=== PATIENT | male | born 1995 | race Caucasian/White ===

== ENCOUNTER 2019-02-26 14:11 | Emergency (ER) | payer MEDICAID, SELFPAY ==
[2019-02-26 14:30] VITALS: BP 134/84; PULSE 113; RESP 20; TEMP 36.4; O2SAT 97
--- NOTE | 2019-02-26 14:48 | W.ED.GENAD ---
Discharge Plan Disposition Patient Disposition: HOME Condition: Good Discharge Details Chief Complaint: EarProblem Clinical Impression: Acute foreign body of left ear Primary Care Provider: Gaetano Hdz ED Provider: Jus Goncalves Home Meds and New Rx's Prescriptions: No Action clonidine HCl 0.1 mg Tablet 0.1 mg PO QHS PRNRF: 0 Discharge Instructions Additional Instructions: The ear plug is been removed. I would recommend switching to Teddy's small/child earplugs. They are purple in color. If you notice any worsening pain fever or discharge please return immediately. If you notice any worsening of your symptoms, or any new symptoms such as vomiting, diarrhea, fever, chills, shortness of breath, chest pain, numbness, weakness, or fainting , please return immediately to the emergency department for reevaluation. Please follow up with your primary care provider as soon as possible for reassessment and reevaluation. As always, it was a pleasure participating in your medical care today. Referrals: Gaetano Hdz [Primary Care Provider] - Discharge Data Discharge Date/Time-TO BE ENTERED AT DEPARTURE: 02/26/19 14:52 Medical Decision Making This is a pleasant 23-year-old male who presents today for evaluation of left ear pain. Patient put a ear plug in today, and was unable to remove it. Hemostats were used and extracted it without incident. No pathology or abnormality noted on ear exam after removal. Patient tolerated procedure well will be discharged home. I have extensively reviewed the treatment plan and discharge instructions with the patient and their family. I have addressed all patient concerns at this time. The patient and family was made aware of what symptoms to monitor for that would warrant a return to the emergency department. Discussed the plan with the patient and family, they demonstrate verbal understanding and agreement with our assessment and plan at this time. HPI General Date/Time Provider Initiated Documentation: 02/26/19 14:35. HPI Narrative: This is a pleasant 23-year-old male who presents with a foreign body in his left ear. States that he uses earplugs every night, but unfortunately he was not able to get them out of his left ear today. He tried at home but was unsuccessful. He has no pain. He denies any other complaints of fever chills or headache. No other modifying factors. Related Data Home Medications Medication Instructions Recorded Confirmed clonidine HCl 0.1 mg PO QHS PRN 12/22/19 12/22/19 Allergies Allergy/AdvReac Type Severity Reaction Status Date / Time green pepper Allergy Swelling/Ed Unverified 02/26/19 14:32 feroz General Stated Complaint: EarProblem MARQUISE: 5 Review of Systems All systems reviewed & are unremarkable except as noted in HPI and below [facility] Medical History (Updated 02/26/19 @ 14:34 by Claribel Pelayo) Aorta coarctation (Acute) Abhishek syndrome (Acute) Social History Smoking/Tobacco Use Status: Never Alcohol Intake: never Drug use: Never Substance use type: does not use Exam Narrative Exam Narrative: 1.Const: Well-nourished, Well-developed, appearing stated age 2.Eyes: PERRL, no conjunctival injection, and symmetrical lids. 3.ENT: Atraumatic external nose and ears. Moist MM. Neck: Symmetric, trachea midline, No thyromegaly. Left ear demonstrates an impacted earplug. Ear plug was removed with hemostats, no evidence of infection perforation or abnormality posterior to the. Tympanic membrane intact. 4.CVS: +S1/S2, No murmurs or gallops. Peripheral pulses 2+ and equal in all extremities. Brisk capillary refill in all extremities. 5.RESP: Unlabored respiratory effort. Clear to auscultation bilaterally. No wheezes rales or rhonchi 6.GI: Soft, Nontender/Nondistended, No hepatosplenomegaly. No guarding or rebound. 7.MSK: Normocephalic/Atraumatic, Extremities w/o deformity or ttp No cyanosis or clubbing, Normal movement of all extremities 8.Skin: Warm, Dry. No rashes or lesions. 9.Neuro: line service supervisor II-XII grossly intact. Sensation grossly intact, no focal neurologic deficits. 10.Psych: (AAO) x3. Appropriate mood and affect Course Vital Signs Vital signs: Vital Signs Temperature 36.4 C L 02/26/19 14:30 Pulse 113 H 02/26/19 14:30 Respiratory Rate 20 02/26/19 14:30 Blood Pressure 134/84 02/26/19 14:30 Pulse Oximetry 97 02/26/19 14:30 Temperature 36.4 C L 02/26/19 14:30 Temperature Source Skin 02/26/19 14:30 Pulse 113 H 02/26/19 14:30 Respiratory Rate 20 02/26/19 14:30 Respiratory Effort Non-Labored 02/26/19 14:34 Blood Pressure 134/84 02/26/19 14:30 Blood Pressure Position Sitting 02/26/19 14:30 Pulse Oximetry 97 02/26/19 14:30 Oxygen Delivery Method Room Air 02/26/19 14:30 Oxygen Flow Rate 0 02/26/19 14:30 Pain Level 7 02/26/19 14:30
== END 2019-02-26 14:52 | disposition home or self-care (01) ==
PROVIDERS: Emergency Provider Student in an Organized Health Care Education/Training Program; PCP Neuromusculoskeletal Medicine & OMM
DX: T16.2XXA Foreign body in left ear, initial encounter (principal)
CPT/HCPCS: 69200

== ENCOUNTER 2019-07-04 07:51 | Emergency (ER) | payer MEDICAID, SELFPAY ==
[2019-07-04 08:04] VITALS: BP 141/81; PULSE 100; RESP 16; TEMP 37; O2SAT 100
--- NOTE | 2019-07-04 08:08 | ED.GENADUL_ITS ---
Discharge Plan Disposition Patient Disposition: HOME Condition: Stable Discharge Details Chief Complaint: PsychEval Clinical Impression: Adjustment disorder Primary Care Provider: Gaetano Hdz ED Provider: Naman Coronel Home Meds and New Rx's Prescriptions: No Action clonazepam 1 mg tablet 1 mg PO HS PRN PRNRF: 0 Discharge Instructions Instructions: Stress (ED), Suicide Prevention (ED) Additional Instructions: At this time it appears as though you can be safely discharged home following the plan set forth by the [facility]. Please follow their instructions. I do recommend reaching out to your primary care provider later today for prompt outpatient reevaluation. I also recommend watching for new or worsening symptoms and return to the ER for any concerns. Medical Decision Making 23-year-old gentleman with history of Abhishek syndrome presents to the ER for increased meltdowns and is now having suicidal ideation with plan. Currently he is pleasant and asymptomatic. A CPSO order was placed, routine laboratory values were obtained for medical screening examination, will reach out to [facility] for evaluation and our care management team. Patient remains calm and cooperative during his observation here in the ER. He ate breakfast without difficulty and then had his [facility] evaluation. Patient was evaluated by [facility], please see their note. The plan is to set the patient up with outpatient services, follow-up with outpatient psychiatry and their primary care provider, and encouraged to return to the ER for new or evolving symptoms. Patient feels safe and stable to consent to a safety plan. Mother and patient are both comfortable with this and feels as though hospitalization is not indicated. Patient is currently not suicidal. He is acting appropriate, smiling, absolutely no evidence of active depression, anxiety, suicidal ideation. Laboratory values were unremarkable, no obvious emergent medical condition. Medical Records Medical records reviewed: Yes I reviewed the patient's medical records. Lab Data Lab results reviewed: Yes I reviewed the patient's lab results. Lab results narrative: Laboratory Tests Range/Units 07/04/19 07/04/19 07/04/19 08:30 08:30 09:40 WBC (4.4-10.8) k/cumm 7.01 RBC (4.50-6.00) m/cumm 5.06 Hgb (13.5-17.5) g/dL 14.6 Hct (40.0-50.0) % 42.8 MCV (80-95) fL 84.6 MCH (27.0-33.0) pg 28.9 MCHC (32.0-36.0) g/dL 34.1 RDW (11.8-14.1) % 13.0 Plt Count (130-400) x1000/uL 208 MPV (8.0-11.0) fL 10.5 Immature Gran % % 0.0 Neutrophils % 76.3 Lymphocytes % 16.0 Monocytes % 6.1 Eosinophils % 1.3 Basophils % 0.3 Absolute Neutrophils (1.2-6.7) k/cumm 5.35 Absolute Lymphocytes (1.2-3.4) k/cumm 1.12 L Absolute Monocytes (0.11-0.7) k/cumm 0.43 Absolute Eosinophils (0.0-0.7) k/cumm 0.09 Absolute Basophils (0.0-0.2) k/cumm 0.02 Sodium (136-145) mmol/L 139 Potassium (3.5-5.1) mmol/L 4.0 Chloride (98-107) mmol/L 102 Carbon Dioxide (21.0-32.0) mmol/L 31.0 Anion Gap (3-11) mmol/L 6.0 BUN (7-18) mg/dL 8 Creatinine (0.70-1.30) mg/dL 0.94 Estimated GFR/1.73 m2 (mL/min/1.73m2) >= 60.00 Glucose (74-106) mg/dL 103 Calcium (8.5-10.1) mg/dL 9.1 Total Bilirubin (0.2-1.0) mg/dL 0.3 AST (15-37) U/L 33 ALT (16-63) U/L 45 Alkaline Phosphatase (46-116) U/L 58 Total Protein (6.4-8.2) g/dL 7.9 Albumin (3.4-5.0) g/dL 4.4 TSH (0.36-3.74) uIU/mL 2.38 Urine Color (Yellow) Yellow Urine Clarity (Clear) Clear Urine pH (5-8) 7.5 Ur Specific [place] (1.005-1.025) 1.020 Urine Protein (Negative) mg/dL Negative Urine Ketones (Negative) mg/dL Negative Urine Blood (Negative) Negative Urine Nitrite (Negative) Negative Urine Bilirubin (Negative) Negative Urine Urobilinogen (Up TO 0.2) EU/dL 0.2 Ur Leukocyte Esterase (Negative) Negative Urine Glucose (Negative) mg/dL Negative Ethyl Alcohol (<3) mg/dL < 3.0 HPI General Mode of arrival: ambulatory . Date/Time Provider Initiated Documentation: 07/04/19 08:03 . Limitations to Documentation: other (Abhishek syndrome) . Information obtained by: patient and family . HPI Narrative: This is a 23-year-old gentleman with a history of Abhishek syndrome and aortic coarctation presenting with his mother as he is having frequent meltdowns at night however over the past couple of nights they have resulted in him expressing suicidal ideation, killing himself with a knife. They moved from [place] back in October, he does not deal well with isolation at baseline, so this quarantining secondary to the pandemic is extremely difficult. There is no one trigger that either patient or mother can identify. He reports a stomach bug 2 weeks ago but absolutely no symptoms today. No other illness or trauma. Patient has not ever tried to harm himself. He reports during the day he feels much better and more safe but at night things get much worse. He has been needing a half a milligram of clonazepam, however over the past week or so they have increased to a full milligram each night. Related Data Home Medications Medication Instructions Recorded Confirmed clonazepam 1 mg PO HS PRN PRN 07/04/19 07/04/19 Allergies Allergy/AdvReac Type Severity Reaction Status Date / Time green pepper Allergy Swelling/Ed Unverified 07/04/19 08:00 feroz General MARQUISE: 5 Review of Systems Constitutional Constitutional: Denies fatigue, Denies fever(s) and Denies headache(s) Eyes Eyes: Denies eye discharge ENT Ears, Nose, Mouth, and Throat: Denies headache(s) and Denies sore throat Cardiovascular Cardiovascular: Denies chest pain and Denies dyspnea Respiratory Respiratory: Denies cough and Denies dyspnea Gastrointestinal Gastrointestinal: Denies abdominal pain, Denies diarrhea, Denies nausea and Denies vomiting Musculoskeletal Musculoskeletal: Denies myalgias Integumentary/Breasts Skin/Breast: Denies rash Neurologic Neurologic: Denies headache(s) Psychiatric Psychiatric: Denies paranoia, Denies homicidal ideation and Reports suicidal ideation Endocrine Endocrine: Denies fatigue [facility] Medical History Aorta coarctation (Acute) Abhishek syndrome (Acute) Social History Smoking/Tobacco Use Status: Never Alcohol Intake: never Drug use: Never Substance use type: does not use Do you feel safe at home: Yes Do you feel safe in your relationship?: Yes Exam Const General: cooperative, healthy appearing, comfortable and no acute distress Orientation: alert, awake and oriented x3 HENMT Head: normal to inspection, normocephalic and atraumatic Mouth: moist mucous membranes Throat: posterior oropharynx normal Eyes Conjunctivae: conjunctivae normal Neck Neck: normal visual inspection, full ROM, trachea midline and supple Resp Effort & Inspection: normal respiratory effort and able to speak in complete sentences Auscultation: clear to auscultation bilaterally Cardio Rate: regular rate Rhythm: regular rhythm GI Palpation: soft and nontender Back/Spine/Pelvis Back: No back tenderness Skin General skin exam: no rashes or lesions noted Neuro General: patient alert, patient awake, patient oriented x3, moves all extremities and no focal motor deficits Cranial Nerves: CN's II-XI intact bilaterally Cognition: normal cognition Speech: speech normal Gait: normal gait Motor: muscle tone normal throughout Sensory Exam: no sensory deficits noted Extrem General: normal to inspection and full ROM Psych Appearance: grossly normal Mental Status: mental status grossly normal Affect: normal affect Attitude: cooperative Thought Process: normal Thought Content: normal Insight: insight good Judgment: judgment good
[2019-07-04 08:45] LABS: Absolute Basophil Count 0.02 k/cumm (0.0-0.2); Absolute Eosinophil Count 0.09 k/cumm (0.0-0.7); Absolute Lymphocyte Count 1.12 k/cumm (1.2-3.4); Absolute Monocyte Count 0.43 k/cumm (0.11-0.7); Absolute Neutrophil Count 5.35 k/cumm (1.2-6.7); Basophils % 0.3; Eosinophils % 1.3; HCT 42.8 % (40.0-50.0); HGB 14.6 g/dL (13.5-17.5); Mean Corp. HGB Concentration 34.1 g/dL (32.0-36.0); Mean Corpuscular Hemoglobin 28.9 pg (27.0-33.0); Mean Corpuscular Volume 84.6 fL (80-95); Mean Platelet Volume 10.5 fL (8.0-11.0); Monocytes % 6.1; Neutrophils % 76.3; Platelet Count 208 x1000/uL (130-400); RBC 5.06 m/cumm (4.50-6.00); White Blood Cell Count 7.01 k/cumm (4.4-10.8)
--- NOTE | 2019-07-04 08:45 | NUR.NOTE ---
patient examined by Naman Martinez, labs drawn. Nursing Note:
--- NOTE | 2019-07-04 08:58 | NUR.NOTE ---
food tray ordered for patient. Nursing Note:
--- NOTE | 2019-07-04 09:09 | NUR.NOTE ---
DOMINIQUE IPAD consult being conducted by Pebbles. patient report given to Nba RN Nursing Note:
--- NOTE | 2019-07-04 09:11 | PDOC.CMSAFED ---
- If Service Date Differs Date of service: 07/04/19 Time of Service: 09:11 Care Management Safety Plan Emil is a 23 year old male who presents in the ED with his mother due to suicidal ideation. Emil lives with his parents and has a diagnosis of Abhishek Syndrome, which is a rare genetic disorder that causes developmental and learning disabilities. VOLUNTARY FOR INPATIENT PSYCHIATRIC STABILIZATION. Patient is appropriate in all interactions since arriving at [facility]; Patient has demonstrated appropriate coping and communication skills, has articulated his needs and concerns and is fully engaged during staff interactions. Safety plan has been established with patient, and care team, to adhere to patient goals, identify restrictions based on behavioral status, address nutrition, and determine allowed personal belongings, tools for hygiene and personal care. Determine level of activity including ambulation, level of supervision, visitors, and determine privileges based on behaviors and level of engagement by pt. SAFETY PLAN: 1. Will remain on suicide precautions. In Paper Clothes 2. Will remain in room under direct supervision of one-on-one staff at all times provided by [employer]; CHYNA, [employer] procurement inspector. 3. May have paper cups, plates, finger foods as well as a metal spoon with which to eat meals. [facility] staff will be responsible for removing spoon once patient is done eating. 4. Follow [facility] Management of the Admitted Behavioral Health Patient policy. 5. Comfort bath system only. 6. No personal belongings 7. Visitors-No visitors at this time 8. Activities: Soft tip markers, paper, books, and other activities at nursing discretion. 9. Bathroom privileges: While in the ED, must be accompanied by staff. If patient is moved to [facility], he will be allowed to use the bathroom in his room without supervision. 10. Phone: No phone privileges at this time. 11. Due to VOLUNTARY status, if patient wishes to leave [facility], the [facility] making line worker must be contacted to re-evaluate patient prior to patient exiting the building. Patient is currently voluntarily at [facility] and seeking inpatient admission when a bed becomes available. [facility] Frontline Supervisor [place] will continue seeking placement. Please contact the [employer] [facility] Email Specialist ([phone]) and [facility] Supervisor [place] ([phone]) for any needed changes in the Safety Plan. Safety plan has been provided to interdepartmental care team.
[2019-07-04 09:16] LABS: ALT 45 U/L (16-63); AST 33 U/L (15-37); Albumin 4.4 g/dL (3.4-5.0); Alkaline Phosphatase 58 U/L (46-116); BUN 8 mg/dL (7-18); Bilirubin, Total 0.3 mg/dL (0.2-1.0); CREATININE 0.94 mg/dL (0.70-1.30); Calcium 9.1 mg/dL (8.5-10.1); Chloride 102 mmol/L (98-107); Glucose 103 mg/dL (74-106); Sodium 139 mmol/L (136-145); TSH 2.38 uIU/mL (0.36-3.74); Total Protein 7.9 g/dL (6.4-8.2)
[2019-07-04 09:25] LABS: ETHANOL BLOOD < 3.0 mg/dL (<3)
--- NOTE | 2019-07-04 09:49 | NUR.NOTE ---
Nursing Note: At 0900 PT care report recieved from Emmett (JULISSA). PT alert and oriented, vitals stable.
[2019-07-04 09:52] LABS: Bilirubin Negative (Negative); Blood Negative (Negative); Clarity Clear (Clear); Glucose Negative (Negative); Ketones Negative (Negative); Leukocyte Esterase Negative (Negative); Nitrite Negative (Negative); Urobilinogen 0.2 EU/dL (Up TO 0.2); pH 7.5 (5-8)
[2019-07-04 09:58] VITALS: BP 113/77; PULSE 99; RESP 16; TEMP 36.8; O2SAT 96
[2019-07-04 10:15] LABS: *AMPHETAMINES SCREEN URINE Negative (Negative); *BARBITURATES SCREEN URINE Negative (Negative); *BENZODIAZEPINES SCREEN URINE Negative (Negative); Cannabinoids THC Negative (Negative); Cocaine Screen,Urine Negative (Negative); METHADONE URINE SCREEN Negative (Negative); OPIATES URINE SCREEN Negative (Negative)
[2019-07-04 10:19] LABS: Tricyclic Antidepressants Negative (Negative)
--- NOTE | 2019-07-04 10:22 | PDOC.ERCMPRO ---
- If Service Date Differs Date of service: 07/04/19 Time of Service: 10:22 Care Management Progress Note Emil is a 23 year old male who presents in the ED with his mother due to suicidal ideation. Emil lives with his parents in [facility]. He has a diagnosis of Abhishek Syndrome, which is a rare genetic disorder that causes developmental and learning disabilities. Emil reports feeling better during the daytime hours, but struggling at nighttime when everyone in the household is asleep. He admits to struggling with having to isolate, due to the Matias virus, and shares he misses going on vacation with his family. Emil's parents are very supportive of him. Emil and his mom meet with Pebbles Gorman, [facility] crisis screener, for a telehealth assessment. Both Emil and his mom agree the best option for Emil would be to wrap him with services and to avoid a psychiatric hospitalization. Emil is being discharged home. A plan is made for mom to contact Emil's primary care physician to discuss a medication adjustment. Pebbles ([facility]) is referring Emil to a nurse practitioner at [facility], in addition to the IDDS program. If found eligible for IDDS, the program would provide him with case management and respite services. NITA provides Emil and his mom with contact information for [facility], and Emil agrees to calling the crisis line at night when he is feeling scared.
--- NOTE | 2019-07-05 13:08 | PDOC.MHCN_ITS ---
Date of service: 07/04/19 Time of Service: 13:08 Mental Health Crisis Note Presenting Issue How did you arrive at the ED and why did you come: Maxwell came to the ER via his mother after he stated he was having SI. Precipitating Factors Maxwell reports that he is feeling better and that he has these thoughts of SI at night only. He did rate his SI on a scale of 0-10 at a 7 but I am not sure that he truly understood the scaling of this. He is not showing any signs of delusions or hallucinations. He does have a limited ability to understand some things due to his Abhishek Syndrome but otherwise we just need to ask questions a little differently. Disposition BEHAVIOR: Maxwell is engaged, interactive and attentive. If he is not sure of an answer he often looked to his mother and said what do you think? He has a good sense of humor as well when this clinician commented on how cute he was he responded I know! Everybody tells me that. EYE CONTACT: Good most of the time but distracted at times as his room is in the best of the ER. MOOD: His mood is happy and animated. AFFECT: Maxwell's affect is normal. APPETITE: Maxwell states that he eats really well at night when he is up. SLEEP(trouble falling/staying asleep: Maxwell states that he does not go to sleep until 2 in the morning and sleeps until 2 in the afternoon. Plan Mother will call Maxwell's PCP to see if an adjustment in his meds could be helpful. This clinician will do an in house referral for psychiatry and possible IDDS. This clinician gave Maxwell [facility]' phone number and informed him that we have somoene digital content marketing manager 28/09 and if he is feeling sad or upset or SI he can call us for support. Signature Clinician's Name/Title: Pebbles Gorman MS, [facility] Emergency Services Clinician
== END 2019-07-04 10:08 | disposition home or self-care (01) ==
PROVIDERS: Emergency Provider Physician Assistant; PCP Neuromusculoskeletal Medicine & OMM
DX: F43.20 Adjustment disorder, unspecified (principal); Q93.82 Williams syndrome
CPT/HCPCS: 80053; 80307; 99282; 80320; 81003; 84443; 85025

== ENCOUNTER 2019-07-06 06:32 | Emergency (ER) | payer MEDICAID, SELFPAY ==
[2019-07-06 06:34] VITALS: BP 146/89; PULSE 99; RESP 16; TEMP 36.8; O2SAT 99
--- NOTE | 2019-07-06 06:42 | W.ED.GENAD ---
Discharge Plan Disposition Patient Disposition: HOME Condition: Stable Discharge Details Chief Complaint: PsychEval Clinical Impression: Adjustment disorder Primary Care Provider: Gaetano Hdz ED Provider: Jeanna Boyd Home Meds and New Rx's Prescriptions: Continued clonazepam 1 mg tablet 1 mg PO HS PRN PRNRF: 0 Discharge Instructions Instructions: Mood Disorders (ED), Insomnia (ED), Suicide Prevention (ED) Additional Instructions: Call your primary doctor Dr. Hdz today to schedule a follow-up appointment for reevaluation and to discuss your medication management and what may work best for your anxiety or sleep. Be sure to maintain a regular sleep schedule including avoiding screen time before bed. Take your clonazepam at night as this may help you with sleep. Call [facility] emergency line if needed. Return to the emergency department at anytime with any worsening or concerning symptoms. 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 He has had increased thoughts of harming himself primarily at nighttime for which she was seen initially on July 03 and then and followed by his therapist yesterday. Recurrent thoughts of harming himself with a knife last night, they do seem to be improving in the morning hours, but he presents with his mother for evaluation. Medical screening examination performed, laboratories from the reviewed, patient medically stable for further evaluation by mental health. Patient underwent screening with on-call mental health community mental health worker and case will be signed out to Dr. Boyd pending final mental health consultation. Please see her note regarding final disposition. <Jeanan Boyd DO - Last Filed: 07/06/19 14:49> 0800 --please see Dr. Singh's note for initial presentation, exam and plan. Case endorsed to follow-up with mental health regarding plan. Patient and mother spoke with Kita over zoom. Kita feels that pt is appropriate for discharge home with plan for follow up with [facility] as needed. She stated that pt had thought of stabbing hmself in the leg before. He currently denies suicidal ideation. Mom is going to hide all knives at home. It was also discussed that pt does not have a regular sleep schedule and that he has been speaking with his friends late at night which either keeps him awake or makes him upset. It was advised that he maintain a regular sleep schedule and avoid screen time at night if possible. He has clonazepam at home to take as needed for anxiety or sleep. Patient and mom feel good with plan for home. Mom states she plans on calling his PCP Dr. Hdz today for follow-up. He is advised to call [facility] or return to the emergency department with any worsening symptoms or new concerns. Medical Records Medical records reviewed: Yes I reviewed the patient's medical records. HPI <Ross Singh MD - Last Filed: 07/06/19 07:49> General Mode of arrival: ambulatory. Date/Time Provider Initiated Documentation: 07/06/19 06:34. Limitations to Documentation: no limitations. Information obtained by: patient and family. History of Present Illness 23 year old M presents to the emergency department with the chief complaint of Recurrent thoughts of self-harm, seen on July 03, therapist appointment 29, described as mild, and is localized to the head. Patient reports no radiation. Patient started experiencing this hour(s) and it has been intermittent. No relieving factors improve symptom(s), No exacerbating factors reported . Patient notes no other symptoms.. Patient did receive the following treatments prior to arrival, none Related Data Home Medications Medication Instructions Recorded Confirmed clonazepam 1 mg PO HS PRN PRN 07/04/19 07/06/19 Allergies Allergy/AdvReac Type Severity Reaction Status Date / Time green pepper Allergy Swelling/Ed Unverified 07/04/19 08:00 feroz General Stated Complaint: PsychEval MARQUISE: 2 Review of Systems <Ross Singh MD - Last Filed: 07/06/19 07:49> Narrative: Feels cooped up due to quarantine requirements, has spoken to his therapist Ms. Rodas. Thoughts of harming himself with a knife. No physical complaints although some poor sleep. 4 systems reviewed and otherwise negative PFSH <Ross Singh MD - Last Filed: 07/06/19 07:49> Medical History (Updated 07/06/19 @ 07:49 by Ross Singh MD) Aorta coarctation (Acute) H/O aortic coarctation repair (Acute) Abhishek syndrome (Acute) Social History Smoking/Tobacco Use Status: Never Alcohol Intake: never Drug use: Never Substance use type: does not use Do you feel safe at home: Yes Do you feel safe in your relationship?: Yes Exam <Ross Singh MD - Last Filed: 07/06/19 07:49> Narrative Exam Narrative: GEN: awake, alert, oriented 3. Pleasant, well groomed, interactive. HEAD: Normocephalic, atraumatic ENT: Mucous membranes moist, oropharynx unremarkable, External ear exam unremarkable EYES: PERRL, EOMI NECK: Full ROM, no KP, no menigismus CHEST/RESP: Healed sternotomy incision. Nontender, clear to auscultation bilateral, no wheeze/rhonchi/rales CARDIOVASCULAR: RRR, no murmur, rub darren. 2+ Rad pulse bilateral ABDOMEN: Soft, nontender, no mass. +Bowel sounds EXT: Full ROM, no edema, no rash Neuro: Grossly normal neurologic exam, conversant, interactive. Psych: Speech fluent, thoughts congruent, affect slightly flat Course <Ross Singh MD - Last Filed: 07/06/19 07:49> Vital Signs Vital signs: Vital Signs Temperature 36.8 C 07/06/19 06:34 Pulse 99 H 07/06/19 06:34 Respiratory Rate 16 07/06/19 06:34 Blood Pressure 146/89 H 07/06/19 06:34 Pulse Oximetry 99 07/06/19 06:34 Temperature 36.8 C 07/06/19 06:34 Temperature Source Skin 07/06/19 06:34 Pulse 99 H 07/06/19 06:34 Respiratory Rate 16 07/06/19 06:34 Respiratory Effort 07/06/19 06:37 Blood Pressure 146/89 H 07/06/19 06:34 Blood Pressure Position Sitting 07/06/19 06:34 Pulse Oximetry 99 07/06/19 06:34 Oxygen Delivery Method Room Air 07/06/19 06:34 Oxygen Flow Rate 0 07/06/19 06:34 Pain Level 0 07/06/19 06:34 Sign Out <Ross Singh MD - Last Filed: 07/06/19 07:49> Sign Out Data: Sign Out Comment: Followup DOMINIQUE bauer Last updated by Ross Singh MD at 07/06/19 07:50
--- NOTE | 2019-07-06 06:53 | NUR.NOTE ---
Pt changed into paper clothing. Cell phone with pt. Bag of clothing moved to utility room . Pt aware of need for urine sample.
--- NOTE | 2019-07-06 11:48 | PDOC.MHCN ---
Date of service: 07/06/19 Time of Service: 11:49 Mental Health Crisis Note Presenting Issue How did you arrive at the ED and why did you come: Client arrived at the ER with his mother reporting SI. Precipitating Factors Client reported having thoughts of SI during the night time hours. Client reported that he would put a knife in his leg if he had one. 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 Client reports that he thinks he may be having these thoughts due to him watching violent television shows (Arslan Jimenez). Client appeared int he ER a few days ago with same thoughts. Mother reports that she thinks client enjoys coming to the hospital because he can see people and there is lots going on for him to watch. Client reports this statement is true. Disposition BEHAVIOR: Client was friendly and receptive when speaking to this field underwriter. EYE CONTACT: Clients eye contact was limited, possibly due to things going on around him, and he was looking to his mother for reassurance after answering this writers questions. MOOD: Client appeared happy. AFFECT: Clients affect appeared normal. APPETITE: Client reported having a good appetite. 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 Plan This field underwriter and client came up with a safety plan. Mother will remove kitchen knives. Client is going to work on changing his schedule so that he wakes up earlier and goes to bed earlier, so his time awake is when his supports (family, friends) are awake also. Client will let mother or father know if he starts to have SI, and they will find some activity to help client..watch a non violent show, play a game, listen to music, text with friends, call the [facility] emergency number if more support is needed. Signature Clinician's Name/Title: Jelly Mcfarlane Emergency Clinician
== END 2019-07-06 08:40 | disposition home or self-care (01) ==
PROVIDERS: Emergency Provider Physician Assistant; PCP Neuromusculoskeletal Medicine & OMM
DX: F43.20 Adjustment disorder, unspecified (principal); Z60.8 Other problems related to social environment
CPT/HCPCS: 80307; 99282

== ENCOUNTER 2019-12-07 11:53 | Emergency (ER) | payer MEDICAID, SELFPAY ==
[2019-12-07 11:59] VITALS: BP 142/74; PULSE 111; RESP 14; TEMP 36.7; O2SAT 96
--- NOTE | 2019-12-07 12:07 | ED.GENADUL_ITS ---
Discharge Plan Disposition Patient Disposition: [facility] Condition: Serious Discharge Details Clinical Impression: Acute appendicitis Primary Care Provider: Gaetano Hdz ED Provider: Naman Coronel Home Meds and New Rx's Prescriptions: No Action clonazepam 1 mg tablet 1 mg PO HS PRN PRNRF: 0 Discharge Data Discharge Date/Time-TO BE ENTERED AT DEPARTURE: 12/07/19 18:17 Medical Decision Making <Yaz Yusuf - Last Filed: 12/08/19 08:13> 24-year-old male presents to the ER with chief complaint of nausea vomiting and diarrhea since Wednesday afternoon. He reports unable to keep anything down and has not urinated since yesterday. Does endorse mild abdominal tenderness which is not present on initial exam. He is mildly tachycardic rate of 111 on initial presentation. He denies any fever, dysuria, chills or any other complaints. No sick contacts. Patient has a past medical history of aortic coarctation repair, Abhishek syndrome, and developmental delay. He is alert and oriented x3 and responds to questions appropriately upon arrival. 1440: Patient has received 2 L of normal saline still has not given us a urine sample. Will do a bladder scan at this time. No further vomiting noted. 1502: P.o. challenge attempted given patient hailey mary, he did vomit after attempting to drink soda. CT abdomen pelvis with contrast ordered, additional liter of normal saline and 4 more milligrams of Zofran ordered. Patient has received 2 L normal saline thus far. 1533: Discussed plan of care with mom and patient who verbalized understanding. If CT is negative for obstruction or other pathology most likely disposition is episode of cyclic vomiting syndrome which patient has had in the past. Will plan to discharge patient home pending CT results with anti-emetic medication. 1556: Spoke with radiologist regarding CT result she states that appendix is appearing to be thickened up to 10 mm. No significant surrounding inflammation or evidence of abscess. Upon reexamination patient is tender in the right lower quadrant. Discussed findings with mom who verbalizes understanding. Page out to Dr. Brown with general surgery discussed case with her she will contact the OR and reviewed the CT and call back. Pending disposition at this time is admission to the OR. Patient also did notify me that he was able to give a urine sample at this time but did have 1 more episode of emesis. 1608: Dr. Brown at for eval. 1618: Due to patients cardiac hstory and history of Abhishek syndrome, patient is not a candidate for surgery here. Will hand care off to oncoming provider Naman FOSTER pending transfer for acute appendicitis. <Singh Donahue MD - Last Filed: 12/30/19 23:38> Patient seen, examined, and discussed with MARIPOSA Yusuf and KRISTIN Coronel. I agree with treatment plan as discussed/documented. 16:15 --I called [facility] to request emergent transfer, awaiting callback from transfer media center director school. 16:45 --I spoke with Dr. Oseguear, medical laboratory technicians of transfer center, discussed ED presentation and course including my concerns for emergent medical condition that we cannot stabilize here at [facility], he will attempt to find bed availability. Call to [facility] to check avaliability by KRISTIN Coronel. 17:11 --I spoke with Dr. Dsouza, on-call surgeon at [facility], discussed ED presentation and course, she will accept the patient in transfer, awaiting bed availability. CT imaging to be sent for review. Screening ECG was reviewed and interpreted by me: Sinus tachycardia 109 bpm, right ventricular hypertrophy, right axis deviation <KRISTIN Rico - Last Filed: 12/07/19 17:42> I received signout at this patient with acute appendicitis, diagnosis made via CT, by MARIPOSA Yusuf. Patient has had nausea, vomiting, abdominal discomfort for the past 2 days. At time of signout our surgical team, Dr. Brown, was here to evaluate the patient in the ER. After speaking with our anesthesia team, decision made that a higher level of care was needed. At this time Dr. Brown recommends initiating Zosyn. I will initiate Zosyn therapy. Fingerstick glucose was 61, 1 amp of glucose given. Dr. Donahue contacted the transfer center at [facility] for possible transfer if it appears as though they are likely at capacity and will not be able to accept care of the patient. Therefore I at 1620 reached out to the transfer center at [facility] to initiate transfer. They requested a facesheet be faxed over and his images be pushed to their facility so that their surgical team could personally evaluate and once this occurred they would call me back. At approximately 1710 I received a secondary call from [facility] transfer center, Radha, who reports that she was told that the patient was being transferred to [facility]. No one here in the ER had received a phone call yet and this was not knowledge to our department. While I was on the phone with the transfer team from [facility], Dr. Donahue received a call from the transfer team at [facility] who did accept transfer. Please see his note. All appropriate paperwork completed. HPI <Yaz Yusuf - Last Filed: 12/08/19 08:13> General Mode of arrival: ambulatory . Date/Time Provider Initiated Documentation: 12/07/19 11:56 . Limitations to Documentation: no limitations . Information obtained by: patient and family . HPI Narrative: 24-year-old male presents to the ER with chief complaint of nausea vomiting and diarrhea since Wednesday afternoon. He reports unable to keep anything down and has not urinated since yesterday. Does endorse mild abdominal tenderness which is not present on initial exam. He is mildly tachycardic rate of 111 on initial presentation. He denies any fever, dysuria, chills or any other complaints. No sick contacts. Patient has a past medical history of aortic coarctation repair, Abhishek syndrome, and developmental delay. He is alert and oriented x3 and responds to questions appropriately upon arrival. Related Data Home Medications Medication Instructions Recorded Confirmed clonazepam 1 mg PO HS PRN PRN 07/04/19 12/07/19 Allergies Allergy/AdvReac Type Severity Reaction Status Date / Time green pepper Allergy Swelling/Ed Unverified 12/07/19 12:02 feroz General Stated Complaint: Abd Prob MARQUISE: 3 Review of Systems <Yaz Yusuf - Last Filed: 12/08/19 08:13> Narrative: Constitutional: Negative for weight loss, alert and oriented, well groomed, normal body habitus, appears comfortable. HEENT: Denies trauma, headaches, blurry vision, nasal discharge, sore throat, trouble swallowing. Chest: Denies chest pain, palpitations, irregular rhythm, hypertension. Respiratory: Denies Shortness of breath, cough, hemoptysis. GI: Denies constipation. Positive nausea vomiting diarrhea. : Denies dysuria, hematuria, flank pain, rectal bleeding. Neuro: Denies dizziness, blurry vision, weakness, syncope, headache or facial numbness. Hematologic: Denies easy bruising, intolerance to heat or cold, hair loss. PFSH <Yaz Yusuf - Last Filed: 12/08/19 08:13> Medical History Aorta coarctation H/O aortic coarctation repair Abhishek syndrome Social History Smoking/Tobacco Use Status: Never Alcohol Intake: never Drug use: Never Substance use type: does not use Do you feel safe at home: Yes Do you feel safe in your relationship?: Yes Exam <Yaz Yusuf - Last Filed: 12/08/19 08:13> Narrative Exam Narrative: Constitutional: Alert and oriented x3. Appears stated age. Normal body habitus. Head: Normocephalic, no trauma. Eyes: Pupils PERRLA, Red reflex noted, EOM's intact. Eyelids symmetrical without lesions, discharge, or swelling. ENT: Bilateral TM's WNL, External ear normal to inspection, no mastoid TTP, swelling, or erythema, Nasal turbinates WNL, no nasal discharge. Normal dentition, Posterior pharynx WNL, no exudate. Chest: Tachycardia, regular rate, Normal S1, S2, distal pulses intact. Resp: Lungs clear to auscultation bilaterally, no wheezes, rales, or rhonchi. Abdomen: Soft nondistended nontender to palpation to all 4 quadrants. Musculoskeletal: Normal gait, 5/5 strength to all four extremities. Skin: No suspicious rashes or lesions. Capillary refill less than 2 sec. Neurologic: Cranial nerves II-XII intact. Alert and oriented x 3. DTR's intact. Hematologic/Lymphatic: No ecchymosis, no lymphadenopathy. Course <Yaz Yusuf - Last Filed: 12/08/19 08:13> Vital Signs Vital signs: Vital Signs Temperature 36.7 C 12/07/19 11:59 Pulse 111 H 12/07/19 11:59 Respiratory Rate 14 12/07/19 11:59 Blood Pressure 142/74 H 12/07/19 11:59 Pulse Oximetry 96 12/07/19 11:59 Temperature 36.7 C 12/07/19 11:59 Temperature Source Skin 12/07/19 11:59 Pulse 111 H 10/01/20 11:59 Respiratory Rate 14 12/07/19 11:59 Blood Pressure 142/74 H 12/07/19 11:59 Blood Pressure Position Sitting 12/07/19 11:59 Pulse Oximetry 96 12/07/19 11:59 Oxygen Delivery Method Room Air 12/07/19 11:59 Oxygen Flow Rate 0 12/07/19 11:59 Pain Level 2 12/07/19 11:59 Sign Out <Yaz Yusuf - Last Filed: 12/08/19 08:13> Sign Out Data: Sign Out Comment: Pending transfer for acute appendicitis Last updated by Yaz Yusuf at 12/07/19 16:20
[2019-12-07] MEDS: Ondansetron 4 MG/2 ML VIAL IVP ×2 (12:13→16:08)
[2019-12-07] MEDS: Normal Saline 1,000 ML 1000 ML IV ×3 (12:13→16:08)
[2019-12-07 12:20] LABS: Abs Immature Grans 0.01 10^3/uL (0.0-0.06); Absolute Basophil Count 0.03 10^3/uL (0.0-0.2); Absolute Lymphocyte Count 0.71 10^3/uL (1.2-3.4); Absolute Monocyte Count 0.31 10^3/uL (0.1-0.8); Absolute Neutrophil Count 5.93 10^3/uL (1.2-6.7); Basophils % 0.4; HCT 46.8 % (40.0-50.0); HGB 15.4 g/dL (13.5-17.5); Immature Grans % 0.1; Lymphocytes % 10.2; MCH 28.3 pg (27.0-33.0); MCHC 32.9 % (32.0-36.0); MPV 10.7 fL (8.0-11.0); Monocytes % 4.4; Neutrophils % 84.9; Nucleated RBC 0 %; Platelet Count 223 10^3/uL (130-400); RBC 5.44 10^6/uL (4.36-5.78); RDW 12.8 % (11.8-14.1); RDW-SD 39.7 fL; WBC 6.99 10^3/uL (4.4-10.8)
[2019-12-07 12:38] LABS: ALT 13 U/L (16-63); AST 24 U/L (15-37); Albumin 5.1 g/dL (3.4-5.0); Alkaline Phosphatase 50 U/L (46-116); Anion Gap 19.7 mmol/L (3-11); BUN 24 mg/dL (7-18); Bilirubin, Total 1.5 mg/dL (0.2-1.0); CO2 18.3 mmol/L (21.0-32.0); CREATININE 1.29 mg/dL (0.70-1.30); Calcium 9.9 mg/dL (8.5-10.1); Chloride 101 mmol/L (98-107); Glucose 65 mg/dL (74-106); Potassium 4.4 mmol/L (3.5-5.1); Sodium 139 mmol/L (136-145); Total Protein 8.6 g/dL (6.4-8.2)
--- NOTE | 2019-12-07 12:57 | NUR.NOTE ---
pt reports he recalls voiding when he woke this am
[2019-12-07 13:16] VITALS: BP 101/61; PULSE 91; RESP 16; O2SAT 100
[2019-12-07 14:35] VITALS: BP 115/73; PULSE 104; RESP 20; TEMP 37; O2SAT 98
--- NOTE | 2019-12-07 15:00 | DI.CT_ITS ---
EXAM: CT ABDOMEN PELVIS W CLINICAL HISTORY: Vomiting,. TECHNIQUE: Imaging Protocol: Axial computed tomography images with coronal and sagittal reformatted images were created and reviewed CONTRAST MATERIAL: Intravenous: Omnipaque 350 Contrast volume:84 in ml Oral: no COMPARISON: No exams were available for comparison FINDINGS: ABDOMEN: Lung Bases: Normal where visualized. Liver: Normal density. No measurable mass. Gallbladder and biliary tract: No radiodense calculus or dilation. Pancreas: Normal density, no abnormal calcifications or inflammatory process. Spleen: Normal. Kidneys: Normal size, contour and axis. No radiodense stones or obstructive uropathy. No masses seen. Adrenal glands: No masses seen. Abdominal Aorta: Abdominal portion non-dilated. PELVIS: Bladder: Symmetric distention, no gross wall thickening. Bowel: Appendix is retrocecal and appears thickened to 10 millimeters. There is no significant surro unding inflammation or evidence of abscess. No appendicoliths are seen. No obstruction or bowel wal l thickening. Moderate quantity of stool, greatest in the rectosigmoid. Peritoneal cavity: No ascites, collection or mesenteric inflammatory response. Bones: Within normal limits. Reproductive organs: Within normal limits. Lymph nodes: Unremarkable. Impression: Thickened retro cecal appendix. Findings are suspicious for early appendicitis. RADIATION DOSE DELIVERED: 583.01mGy.cm Total DLP DATA REPOSITORY: All CT scans at this facility are submitted to the National Radiology Data Registry (NRDR) Dose Index Registry (DIR) with the [employer] (A[employer]). RADIATION OPTIMIZATION: All CT scans at this facility use at least one of these dose optimization te chniques: automated exposure control; mA and/or kV adjustment per patient size (includes targeted exa ms where dose is matched to clinical indication); or iterative reconstruction.
[2019-12-07 15:59] LABS: Bilirubin Small (Negative); Blood Negative (Negative); Clarity Clear (Clear); Glucose Negative (Negative); Ketones >=160 mg/dL (Negative); Leukocyte Esterase Negative (Negative); Nitrite Negative (Negative); Specific Gravity >= 1.030 (1.005-1.025); Urobilinogen 0.2 EU/dL (Up TO 0.2); pH 5.5 (5-8)
--- NOTE | 2019-12-07 16:00 | RT.EKG_ITS ---
APPROVED REPORT Exam: Resting ECG Patient Location: E HR:109 bpm ECG Measurements Heart Rate 109 AXIS DC 147 P 52 QRSd 105 QRS 220 QT 344 T 59 QTc 463 Conclusion Sinus tachycardia...rate> 99 Right ventricular hypertrophy...prominent R or R' w/ RAD or EFRAIN
[2019-12-07 16:01] VITALS: BP 117/75; PULSE 107; RESP 18; TEMP 37.2; O2SAT 97
--- NOTE | 2019-12-07 16:09 | NUR.NOTE ---
pt vomited x two prior to CT
[2019-12-07] MEDS: PIPERACILLIN/TAZO 3.375 GM in Normal Saline 50 ML IVPB (16:36)
[2019-12-07] MEDS: Dextrose 50%-Water 25 GM/50 ML SYR IVP (16:53)
[2019-12-07 18:18] VITALS: BP 144/86; PULSE 104; RESP 16; O2SAT 97
== END 2019-12-07 18:17 | disposition short-term general hospital (02) ==
PROVIDERS: Registered Nurse Emergency; Emergency Provider Physician Assistant; PCP Neuromusculoskeletal Medicine & OMM
DX: K35.890 Other acute appendicitis without perforation or gangrene (principal); Q25.1 Coarctation of aorta; Q93.82 Williams syndrome; R11.2 Nausea with vomiting, unspecified
CPT/HCPCS: 36415; 36416; 80053; 82962; 87880; 93005; 96361; 96365; 96366; 96375; 96376; 99285; 74177; 81003; 83735; 85025; 87081; 93010; J2405; J2543

== ENCOUNTER 2020-03-25 13:53 | Emergency (ER) | payer MEDICARE, MEDICAID, SELFPAY ==
--- NOTE | 2020-03-25 14:11 | W.ED.GENAD ---
Discharge Plan Disposition Patient Disposition: HOME Condition: Stable Discharge Details Clinical Impression: Suicidal thoughts Primary Care Provider: Gaetano Hdz ED Provider: Kat Sauceda Home Meds and New Rx's Prescriptions: Continued clonazepam 1 mg tablet 1 mg PO HS PRN PRNRF: 0 Discharge Instructions Instructions: Depression (ED), Help Prevent Suicide (ED) Additional Instructions: Please follow safety plan as discussed with mental health. Call them tonight as instructed. Please call psychiatry tomorrow to discuss your medications. Please also speak with you for management tomorrow. Please keep all sharps out of the house and stay with your parents. Try to stay as active as possible and consider new hobbies or pastimes. If you have recurrence of your symptoms or any worsening symptoms to care urgently once again. Referrals: Gaetano Hdz [Primary Care Provider] - Discharge Data Discharge Date/Time-TO BE ENTERED AT DEPARTURE: 03/25/20 19:25 Medical Decision Making <Yaz Yusuf - Last Filed: 03/26/20 08:03> 24-year-old male with a history of coarctation of the aorta and Abhishek syndrome with developmental delay presents to the ED with his mother with chief complaint of suicidal thoughts which began last night. Patient states he had a some suicidal thoughts with a plan to hurt himself with a knife. He also reports episode of emesis last night some mild mid periumbilical abdominal pain and questionable diarrhea. Denies any fever chills. He is also states he did have a headache last night. No complaints of headache upon arrival. He appears cooperative and pleasant at this time. He does see a therapist in [place] and has spoken with [facility] [employer] in the past. He does take Klonopin as needed. Work up ordered to medically clear patient, sitter at bedside, patient dressed out in paper scrubs. Care management made aware of patient presence in ED. 1548: Care to be handed off to oncoming provider Kat Sauceda. The time of signout patient was calm and cooperative with mother at bedside and sitter at bedside. <KRISTIN Barraza - Last Filed: 03/25/20 22:05> Care transitioned to myself from Yaz Yusuf NP with labs and psychiatric evaluation pending. Please see her initial note regarding history, presentation and exam. In brief, patient is a pleasant 24-year-old male presenting today with chief complaint of suicidal ideations. Patient had also been endorsing some nausea and vomiting which has resolved at the time I assume care. Patient had a large dinner while here and reports that his stomach feels quite good. Patient has had suicidal ideations historically. He is within about harming herself with a knife. When I discussed this further with the patient and his mother, it sounds as much of this is out of boredom. Patient has been fairly isolated associated with COVID-19. I believe that this is the driving source of shows thoughts of self-harm. Mom is very attentive and has ideas of groups which the patient can participate help alleviate some of his boredom. Patient is not actively suicidal but is concerned regarding the role of her at home, particularly at night. Labs reviewed. No significant abnormality noted. Patient was evaluated by mental health. They were closed with the patient before. Patient does have a care associate who is not available tonight but is planning to check the patient tomorrow. Mental health, the patient and his mother were able to make a safety plan with which the patient agrees. Patient has very attentive parents are able to stay with him. They will remove all sharps from the house. They will talk with him twice tonight and a third time if the patient would like to talk further. Mental health give him all of the contact information and advised that they may call at anytime with any questions or concerns. Mom will reach out to psychiatrist tomorrow as well as the patient's care management team. Return precautions were discussed at length. I did encourage that he try to become more involved and engage in more hobbies. All of their questions and concerns were addressed in agreement with plan. HPI <Yaz Yusuf - Last Filed: 03/26/20 08:03> General Mode of arrival: ambulatory. Date/Time Provider Initiated Documentation: 03/25/20 13:58. Limitations to Documentation: physical limitation. Information obtained by: patient and family (Mother). HPI Narrative: 24-year-old male with a history of coarctation of the aorta and Abhishek syndrome with developmental delay presents to the ED with his mother with chief complaint of suicidal thoughts which began last night. Patient states he had a some suicidal thoughts with a plan to hurt himself with a knife. He also reports episode of emesis last night some mild mid periumbilical abdominal pain and questionable diarrhea. Denies any fever chills. He is also states he did have a headache last night. No complaints of headache upon arrival. He appears cooperative and pleasant at this time. He does see a therapist in [place] and has spoken with [facility] [employer] in the past. He does take Klonopin as needed. Related Data Home Medications Medication Instructions Recorded Confirmed clonazepam 1 mg PO HS PRN PRN 07/04/19 12/07/19 Allergies Allergy/AdvReac Type Severity Reaction Status Date / Time green pepper Allergy Swelling/Ed Unverified 12/07/19 12:02 feroz General MARQUISE: 3 Review of Systems <Yaz Yusuf - Last Filed: 03/26/20 08:03> Narrative: Constitutional: Negative for weight loss, alert and oriented, well groomed, normal body habitus, appears comfortable. HEENT: Denies trauma, , blurry vision, nasal discharge, sore throat, trouble swallowing. Reports headache last night. Chest: Denies chest pain, palpitations, irregular rhythm, hypertension. Respiratory: Denies Shortness of breath, cough, hemoptysis. GI: Denies constipation. Reports mid periumbilical abdominal pain, nausea vomiting. : Denies dysuria, hematuria, flank pain, rectal bleeding. Neuro: Denies blurry vision, weakness, syncope, or facial numbness. Hematologic: Denies easy bruising, intolerance to heat or cold, hair loss. Psychiatric Psychiatric: Denies hallucinations and Reports suicidal ideation PFS <Yaz Yusuf - Last Filed: 03/26/20 08:03> Medical History Aorta coarctation H/O aortic coarctation repair Abhishek syndrome Social History Smoking/Tobacco Use Status: Never Smoking risk assessment performed?: Yes Alcohol Intake: never Drug use: Never Substance use type: does not use Do you feel safe at home: Yes Do you feel safe in your relationship?: Yes Exam <Yaz Yusuf - Last Filed: 03/26/20 08:03> Narrative Exam Narrative: Constitutional: Alert and oriented x2. Appears stated age. Normal body habitus. Head: Normocephalic, no trauma. Eyes: Pupils PERRLA, Red reflex noted, EOM's intact. Eyelids symmetrical without lesions, discharge, or swelling. ENT: Bilateral TM's WNL, External ear normal to inspection, no mastoid TTP, swelling, or erythema, Nasal turbinates WNL, no nasal discharge. Normal dentition, Posterior pharynx WNL, no exudate. Chest: RRR, Normal S1, S2, distal pulses intact. Resp: Lungs clear to auscultation bilaterally, no wheezes, rales, or rhonchi. Musculoskeletal: Normal gait, 5/5 strength to all four extremities. Abdomen: Soft, nontender to palpation all 4 quadrants. Normoactive bowel sounds all 4 quadrants. Skin: No suspicious rashes or lesions. Capillary refill less than 2 sec. Neurologic: Cranial nerves II-XII intact. Alert and oriented x 3. DTR's intact. Hematologic/Lymphatic: No ecchymosis, no lymphadenopathy. Psych Appearance: well kempt Speech and Movement: delayed speech Affect: normal affect Attitude: cooperative Thought Process: normal Thought Content: suicidality Judgment: poor Sign Out <Yaz Yusuf - Last Filed: 03/26/20 08:03> Sign Out Data: Sign Out Comment: Pending Psych eval Last updated by Yaz Yusuf at 03/25/20 15:48
[2020-03-25 14:14] VITALS: BP 130/91; PULSE 94; RESP 20; TEMP 36.7; O2SAT 100
[2020-03-25 14:43] LABS: Bilirubin Negative (Negative); Blood Negative (Negative); Clarity Clear (Clear); Glucose Negative (Negative); Ketones Negative (Negative); Leukocyte Esterase Negative (Negative); Nitrite Negative (Negative); Specific Gravity >= 1.030 (1.005-1.025); Urobilinogen 0.2 EU/dL (Up TO 0.2)
[2020-03-25 14:55] LABS: Absolute Basophil Count 0.03 10^3/uL (0.0-0.2); Absolute Eosinophil Count 0.23 10^3/uL (0.0-0.7); Absolute Lymphocyte Count 0.97 10^3/uL (1.2-3.4); Absolute Monocyte Count 0.33 10^3/uL (0.1-0.8); Absolute Neutrophil Count 3.59 10^3/uL (1.2-6.7); Basophils % 0.6; Eosinophils % 4.5; HCT 45.8 % (40.0-50.0); HGB 15.4 g/dL (13.5-17.5); Lymphocytes % 18.8; MCH 28.6 pg (27.0-33.0); MCHC 33.6 % (32.0-36.0); MPV 10.6 fL (8.0-11.0); Monocytes % 6.4; Neutrophils % 69.7; Nucleated RBC 0 %; Platelet Count 184 10^3/uL (130-400); RBC 5.39 10^6/uL (4.36-5.78); RDW 12.5 % (11.8-14.1); RDW-SD 38.3 fL; WBC 5.15 10^3/uL (4.4-10.8)
[2020-03-25 14:59] LABS: Epithelial Cells Negative HPF (Negative); Other Cells Few Spermatozoa (Negative); RBC 0-2 HPF (0-2); WBC Negative HPF (0-5)
[2020-03-25 15:00] LABS: Bacteria Few HPF (Negative); C & S Indicated? No; Casts Negative LPF (Negative); Crystals Negative HPF (Negative); Mucus Heavy (Negative)
[2020-03-25 15:18] LABS: ALT 22 U/L (16-63); AST 22 U/L (15-37); Albumin 4.7 g/dL (3.4-5.0); Alkaline Phosphatase 59 U/L (46-116); Anion Gap 7.8 mmol/L (3-11); BUN 12 mg/dL (7-18); Bilirubin, Total 0.6 mg/dL (0.2-1.0); CO2 29.2 mmol/L (21.0-32.0); CREATININE 0.94 mg/dL (0.70-1.30); Calcium 8.3 mg/dL (8.5-10.1); Chloride 103 mmol/L (98-107); Glucose 91 mg/dL (74-106); Potassium 4.1 mmol/L (3.5-5.1); Sodium 140 mmol/L (136-145); TSH 1.47 uIU/mL (0.36-3.74); Total Protein 8.3 g/dL (6.4-8.2)
--- NOTE | 2020-03-25 15:48 | CMSP_ITS ---
- If Service Date Differs Date of service: 03/25/20 Time of Service: 15:49 Care Management Safety Plan Chief Complaint: Eiml is a 24 year old male who presents to the ED with his mother due to suicidal ideation. He receives services through the IDDS Program at [facility]. He is prescribed Klonopin, sees a therapist in [place], and has an IDDS foster care case manager. CM will respond to ED to assess patient after patient has been medically cleared and assessed by screener. If screener deems patient meets criteria for psychiatric stabilization CM will facilitate interdepartmental huddle with [facility] screener for safety planning considerations and meet with patient to review [facility] policy and safety plan, establish individual wishes for treatment and maintain patient rights. In the interim; please note safety plan below to guide patient care while awaiting further assessment in the ED. SAFETY PLAN: 1. Will remain on suicide precautions and in paper clothes. 2. Will remain in room under direct supervision of one-on-one staff at all times provided by CPSO, CHYNA, ANTHROPOLOGY AND ARCHEOLOGY INSTRUCTOR director of plant operations. 3. May have paper cups, plates, finger foods as well as a cardboard spoon with which to eat meals. 4. Follow [facility] Management of the Admitted Behavioral Health Patient policy. 5. Comfort bath system only. 6. No personal belongings 7. Visitors: Limited to mother as a support person due to patient's developmental delays. 8. Phone contact limited to parents. 9. Due to VOLUNTARY status, if patient wishes to leave [facility], staff will contact [facility] Crisis Screener ([phone]) and On-Call House Carpenter Helper ([phone]) as soon as possible. In the event of elopement, notify [facility] Police ([phone]). If deemed appropriate for inpatient psychiatric care, safety plan will be established with patient, and care team, to adhere to patient goals, identify restrictions based on behavioral status, address nutrition, and determine allowed personal belongings, tools for hygiene and personal care. As well plan will determine level of activity including ambulation, level of supervision, visitors, and determine privileges based on level of acuity, behaviors and level of engagement by patient. Disposition: Emil is evaluated by Dipika, [facility] filter worker, and Yvonne IDDS foster care case manager. Emil is able to enter into a safety plan, so he is being discharged home with his mother.
[2020-03-25 15:57] LABS: ETHANOL BLOOD < 3.0 mg/dL (<3)
[2020-03-25 16:07] LABS: *AMPHETAMINES SCREEN URINE Negative (Negative); *BARBITURATES SCREEN URINE Negative (Negative); *BENZODIAZEPINES SCREEN URINE Negative (Negative); Cannabinoids THC Negative (Negative); Cocaine Screen,Urine Negative (Negative); METHADONE URINE SCREEN Negative (Negative); OPIATES URINE SCREEN Negative (Negative)
[2020-03-25 16:15] LABS: Tricyclic Antidepressants Negative (Negative)
[2020-03-25 16:20] LABS: Acetaminophen < 2 ug/mL (10-30); Salicylate < 2.8 mg/dL (2.8-20.0)
--- NOTE | 2020-03-25 18:48 | MHPN_ITS ---
Date of service: 03/25/20 Time of Service: 19:01 Mental Health Progress Note Progress Note Progress Note: Presenting Issue: Client presented to the ED via private transport, accompanied by his mother. Client states he has been experiencing SI lately, and doesn't feel safe at home. Client states he plans to end his life by stabbing himself in the abdomen with a knife. Precipitating Factors Client reports feeling frustrated and not myself lately, and feels like he wants to . Client states he first started feeling suicidal a couple of months ago, and that it's getting progressively worse. Client is active with [facility] IDDS department. Credentialer from this department, Yvonne Alarcon is present during this Zoom assessment. Client's mother is also present in the room with client. Disposition * Behavior: Client is calm, pleasant, and polite, and communicates well about his SI. *Eye Contact: Fair. Client looks at his mother before answering this science writer's questions, and asks her if it's ok if he answers. *Mood: Depressed *Affect: Depressed *Appetite: Client reports good appetite. *Sleep(troubel falling/staying asleep): Client states he sleeps at strange times, going to bed late and getting up late, but sleeps about ten hours per day. Plan(please elaborate and include that physician is consulted with plan and/or placement): Client will return home tonight. Client will check in with ES as needed, but planned check ins are scheduled for 2200 and 0100 tonight. Client's mother has agreed to remove sharps and medication, including OTC, from client's access. Client will check in with his counter caser in the morning for support. Client has been advised on his options for inpatient hospitalization if he does not improve. Clinician's Name , Title, and Signature Dipika Mckeon Emergency services clinician Make sure that you are photocopying and submitting this to [facility] records Dept. to be scanned into chart.
[2020-03-25 19:18] VITALS: BP 117/75; PULSE 100; RESP 16; TEMP 36.7; O2SAT 97
== END 2020-03-25 19:25 | disposition home or self-care (01) ==
PROVIDERS: Registered Nurse Emergency; Emergency Provider Physician Assistant; PCP Neuromusculoskeletal Medicine & OMM
DX: R10.33 Periumbilical pain (principal); R11.2 Nausea with vomiting, unspecified; F41.9 Anxiety disorder, unspecified; R45.851 Suicidal ideations
CPT/HCPCS: 80053; 80307; 99283; 80320; 80329; 81003; 81015; 84443; 85025

== ENCOUNTER 2020-05-05 11:06 | Emergency (ER) | payer MEDICARE, MEDICAID, SELFPAY ==
[2020-05-05 11:16] VITALS: BP 123/85; PULSE 98; TEMP 36.5; O2SAT 100
--- NOTE | 2020-05-05 13:32 | PDOC.MHCN ---
Date of service: 05/05/20 Time of Service: 13:32 Mental Health Crisis Note Presenting Issue How did you arrive at the ED and why did you come: Client arrived at the ED by his mother after reporting SI. Client recently had an increase in his medication. Precipitating Factors Client reports thoughts of SI with a plan, but no access to the means he would use to carry out the plan. No HI Disposition BEHAVIOR: Client is receptive and engaged when speaking to this scientific technical writer. EYE CONTACT: Client makes good eye contact when speaking with this scientific technical writer. MOOD: Clients appears anxious. AFFECT: Clients affect is normal APPETITE: Client reports a normal appetite. SLEEP(trouble falling/staying asleep: Client struggles with sleep, and often stays up very late and wakes late in the day. Plan Client would like to go home and await voluntary placement in an inpatient facility. Clients mother will lock up all sharps. Client will contact the [facility] Emergency worker 2x throughout the night to check in. Clients plate put in worker will contact him first thing in the morning to make a plan around inpatient treatment. Signature Clinician's Name/Title: Jelly Mcfarlane [facility] Emergency Clinician
--- NOTE | 2020-05-05 14:01 | ED.GENADUL_ITS ---
Discharge Plan Disposition Patient Disposition: HOME Condition: Stable Discharge Details Clinical Impression: Suicidal ideation Primary Care Provider: Gaetano Hdz ED Provider: Naman Coronel Home Meds and New Rx's Prescriptions: Continued clonazepam 1 mg tablet 1 mg PO HS PRN PRNRF: 0 bupropion HCl 150 mg tablet sustained-release 12 hr 150 mg PO BID RF: 0 Discharge Instructions Instructions: Help Prevent Suicide (ED), Suicide Prevention (ED) Additional Instructions: At this time you have been offered a medical screening evaluation in the ER and then subsequently evaluated by [facility] team. At this time after discussion of voluntary placement versus safety planning home, the plan was to be safety plan at home. Tomorrow Mauri from [facility] should be in contact with you, please follow the instructions from our mental health team. I do recommend speaking with them tomorrow regarding your thoughts about voluntary placement. I was told that IDDS will need to get involved into your care as well. Please watch for new or worsening symptoms and return to the ER for any concerns. Medical Decision Making This is a 24-year-old gentleman who is cooperative, pleasant, presenting with his mother for ongoing intrusive thoughts of harming himself. He does not want to act upon these thoughts. He is unsure whether hospitalization would be helpful or not. Clinically he appears well, nontoxic and has no medical concerns. I will not reflexively obtain laboratory values as he may not even want inpatient hospitalization. At the moment I see no indication for involuntary hospitalization. He tells me he is able to give a urine sample, will obtain urinalysis and drug screen. At this time his mother is with him, he appears to be at no threat to himself or others acutely. CPSO not ordered. Mental health consulted and evaluated the patient. Initially there was a question whether they would initiate an inpatient voluntary search. I did order laboratory values in the case he does require placement. Please see their note. At this time they do not feel as though the patient requires inpatient hospitalization and he feels as though he can adhere to a safety plan. Laboratory values were canceled. Both patient and mother are comfortable with this plan and have no additional questions or concerns. Tomorrow Mauri from [facility] will be reaching out to him. He was encouraged to return to the ER for new or worsening symptoms. Upon discharge patient is awake, alert, calm, cooperative. He denies any active suicidal or homicidal thoughts and does feel safe. Medical Records Medical records reviewed: Yes I reviewed the patient's medical records. Lab Data Lab results reviewed: Yes I reviewed the patient's lab results. Labs: Laboratory Tests Range/Units 05/05/20 05/05/20 12:30 12:30 Urine Color (Yellow) Yellow Urine Clarity (Clear) Clear Urine pH (5-8) 5.5 Ur Specific [place] (1.005-1.025) >= 1.030 H Urine Protein (Negative) mg/dL Negative Urine Ketones (Negative) mg/dL Negative Urine Blood (Negative) Negative Urine Nitrite (Negative) Negative Urine Bilirubin (Negative) Negative Urine Urobilinogen (Up TO 0.2) EU/dL 0.2 Ur Leukocyte Esterase (Negative) Negative Urine Glucose (Negative) mg/dL Negative Urine Opiates Screen (Negative) Negative Urine Methadone Screen (Negative) Negative Ur Barbiturates Screen (Negative) Negative Ur Tricyclics Screen (Negative) Negative Ur Amphetamines Screen (Negative) Negative U Benzodiazepines Scrn (Negative) Negative Urine Cocaine Screen (Negative) Negative Ur THC Screen (Negative) Negative HPI General Mode of arrival: ambulatory . Date/Time Provider Initiated Documentation: 05/05/20 11:09 . Limitations to Documentation: no limitations . Information obtained by: patient and family . HPI Narrative: This is a 24-year-old gentleman, past medical history of aortic coarctation, Abhishek syndrome, presenting with his mother whom he lives with and is his software configuration analyst. He reports a history of intrusive thoughts that include stabbing himself in the abdomen with a knife. He has had these in the past and has been evaluated for the same. He has never acted upon this. He denies wanting to act upon these. He denies any homicidal ideations. Denies recent illness or trauma. Denies headache, chest pain, fever, neck pain, abdominal pain, nausea vomiting, numbness, tingling, weakness. Denies alcohol use, drug use, cigarette smoking. Patient was recently started on Wellbutrin and feels as though his overall intrusive thoughts are getting worse. He felt as though the thoughts were worse yesterday evening causing him to have a panic attack. He thought about coming to the hospital last night but decided to wait until today. He has contemplated voluntary psychiatric placement in the past and is doing the same today, unsure of hospitalization will help or make his symptoms worse. He does have good home resources and resources within the community. Related Data Home Medications Medication Instructions Recorded Confirmed clonazepam 1 mg PO HS PRN PRN 07/04/19 05/05/20 bupropion HCl 150 mg PO BID 05/05/20 05/05/20 Allergies Allergy/AdvReac Type Severity Reaction Status Date / Time green pepper Allergy Swelling/Ed Unverified 12/07/19 12:02 feroz SSRI AdvReac Other (See Uncoded 05/05/20 11:20 Comment) General Stated Complaint: PsychEval MARQUISE: 2 Review of Systems Constitutional Constitutional: Denies fever(s) and Denies headache(s) ENT Ears, Nose, Mouth, and Throat: Denies headache(s) Cardiovascular Cardiovascular: Denies chest pain and Denies dyspnea Respiratory Respiratory: Denies cough and Denies dyspnea Gastrointestinal Gastrointestinal: Denies abdominal pain, Denies nausea and Denies vomiting Genitourinary Genitourinary: Denies dysuria Musculoskeletal Musculoskeletal: Denies back pain Integumentary/Breasts Skin/Breast: Denies rash Neurologic Neurologic: Denies headache(s) Psychiatric Psychiatric: Reports anxiety, Reports panic attacks, Denies homicidal ideation and Reports suicidal ideation [facility] Medical History Aorta coarctation H/O aortic coarctation repair Abhishek syndrome Social History Smoking/Tobacco Use Status: Never Smoking risk assessment performed?: Yes Alcohol Intake: never Drug use: Never Substance use type: does not use Current gender identity: male Do you feel safe at home: Yes Do you feel safe in your relationship?: Yes Exam Const General: cooperative, healthy appearing, comfortable and no acute distress Orientation: alert, awake and oriented x3 HENMT Head: normal to inspection, normocephalic and atraumatic Face and sinus: normal facial exam Mouth: moist mucous membranes Eyes General: appearance normal, both eyes and all related structures Conjunctivae: conjunctivae normal Sclera: sclerae normal Neck Neck: normal visual inspection, full ROM, trachea midline and supple Resp Effort & Inspection: normal respiratory effort and able to speak in complete sentences Auscultation: clear to auscultation bilaterally Cardio Rate: regular rate Rhythm: regular rhythm GI Palpation: soft and nontender Back/Spine/Pelvis Back: No back tenderness Skin General skin exam: no rashes or lesions noted Neuro General: patient alert, patient awake, patient oriented x3, moves all extremities and no focal motor deficits Cognition: normal cognition Speech: speech normal Gait: normal gait Motor: muscle tone normal throughout Sensory Exam: no sensory deficits noted Extrem General: normal to inspection and full ROM Psych Appearance: grossly normal Mental Status: mental status grossly normal Speech and Movement: speech and movement normal Mood: congruent mood Affect: normal affect Attitude: cooperative Thought Process: normal Thought Content: suicidality (Vague thoughts) Insight: fair Judgment: fair Course Vital Signs Vital signs: Vital Signs Temperature 36.5 C 05/05/20 11:16 Pulse 98 H 05/05/20 11:16 Blood Pressure 123/85 05/05/20 11:16 Pulse Oximetry 100 05/05/20 11:16 Temperature 36.5 C 05/05/20 11:16 Temperature Source Oral 05/05/20 11:16 Pulse 98 H 05/05/20 11:16 Respiratory Effort Non-Labored 05/05/20 13:13 Blood Pressure 123/85 05/05/20 11:16 Blood Pressure Position Sitting 05/05/20 11:16 Pulse Oximetry 100 05/05/20 11:16 Oxygen Delivery Method Room Air 05/05/20 11:16 Oxygen Flow Rate 0 05/05/20 11:16 Lab/Test Results Lab/Test Results: Laboratory Tests Range/Units 05/05/20 05/05/20 12:30 12:30 Urine Color (Yellow) Yellow Urine Clarity (Clear) Clear Urine pH (5-8) 5.5 Ur Specific [place] (1.005-1.025) >= 1.030 H Urine Protein (Negative) mg/dL Negative Urine Ketones (Negative) mg/dL Negative Urine Blood (Negative) Negative Urine Nitrite (Negative) Negative Urine Bilirubin (Negative) Negative Urine Urobilinogen (Up TO 0.2) EU/dL 0.2 Ur Leukocyte Esterase (Negative) Negative Urine Glucose (Negative) mg/dL Negative Urine Opiates Screen (Negative) Negative Urine Methadone Screen (Negative) Negative Ur Barbiturates Screen (Negative) Negative Ur Tricyclics Screen (Negative) Negative Ur Amphetamines Screen (Negative) Negative U Benzodiazepines Scrn (Negative) Negative Urine Cocaine Screen (Negative) Negative Ur THC Screen (Negative) Negative
== END 2020-05-05 14:10 | disposition home or self-care (01) ==
PROVIDERS: Emergency Provider Physician Assistant; PCP Neuromusculoskeletal Medicine & OMM
DX: F41.0 Panic disorder [episodic paroxysmal anxiety] (principal); R45.851 Suicidal ideations
CPT/HCPCS: 80053; 80307; 83690; 87637; 99283; 80320; 81003; 84443; 85025

== ENCOUNTER 2020-05-20 15:06 | Emergency (ER) | payer MEDICARE, MEDICAID, SELFPAY ==
[2020-05-20 15:07] VITALS: BP 126/90; PULSE 91; RESP 16; TEMP 36.7; O2SAT 98
--- NOTE | 2020-05-20 15:37 | W.ED.GENAD ---
Discharge Plan Disposition Patient Disposition: HOME Condition: Good Discharge Details Clinical Impression: Depression Primary Care Provider: Gaetano Hdz ED Provider: Jus Goncalves Home Meds and New Rx's Prescriptions: Continued clonazepam 1 mg tablet 1 mg PO HS PRN PRNRF: 0 buspirone 10 mg tablet 10 mg PO BID RF: 0 clonazepam 2 mg tablet 2 mg PO .1630 PRNRF: 0 ondansetron 4 mg tablet,disintegrating 4 mg PO BID PRN PRNRF: 0 Discharge Instructions Instructions: Depression (ED) Additional Instructions: At this time mental health feels that you are safe to go home. You have agreed to the safety plan. We have discussed this with your family. Your family and our mental health team will be checking in with you regularly. Please contact your mental health advocacy team if you have any concerns. If you notice any worsening of your symptoms, or any new symptoms such as vomiting, diarrhea, fever, chills, shortness of breath, chest pain, numbness, weakness, or fainting , please return immediately to the emergency department for reevaluation. Please follow up with your primary care provider as soon as possible for reassessment and reevaluation. As always, it was a pleasure participating in your medical care today. Referrals: Gaetano Hdz [Primary Care Provider] - Medical Decision Making This is a very pleasant 24-year-old male with a past medical history of aortic coarctation, Abhishek syndrome, depression, presents today for evaluation of depression and suicidal ideations. Patient states that for the last 4 weeks he has been struggling with thoughts of self-harm. Today he felt particularly concerned for his own wellbeing. He states that he has been having thoughts of killing himself by stabbing himself with a knife. He denies any auditory hallucinations but does admit to some visual hallucinations only described as seeing TV shows on the television when is not turned on. He denies any previous history of self-harm. He denies any IV or illicit drug use. He denies any alcohol use. He does see a counselor regularly, and was recently prescribed buspirone, but has not yet had a chance to fill it. He denies any other complaints. Family he states is supportive. No other complaints at this time. Physical exam is notably unremarkable. Patient is definitely concerned for potential self-harm. Patient does have a concerning story, and I feel would benefit from mental health evaluation. We will consult mental health, place the patient in blue scrubs, try to do laboratory labs, monitor closely and reassess. 4:30 PM Patient has been reassessed, at this time he feels like he no longer wants to harm himself. We have contacted mental health, they have evaluated the patient themselves. After long discussion with the patient they feel that he can be safety plan home. They will look for some outpatient additional services and be calling him regularly to help him. Will be checking on today's tomorrow with the patient as well. I did contact the patient's mother Stephanie, and discussed the case with her. She agrees with the plan. She consents to safety plan as does the patient. Patient will be discharged home. Discussed red flags which to return. I have extensively reviewed the treatment plan and discharge instructions with the patient and their family. I have addressed all patient concerns at this time. The patient and family was made aware of what symptoms to monitor for that would warrant a return to the emergency department. Discussed the plan with the patient and family, they demonstrate verbal understanding and agreement with our assessment and plan at this time. The documentation in this chart was dictated using Cinario dictation software. Please excuse any dictation errors. HPI General Date/Time Provider Initiated Documentation: 05/20/20 15:08. HPI Narrative: This is a very pleasant 24-year-old male with a past medical history of aortic coarctation, Abhishek syndrome, depression, presents today for evaluation of depression and suicidal ideations. Patient states that for the last 4 weeks he has been struggling with thoughts of self-harm. Today he felt particularly concerned for his own wellbeing. He states that he has been having thoughts of killing himself by stabbing himself with a knife. He denies any auditory hallucinations but does admit to some visual hallucinations only described as seeing TV shows on the television when is not turned on. He denies any previous history of self-harm. He denies any IV or illicit drug use. He denies any alcohol use. He does see a counselor regularly, and was recently prescribed buspirone, but has not yet had a chance to fill it. He denies any other complaints. Family he states is supportive. No other complaints at this time. Related Data Home Medications Medication Instructions Recorded Confirmed clonazepam 1 mg PO HS PRN PRN 07/04/19 05/20/20 buspirone 10 mg PO BID 05/20/20 05/20/20 clonazepam 2 mg PO .1630 PRN 05/20/20 05/20/20 ondansetron 4 mg PO BID PRN PRN 05/20/20 05/20/20 Allergies Allergy/AdvReac Type Severity Reaction Status Date / Time green pepper Allergy Swelling/Ed Unverified 05/20/20 15:33 feroz SSRI AdvReac Other (See Uncoded 05/20/20 15:33 Comment) General Stated Complaint: PsychEval MARQUISE: 2 Review of Systems All systems reviewed & are unremarkable except as noted in HPI and below PFSH Medical History Aorta coarctation H/O aortic coarctation repair Abhishek syndrome Social History Smoking/Tobacco Use Status: Never Smoking risk assessment performed?: Yes Alcohol Intake: never Drug use: Never Substance use type: does not use Current gender identity: male Do you feel safe at home: No (frightens self) Do you feel safe in your relationship?: Yes Exam Narrative Exam Narrative: 1.Const: Well-nourished, Well-developed, appearing stated age 2.Eyes: PERRL, no conjunctival injection, and symmetrical lids. 3.ENT: Atraumatic external nose and ears. Moist MM. Neck: Symmetric, trachea midline, No thyromegaly. 4.CVS: +S1/S2, Peripheral pulses 2+ and equal in all extremities. Brisk capillary refill in all extremities. 5.RESP: Unlabored respiratory effort. Clear to auscultation bilaterally. No wheezes rales or rhonchi 6.GI: Soft, Nontender/Nondistended, No hepatosplenomegaly. No guarding or rebound. 7.MSK: Normocephalic/Atraumatic, Extremities w/o deformity or ttp No cyanosis or clubbing, Normal movement of all extremities 8.Skin: Warm, Dry. No rashes or lesions. 9.Neuro: secondary history teacher II-XII grossly intact. Sensation grossly intact, no focal neurologic deficits. 10.Psych: (AAO) x3. Appropriate mood and affect, very interactive and probably in personality. Course Vital Signs Vital signs: Vital Signs Temperature 36.7 C 05/20/20 15:07 Pulse 91 H 05/20/20 15:07 Respiratory Rate 16 05/20/20 15:07 Blood Pressure 126/90 05/20/20 15:07 Pulse Oximetry 98 05/20/20 15:07 Temperature 36.7 C 05/20/20 15:07 Temperature Source Temporal Artery Scan 05/20/20 15:07 Pulse 91 H 05/20/20 15:07 Respiratory Rate 16 05/20/20 15:07 Respiratory Effort Non-Labored 05/20/20 15:12 Blood Pressure 126/90 05/20/20 15:07 Blood Pressure Position Sitting 05/20/20 15:07 Pulse Oximetry 98 05/20/20 15:07 Oxygen Delivery Method Room Air 05/20/20 15:07 Oxygen Flow Rate 0 05/20/20 15:07 Pain Level 0 05/20/20 15:07
[2020-05-20 15:38] LABS: Abs Immature Grans 0.02 10^3/uL (0.0-0.06); Absolute Basophil Count 0.04 10^3/uL (0.0-0.2); Absolute Eosinophil Count 0.14 10^3/uL (0.0-0.7); Absolute Lymphocyte Count 1.17 10^3/uL (1.2-3.4); Absolute Monocyte Count 0.36 10^3/uL (0.1-0.8); Absolute Neutrophil Count 4.06 10^3/uL (1.2-6.7); Basophils % 0.7; Eosinophils % 2.4; HCT 46.6 % (40.0-50.0); HGB 15.3 g/dL (13.5-17.5); Immature Grans % 0.3; Lymphocytes % 20.2; MCH 28.2 pg (27.0-33.0); MCHC 32.8 % (32.0-36.0); MPV 10.4 fL (8.0-11.0); Monocytes % 6.2; Neutrophils % 70.2; Nucleated RBC 0 %; Platelet Count 212 10^3/uL (130-400); RBC 5.42 10^6/uL (4.36-5.78); RDW 12.3 % (11.8-14.1); RDW-SD 38.4 fL; WBC 5.79 10^3/uL (4.4-10.8)
--- NOTE | 2020-05-20 15:53 | PDOC.MHCN ---
Date of service: 05/20/20 Time of Service: 15:54 Mental Health Crisis Note Presenting Issue How did you arrive at the ED and why did you come: Pt arrived via ambulance after he reported intese thoughts of wanting to stab himself. Precipitating Factors Pt consistently denied thoughts to by suicide this afternoon an was asked several times. He stated he had the thoughts this am and I couldn't decide so called 911. There are no signs of delusions but he does present as confused. Disposition BEHAVIOR: Pt seems to be struggling with some anxiety and this needs to be addressed however a team meeting should happen before decisions are made just in case other options are avaialble. EYE CONTACT: Pt makes good eye contact. MOOD: Pt reported his mood to be mostly happy. AFFECT: Affect appears normal for Pt. APPETITE: Pt reported good appetite. SLEEP(trouble falling/staying asleep: Pt reported good sleep. Plan Pt was able to safety plan with this clinician. He does not have access to sharps per his report. 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 He reported that if he is feeling as though he is unsafe or could be unsafe to call his support person. Pt will also do activities that bring him ashlie like going for a walk, talking on the phone or watching TV. Pt agreed to call [facility] if those are not successful before going to the local ER. Pt reports that he knows he is in crisis when his depression increases and he starts to have thoughts of SI. His family is the reason for him to keep living. Pt agreed to a check in call tonight and possibly tomorrow. This clinician has outreached via e-mail to his IDDS team for support as to next steps and how [facility] as a whole can best support him. This [facility]. Signature Clinician's Name/Title: Pebbles Gorman MS, [facility] Emergency Services Clinician
--- NOTE | 2020-05-20 15:54 | NUR.NOTE ---
Nursing Note: Has a sister that lives in [facility] and one in [place]. States he enjoys talking to them on the phone.
[2020-05-20 16:03] LABS: ALT 19 U/L (16-63); AST 19 U/L (15-37); Albumin 4.5 g/dL (3.4-5.0); Alkaline Phosphatase 61 U/L (46-116); Anion Gap 7.4 mmol/L (3-11); BUN 9 mg/dL (7-18); Bilirubin, Total 0.4 mg/dL (0.2-1.0); CO2 30.6 mmol/L (21.0-32.0); CREATININE 0.9 mg/dL (0.70-1.30); Calcium 9.2 mg/dL (8.5-10.1); Chloride 104 mmol/L (98-107); Glucose 95 mg/dL (74-106); Lipase 165 U/L (73-393); Potassium 3.9 mmol/L (3.5-5.1); Sodium 142 mmol/L (136-145); TSH 3.16 uIU/mL (0.36-3.74); Total Protein 8.3 g/dL (6.4-8.2)
[2020-05-20 16:09] LABS: Acetaminophen < 2 ug/mL (10-30); Salicylate < 2.8 mg/dL (<2.8)
[2020-05-20 16:20] LABS: ETHANOL BLOOD < 3.0 mg/dL (<3)
--- NOTE | 2020-05-20 16:49 | NUR.NOTE ---
patient to be discharged home with parents and safety plan. Nursing Note:
--- NOTE | 2020-05-20 16:52 | NUR.NOTE ---
patient has all his belongings Nursing Note:
== END 2020-05-20 16:56 | disposition home or self-care (01) ==
PROVIDERS: Emergency Provider Student in an Organized Health Care Education/Training Program; PCP Neuromusculoskeletal Medicine & OMM
DX: R44.1 Visual hallucinations (principal); F32.9 Major depressive disorder, single episode, unspecified; R45.851 Suicidal ideations
CPT/HCPCS: 36415; 80053; 80307; 83690; 99283; 80320; 80329; 84443; 85025

== ENCOUNTER 2020-05-24 13:05 | Emergency (ER) | payer MEDICARE, MEDICAID, SELFPAY ==
[2020-05-24 13:15] VITALS: BP 129/90; PULSE 79; RESP 14; TEMP 36.6; O2SAT 100
--- NOTE | 2020-05-24 13:27 | W.ED.GENAD ---
Discharge Plan Disposition Patient Disposition: HIGDEN RETREAT Condition: Stable Discharge Details Clinical Impression: Depression Primary Care Provider: Gaetano Hdz ED Provider: Ross iSngh Home Meds and New Rx's Prescriptions: No Action clonazepam 1 mg tablet 1 mg PO HS PRN PRNRF: 0 buspirone 10 mg tablet 10 mg PO BID RF: 0 clonazepam 2 mg tablet 2 mg PO DAILY RF: 0 ondansetron 4 mg tablet,disintegrating 4 mg PO BID PRN PRNRF: 0 Medical Decision Making <Vernon Snyder MD - Last Filed: 05/24/20 14:45> 24 yo male with a past medical history of aortic coarctation, Abhishek syndrome, depression, who was seen in the ED on 05/20 for depression/si and d/c'd comes in with continued thoughts of self harm specifically hurting himself with a knife. Denies actually attempting to harm himself in any way. Arrives ambulatory with no gait abnormalities, speaking clearly without motor or sensation deficits. Has history of depression and similar episodes, no findings on his exam or history to suggest underlying medical cause for his symptoms such as infectious or endocrine abnormality, medically cleared to speak with [facility] evaluated and will be voluntary psych bed search, will be signed out to oncoming provider Differential Diagnosis Differential Diagnosis: depression, si Medical Records Medical records reviewed: Yes I reviewed the patient's medical records. Lab Data Lab results reviewed: Yes I reviewed the patient's lab results. <Jeanna Byod DO - Last Filed: 05/24/20 23:15> 1500 --please see Dr. Snyder's note for initial presentation, exam and plan. Case endorsed to continue to monitor patient while awaiting placement. If there is bed availability, patient could potentially go upstairs while awaiting placement. 1840 --patient requesting his evening dose of buspirone. Patient also requested to speak with mental health as he is questioning why he is here. I discussed with patient at bedside and he is wondering if he can go home. I advised patient that it would be beneficial for him to stay with plan for placement for treatment of his depression and suicidal thoughts. He is agreeable to take a dose for his clonazepam. Patient discussed with mental [facility] Mita through zoom at bedside. Patient is now agreeable to stay. Discussed with nursing maintenance mechanic supervisor who stated we did have the capacity to take patient on the floor. Case discussed with hospitalist who agreed to accept patient for admission to the floor while awaiting placement. However spoke with nursing staff and care management who had huddled regarding patient plan earlier today and stated the plan was to keep patient in the ED while awaiting placement due to another psych patient on the floor as well as staffing issues. 2300 -- case endorsed to Dr. Donahue to monitor pt overnight. Medical Records Medical records reviewed: Yes I reviewed the patient's medical records. <Ross Singh MD - Last Filed: 05/26/20 09:09> Received signout for the morning of May 25. Patient calm and cooperative. We will order his scheduled buspirone. He awaits final psychiatric disposition. We will sign out to Dr. Mendoza for the evening shift. I again received signout on the patient for the morning of May 26 after an uneventful night in the emergency department under the care of Dr. Mendoza. Patient accepted in transfer to [facility]. HPI <Vernon Snyder MD - Last Filed: 05/24/20 14:45> General Mode of arrival: ambulatory. Date/Time Provider Initiated Documentation: 05/24/20 13:07. Limitations to Documentation: no limitations. Information obtained by: patient. History of Present Illness 24 year old M presents to the emergency department with the chief complaint of depression, described as moderate, Patient started experiencing this week(s) (5) and it has been constant. No relieving factors improve symptom(s), No exacerbating factors reported . Patient notes no other symptoms.. Related Data Home Medications Medication Instructions Recorded Confirmed clonazepam 1 mg PO HS PRN PRN 07/04/19 05/24/20 buspirone 10 mg PO BID 05/20/20 05/24/20 clonazepam 2 mg PO DAILY 05/20/20 05/26/20 ondansetron 4 mg PO BID PRN PRN 05/20/20 05/24/20 Allergies Allergy/AdvReac Type Severity Reaction Status Date / Time green pepper Allergy Swelling/Ed Unverified 05/24/20 18:40 feroz SSRI AdvReac Other (See Uncoded 05/24/20 18:40 Comment) General Stated Complaint: PsychEval MARQUISE: 2 Review of Systems <Vernon Snyder MD - Last Filed: 05/24/20 14:45> All systems reviewed & are unremarkable except as noted in HPI and below Constitutional Constitutional: Denies chills, Denies fever(s) and Denies weakness ENT Ears, Nose, Mouth, and Throat: Denies change in voice Cardiovascular Cardiovascular: Denies chest pain and Denies dyspnea Respiratory Respiratory: Denies cough and Denies dyspnea Gastrointestinal Gastrointestinal: Denies abdominal pain, Denies nausea and Denies vomiting Genitourinary Genitourinary: Denies dysuria Musculoskeletal Musculoskeletal: Denies joint swelling Integumentary/Breasts Skin/Breast: Denies rash Neurologic Neurologic: Denies weakness Endocrine Endocrine: Denies cold intolerance and Denies heat intolerance PFSH <Vernon Snyder MD - Last Filed: 05/24/20 14:45> Medical History Aorta coarctation H/O aortic coarctation repair Abhishek syndrome Social History Smoking/Tobacco Use Status: Never Smoking risk assessment performed?: Yes Alcohol Intake: never Drug use: Never Substance use type: does not use Current gender identity: male Do you feel safe at home: No (frightens self) Do you feel safe in your relationship?: Yes Exam <Vernon Snyder MD - Last Filed: 05/24/20 14:45> Const General: no acute distress Orientation: alert HENMT Head: normal to inspection Ears: external ears normal General nose exam: external nose normal Mouth: moist mucous membranes Eyes General: appearance normal, both eyes and all related structures Neck Neck: normal visual inspection Resp Effort & Inspection: normal respiratory effort and able to speak in complete sentences Cardio Rate: regular rate Skin General skin exam: no rashes or lesions noted Neuro General: patient alert and patient oriented x3 Extrem General: normal to inspection Course <Vernon Snyder MD - Last Filed: 05/24/20 14:45> Vital Signs Vital signs: Vital Signs Temperature 36.6 C 05/24/20 13:15 Pulse 79 05/24/20 13:15 Respiratory Rate 14 05/24/20 13:15 Blood Pressure 129/90 05/24/20 13:15 Pulse Oximetry 100 05/24/20 13:15 Temperature 36.6 C 05/24/20 13:15 Temperature Source Temporal Artery Scan 05/24/20 13:15 Pulse 79 05/24/20 13:15 Respiratory Rate 14 05/24/20 13:15 Blood Pressure 129/90 05/24/20 13:15 Blood Pressure Position Sitting 05/24/20 13:15 Pulse Oximetry 100 05/24/20 13:15 Oxygen Delivery Method Room Air 05/24/20 13:15 Oxygen Flow Rate 0 05/24/20 13:15 Pain Level 6 05/24/20 13:15 Comment 05/24/20 13:15 Sign Out <Vernon Snyder MD - Last Filed: 05/24/20 14:45> Sign Out Data: Sign Out Comment: depression/si, voluntary psych placement Last updated by Vernon Snyder MD at 05/24/20 14:42 Sign Out Comment: Holding in ED while awaiting psych placement. Last updated by Jeanna Boyd DO at 05/24/20 22:54 Sign Out Comment: Holding in ED while awaiting psych placement Last updated by Singh Donahue MD at 05/25/20 08:34 Sign Out Comment: Pending final disposition, Voluntary Last updated by Ross Singh MD at 05/25/20 19:44 Sign Out Comment: No issues overnight. Slept well after receiving his clonazepam. Pending placement hopefully later today. Last updated by Gaetano Mendoza MD at 05/26/20 07:53
[2020-05-24 13:45] LABS: Abs Immature Grans 0.01 10^3/uL (0.0-0.06); Absolute Basophil Count 0.03 10^3/uL (0.0-0.2); Absolute Eosinophil Count 0.15 10^3/uL (0.0-0.7); Absolute Monocyte Count 0.32 10^3/uL (0.1-0.8); Absolute Neutrophil Count 3.14 10^3/uL (1.2-6.7); Basophils % 0.6; Eosinophils % 3.2; HCT 43.6 % (40.0-50.0); HGB 14.2 g/dL (13.5-17.5); Immature Grans % 0.2; Lymphocytes % 21.5; MCH 28.5 pg (27.0-33.0); MCHC 32.6 % (32.0-36.0); MCV 87.4 fL (80-95); MPV 10.3 fL (8.0-11.0); Monocytes % 6.9; Neutrophils % 67.6; Nucleated RBC 0 %; Platelet Count 195 10^3/uL (130-400); RBC 4.99 10^6/uL (4.36-5.78); RDW 12.5 % (11.8-14.1); RDW-SD 39.6 fL; WBC 4.65 10^3/uL (4.4-10.8)
[2020-05-24 14:12] LABS: ALT 20 U/L (16-63); AST 18 U/L (15-37); Albumin 4.3 g/dL (3.4-5.0); Alkaline Phosphatase 59 U/L (46-116); Anion Gap 6.5 mmol/L (3-11); BUN 11 mg/dL (7-18); Bilirubin, Total 0.3 mg/dL (0.2-1.0); CO2 31.5 mmol/L (21.0-32.0); Calcium 9.3 mg/dL (8.5-10.1); Chloride 104 mmol/L (98-107); Glucose 81 mg/dL (74-106); Potassium 4.1 mmol/L (3.5-5.1); Sodium 142 mmol/L (136-145); Total Protein 7.7 g/dL (6.4-8.2)
[2020-05-24 14:22] LABS: ETHANOL BLOOD < 3.0 mg/dL (<3); Salicylate < 2.8 mg/dL (<2.8)
[2020-05-24 14:32] LABS: TSH (W/Ref FT4) 1.39 uIU/mL (0.36-3.74)
[2020-05-24 14:35] LABS: Acetaminophen < 2 ug/mL (10-30)
--- NOTE | 2020-05-24 15:33 | CMSP_ITS ---
- If Service Date Differs Date of service: 05/24/20 Time of Service: 16:01 Care Management Safety Plan Status: Voluntary VOLUNTARY FOR INPATIENT PSYCHIATRIC STABILIZATION. Per [facility]: [facility] has been attempting crisis bed placement for over a week. Emil declined crisis bed on Wednesday stating Wednesday would be better; was told we don't plan crisis. Presented today for [facility] ES, crisis screener coordinating crisis bed placement throughout day; Oracle Analyst Hank at [facility] directed patient to just come to Emergency Department, per [facility] report. Unlikely patient will gain placement over weekend. Wants to be at hospital. Calm and relaxed. 05/05/20 screened in ED: cleared to home by [facility]. 05/20/20 Screened in ED: SI noted as self harm with knife. By 4:30 PM reporting no longer having thoughts of self harm; cleared by [facility] to home, again. Safety plan has been established with patient, and care team, to adhere to patient goals, identify restrictions based on behavioral status, address nutrition, and determine allowed personal belongings, tools for hygiene and personal care. Determine level of activity including ambulation, level of supervision, visitors, and determine privileges based on behaviors and level of engagement by pt. SAFETY PLAN: 1. Will remain on suicide precautions. In Paper Clothes 2. Will remain in room under direct supervision of one-on-one staff at all times provided by [employer]; CHYNA, MEDICAL AFFAIRS DIRECTOR automobile body worker. 3. May have paper cups, plates, finger foods as well as a metal spoon with which to eat meals. 4. Follow [facility] Management of the Admitted Behavioral Health Patient policy. 5. Comfort bath system only. 6. Personal belongings; has cell phone. Recommend if admitted to Med/Surg, phone be removed prior to admission. 7. Visitors- No visitors at this time per COVID policy. 8. Activities: None permitted at this time. If admitted to M/S permitted television and remote. 9. Bathroom privileges with escort in ED, available in room without limitation on Med/Surg. 10. Phone: incoming and outgoing calls permitted on cordless [facility] phone; per RN discretion. 11. Due to VOLUNTARY status, if patient wishes to leave [facility], staff will contact [facility] Crisis Screener ([phone]) and On-Call Dock Manager ([phone]) as soon as possible. In the event of elopement, notify [facility] Police ([phone]). Patient is currently voluntarily at [facility] and seeking inpatient admission when a bed becomes available. [facility] Frontline Enterprise Architect will continue seeking placement. Please contact the Grounds Person Dock Manager ([phone]) and [facility] Shayy is Worker ([phone]) for any needed changes in the Safety Plan. Safety plan has been provided to interdepartmental care team.
--- NOTE | 2020-05-24 15:33 | PDOC.CMSAFED ---
- If Service Date Differs Date of service: 05/24/20 Time of Service: 16:01 Care Management Safety Plan Status: Voluntary VOLUNTARY FOR INPATIENT PSYCHIATRIC STABILIZATION. Per [facility]: [facility] has been attempting crisis bed placement for over a week. Emil declined crisis bed on Wednesday stating Wednesday would be better; was told we don't plan crisis. Presented today for [facility] ES, crisis screener coordinating crisis bed placement throughout day; Learning Coach Hank at [facility] directed patient to just come to Emergency Department, per [facility] report. Unlikely patient will gain placement over weekend. Wants to be at hospital. Calm and relaxed. 05/05/20 screened in ED: cleared to home by [facility]. 05/20/20 Screened in ED: SI noted as self harm with knife. By 4:30 PM reporting no longer having thoughts of self harm; cleared by [facility] to home, again. Safety plan has been established with patient, and care team, to adhere to patient goals, identify restrictions based on behavioral status, address nutrition, and determine allowed personal belongings, tools for hygiene and personal care. Determine level of activity including ambulation, level of supervision, visitors, and determine privileges based on behaviors and level of engagement by pt. SAFETY PLAN: 1. Will remain on suicide precautions. In Paper Clothes 2. Will remain in room under direct supervision of one-on-one staff at all times provided by [employer]; CHYNA, INFORMATION ANALYST upset operator. 3. May have paper cups, plates, finger foods as well as a metal spoon with which to eat meals. 4. Follow [facility] Management of the Admitted Behavioral Health Patient policy. 5. Comfort bath system only. 6. Personal belongings; has cell phone. Recommend if admitted to Med/Surg, phone be removed prior to admission. 7. Visitors- No visitors at this time per COVID policy. 8. Activities: None permitted at this time. If admitted to M/S permitted television and remote. 9. Bathroom privileges with escort in ED, available in room without limitation on Med/Surg. 10. Phone: incoming and outgoing calls permitted on cordless [facility] phone; per RN discretion. 11. Due to VOLUNTARY status, if patient wishes to leave [facility], staff will contact [facility] Crisis Screener ([phone]) and On-Call Machine Hoop Maker Helper ([phone]) as soon as possible. In the event of elopement, notify [facility] Police ([phone]). Patient is currently voluntarily at [facility] and seeking inpatient admission when a bed becomes available. [facility] Frontline Burr Mill Operator will continue seeking placement. Please contact the Framing Consultant Machine Hoop Maker Helper ([phone]) and [facility] Burr Mill Operator ([phone]) for any needed changes in the Safety Plan. Safety plan has been provided to interdepartmental care team.
--- NOTE | 2020-05-24 16:30 | PDOC.MHCN_ITS ---
Date of service: 05/24/20 Time of Service: 16:30 Mental Health Crisis Note Presenting Issue How did you arrive at the ED and why did you come: The client is assessed via telehealth at [facility] after presenting to the ED with complaint of depression and SI with a plan. He was initially assessed earlier today during a scheduled check-in for hospital diversion. It is reported that once the client returned home he began feeling depressed and experienced suicidal thoughts with a proposed method of using a knife. Per agreed agreed-upon safety plan, the client then contacted his DS family preservation caseworker and was advised by the manager environmental services that he should be transported to the hospital for evaluation. Precipitating Factors The client presents unaccompanied in the ER. Presentation is unchanged from earlier in the day (05/24/20 11:30a - 11:45a). Client is fully alert and oriented to time, person, place, and situation. Mood reported as 'depressed' with euthymic affect. He is cooperative and pleasant and appropriate during all i nteractions. He is responsive to all questions with speech that is clear, coherent, slightly pressured, with mild stammering. Thought process is linear and coherent, however client struggles to occasionally find the correct words to use to express himself. No evidence of delusions. Client reports that he experiences seeing a 'bouncing ball' occasionally but was unable to elaborate additional details. Client reports current suicidal ideation, with proposed method of knife, and using said knife to stab himself in the side of his body. He reports intention to act on these thoughts if discharged home. He denies current HI, intent or plan. This internal communications writer discussed what circumstance had changed since the previous discussion at [facility] earlier today. The client reports that once he returned home he began feeling depressed while sitting in his room and that the self-harming thoughts returned. He states I was feeling like I wanted to hurt myself. When I sit in my room I get depressed and I don't know what to do. I can't take it. Disposition BEHAVIOR: Calm, appropriate EYE CONTACT: Good MOOD: Depressed AFFECT: Euthymic APPETITE: No reported issues SLEEP(trouble falling/staying asleep: C/O sleep dysregulation Signature Clinician's Name/Title: The client reports that he does not feel safe returning home and is unable to safety plan. It is recommended that the client be referred for in-patient hospitalization for medication review and mood stabilization. There is no current bed availability.
[2020-05-24 16:31] LABS: COVID-19 PCR Negative (Negative)
[2020-05-24 16:51] LABS: Bilirubin Negative (Negative); Blood Negative (Negative); Clarity Clear (Clear); Glucose Negative (Negative); Ketones Negative (Negative); Leukocyte Esterase Negative (Negative); Nitrite Negative (Negative); Specific Gravity 1.025 (1.005-1.025); Urobilinogen 0.2 EU/dL (Up TO 0.2); pH 7.5 (5-8)
[2020-05-24 17:23] LABS: *AMPHETAMINES SCREEN URINE Negative (Negative); *BARBITURATES SCREEN URINE Negative (Negative); *BENZODIAZEPINES SCREEN URINE Negative (Negative); Cannabinoids THC Negative (Negative); Cocaine Screen,Urine Negative (Negative); METHADONE URINE SCREEN Negative (Negative); OPIATES URINE SCREEN Negative (Negative)
[2020-05-24 17:44] LABS: Tricyclic Antidepressants Negative (Negative)
[2020-05-24] MEDS: busPIRone 5 MG TAB 10 MG PO (19:10)
[2020-05-24] MEDS: clonazePAM 1 MG TAB 2 MG PO (19:53)
--- NOTE | 2020-05-24 20:46 | PDOC.MHCN_ITS ---
Date of service: 05/24/20 Time of Service: 20:46 Mental Health Crisis Note Presenting Issue How did you arrive at the ED and why did you come: Client arrived at [facility] ED earlier this afternoon stating that he was having SI with a plan. Client requests to speak to mental [facility] stating that he is 2nd guessing why he is at the hospital and thinks that maybe he should go home. Precipitating Factors Client is currently denying SI/HI. Disposition BEHAVIOR: Client is sitting up in the bed talking on the phone when mental [facility] clinician arrives via zoom. He is cooperative with all of the questions that this chief writer asks. EYE CONTACT: Client makes good eye contact. MOOD: Client appears to be in a good mood, smiling at times when interacting with this chief writer. AFFECT: Flat affect. APPETITE: Client states that he has been eating good, since being at the hosptial. SLEEP(trouble falling/staying asleep: Client states that he sleeps good when at home, but does not know how he will sleep tonight. Plan Upon talking to this chief writer client is willing to stay at the hospital awaiting voluntary placement. This chief writer will call crisis beds and check on bed avialability along with inpatient hospitals. Signature Clinician's Name/Title: Mita Lewis [facility] Emergency clinician
[2020-05-24] MEDS: clonazePAM 1 MG TAB PO (22:56)
[2020-05-25] MEDS: busPIRone 5 MG TAB 10 MG PO ×2 (10:14→19:46)
[2020-05-25 11:14] VITALS: BP 109/71; PULSE 103; RESP 18; TEMP 36.7; O2SAT 99
--- NOTE | 2020-05-25 11:47 | CMSP_ITS ---
- If Service Date Differs Date of service: 05/25/20 Time of Service: 11:48 Care Management Safety Plan Status: Voluntary Emil is a 24 year old young man with a history of depression and Abhishek syndrome who presented to the ED verbalizing suicidal ideation. He was pleasant in interaction with CM and [facility] crisis screener this morning and denied current suicidal thoughts. He was able to maintain eye contact and answer questions appropriately. Per ED staff, he has been cooperative and compliant, sleeping much of the time. Safety plan has been established with patient, and care team, to adhere to patient goals, identify restrictions based on behavioral status, address nutrition, and determine allowed personal belongings, tools for hygiene and personal care. Determine level of activity including ambulation, level of supervision, visitors, and determine privileges based on behaviors and level of engagement by pt. SAFETY PLAN: 1. Will remain on suicide precautions. In Paper Clothes 2. Will remain in room under direct supervision of one-on-one staff at all times provided by [employer]; [employer], MEDICAL IMAGING TECHNOLOGIST preassembler and inspector. 3. May have paper cups, plates, finger foods as well as a metal spoon with which to eat meals. 4. Follow [facility] Management of the Admitted Behavioral Health Patient policy. 5. May shower with supervision at nursing discretion. 6. Personal belongings; has cell phone If admitted to Med/Surg, phone to be removed prior to admission. 7. Visitors- No visitors at this time per [facility] policy. 8. Activities: May have soft items from the activity cart such as coloring book, crayons, cards etc. If admitted to M/S permitted television and remote. 9. Bathroom privileges with escort in ED, available in room without limitation on Med/Surg. 10. Phone: incoming and outgoing calls permitted on cordless [facility] phone; per RN discretion. 11. Due to VOLUNTARY status, if patient wishes to leave [facility], staff will contact [facility] Crisis Screener ([phone]) and On-Call Manager Supply ([phone]) as soon as possible. In the event of elopement, notify [facility] Police ([phone]). Patient is currently voluntarily at [facility] and seeking inpatient admission when a bed becomes available. [facility] Frontline Mailroom Messenger will continue seeking placement. Please contact the Residence Director Manager Supply ([phone]) and [facility] Mailroom Messenger ([phone]) for any needed changes in the Safety Plan. Safety plan has been provided to interdepartmental care team.
--- NOTE | 2020-05-25 12:34 | PDOC.MHCN ---
Date of service: 05/25/20 Time of Service: 12:34 Mental Health Crisis Note Presenting Issue How did you arrive at the ED and why did you come: Client arrived at [facility] ED on the afternoon of 05/24/20 via his mom after endoring SI with a plan. Precipitating Factors Client states that he is currently not having SI. but states that if he goes home it would change. Disposition BEHAVIOR: Client is laying down in his bed talking on the phone when this greeting card writer arrives in person. Client is cooperative with questions that this greeting card writer asks, asking for clarification when he did not understand what was being asked of him. EYE CONTACT: Client makes good eye contact with this greeting card writer. MOOD: Client appears to be cheerful, smiling at times when asked questions by this greeting card writer. AFFECT: Inappropriate affect, laughing and smiling when asked how he was feeling. APPETITE: Client states that he has been eating good since he has been at the hospital. SLEEP(trouble falling/staying asleep: Client states that he slept well last night not waking up until about 10:00 this morning. Plan Client is willing to stay voluntarily. Safety plan in place with team. Referral will be sent to [facility]. Signature Clinician's Name/Title: Mita Lewis [facility] Emergency Clinician.
[2020-05-25] MEDS: clonazePAM 1 MG TAB 2 MG PO (13:46)
--- NOTE | 2020-05-25 13:47 | NUR.NOTE ---
Nursing Note: Both Emil and his mother have been paging [facility] crisis workers inquiring about getting a psych bed. Asked him to stop as they are trying to make calls for him. Shanika Rai CM notified and came down to talk with Emil. She reminded him that the phone is a priviledge and he could lose it if he persists in calling [facility]. She did ask him to call her if he feels he needs to talk with someone. Emil verbilizes understanding..Asked Emil f he thought he needed a dose of Clonazapam to calm his nerves and he agreed. Dr Singh notified.
[2020-05-26] MEDS: clonazePAM 1 MG TAB (00:35)
[2020-05-26] MEDS: busPIRone 5 MG TAB 10 MG PO (09:07)
[2020-05-26] MEDS: clonazePAM 1 MG TAB 2 MG PO (09:07)
[2020-05-26 09:11] VITALS: BP 116/73; PULSE 84; RESP 18; TEMP 36.6; O2SAT 99
--- NOTE | 2020-05-26 09:14 | NUR.NOTE ---
spoke to Astrid nurse from [place] [facility]. states that [facility] will take Emil today if we can get him there by 1330. Dr Islas is accepting physician. they do not do doc to doc, they do nurse to nurse. Nursing Note:
[2020-05-26] MEDS: clonazePAM 1 MG TAB PO ×2 (11:17→13:00)
[2020-05-26] MEDS: Ondansetron O.D.T. 4 MG TABEF PO (12:38)
[2020-05-26] MEDS: Acetaminophen 325 MG TAB (13:00)
[2020-05-26 13:14] VITALS: BP 117/75; PULSE 101; RESP 18; TEMP 36.3; O2SAT 99
[2020-05-26] MEDS: Ondansetron O.D.T. 4 MG TABEF (13:30)
--- NOTE | 2020-05-26 13:40 | NUR.NOTE ---
awaiting transport from [facility]. Pt expected at 1400 at [place]. Call to nursing poultry farm supervisor, states that pt is to be sent to [place], call after pt has left to inform them that he left later than expected.
[2020-05-26 13:50] VITALS: BP 117/75; PULSE 101; RESP 18; TEMP 36.3; O2SAT 99
== END 2020-05-26 13:49 | disposition short-term general hospital (02) ==
PROVIDERS: Emergency Medicine; Physician Assistant; Emergency Provider Emergency Medicine; PCP Neuromusculoskeletal Medicine & OMM
DX: F33.9 Major depressive disorder, recurrent, unspecified (principal); R45.851 Suicidal ideations
CPT/HCPCS: 80053; 80307; 87635; 99285; 80320; 80329; 81003; 84443; 85025

== ENCOUNTER 2020-06-15 11:35 | Emergency (ER) | payer MEDICARE, MEDICAID, SELFPAY ==
[2020-06-15 11:47] VITALS: BP 125/89; PULSE 96; RESP 18; TEMP 37.2; O2SAT 98
--- NOTE | 2020-06-15 12:24 | W.ED.GENAD ---
Discharge Plan Disposition Patient Disposition: HOME Condition: Stable Discharge Details Clinical Impression: Depression Primary Care Provider: Gaetano Hdz ED Provider: Naman Coronel Home Meds and New Rx's Prescriptions: Continued clonazepam 1 mg tablet 1 mg PO HS PRN PRNRF: 0 buspirone 10 mg tablet 10 mg PO BID RF: 0 clonazepam 2 mg tablet 2 mg PO DAILY RF: 0 ondansetron 4 mg tablet,disintegrating 4 mg PO BID PRN PRNRF: 0 Discharge Instructions Instructions: Depression (ED) Additional Instructions: At this time after being evaluated by our mental health team it appears as though the plan is to safety plan you home with additional outpatient resources. Please watch for new or worsening symptoms and return to the ER for any concerns. Please follow the instructions given to you by our mental health team. You may also use wqty-hyt-[id number] stool softeners for your constipation. I do recommend reaching out your primary care provider on Wednesday to discuss your ER visit and set up outpatient reevaluation. Medical Decision Making 24-year-old gentleman presents with ongoing depression but denies any suicidal or homicidal ideations. There have been no new stressors or triggers. Clinically he appears well, nontoxic. Also reports some constipation, took an rdme-por-pxavkoh stool softener yesterday. Abdomen is soft, nontender, normal bowel sounds throughout. I had a transparent conversation with the patient regarding need for hospitalization versus his desire to be discharged home. He felt as though hospitalization was helpful but does not know that it is indicated today. He denies any suicidal or homicidal ideations. Given this, I will not reflexively obtain screening laboratory values for mental health placement. Instead I will await his mental health evaluation and if they deem inpatient hospitalization needed, I will add these tests on. Again abdomen is soft, nontender. No vomiting while under my care. I do not believe that emergent laboratory values are indicated. Ashley from [facility] evaluated the patient, please see her note. She states the patient can be a safety plan at home into the care of his mother who she has already spoken with. Patient does not meet inpatient psychiatric criteria. I discussed this both with his mother Stephanie on the phone as well as the patient in exam room 9. They are both comfortable with this plan and have no additional questions or concerns. He will continue using ralh-kiz-jfgnyzj stool softeners. He will follow the instructions given to him by mental health team, and he will return to the ER for new or worsening symptoms. Otherwise he will contact his primary care provider on Wednesday. Medical Records Medical records reviewed: Yes I reviewed the patient's medical records. HPI General Mode of arrival: ambulatory. Date/Time Provider Initiated Documentation: 06/15/20 12:00. Limitations to Documentation: no limitations. Information obtained by: patient. HPI Narrative: This is a 24-year-old gentleman, past medical history of aortic coarctation, Abhishek syndrome, depression, presenting to the ER today for what he describes as ongoing and worsening depression. He states that he was hospitalized approximately 3 weeks ago, which helped a little, but after being discharged home his symptoms have persisted. He denies any new stressors or triggers. He denies feeling suicidal or homicidal. He does feel safe. He reports constipation since Wednesday, he does get constipated from time to time, took kqpp-jyy-vyxlcrt stool softener last night. He denies recent illness or trauma. Denies any headache, fever, chest pain, shortness of breath, abdominal pain, change in bowel or bladder function. He does state that he was nauseous earlier in the week and vomited x1. Denies sick contacts, travel, bad food exposure. Related Data Home Medications Medication Instructions Recorded Confirmed clonazepam 1 mg PO HS PRN PRN 07/04/19 06/15/20 buspirone 10 mg PO BID 05/20/20 06/15/20 clonazepam 2 mg PO DAILY 05/20/20 06/15/20 ondansetron 4 mg PO BID PRN PRN 05/20/20 06/15/20 Allergies Allergy/AdvReac Type Severity Reaction Status Date / Time green pepper Allergy Swelling/Ed Unverified 06/15/20 11:50 feroz SSRI AdvReac Other (See Uncoded 06/15/20 11:50 Comment) General Stated Complaint: PsychEval MARQUISE: 2 Review of Systems Constitutional Constitutional: Denies fever(s) and Denies headache(s) ENT Ears, Nose, Mouth, and Throat: Denies headache(s) and Denies neck pain Cardiovascular Cardiovascular: Denies chest pain and Denies dyspnea Respiratory Respiratory: Denies dyspnea Gastrointestinal Gastrointestinal: Denies abdominal pain, Reports constipation, Reports nausea and Reports vomiting Genitourinary Genitourinary: Denies dysuria Musculoskeletal Musculoskeletal: Denies back pain and Denies neck pain Integumentary/Breasts Skin/Breast: Denies rash Neurologic Neurologic: Denies headache(s) Psychiatric Psychiatric: Reports anxiety, Reports depression, Denies homicidal ideation and Denies suicidal ideation [facility] Medical History Aorta coarctation H/O aortic coarctation repair Abhishek syndrome Social History Smoking/Tobacco Use Status: Never Smoking risk assessment performed?: Yes Alcohol Intake: never Drug use: Never Substance use type: does not use Current gender identity: male Do you feel safe at home: No (frightens self) Do you feel safe in your relationship?: Yes Exam Const General: cooperative, healthy appearing, comfortable and no acute distress Orientation: alert, awake and oriented x3 HENMT Head: normal to inspection, normocephalic and atraumatic Face and sinus: normal facial exam Mouth: moist mucous membranes Eyes General: appearance normal, both eyes and all related structures Conjunctivae: conjunctivae normal Neck Neck: normal visual inspection, full ROM, trachea midline and supple Resp Effort & Inspection: normal respiratory effort and able to speak in complete sentences Auscultation: clear to auscultation bilaterally Cardio Rate: regular rate Rhythm: regular rhythm GI Inspection: normal to inspection Palpation: soft, not firm, no guarding, no pulsatile masses and nontender Auscultation: normal bowel sounds Back/Spine/Pelvis Back: No back tenderness Skin General skin exam: no rashes or lesions noted Neuro General: patient alert, patient awake, patient oriented x3, moves all extremities and no focal motor deficits Cognition: normal cognition Speech: speech normal Gait: normal gait Motor: muscle tone normal throughout Sensory Exam: no sensory deficits noted Extrem General: normal to inspection and full ROM Psych Appearance: grossly normal Mental Status: mental status grossly normal Speech and Movement: speech and movement normal Mood: congruent mood Affect: normal affect Attitude: cooperative Thought Process: normal Thought Content: normal and suicidality Insight: fair Judgment: fair Course Vital Signs Vital signs: Vital Signs Temperature 37.2 C 06/15/20 11:47 Pulse 96 H 06/15/20 11:47 Respiratory Rate 18 06/15/20 11:47 Blood Pressure 125/89 06/15/20 11:47 Pulse Oximetry 98 06/15/20 11:47 Temperature 37.2 C 06/15/20 11:47 Pulse 96 H 06/15/20 11:47 Respiratory Rate 18 06/15/20 11:47 Respiratory Effort Non-Labored 06/15/20 11:52 Blood Pressure 125/89 06/15/20 11:47 Blood Pressure Position Sitting 06/15/20 11:47 Pulse Oximetry 98 06/15/20 11:47 Oxygen Delivery Method Room Air 06/15/20 11:47 Oxygen Flow Rate 0 06/15/20 11:47
--- NOTE | 2020-06-15 13:48 | PDOC.MHCN ---
Date of service: 06/15/20 Time of Service: 13:48 Mental Health Crisis Note Presenting Issue How did you arrive at the ED and why did you come: Patient was brought to the ED by his mother. He is having suicidal thoughts and wants to talk with someone. Precipitating Factors Patient was alert and focused to the Zoom interview. He comleted a CSSRS and a PHQ9 assessment to assess for depression and suicidal risk. He is depressed and has thoughts of suicide but no plan. He was hospitalized at [facility] a few weeks ago and thinks he might need to go back. Disposition BEHAVIOR: He is calm and cooperative. EYE CONTACT: good eye contact MOOD: depressed mood AFFECT: flat affect APPETITE: He says he has an appetite but threw up his food because his stomach hurt. SLEEP(trouble falling/staying asleep: says he has trouble falling asleep and staying asleep but sometimes sleeps too much Plan This clinician consulted with the patient's [facility] IDDS conveyor loader contact, Yvonne. She is aware of his depression and the client's team feels he has supports and that he hospitalization may not be what he needs. This was also discussed with the patient's mother who agrees that he can come home with a safety plan and that [facility] will check in with him a few times each day to see how he is doing. If things change he can come back to the hospital. Signature Clinician's Name/Title: SKYLAR PayneAngel [facility] Emergency Services Clinician
== END 2020-06-15 14:47 | disposition home or self-care (01) ==
PROVIDERS: Emergency Provider Physician Assistant; PCP Neuromusculoskeletal Medicine & OMM
DX: F32.89 Other specified depressive episodes (principal); K59.00 Constipation, unspecified
CPT/HCPCS: 99283

== ENCOUNTER 2020-06-20 13:15 | Emergency (ER) | payer MEDICARE, MEDICAID, SELFPAY ==
[2020-06-20 13:33] VITALS: BP 124/84; PULSE 105; RESP 16; TEMP 36.9; O2SAT 98
--- NOTE | 2020-06-20 13:50 | ED.GENADUL_ITS ---
Discharge Plan Disposition Patient Disposition: HOME Condition: Stable Discharge Details Clinical Impression: Suicidal ideation Primary Care Provider: Gaetano Hdz ED Provider: Yaz Yusuf Home Meds and New Rx's Prescriptions: Continued clonazepam 1 mg tablet 1 mg PO HS PRN PRNRF: 0 buspirone 10 mg tablet 10 mg PO BID RF: 0 clonazepam 2 mg tablet 2 mg PO DAILY RF: 0 ondansetron 4 mg tablet,disintegrating 4 mg PO BID PRN PRNRF: 0 Discharge Instructions Instructions: Depression (ED), Help Prevent Suicide (ED) Additional Instructions: As discussed please call [facility] [employer] at [phone]. Recurrent thoughts of harming yourself or others or any concerns. Follow-up as instructed per DOMINIQUE clinical liaison. Follow up with primary care provider in 3-5 days. Return to ED sooner if any worsening or concerns. Increase oral fluids. Referrals: Gaetano Hdz [Primary Care Provider] - Discharge Data Discharge Date/Time-TO BE ENTERED AT DEPARTURE: 06/20/20 16:40 Medical Decision Making <KRISTIN Santana - Last Filed: 06/21/20 09:13> Patient calm and cooperative, his diagnostic labs do not show acute pathology Patient has ongoing depression and is intermittently having suicidal ideation, and having mental health consultation and evaluation is necessary at this time Patient is taking his medication as prescribed reportedly I suspect his hip pain is related to tendinitis, I did give him a dose of Tylenol, i see no indication to perform x-ray imaging at this time He is pending mental health evaluation case will be signed out to Yaz Yusuf NP at 1600 pending evaluation Medical Records Medical records reviewed: Yes I reviewed the patient's medical records. <Yaz Yusuf - Last Filed: 06/20/20 21:35> Care assumed from provider (KRISTIN Santana) Discussed patient details and case and pending workup and disposition. Patient is hemodynamically stable, and alert and oriented. Mental health evaluation is currently underway Pebbles with DOMINIQUE is at bedside. Spoke with Pebbles who recommends discharge home in the care of parents, she does recommend follow-up with [facility] [employer] as directed. Discussed home care with patient and family who verbalized understanding patient remained calm during the remainder of his stay. HPI <KRISTIN Santana - Last Filed: 06/21/20 09:13> This 24-year-old male with history of depression, coarctation of the aorta, and Abhishek syndrome presents with report of worsening depression and suicidal ideation. Patient attempt when he was evaluated his depression has worsened and he is having thoughts of wanting to harm herself intermittently throughout the day. He thinks he would use a knife . Patient denies any attempts to actually harm self today. He states that when he awoke this morning he felt improved from the prior evening when he stopped for more significant. He states but as the day progressed he had some worsening which prompted his visit. He states that his counselor was not in the office today and technically this is when he had his appointment. Patient denies any homicidal ideation, auditory or visual hallucination. Denies any history of illicit drug. States that he had right hip pain intermittently for the past several months. Denies injury to the affected area. States ambulation. Denies any associated abdominal pain. States sharp pain that is positional. General Date/Time Provider Initiated Documentation: 06/20/20 13:35 . Related Data Home Medications Medication Instructions Recorded Confirmed clonazepam 1 mg PO HS PRN PRN 07/04/19 06/15/20 buspirone 10 mg PO BID 05/20/20 06/15/20 clonazepam 2 mg PO DAILY 05/20/20 06/15/20 ondansetron 4 mg PO BID PRN PRN 05/20/20 06/15/20 Allergies Allergy/AdvReac Type Severity Reaction Status Date / Time green pepper Allergy Swelling/Ed Unverified 06/20/20 13:34 feroz SSRI AdvReac Other (See Uncoded 06/20/20 13:34 Comment) General Stated Complaint: PsychEval MARQUISE: 2 <Yaz Yusuf - Last Filed: 06/20/20 21:35> This 24-year-old male with history of depression, coarctation of the aorta, and Abhishek syndrome presents with report of worsening depression and suicidal ideation. Patient attempt when he was evaluated his depression has worsened and he is having thoughts of wanting to harm herself intermittently throughout the day. He thinks he would use a knife . Patient denies any attempts to actually harm self today. He states that when he awoke this morning he felt im proved from the prior evening when he stopped for more significant. He states but as the day progressed he had some worsening which prompted his visit. He states that his counselor was not in the office today and technically this is when he had his appointment. Patient denies any homicidal ideation, auditory or visual hallucination. Denies any history of illicit drug. States that he had right hip pain intermittently for the past several months. Denies injury to the affected area. States ambulation. Denies any associated abdominal pain. States sharp pain that is positional. Review of Systems <KRISTIN Santana - Last Filed: 06/21/20 09:13> Narrative: Review of systems obtained times 7 aside from where indicated in HPI PFSH <KRISTIN Santana - Last Filed: 06/21/20 09:13> Medical History Aorta coarctation H/O aortic coarctation repair Abhishek syndrome Social History Smoking/Tobacco Use Status: Never Smoking risk assessment performed?: Yes Alcohol Intake: never Drug use: Never Substance use type: does not use Current gender identity: male Do you feel safe at home: Yes (frightens self) Do you feel safe in your relationship?: Yes Exam <KRISTIN Santana - Last Filed: 06/21/20 09:13> Const General: cooperative, comfortable and no acute distress HENMT Mouth: oral mucosae normal Eyes Pupils: PERRL Resp Effort & Inspection: normal respiratory effort Cardio Rate: regular rate GI Other: Nontender, and no hernia palpated Back/Spine/Pelvis Other: Mild right hip pain with palpation, no tenderness with range of motion, no erythema, no obvious edema Skin General skin exam: no rashes or lesions noted Neuro General: patient alert and patient oriented x3 Cranial Nerves: CN's II-XI intact bilaterally Psych Appearance: well kempt Attitude: cooperative Insight: limited Judgment: limited Course <KRISTIN Santana - Last Filed: 06/21/20 09:13> Vital Signs Vital signs: Vital Signs Temperature 36.9 C 06/20/20 13:33 Pulse 105 H 06/20/20 13:33 Respiratory Rate 16 06/20/20 13:33 Blood Pressure 124/84 06/20/20 13:33 Pulse Oximetry 98 06/20/20 13:33 Temperature 36.9 C 06/20/20 13:33 Temperature Source Oral 06/20/20 13:33 Pulse 105 H 06/20/20 13:33 Respiratory Rate 16 06/20/20 13:33 Respiratory Effort Non-Labored 06/20/20 13:34 Blood Pressure 124/84 06/20/20 13:33 Blood Pressure Position Sitting 06/20/20 13:33 Pulse Oximetry 98 06/20/20 13:33 Oxygen Delivery Method Room Air 06/20/20 13:33 Oxygen Flow Rate 0 06/20/20 13:33 Pain Level 0 06/20/20 13:33 Sign Out <KRISTIN Santana - Last Filed: 06/21/20 09:13> Sign Out Data: Sign Out Comment: pending mental health evaluation Last updated by Sandy Perla PA at 06/20/20 16:00
[2020-06-20 14:01] LABS: Abs Immature Grans 0.02 10^3/uL (0.0-0.06); Absolute Basophil Count 0.04 10^3/uL (0.0-0.2); Absolute Eosinophil Count 0.11 10^3/uL (0.0-0.7); Absolute Lymphocyte Count 1.11 10^3/uL (1.2-3.4); Absolute Monocyte Count 0.34 10^3/uL (0.1-0.8); Absolute Neutrophil Count 4.36 10^3/uL (1.2-6.7); Basophils % 0.7; Eosinophils % 1.8; HCT 47.9 % (40.0-50.0); HGB 15.4 g/dL (13.5-17.5); Immature Grans % 0.3; Lymphocytes % 18.6; MCH 28.3 pg (27.0-33.0); MCHC 32.2 % (32.0-36.0); MCV 87.9 fL (80-95); MPV 10.4 fL (8.0-11.0); Monocytes % 5.7; Neutrophils % 72.9; Nucleated RBC 0 %; Platelet Count 225 10^3/uL (130-400); RBC 5.45 10^6/uL (4.36-5.78); RDW 12.8 % (11.8-14.1); RDW-SD 41.1 fL; WBC 5.98 10^3/uL (4.4-10.8)
--- NOTE | 2020-06-20 14:19 | NUR.NOTE ---
This person is 1:1 with patient since 1344. Belongings were placed in belonging bags, tagged with bracelets and given to RN. Patient had Black sweatshirt, Camo shorts, Sandals, Eddy t-shirt. Wallet(black) Blue bookbag and cellphone. Patient changed into hospital paper scrubs. No other updates at this time.
[2020-06-20 14:23] LABS: Anion Gap 9.4 mmol/L (3-11); BUN 9 mg/dL (7-18); CO2 31.6 mmol/L (21.0-32.0); Calcium 9.9 mg/dL (8.5-10.1); Chloride 103 mmol/L (98-107); Glucose 89 mg/dL (74-106); Potassium 3.9 mmol/L (3.5-5.1); Sodium 144 mmol/L (136-145); TSH 1.44 uIU/mL (0.36-3.74)
[2020-06-20 14:24] LABS: ETHANOL BLOOD < 3.0 mg/dL (<3)
[2020-06-20 14:32] LABS: Salicylate < 2.8 mg/dL (<2.8)
[2020-06-20 14:33] LABS: Acetaminophen < 2 ug/mL (10-30)
--- NOTE | 2020-06-20 15:44 | NUR.NOTE ---
1544: patient speaking with
--- NOTE | 2020-06-20 16:19 | PDOC.MHCN_ITS ---
Date of service: 06/20/20 Time of Service: 16:19 Mental Health Crisis Note Presenting Issue How did you arrive at the ED and why did you come: Patient arrived via his mother, after having a rise in depression symptoms. Precipitating Factors Patient denied SI/HI. No observed delusions. Disposition BEHAVIOR: Cooperative, engaged, happy. EYE CONTACT: Good eye contact. MOOD: Mood was happy, and he reported good, except for at night time. AFFECT: Patient presented happy and content. APPETITE: No changes in appetite. SLEEP(trouble falling/staying asleep: No sleep disturbances. Plan Patient and clinician discussed safety plan. Safety plan includes patient reaching out to [facility] when he feels sad or depressed, and before coming to the hospital. Patient and clinician discussed coping skills patient can use such as listening to music, talking to dad and exercise. Patient and his automotive service professional will out reach to patients psychiatrist to discuss change in time of medications and/or changes. Signature Clinician's Name/Title: Pebbles Gorman MS, [facility] Emergency Services Clinician, [facility]
[2020-06-20 16:27] VITALS: BP 129/83; PULSE 104; RESP 20; TEMP 36.9; O2SAT 99
[2020-06-20 16:43] LABS: *AMPHETAMINES SCREEN URINE Negative (Negative); *BARBITURATES SCREEN URINE Negative (Negative); *BENZODIAZEPINES SCREEN URINE Negative (Negative); Cannabinoids THC Negative (Negative); Cocaine Screen,Urine Negative (Negative); METHADONE URINE SCREEN Negative (Negative); OPIATES URINE SCREEN Negative (Negative)
[2020-06-20 16:47] LABS: Tricyclic Antidepressants Negative (Negative)
--- NOTE | 2020-06-21 12:10 | NUR.NOTE ---
Addendum entered by Margaret Blair 06/21/20 16:25: Kirsten from [facility] called asking if the providers would write medication orders for this patient when he goes to the care bed. I told her no that the orders would have to come from the PCP. Dr. Snyder agreed with this. Margaret Blair Original Note: Nursing Note: At the request of Pebbles Gorman [facility], the labs and UDS result was faxed to [facility]. Possibly for placement to care bed. Margaret Blair
== END 2020-06-20 16:40 | disposition home or self-care (01) ==
PROVIDERS: Physician Assistant; Emergency Provider Registered Nurse Emergency; PCP Neuromusculoskeletal Medicine & OMM
DX: F32.9 Major depressive disorder, single episode, unspecified (principal); R45.851 Suicidal ideations
CPT/HCPCS: 36415; 80048; 80307; 99285; 80320; 80329; 84443; 85025; 99283

== ENCOUNTER 2020-06-21 14:20 | Outpatient (CLI) | payer MEDICARE, MEDICAID, SELFPAY ==
[2020-06-21 14:46] LABS: Source Nasal/Nares
[2020-06-21 15:39] LABS: COVID-19 PCR Negative (Negative)
== END 2020-06-21 14:21 | disposition home or self-care (01) ==
PROVIDERS: PCP Neuromusculoskeletal Medicine & OMM; Visit Provider Neuromusculoskeletal Medicine & OMM
DX: Z20.822 Contact with and (suspected) exposure to COVID-19 (principal); Z01.818 Encounter for other preprocedural examination
CPT/HCPCS: 87635; 87637

== ENCOUNTER 2020-07-11 15:54 | Emergency (ER) | payer MEDICARE, MEDICAID, SELFPAY ==
[2020-07-11] VITALS (19 sets, daily range): BP systolic 124–150; BP diastolic 68–92; PULSE 79–108; RESP 10–23; TEMP 36.6; O2SAT 99–100
--- NOTE | 2020-07-11 15:45 | RT.EKG_ITS ---
APPROVED REPORT Exam: Resting ECG Reason for Exam: dizziness Patient Location: E HR:101 bpm ECG Measurements Heart Rate 101 AXIS CO 150 P 45 QRSd 102 QRS 201 QT 328 T 74 QTc 425 Conclusion Sinus tachycardia.. Probable left atrial enlargement. RVH Pprobable normal early repol pattern.
--- NOTE | 2020-07-11 16:13 | ED.GENADUL_ITS ---
Discharge Plan Disposition Patient Disposition: HOME Condition: Improving Discharge Details Clinical Impression: Light-headed feeling Primary Care Provider: Gaetano Hdz ED Provider: Ross Singh Home Meds and New Rx's Prescriptions: Continued clonazepam 1 mg tablet 1 mg PO HS PRN PRNRF: 0 ondansetron 4 mg tablet,disintegrating 4 mg PO BID PRN PRNRF: 0 aripiprazole 2 mg tablet 2 mg PO DAILY RF: 0 Discharge Instructions Additional Instructions: Home to rest today. Small, frequent sips of fluids so that you maintain good hydration. Your work-up in the emergency department included chest x-ray, EKG, laboratories and urinalysis. Continue regular medications. Follow-up with regular doctor as per normal routine. Return to the emergency department for any acute concerns. Medical Decision Making 24-year-old male who was walking down the street in [facility] when he felt lightheaded as if he was going to pass out. He was with his therapist. EMS was called. Patient did not have syncope. Denies chest pain. He now feels improv ed quite some mild persistent lightheadedness. He has not had any recent illness or medication changes. He has a history of Abhishek syndrome for which she had cardiac repair as a child, no ongoing cardiac issues. Slightly hypertensive at 150/83, pulse 94. Otherwise unremarkable vital signs and a reassuring exam. IV access established and patient given 1 L fluid bolus. His vital signs improv ed with a pulse of 88. He tolerated a glass of juice, ambulated. Screening labs were obtained. Note of specific gravity 1.015. Otherwise unremarkable CBC and chemistries. Chest x-ray without acute findings. HPI General Mode of arrival: EMS . Limitations to Documentation: no limitations . Information obtained by: patient . History of Present Illness 24 year old M presents to the emergency department with the chief complaint of Dizzy and lightheaded, and is localized to the head. Patient reports no radiation. Patient started experiencing this minute(s) and it has been now resolved. No relieving factors improve symptom(s), No exacerbating factors reported . Patient notes denies chest pain, cough, headaches, nausea/vomiting, shortness of breath, syncope and weakness. Patient did receive the following treatments prior to arrival, none Related Data Home Medications Medication Instructions Recorded Confirmed clonazepam 1 mg PO HS PRN PRN 07/04/19 07/11/20 ondansetron 4 mg PO BID PRN PRN 05/20/20 07/11/20 aripiprazole 2 mg PO DAILY 07/11/20 07/11/20 Allergies Allergy/AdvReac Type Severity Reaction Status Date / Time green pepper Allergy Swelling/Ed Unverified 06/20/20 13:34 feroz SSRI AdvReac Other (See Uncoded 06/20/20 13:34 Comment) General Stated Complaint: Dizzy/Sync MARQUISE: 3 Review of Systems Narrative: Glucose 96 in ambulance. No recent illness. 8 systems reviewed and otherwise negative [facility] Medical History Aorta coarctation H/O aortic coarctation repair Abhishek syndrome Social History Smoking/Tobacco Use Status: Never Smoking risk assessment performed?: Yes Alcohol Intake: never Drug use: Never Substance use type: does not use Current gender identity: male Do you feel safe at home: Yes (frightens self) Do you feel safe in your relationship?: Yes Exam Narrative Exam Narrative: GEN: awake, alert. Pleasant, well groomed, interactive. HEAD: Normocephalic, atraumatic ENT: Somewhat elfin appearance. Mucous membranes moist, oropharynx unremarkable, External ear exam unremarkable EYES: PERRL, EOMI NECK: Full ROM, no PK, no menigismus CHEST/RESP: Midline sternotomy scar nontender, clear to auscultation bilateral, no wheeze/rhonchi/rales CARDIOVASCULAR: RRR, no murmur, rub darren. 2+ Rad pulse bilateral ABDOMEN: Soft, nontender, no mass. +Bowel sounds EXT: Full ROM, no edema, no rash Neuro: Grossly normal neurologic exam, conversant, interactive. Psych: Speech fluent, thoughts congruent, affect normal Course Vital Signs Vital signs: Vital Signs Temperature 36.6 C 07/11/20 15:57 Pulse 94 H 07/11/20 15:57 Respiratory Rate 16 07/11/20 15:57 Blood Pressure 150/83 H 07/11/20 15:57 Pulse Oximetry 100 07/11/20 15:57 Temperature 36.6 C 07/11/20 15:57 Temperature Source Temporal Artery Scan 07/11/20 15:57 Pulse 94 H 07/11/20 15:57 Respiratory Rate 16 07/11/20 15:57 Respiratory Effort 07/11/20 16:06 Blood Pressure 150/83 H 07/11/20 15:57 Blood Pressure Position Supine 07/11/20 15:57 Pulse Oximetry 100 07/11/20 15:57 Oxygen Delivery Method Room Air 07/11/20 15:57 Oxygen Flow Rate 0 07/11/20 15:57
--- NOTE | 2020-07-11 16:15 | DI.RAD_ITS ---
Exam(s) XR CHEST 2V PA LATERAL EXAM: XR CHEST 2V PA LATERAL CLINICAL HISTORY: lightheaded TECHNIQUE: 2D digital imaging was performed. COMPARISON: No exams were available for comparison FINDINGS: MEDIASTINUM: Normal. HEART: Normal. PULMONARY VASCULATURE: Normal. LUNGS: Clear. PLEURAL SPACE: No pleural effusion or pneumothorax. BONE:Within normal limits for the patient's age. Sternal wires are in place. OTHER FINDINGS:Normal. IMPRESSION: No acute pulmonary findings. DATA REPOSITORY: RADIATION DOSE DELIVERED:
[2020-07-11 16:27] LABS: Abs Immature Grans 0.02 10^3/uL (0.0-0.06); Absolute Basophil Count 0.03 10^3/uL (0.0-0.2); Absolute Eosinophil Count 0.12 10^3/uL (0.0-0.7); Absolute Monocyte Count 0.37 10^3/uL (0.1-0.8); Absolute Neutrophil Count 4.25 10^3/uL (1.2-6.7); Basophils % 0.5; HCT 43.5 % (40.0-50.0); HGB 14.1 g/dL (13.5-17.5); Immature Grans % 0.3; Lymphocytes % 18.7; MCH 28.4 pg (27.0-33.0); MCHC 32.4 % (32.0-36.0); MCV 87.5 fL (80-95); MPV 10.8 fL (8.0-11.0); Monocytes % 6.3; Neutrophils % 72.2; Nucleated RBC 0 %; Platelet Count 184 10^3/uL (130-400); RBC 4.97 10^6/uL (4.36-5.78); RDW 12.7 % (11.8-14.1); RDW-SD 40.5 fL; WBC 5.89 10^3/uL (4.4-10.8)
[2020-07-11] MEDS: Normal Saline 1,000 ML 1000 ML IV (16:35)
[2020-07-11 16:56] LABS: ALT 34 U/L (16-63); AST 23 U/L (15-37); Albumin 4.5 g/dL (3.4-5.0); Alkaline Phosphatase 58 U/L (46-116); Anion Gap 6.5 mmol/L (3-11); BUN 9 mg/dL (7-18); Bilirubin, Total 0.3 mg/dL (0.2-1.0); CO2 31.5 mmol/L (21.0-32.0); Calcium 9.9 mg/dL (8.5-10.1); Chloride 105 mmol/L (98-107); Glucose 91 mg/dL (74-106); Magnesium 1.8 mg/dL (1.8-2.4); Potassium 3.8 mmol/L (3.5-5.1); Sodium 143 mmol/L (136-145); TSH 1.26 uIU/mL (0.36-3.74)
[2020-07-11 17:00] LABS: Troponin I < 0.05 ng/mL (<0.06)
[2020-07-11 17:17] LABS: Bilirubin Negative (Negative); Blood Negative (Negative); Clarity Clear (Clear); Glucose Negative (Negative); Ketones Negative (Negative); Leukocyte Esterase Negative (Negative); Nitrite Negative (Negative); Specific Gravity 1.015 (1.005-1.025); Urobilinogen 0.2 EU/dL (Up TO 0.2)
--- NOTE | 2020-07-11 17:24 | DI.VRAD_ITS ---
PROCEDURE INFORMATION: Exam: XR Chest Exam date and time: 07/11/2020 4:17 PM Age: 24 years old Clinical indication: Other: Diziness; Prior surgery TECHNIQUE: Imaging protocol: XR of the chest. Views: 2 views. COMPARISON: No relevant prior studies available. FINDINGS: Tubes, catheters and devices: Sternal wires are present consistent with the history of previous cardiac surgery. Lungs: The pulmonary vessels appear normal. The lungs appear free of segmental or lobar consolidation. Pleural spaces: No pleural effusion is seen. Heart/Mediastinum: The heart is not appear enlarged. Bones/joints: Unremarkable. IMPRESSION: 1. No evidence of acute cardiopulmonary disease. 2. Status post median sternotomy. Dictated and Authenticated by: Rohit Ruth MD. Ordering:RESHMA Hawkins MD
[2020-07-11 17:36] LABS: *AMPHETAMINES SCREEN URINE Negative (Negative); *BARBITURATES SCREEN URINE Negative (Negative); *BENZODIAZEPINES SCREEN URINE Negative (Negative); Cannabinoids THC Negative (Negative); Cocaine Screen,Urine Negative (Negative); METHADONE URINE SCREEN Negative (Negative); OPIATES URINE SCREEN Negative (Negative)
[2020-07-11 17:38] LABS: Tricyclic Antidepressants Negative (Negative)
== END 2020-07-11 18:02 | disposition home or self-care (01) ==
PROVIDERS: Emergency Provider Emergency Medicine; PCP Neuromusculoskeletal Medicine & OMM
DX: R42 Dizziness and giddiness (principal); R03.0 Elevated blood-pressure reading, without diagnosis of hypertension; F32.9 Major depressive disorder, single episode, unspecified
CPT/HCPCS: 80053; 80307; 93005; 96360; 99284; 71046; 81003; 83735; 84443; 84484; 85025; 93010; 99283

== ENCOUNTER 2020-08-09 15:39 | Emergency (ER) | payer MEDICARE, MEDICAID, SELFPAY ==
[2020-08-09 15:40] VITALS: BP 130/88; PULSE 104; RESP 18; TEMP 38; O2SAT 100
[2020-08-09 15:57] VITALS: TEMP 36.9
--- NOTE | 2020-08-09 16:10 | ED.GENADUL_ITS ---
Discharge Plan Disposition Patient Disposition: HOME Condition: Stable Discharge Details Clinical Impression: Depression Primary Care Provider: Gaetano Hdz ED Provider: Vernon Snyder Home Meds and New Rx's Prescriptions: Continued clonazepam 1 mg tablet 0.5 - 1 mg PO HS PRN PRNRF: 0 ondansetron 4 mg tablet,disintegrating 4 mg PO BID PRN PRNRF: 0 aripiprazole 2 mg tablet 2 mg PO HS RF: 0 Discharge Instructions Instructions: Depression (ED) Additional Instructions: Follow up with [facility] if you feel more ill or have worsening thoughts of self harm and can't contact [facility] return to the emergency department Medical Decision Making 24 yo male with hx of depression comes in with worsening depression and SI since last night with no known trigger. STates he has had thoughts of cutting himself with a knife but hasn't and hasn't tried harming himself. Denies HI. He speaks clearly, normal gait, no focal deficits, no meningismus, PERRL, CN II-XII intact. Given his history suspect worsening of his baseline depression no findings to suggest underlying infectious or endocrine pathology causing his symptoms. Will obtain screening labs and consult mental health. labs unremarkable, medically cleared to see mental health pt remains stable and seen by dominique and he does not endorse any SI today, states it was only yesterday and he has no SI now. The patient has had a normal affect throughout his stay here and seems happy, and now denies SI on my exam. DOMINIQUE is going to set up a safety plan and I feel this is reasonable and feel he is low risk for self harm. Return precautions given to the patient Differential Diagnosis Differential Diagnosis: depression, SI Lab Data Lab results reviewed: Yes I reviewed the patient's lab results. HPI General Mode of arrival: ambulatory . Date/Time Provider Initiated Documentation: 08/09/20 15:43 . Limitations to Documentation: no limitations . Information obtained by: patient . History of Present Illness 24 year old M presents to the emergency department with the chief complaint of suicidal ideati ons, described as moderate, Patient started experiencing this day(s) (1) and it has been constant. No relieving factors improve symptom(s), No exacerbating factors reported . Patient notes denies confusion, chest pain, cough, diaphoresis, fever/chills and headaches. Patient did receive the following treatments prior to arrival, none Related Data Home Medications Medication Instructions Recorded Confirmed clonazepam 0.5 - 1 mg PO HS PRN PRN 07/04/19 08/09/20 ondansetron 4 mg PO BID PRN PRN 05/20/20 08/09/20 aripiprazole 2 mg PO HS 07/11/20 08/09/20 Allergies Allergy/AdvReac Type Severity Reaction Status Date / Time green pepper Allergy Swelling/Ed Unverified 08/09/20 16:04 feroz SSRI AdvReac Other (See Uncoded 08/09/20 16:04 Comment) General Stated Complaint: PsychEval MARQUISE: 2 Review of Systems All systems reviewed & are unremarkable except as noted in HPI and below Constitutional Constitutional: Denies chills, Denies fever(s) and Denies weakness Cardiovascular Cardiovascular: Denies chest pain and Denies dyspnea Respiratory Respiratory: Denies cough and Denies dyspnea Gastrointestinal Gastrointestinal: Denies abdominal pain, Denies nausea and Denies vomiting Musculoskeletal Musculoskeletal: Denies joint swelling Neurologic Neurologic: Denies weakness [facility] Medical History Aorta coarctation H/O aortic coarctation repair Abhishek syndrome Social History Smoking/Tobacco Use Status: Never Smoking risk assessment performed?: Yes Alcohol Intake: never Drug use: Never Substance use type: does not use Current gender identity: male Do you feel safe at home: No (frightens self) Do you feel safe in your relationship?: Yes Exam Const General: no acute distress Orientation: alert HENMT Head: normal to inspection Ears: external ears normal General nose exam: external nose normal Mouth: moist mucous membranes Eyes General: appearance normal, both eyes and all related structures Neck Neck: normal visual inspection Resp Effort & Inspection: normal respiratory effort and able to speak in complete sentences Cardio Rate: regular rate Skin General skin exam: no rashes or lesions noted Neuro General: patient alert and patient oriented x3 Extrem General: normal to inspection Psych Appearance: well kempt and not disheveled Course Vital Signs Vital signs: Vital Signs Temperature 38 C H 08/09/20 15:40 Pulse 104 H 08/09/20 15:40 Respiratory Rate 18 08/09/20 15:40 Blood Pressure 130/88 08/09/20 15:40 Pulse Oximetry 100 08/09/20 15:40 Temperature 36.9 C 08/09/20 15:57 Temperature Source Skin 08/09/20 15:57 Pulse 104 H 08/09/20 15:40 Respiratory Rate 18 08/09/20 15:40 Respiratory Effort 08/09/20 15:51 Blood Pressure 130/88 08/09/20 15:40 Blood Pressure Position Sitting 08/09/20 15:40 Pulse Oximetry 100 08/09/20 15:40 Oxygen Delivery Method Room Air 08/09/20 15:40 Oxygen Flow Rate 0 08/09/20 15:40 Pain Level 0 08/09/20 15:40 Comment 08/09/20 15:40
[2020-08-09 16:44] LABS: Abs Immature Grans 0.02 10^3/uL (0.0-0.06); Absolute Basophil Count 0.02 10^3/uL (0.0-0.2); Absolute Eosinophil Count 0.13 10^3/uL (0.0-0.7); Absolute Lymphocyte Count 0.82 10^3/uL (1.2-3.4); Absolute Monocyte Count 0.39 10^3/uL (0.1-0.8); Basophils % 0.4; Eosinophils % 2.3; HCT 43.3 % (40.0-50.0); HGB 14.4 g/dL (13.5-17.5); Immature Grans % 0.4; Lymphocytes % 14.7; MCH 28.7 pg (27.0-33.0); MCHC 33.3 % (32.0-36.0); MCV 86.4 fL (80-95); MPV 10.7 fL (8.0-11.0); Neutrophils % 75.2; Nucleated RBC 0 %; Platelet Count 167 10^3/uL (130-400); RBC 5.01 10^6/uL (4.36-5.78); RDW 12.6 % (11.8-14.1); RDW-SD 39.8 fL; WBC 5.58 10^3/uL (4.4-10.8)
[2020-08-09 17:13] LABS: Acetaminophen < 2 ug/mL (10-30); Salicylate < 2.8 mg/dL (<2.8)
[2020-08-09 17:15] LABS: ALT 41 U/L (16-63); AST 26 U/L (15-37); Albumin 4.4 g/dL (3.4-5.0); Alkaline Phosphatase 65 U/L (46-116); Anion Gap 4.4 mmol/L (3-11); BUN 12 mg/dL (7-18); Bilirubin, Total 0.4 mg/dL (0.2-1.0); CO2 32.6 mmol/L (21.0-32.0); Calcium 9.2 mg/dL (8.5-10.1); Chloride 106 mmol/L (98-107); Glucose 115 mg/dL (74-106); Potassium 4.1 mmol/L (3.5-5.1); Sodium 143 mmol/L (136-145); TSH (W/Ref FT4) 2.03 uIU/mL (0.36-3.74); Total Protein 7.7 g/dL (6.4-8.2)
[2020-08-09 17:26] LABS: ETHANOL BLOOD < 3.0 mg/dL (<3)
[2020-08-09 18:47] LABS: Bilirubin Negative (Negative); Blood Negative (Negative); Clarity Clear (Clear); Glucose Negative (Negative); Ketones Negative (Negative); Leukocyte Esterase Negative (Negative); Nitrite Negative (Negative); Urobilinogen 0.2 EU/dL (Up TO 0.2); pH 8.5 (5-8)
[2020-08-09 19:28] LABS: *AMPHETAMINES SCREEN URINE Negative (Negative); *BARBITURATES SCREEN URINE Negative (Negative); *BENZODIAZEPINES SCREEN URINE Negative (Negative); Cannabinoids THC Negative (Negative); Cocaine Screen,Urine Negative (Negative); METHADONE URINE SCREEN Negative (Negative); OPIATES URINE SCREEN Negative (Negative)
[2020-08-09 19:34] LABS: Tricyclic Antidepressants Negative (Negative)
--- NOTE | 2020-08-09 23:40 | PDOC.MHCN_ITS ---
Date of service: 08/09/20 Time of Service: 20:00 Mental Health Crisis Note Presenting Issue How did you arrive at the ED and why did you come: The client presented to [facility] ED with initial complaint of worsening depression and fleeting thoughts of self- harm that began occurring 08.08.20. Precipitating Factors Client presented in casual attire with neat grooming. Fully alert and oriented to time, person, place, and global circumstance. Behaviorally calm, cooperative, and appropriate throughout assessment process. Mood reported as ?I?m feel more happier today? with bright / pleasant affect. No evidence of delusions, hallucinations, or psychotic thought process. The client reported that on 08.08.20 he began feeling sad with fleeting thoughts of self-harm involving a knife. He denied current SI/HI/SIB, intent or plan. When asked what feelings brought him to the ED tonight, client reported that he was feeling sad due to ?being cooped up and bored? and went on to share that his depression fluctuates and tends to improve when he is around others. He went on to comment that being in the ED made him feel better and stated that ?I like the people here.? 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 Disposition BEHAVIOR: Calm, pleasant and appropriate EYE CONTACT: Excellent MOOD: I feel more happier today. AFFECT: Bright / pleasant APPETITE: No reported issues SLEEP(trouble falling/staying asleep: No reported issues Plan The client is not presently endorsing thoughts of harm directed toward self or others and presents as low risk. He has agreed to discharge with a safety plan involving scheduled check-in calls throughout the weekend. The established call-schedule is as follows: Wednesday 6.4.21 ? 10:00p Wednesday 6.5.21 ? Between 2:00p ? 3:00p Wednesday 6.6.21 ? 7:00p The client has agreed to outreach for additional support as needed. Information forwarded to [facility] clinician to accommodate check-in contact. Signature Clinician's Name/Title: SANA [facility] clinician / [place]
== END 2020-08-09 20:30 | disposition home or self-care (01) ==
PROVIDERS: Emergency Provider Emergency Medicine; PCP Neuromusculoskeletal Medicine & OMM
DX: F32.89 Other specified depressive episodes (principal); R45.851 Suicidal ideations
CPT/HCPCS: 36415; 80053; 80307; 99283; 80320; 80329; 81003; 84443; 85025

== ENCOUNTER 2020-08-25 10:21 | Emergency (ER) | payer MEDICARE, MEDICAID, SELFPAY ==
[2020-08-25 10:29] VITALS: BP 137/91; PULSE 90; RESP 16; TEMP 37.2; O2SAT 98
--- NOTE | 2020-08-25 10:45 | ED.GENADUL_ITS ---
Discharge Plan Disposition Patient Disposition: HOME Condition: Stable Discharge Details Clinical Impression: Depression Primary Care Provider: Gaetano Hdz ED Provider: Naman Coronel Home Meds and New Rx's Prescriptions: Continued clonazepam 1 mg tablet 0.5 - 1 mg PO HS PRN PRNRF: 0 ondansetron 4 mg tablet,disintegrating 4 mg PO BID PRN PRNRF: 0 aripiprazole 2 mg tablet 2 mg PO HS RF: 0 Discharge Instructions Instructions: Depression (ED) Additional Instructions: At this time you have had a medical screening examination evaluated by mental health team. You are able to be safely discharged home with a safely plan. Please follow the instructions given to you by our mental health team. Watch for new or worsening symptoms and return to the ER for any concerns. I do recommend reaching out to your outpatient mental health team tomorrow as well as your primary care provider to make them aware of your ER visit and need for outpatient reevaluation. Medical Decision Making 25-year-old gentleman presents to the ER reporting increased depression over the past few days, no real triggers, denies feeling suicidal or homicidal. He has no acute medical concerns or complaints. No changes in his medications. Patient feels safe and does not believe that he requires hospitalization today. He appears to have fair insight into his feelings. He simply would like to talk with someone. Given this, I do not believe that he requires hospitalization and there fair will not reflexively obtain psychiatric inpatient laboratory values screening. I see no clear indication for a CPSO. [facility] health contacted, spoke with Naman who will come to evaluate the patient. Naman from [facility] evaluated the patient, please see his note. Patient was able to be safety plan at home. Patient feels safe with this plan and has no additional questions or concerns. He does not meet inpatient psychiatric hospitalization criteria. He denies any suicidal or homicidal ideations Medical Records Medical records reviewed: Yes I reviewed the patient's medical records. HPI General Mode of arrival: ambulatory . Date/Time Provider Initiated Documentation: 08/25/20 10:44 . Limitations to Documentation: no limitations . Information obtained by: patient . HPI Narrative: This is a 25-year-old gentleman, past medical history of Abhishek syndrome, depression, presenting to the ER reporting increased depression over the past few days. He denies any suicidal or homicidal ideations. He feels safe and has no thoughts of self- harm. Patient is not exactly sure of any triggers that causes increased depression. He saw his therapist on and was feeling fine then. He denies recent illness or trauma and has no other medical concerns or complaints. Patient states that he would simply like to talk with someone today regarding his feelings. He does not believe that he needs to be hospitalized. Related Data Home Medications Medication Instructions Recorded Confirmed clonazepam 0.5 - 1 mg PO HS PRN PRN 07/04/19 08/25/20 ondansetron 4 mg PO BID PRN PRN 05/20/20 08/25/20 aripiprazole 2 mg PO HS 07/11/20 08/25/20 Allergies Allergy/AdvReac Type Severity Reaction Status Date / Time green pepper Allergy Swelling/Ed Unverified 08/25/20 10:32 feroz SSRI AdvReac Other (See Uncoded 08/25/20 10:32 Comment) General Stated Complaint: PsychEval MARQUISE: 2 Review of Systems Constitutional Constitutional: Denies fever(s) and Denies headache(s) ENT Ears, Nose, Mouth, and Throat: Denies headache(s) Cardiovascular Cardiovascular: Denies chest pain Respiratory Respiratory: Denies cough Gastrointestinal Gastrointestinal: Denies abdominal pain, Denies nausea and Denies vomiting Integumentary/Breasts Skin/Breast: Denies rash Neurologic Neurologic: Denies headache(s) Psychiatric Psychiatric: Reports depression, Denies homicidal ideation and Denies suicidal ideation [facility] Medical History Aorta coarctation H/O aortic coarctation repair Abhishek syndrome Social History Smoking/Tobacco Use Status: Never Smoking risk assessment performed?: Yes Alcohol Intake: never Drug use: Never Substance use type: does not use Current gender identity: male Do you feel safe at home: No (frightens self) Do you feel safe in your relationship?: Yes Exam Const General: cooperative, healthy appearing, comfortable and no acute distress Orientation: alert, awake and oriented x3 HENMT Head: normal to inspection, normocephalic and atraumatic Face and sinus: normal facial exam Mouth: moist mucous membranes Eyes General: appearance normal, both eyes and all related structures Conjunctivae: conjunctivae normal Neck Neck: normal visual inspection, full ROM, trachea midline and supple Resp Effort & Inspection: normal respiratory effort and able to speak in complete sentences Auscultation: clear to auscultation bilaterally Cardio Rate: regular rate Rhythm: regular rhythm GI Palpation: soft and nontender Back/Spine/Pelvis Back: No back tenderness Skin General skin exam: no rashes or lesions noted Neuro General: patient alert, patient awake, patient oriented x3, moves all extremities and no focal motor deficits Cognition: normal cognition Speech: speech normal Gait: normal gait Motor: muscle tone normal throughout Sensory Exam: no sensory deficits noted Extrem General: normal to inspection, full ROM and capillary refill normal Psych Appearance: grossly normal Mental Status: mental status grossly normal Speech and Movement: speech and movement normal Mood: dysthymic mood (Minimally) Affect: sad Attitude: cooperative Thought Process: normal Thought Content: normal Insight: fair Judgment: fair Course Vital Signs Vital signs: Vital Signs Temperature 37.2 C 08/25/20 10:29 Pulse 90 08/25/20 10:29 Respiratory Rate 16 08/25/20 10:29 Blood Pressure 137/91 H 08/25/20 10:29 Pulse Oximetry 98 08/25/20 10:29 Temperature 37.2 C 08/25/20 10:29 Temperature Source Oral 08/25/20 10:29 Pulse 90 08/25/20 10:29 Respiratory Rate 16 08/25/20 10:29 Respiratory Effort Non-Labored 08/25/20 10:33 Blood Pressure 137/91 H 08/25/20 10:29 Blood Pressure Position Sitting 08/25/20 10:29 Pulse Oximetry 98 08/25/20 10:29 Pain Level 0 08/25/20 10:29
== END 2020-08-25 12:16 | disposition home or self-care (01) ==
PROVIDERS: Emergency Provider Physician Assistant; PCP Neuromusculoskeletal Medicine & OMM
DX: F32.9 Major depressive disorder, single episode, unspecified (principal)
CPT/HCPCS: 99284; 81003; 99283

== ENCOUNTER 2020-08-25 14:51 | Emergency (ER) | payer MEDICARE, MEDICAID, SELFPAY ==
--- NOTE | 2020-08-25 16:29 | PDOC.MHCN ---
Date of service: 08/25/20 Time of Service: 11:30 Mental Health Crisis Note Presenting Issue How did you arrive at the ED and why did you come: Client was transported to [facility] ED by his mother with chief complaint of worsening depression since Wednesday08.23.20. Precipitating Factors Client presented in standard-issue paper garments. Fully alert and oriented, no deficits in memory noted. Client was cooperative and engaged and answered all questions. Mood reported as ?depressed? with euthymic / bright affect. He stated that he began feeling depressed on Wednesday08.23.20 and did not identify and specific triggers other than lack of social interaction and being alone in his room. He reported that he enjoys being around others and shared that he was looking forward to activities with his [facility] case management manager tomorrow. No report or evidence of delusions, hallucinations, or psychotic thought process. No current SI/HI/SIB, intent or plan. Disposition BEHAVIOR: Calm, cooperative, pleasant EYE CONTACT: Good MOOD: Depressed AFFECT: Euthymic / bright APPETITE: No reported issues SLEEP(trouble falling/staying asleep: No reported issues Plan Client will be discharged home on a safety plan. [facility] will contact client for a check-in tonight at 7:00p. Information pertaining to interaction will be forwarded to [facility] weekend OC so that a check-in can also be completed after discharge. Client agreed to outreach for additional support as needed. Signature Clinician's Name/Title: Kelby Huggins [facility] clinician / hp
[2020-08-25 17:03] VITALS: BP 107/70; PULSE 109; TEMP 37; O2SAT 96
== END 2020-08-25 17:13 ==
PROVIDERS: Emergency Provider Physician Assistant; PCP Neuromusculoskeletal Medicine & OMM
DX: R69 Illness, unspecified (principal)

== ENCOUNTER 2020-09-05 14:55 | Emergency (ER) | payer MEDICARE, MEDICAID, SELFPAY ==
[2020-09-05 15:06] VITALS: BP 124/85; PULSE 109; RESP 20; TEMP 36.8; O2SAT 94
--- NOTE | 2020-09-05 15:08 | ED.GENADUL_ITS ---
Discharge Plan Disposition Patient Disposition: HOME Condition: Stable Discharge Details Clinical Impression: Depression Primary Care Provider: Gaetano Hdz ED Provider: Vernon Snyder Home Meds and New Rx's Prescriptions: Continued clonazepam 1 mg tablet 2 mg PO HS PRN PRNRF: 0 mirtazapine 15 mg tablet 15 mg PO HS RF: 0 polyethylene glycol 3350 [Miralax] 17 gram/dose Powder 17 g PO DAILY PRNRF: 0 senna-docusate sodium Tablet 1 tab PO DAILY RF: 0 ondansetron 4 mg tablet,disintegrating 4 mg PO BID PRN PRNRF: 0 aripiprazole 2 mg tablet 2 mg PO HS RF: 0 Discharge Instructions Instructions: Depression (ED) Additional Instructions: follow up with [facility] human services if you feel more ill or have worsening thouhts of self harm return to the [facility] department Medical Decision Making <Jeanna Boyd DO - Last Filed: 09/05/20 19:57> 1520 -- 25-year-old male with a history of Abhishek syndrome and aortic coarctation repair presents for suicidal ideation. [facility] informed us of patient's impending arrival and that he is voluntary and they plan to seek plac ement. Patient appears at his baseline. He has no acute complaints. He states his plan is to use a knife to stab himself in his right side. After my assessment, patient states he is no longer suicidal and would like to leave. [facility] health was contacted who evaluated patient at bedside and cleared him for discharge to home as he is currently not suicidal. After my discussion with mental health, patient stated I made a mistake and stated he now feels he needs to stay. Discussed with Naman from [facility] who plans to now seek placement. 1814 -- Shortly after mental health departure, patient now stated he wants to leave the hospital again. This was discussed with Naman again from [facility] health who knows patient well and states that this is patient's usual cycle of complaints. Patient is his own guardian. Discussed again with Naman for [facility] health and he is currently in the emergency and will follow up after. Patient is medically cleared. 1999 --Case endorsed to Dr. Snyder to follow-up with mental health regarding final disposition. Medical Records Medical records reviewed: Yes I reviewed the patient's medical records. <Vernon Snyder MD - Last Filed: 09/05/20 20:40> pt wishing to go home and spoke with family who will pick him up, he denies si/hi and has normal affect. ADvised to f/u with nekhs and return precautions given HPI <Jeanna Boyd DO - Last Filed: 09/05/20 19:57> General Mode of arrival: ambulatory . Date/Time Provider Initiated Documentation: 09/05/20 15:03 . Limitations to Documentation: no limitations . Information obtained by: patient . HPI Narrative: Patient is a 25-year-old male with a history of Abhishek syndrome and coarctation of the aorta with repair who presents for suicidal ideation. [facility] mental health informed the ED of patient's arrival and that they would be seeking placement. Pebbles states that patient endorsed to her that he would cut himself with a pen, overdose on his prescriptions or put his finger in the toaster oven. Pebbles noted that patient is usually happy with the bubbly personality and appeared depressed and flat today lacking insight and judgment which is unusual for his normal behavior. Upon patient arrival to the ED, he states that his plan would be to use a knife to stab himself in his right side. He denies any homicidal ideation. He denies any visual or auditory hallucinations. He denies any other acute physical complaints. Related Data Home Medications Medication Instructions Recorded Confirmed clonazepam 2 mg PO HS PRN PRN 07/04/19 09/05/20 ondansetron 4 mg PO BID PRN PRN 05/20/20 09/05/20 aripiprazole 2 mg PO HS 07/11/20 09/05/20 mirtazapine 15 mg PO HS 09/05/20 09/05/20 polyethylene glycol 3350 [Miralax] 17 g PO DAILY PRN 09/05/20 09/05/20 senna-docusate sodium 1 tab PO DAILY 09/05/20 09/05/20 Allergies Allergy/AdvReac Type Severity Reaction Status Date / Time green pepper Allergy Swelling/Ed Unverified 09/05/20 15:11 feroz SSRI AdvReac Other (See Uncoded 09/05/20 15:11 Comment) General MARQUISE: 3 Review of Systems <DO Fidelia Haas Last Filed: 09/05/20 19:57> All systems reviewed & are unremarkable except as noted in HPI and below Constitutional Constitutional: Reports as per HPI, Denies chills and Denies fever(s) Eyes Eyes: Denies blurry vision ENT Ears, Nose, Mouth, and Throat: Denies dizziness, Denies sore throat and Denies throat swelling Cardiovascular Cardiovascular: Denies chest pain and Denies dyspnea Respiratory Respiratory: Denies cough and Denies dyspnea Gastrointestinal Gastrointestinal: Denies abdominal pain, Denies diarrhea and Denies vomiting Genitourinary Genitourinary: Denies hematuria and Denies dysuria Musculoskeletal Musculoskeletal: Denies back pain and Denies numbness Integumentary/Breasts Skin/Breast: Denies lesions and Denies rash Neurologic Neurologic: Denies dizziness, Denies localized weakness and Denies numbness Psychiatric Psychiatric: Reports suicidal ideation Allergic/Immunologic Allergic/Immunologic: Denies throat swelling PFSH <Jeanna Boyd DO - Last Filed: 09/05/20 19:57> Medical History Aorta coarctation H/O aortic coarctation repair Abhishek syndrome Social History Smoking/Tobacco Use Status: Never Smoking risk assessment performed?: Yes Alcohol Intake: never Drug use: Never Substance use type: does not use Current gender identity: male Do you feel safe at home: Yes Do you feel safe in your relationship?: Yes Exam <Jeanna Boyd DO - Last Filed: 09/05/20 19:57> Const General: cooperative and no acute distress HENMT Head: normal to inspection Face and sinus: normal facial exam Eyes General: appearance normal, both eyes and all related structures Pupils: PERRL EOM: EOM intact bilaterally Neck Neck: normal visual inspection and No submandibular swelling Lymphatic: no lymphadenopathy noted Chest Chest: normal inspection of the chest and no tenderness Resp Effort & Inspection: normal respiratory effort and able to speak in complete sentences Auscultation: clear to auscultation bilaterally Cardio Rate: regular rate Rhythm: regular rhythm GI Inspection: normal to inspection Palpation: soft, not firm, not rigid and nontender Auscultation: normal bowel sounds Skin General skin exam: no rashes or lesions noted Neuro General: patient alert, patient awake and patient oriented x3 Cognition: normal cognition Speech: speech normal Motor: muscle tone normal throughout Sensory Exam: no sensory deficits noted Extrem General: normal to inspection, full ROM, capillary refill normal, no calf tenderness bilaterally and no edema Psych Appearance: grossly normal Mental Status: mental status grossly normal Speech and Movement: speech and movement normal Affect: normal affect Sign Out <Jeanna Boyd DO - Last Filed: 09/05/20 19:57> Sign Out Data: Sign Out Comment: PT wavering of feeling suicidal and wanting to stay or go. Follow up with mental health regarding final disposition. Last updated by Jeanna Boyd DO at 09/05/20 19:52
--- NOTE | 2020-09-05 15:38 | PDOC.MHCN ---
Date of service: 09/05/20 Time of Service: 15:38 Mental Health Crisis Note Presenting Issue How did you arrive at the ED and why did you come: Pt arrived to the ED via his mother after he was evaluated at [facility]. He is seeking a voluntary admisison. Precipitating Factors Pt endorsed persistent on going thoughts of suicide that have lasted approximately 2 weeks. He denied HI. Disposition BEHAVIOR: Pt presents with his mother and social service manager for evaluation for a psychiatric hospitalization. Pt is cooperative and engaged in the evaluation however, is slower than average to answer or understand some questions. He shows fair insight and judegement. EYE CONTACT: Pt makes fair eye contact. MOOD: Pt presents as depressed and withdrawn which is not his typical presentation. Pt has Abhishek syndrome and usually is upbeat and smiling. AFFECT: Affect is flat and blunted. APPETITE: Pt reported he is eating. SLEEP(trouble falling/staying asleep: Pt reported that he is sleeping. Plan Pt is seeking a voluntary admission. [facility] has attempted to safety plan for two weeks and this is not helping. It was reported that his mother had been making changes to his Abilify and only giving him part of his dose and saving others for when he was in crisis. it is not clear how long that had been going on however, he started getting his prescribed dose last week after his social service manager and his psychiatrist addressed this with her. He was also started on Remeron to which the Pt stated has made his moods feel worse. Referrals are sent to [facility], [facility], [facility] and [facility]. A huddle was had with Holli Eisenberg, child day care provider and Dr. Jeanna Boyd. Signature Clinician's Name/Title: Pebbles Gorman MS, [facility] Emergency Services Clinician, [facility]
[2020-09-05 15:43] LABS: Abs Immature Grans 0.02 10^3/uL (0.0-0.06); Absolute Basophil Count 0.02 10^3/uL (0.0-0.2); Absolute Eosinophil Count 0.04 10^3/uL (0.0-0.7); Absolute Lymphocyte Count 0.78 10^3/uL (1.2-3.4); Absolute Monocyte Count 0.38 10^3/uL (0.1-0.8); Absolute Neutrophil Count 6.43 10^3/uL (1.2-6.7); Basophils % 0.3; Eosinophils % 0.5; HCT 43.4 % (40.0-50.0); HGB 14.3 g/dL (13.5-17.5); Immature Grans % 0.3; Lymphocytes % 10.2; MCH 28.4 pg (27.0-33.0); MCHC 32.9 % (32.0-36.0); MCV 86.1 fL (80-95); MPV 10.6 fL (8.0-11.0); Neutrophils % 83.7; Nucleated RBC 0 %; Platelet Count 176 10^3/uL (130-400); RBC 5.04 10^6/uL (4.36-5.78); RDW 12.8 % (11.8-14.1); RDW-SD 39.7 fL; WBC 7.67 10^3/uL (4.4-10.8)
--- NOTE | 2020-09-05 15:55 | CMSP_ITS ---
- If Service Date Differs Date of service: 09/05/20 Time of Service: 15:55 Care Management Safety Plan Status: Voluntary - Guarianship if Applicable Guardianship: Parent - Reason for Wait Reason for Wait: Inpatient Admission VOLUNTARY FOR INPATIENT PSYCHIATRIC STABILIZATION. Patient is appropriate in all interactions since arriving at [facility]; Pt has demonstrated appropriate coping and communication skills, has articulated his or her needs and concerns and is fully engaged during staff interactions. Safety plan has been established with patient, and care team, to adhere to patient goals, identify restrictions based on behavioral status, address nutrition, and determine allowed personal belongings, tools for hygiene and personal care. Determine level of activity including ambulation, level of supervision, visitors, and determine privileges based on behaviors and level of engagement by pt. SAFETY PLAN: 1. Will remain on suicide precautions. In Paper Clothes 2. Will remain in room under direct supervision of one-on-one staff at all times provided by CPSO, BIOINFORMATICS ASSOCIATE, INSTALLATION SERVICE REPRESENTATIVE toll relief operator. 3. May have paper cups, plates, finger foods as well as a cardboard spoon with which to eat meals. 4. Follow [facility] Management of the Admitted Behavioral Health Patient policy. 5. Shower permitted with supervision and at RN discretion. 6. No personal belongings 7. Visitors: No visitors at this time. 8. Activities: Soft cart items, coloring books, crayons, music tablet, television if available, and other activities at RN discretion. 9. Bathroom privileges: Must be accompanied by escort while in the ED. May use bathroom available in room without restriction on Med/Surg. 10. Phone: Limited to parents, at RN discretion. 11. Due to VOLUNTARY status, if patient wishes to leave [facility], staff will contact [facility] Crisis Screener ([phone]) and On-Call Guest Relations Receptionist ([phone]) as soon as possible. In the event of elopement, notify [facility] Police ([phone]). Patient is currently voluntarily at [facility] and seeking inpatient admission when a bed becomes available. [facility] Frontline Meat Blender will continue seeking placement. Please contact the Auto Emissions Technician Guest Relations Receptionist ([phone]) and [facility] Meat Blender ([phone]) for any needed changes in the Safety Plan. [facility]
[2020-09-05 15:56] LABS: ALT 35 U/L (16-63); AST 29 U/L (15-37); Albumin 4.4 g/dL (3.4-5.0); Alkaline Phosphatase 47 U/L (46-116); BUN 14 mg/dL (7-18); Bilirubin, Total 0.5 mg/dL (0.2-1.0); Calcium 9.2 mg/dL (8.5-10.1); Chloride 106 mmol/L (98-107); Glucose 86 mg/dL (74-106); Potassium 4.2 mmol/L (3.5-5.1); Sodium 143 mmol/L (136-145); Total Protein 7.8 g/dL (6.4-8.2)
[2020-09-05 16:12] LABS: Source Nasal/Nares
[2020-09-05 16:16] LABS: ETHANOL BLOOD < 3.0 mg/dL (<3)
[2020-09-05 16:59] LABS: *AMPHETAMINES SCREEN URINE Negative (Negative); *BARBITURATES SCREEN URINE Negative (Negative); *BENZODIAZEPINES SCREEN URINE Negative (Negative); Cannabinoids THC Negative (Negative); Cocaine Screen,Urine Negative (Negative); METHADONE URINE SCREEN Negative (Negative); OPIATES URINE SCREEN Negative (Negative)
[2020-09-05 17:01] LABS: Tricyclic Antidepressants Negative (Negative)
[2020-09-05 17:05] LABS: COVID-19 PCR Negative (Negative)
[2020-09-05 20:46] VITALS: BP 127/83; PULSE 92; RESP 15; O2SAT 98
--- NOTE | 2020-09-06 15:11 | PDOC.MHCN ---
Date of service: 09/05/20 Time of Service: 17:05 Mental Health Crisis Note Presenting Issue How did you arrive at the ED and why did you come: Client reported to [facility] staff that he changed his mind about in-patient referral and wished to discharge home. It was reported that client was having difficulty committing to a decision on waiting for placement or discharging. Precipitating Factors Client presented in standard issue paper garments. He presented as alert and oriented and was behaviorally appropriate throughout interaction. Mood reported as Better with euthymic / pleasant affect. No evidence of acute distress, delusional thinking, hallucinations, or psychotic thought process. He did not endorse SI/HI/SIB, intent or plan and advised that his depressive symptoms had decreased while at [facility]. He shared that for the past couple of weeks he has been struggling with worsening depression and that at times his coping skills (weighted blanket, breathing exercises) do not work. He stated while feeling depressed, thoughts of self-harm sometimes emerge without an identifiable trigger other than feeling sad or isolated, and described these thoughts as using a knife to push into the right lower quadrant of his abdomen. He did not disclose any additional methods and denied access to means. This conventional mortgage underwriter asked what had changed over the course of the day to where he felt safe to discharge home - client stated I don?t know. I just suddenly felt better. I like the people here, and like getting help. He went on to comment that he was nervous about in-patient placement and about encountering people that yell, consistent with past presentations. This conventional mortgage underwriter explained the in-patient process as a means of helping him transition toward feeling safer at home, however the client reported that he wished to discharge home and explore doing different activities as an alternative. Disposition BEHAVIOR: Calm, cooperative, appropriate during all interactions EYE CONTACT: Excellent MOOD: Better AFFECT: Euthymic / pleasant APPETITE: No reported issues SLEEP(trouble falling/staying asleep: No reported issues Plan The client reported that he no longer wished to seek in-patient placement and wanted to discharge home on safety plan. Presentation had improved compared to earlier in the day and client did not endorse thoughts of harm at time of interaction. This conventional mortgage underwriter was unable to get ahold of client's primary contact (mother) to discuss suitability for returning home, however it was later reported that client's family were agreeable to him returning. The client wished to have a check-in call tonight at 10:30p and agreed to follow-up with his DS mattress spring encaser tomorrow and outrach for additional support as needed. No additional service recommendations at this time. Signature Clinician's Name/Title: TERNTON Nixon clinician / hp
== END 2020-09-05 20:51 | disposition home or self-care (01) ==
PROVIDERS: Physician Assistant; Emergency Provider Emergency Medicine; PCP Neuromusculoskeletal Medicine & OMM
DX: F32.89 Other specified depressive episodes (principal); R45.851 Suicidal ideations; Z20.822 Contact with and (suspected) exposure to COVID-19; Z03.818 Encounter for observation for suspected exposure to other biological agents ruled out
CPT/HCPCS: 36415; 80053; 80307; 87635; 99285; 80320; 85025; 99283

== ENCOUNTER 2020-09-07 17:00 | Inpatient (IN) | payer MEDICARE, MEDICAID, SELFPAY ==
[2020-09-07 17:08] VITALS: BP 138/95; PULSE 94; RESP 16; TEMP 36.5; O2SAT 96
--- NOTE | 2020-09-07 17:26 | ED.GENADUL_ITS ---
Discharge Plan Disposition Patient Disposition: [facility] INPATIENT Condition: Stable Discharge Details Clinical Impression: Suicidal ideation, Depression Admit Date/Time: 09/07/20 22:01 Admit Provider: Erickson Alvarez Attending Provider: Erickson Alvarez Primary Care Provider: Gaetano Hdz ED Provider: Yaz Yusuf Medical Decision Making 25-year-old male with a past medical history of depression, aortic coarctation with repair and Abhishek syndrome presents to the emergency room with chief complaint of depression and suicidal ideation. Patient was seen here in the department for similar yesterday and was evaluated by [facility] services and was ultimately discharged home with a safety plan into the care of his parents with whom he lives with. He denies any change since being discharged except for it is getting worse he denies taking any extra medications or doing anything since discharge to hurt himself. He reports thoughts of hurting himself with a knife he states that there are knives in his home but they are locked up. Patient states that he took his normal medications today however per staff development coordinator he reported to them that he did not take any of his normal medications today except for clonazepam. staff development coordinator and patient belongings wanted upon arrival and patient was wanted by security. Mental health consult ordered patient placed in paper scrubs, in line of sight of nurses station and urinalysis and urine drug screen ordered at this time. 193: Spoke with psych liameg Sharif with [facility] services regarding patient she is recommending admission at this time due to patient's frequent visits. Did discuss with patient that we will not tolerate changing of his mind for admission versus going home. She also discussed that we will consider EEG or involuntary if patient decides that he would like to be discharged home. At this time no psych bed for the night. Covid swab ordered for most likely admission for suicidal ideations and voluntary inpatient psych placement. Psych liameg Sharif does not recommend repeat labs as patient just had medical work-up yesterday. Patient has remained voluntary, cooperative with no complaint during stay in the emergency room. Clinical patient safety observer at bedside for duration. Patient transported up to the floor in hemodynamic stable condition. This text was generated using [employer] system, please disregard any oddities of phrase or misspellings. HPI General Mode of arrival: ambulatory . Date/Time Provider Initiated Documentation: 09/07/20 17:09 . Limitations to Documentation: no limitations . Information obtained by: patient, RN notes reviewed and old records reviewed . HPI Narrative: 25-year-old male with a past medical history of depression, aortic coarctation with repair and Abhishek syndrome presents to the emergency room with chief complaint of depression and suicidal ideation. Patient was seen here in the department for similar yesterday and was evaluated by [facility] human services and was ultimately discharged home with a safety plan into the care of his parents with whom he lives with. He denies any change since being discharged except for it is getting worse he denies taking any extra medications or doing anything since discharge to hurt himself. He reports thoughts of hurting himself with a knife he states that there are knives in his home but they are locked up. Patient states that he took his normal medications today however per staff development coordinator he reported to them that he did not take any of his normal medications today except for clonazepam. Related Data Home Medications Medication Instructions Recorded Confirmed clonazepam 2 mg PO HS PRN PRN 07/04/19 09/07/20 ondansetron 4 mg PO BID PRN PRN 05/20/20 09/07/20 aripiprazole 2 mg PO HS 07/11/20 09/07/20 mirtazapine 15 mg PO HS 09/05/20 09/07/20 polyethylene glycol 3350 [Miralax] 17 g PO DAILY PRN 09/05/20 09/07/20 senna-docusate sodium 1 tab PO DAILY 09/05/20 09/07/20 Allergies Allergy/AdvReac Type Severity Reaction Status Date / Time green pepper Allergy Swelling/Ed Unverified 09/07/20 17:11 feroz SSRI AdvReac Other (See Uncoded 09/07/20 17:11 Comment) General Stated Complaint: PsychEval MARQUISE: 2 Review of Systems All systems reviewed & are unremarkable except as noted in HPI and below Constitutional Constitutional: Denies chills, Denies fever(s), Denies headache(s) and Denies weakness Eyes Eyes: Denies loss of vision ENT Ears, Nose, Mouth, and Throat: Denies dizziness and Denies headache(s) Gastrointestinal Gastrointestinal: Denies abdominal pain, Denies diarrhea, Denies nausea and Denies vomiting Musculoskeletal Musculoskeletal: Denies numbness Neurologic Neurologic: Denies confusion, Denies dizziness, Denies headache(s), Denies localized weakness, Denies loss of vision, Denies numbness and Denies weakness Psychiatric Psychiatric: Reports as per HPI, Denies confusion, Reports depression, Denies visual hallucinations and Reports suicidal ideation (Wants to stab self with a knife.) [facility] Medical History Aorta coarctation H/O aortic coarctation repair Abhishek syndrome Social History Smoking/Tobacco Use Status: Never Smoking risk assessment performed?: Yes Alcohol Intake: never Drug use: Never Substance use type: does not use Current gender identity: male Do you feel safe at home: Yes Do you feel safe in your relationship?: Yes Exam Narrative Exam Narrative: Constitutional: Alert and oriented x3. Appears stated age. Normal body habitus. Head: Normocephalic, no trauma. Eyes: Pupils PERRLA, Red reflex noted, EOM's intact. Eyelids symmetrical without lesions, discharge, or swelling. ENT: Bilateral TM's WNL, External ear normal to inspection, no mastoid TTP, swelling, or erythema, Nasal turbinates WNL, no nasal discharge. Normal dentition, Posterior pharynx WNL, no exudate. Chest: RRR, Normal S1, S2, distal pulses intact. Resp: Lungs clear to auscultation bilaterally, no wheezes, rales, or rhonchi. Musculoskeletal: Normal gait, 5/5 strength to all four extremities. Skin: No suspicious rashes or lesions. Capillary refill less than 2 sec. Neurologic: Cranial nerves II-XII intact. Alert and oriented x 3. DTR's intact. Psychiatric: See below Hematologic/Lymphatic: No ecchymosis, no lymphadenopathy. Psych Appearance: well kempt Speech and Movement: delayed speech and slowed movement Mood: labile mood Affect: blunted Attitude: cooperative Thought Process: normal Thought Content: suicidality (Thoughts of hurting himself with a knife) Insight: fair Judgment: fair Course Vital Signs Vital signs: Vital Signs Temperature 36.5 C 09/07/20 17:08 Pulse 94 H 09/07/20 17:08 Respiratory Rate 16 09/07/20 17:08 Blood Pressure 138/95 H 09/07/20 17:08 Pulse Oximetry 96 09/07/20 17:08 Temperature 36.5 C 09/07/20 17:08 Temperature Source Oral 09/07/20 17:08 Pulse 94 H 09/07/20 17:08 Respiratory Rate 16 09/07/20 17:08 Respiratory Effort Non-Labored 09/07/20 17:13 Blood Pressure 138/95 H 09/07/20 17:08 Blood Pressure Position Sitting 09/07/20 17:08 Pulse Oximetry 96 09/07/20 17:08 Oxygen Delivery Method Room Air 09/07/20 17:08 Oxygen Flow Rate 0 09/07/20 17:08
[2020-09-07 19:51] LABS: Source Nasal/Nares
[2020-09-07 21:03] LABS: COVID-19 PCR Negative (Negative)
[2020-09-07 23:31] VITALS: BP 127/86; PULSE 102; RESP 18; TEMP 37; O2SAT 95
[2020-09-08 00:18] LABS: Bilirubin Negative (Negative); Blood Negative (Negative); Clarity Sl Cloudy (Clear); Glucose Negative (Negative); Ketones Negative (Negative); Leukocyte Esterase Negative (Negative); Nitrite Negative (Negative); Specific Gravity 1.025 (1.005-1.025); Urobilinogen 0.2 EU/dL (Up TO 0.2)
[2020-09-08] MEDS: Mirtazapine 15 MG TAB PO (00:19)
[2020-09-08] MEDS: ARIPiprazole 2 MG TAB PO (00:19)
[2020-09-08 00:27] LABS: *AMPHETAMINES SCREEN URINE Negative (Negative); *BARBITURATES SCREEN URINE Negative (Negative); *BENZODIAZEPINES SCREEN URINE Negative (Negative); Cannabinoids THC Negative (Negative); Cocaine Screen,Urine Negative (Negative); METHADONE URINE SCREEN Negative (Negative); OPIATES URINE SCREEN Negative (Negative)
[2020-09-08 00:39] LABS: Tricyclic Antidepressants Negative (Negative)
[2020-09-08] MEDS: clonazePAM 1 MG TAB 2 MG PO (00:55)
[2020-09-08 07:44] VITALS: BP 108/70; PULSE 88; RESP 18; TEMP 36.1; O2SAT 100
[2020-09-08] MEDS: Sennosides/Docusate Sodium TAB 1 TAB PO (07:56)
--- NOTE | 2020-09-08 08:15 | W.PM.HP.N ---
Date of service: 09/07/20 Time of Service: 21:15 Assessment and Plan Assessment and plan (1) Suicidal ideation: Status: Acute Assessment and plan: He will be admitted and placed on suicide precautions. Attempt will be made to get him transferred to a psychiatric facility. (2) Depression: Status: Chronic (3) Congenital heart defect: Status: Inactive Assessment and plan: He has a persistent heart murmur. Follow-up for this can be done through his primary care provider. History of Present Illness History of Present Illness Chief Complaint: Depression and suicidal ideation Narrative: This 25-year-old male says he depressed and this has been going on for about 2 days. He has a long history of psychiatric difficulties as well and reviews his med list. He says he lives with his mother and father and has been thinking about suicide for the last couple days. His thought of putting a knife into his abdomen to kill himself. He cannot really state any particular reason why he might be feeling depressed. He denies using tobacco or alcohol. 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 He presented to the emergency department and will be a voluntary psychiatric admission to treat his severe depression and suicidal ideation. He has a past history of congenital heart defect and had heart surgery when he was young. He says he has a doctor in [facility] and could not state who his [employer] combat skills is. Review of Systems Constitutional Constitutional: Denies body ache(s), Denies chills and Denies fever(s) Cardiovascular Cardiovascular: Denies chest pain, Denies palpitations and Denies dyspnea Respiratory Respiratory: Denies cough and Denies dyspnea Gastrointestinal Gastrointestinal: Denies abdominal pain, Denies diarrhea, Denies nausea and Denies vomiting Genitourinary Genitourinary: Denies dysuria and Denies urinary frequency Psychiatric Psychiatric: Reports depression and Reports suicidal ideation Endocrine Endocrine: Denies palpitations [facility] Medical History (Updated 09/08/20 @ 08:22 by Erickson Alvarez MD) Aorta coarctation Congenital heart defect H/O aortic coarctation repair Abhishek syndrome Social History Smoking/Tobacco Use Status: Never Smoking risk assessment performed?: Yes Alcohol Intake: never Drug use: Never Substance use type: does not use Current gender identity: male Do you feel safe at home: Yes Do you feel safe in your relationship?: Yes Meds Allergies and Home Medications Allergies Allergy/AdvReac Type Severity Reaction Status Date / Time green pepper Allergy Swelling/Ed Unverified 09/07/20 17:11 feroz SSRI AdvReac Other (See Uncoded 09/07/20 17:11 Comment) Home Medications Medication Instructions Recorded Confirmed Type clonazepam 2 mg PO HS PRN PRN 07/04/19 09/07/20 History ondansetron 4 mg PO BID PRN PRN 05/20/20 09/07/20 History aripiprazole 2 mg PO HS 07/11/20 09/07/20 History mirtazapine 15 mg PO HS 09/05/20 09/07/20 History polyethylene glycol 3350 [Miralax] 17 g PO DAILY PRN 09/05/20 09/07/20 History senna-docusate sodium 1 tab PO DAILY 09/05/20 09/07/20 History Exam Const General: cooperative, comfortable, no acute distress and anxious Nutritional Appearance: well nourished Orientation: alert, awake and oriented x3 Neck Neck: normal visual inspection and no lymphadenopathy Thyroid: thyroid normal Resp Effort & Inspection: normal respiratory effort, able to speak in complete sentences and not tachypneic Auscultation: no rales, no rhonchi and no wheezes Cardio Rate: regular rate Rhythm: regular rhythm Heart Sounds: S1 normal, S2 normal and murmur (2-3/6 systolic murmur) systolic GI Inspection: normal to inspection and non-distended Palpation: soft, no hepatosplenomegaly and tender Skin General skin exam: no rashes or lesions noted Psych Affect: normal affect Attitude: cooperative Other: He had difficulty providing a in-depth history which I suspect is due to some cognitive delay. Results Labs Labs: Laboratory Results - last 24 hr 09/07/20 09/07/20 09/07/20 19:45 23:55 23:55 Urine Color Yellow Urine Clarity Sl Cloudy Urine pH 7.0 Ur Specific [place] 1.025 Urine Protein Negative Urine Ketones Negative Urine Blood Negative Urine Nitrite Negative Urine Bilirubin Negative Urine Urobilinogen 0.2 Ur Leukocyte Esterase Negative Urine Glucose Negative Urine Opiates Screen Negative Urine Methadone Screen Negative Ur Barbiturates Screen Negative Ur Tricyclics Screen Negative Ur Amphetamines Screen Negative U Benzodiazepines Scrn Negative Urine Cocaine Screen Negative Ur THC Screen Negative COVID-19 Source Nasal/Nares SARS-CoV-2 (PCR) Negative Last Vital Signs Temp 36.1 C L 09/08/20 07:44 Pulse 88 09/08/20 07:44 Resp 18 09/08/20 07:44 BP 108/70 09/08/20 07:44 Pulse Ox 100 09/08/20 07:44
--- NOTE | 2020-09-08 10:04 | NUR.NOTE ---
Mental health in room with PT Nursing Note:
--- NOTE | 2020-09-08 10:18 | PDOC.MHCN_ITS ---
Date of service: 09/08/20 Time of Service: 10:18 Mental Health Crisis Note Presenting Issue How did you arrive at the ED and why did you come: Client arrived at [facility] ED yesterday afternoon after feeling depressed for a few days and endorsing vague SI. Client is seen this morning for check-in assessment while awaiting voluntary hospitalization. Precipitating Factors Client denies SI/HI with no plan or intent. Disposition BEHAVIOR: Client is sitting up in bed watching television when this typewriter ribbon winder arrives in person. Client is cooperative and engages with this typewriter ribbon winder answering all of the questions that are being asked of him. EYE CONTACT: Client makes good eye contact with this typewriter ribbon winder when answering questions. MOOD: Clients mood appears to be happy and upbeat. AFFECT: Normal affect. APPETITE: Client states that he has been eating pretty good, but states that he did not eat breakfast this morning because he does not eat breakfast at home on a typical day. SLEEP(trouble falling/staying asleep: Client states that he slept good last night and feels like he is well rested this morning. Plan Client will go home on safety plan due to not meeting criteria for inpatient hospitalization anymore. This typewriter ribbon winder contacted clients parents whom he lives with and they are supportive of safety plan. Safety plan includes: check-in phone calls with [facility] daily at 10:00 p.m. Client will also utilize coping mechanisms which include: taking a walk, listening to music, calling friends, and utilizing his weighted blanket. Client will utilize [facility] crisis line if he is feeling overwhelmed outside of his 10:00 p.m. check-in phone calls. Signature Clinician's Name/Title: Mita Lewis [facility] Emergency Clinician
--- NOTE | 2020-09-08 10:20 | NUR.NOTE ---
Nurse practitioner in room. Nursing Note:
--- NOTE | 2020-09-08 11:20 | DSE_ITS ---
Date of service: 09/08/20 Time of Service: 11:25 DS: Diagnosis Discharge Diagnosis (1) Suicidal ideation: Start date: 09/08/20 Start time: :25 Status: Acute Asessment and Plan: Patient came in with however he is feeling better and agreeable to going home after speaking with he feels ok enough to go home with a safety plan in place. He is being discharged home. (2) Depression: Start date: 09/08/20 Start time: :28 Status: Chronic Asessment and Plan: Continue medication and will check in with [facility] daily He will also utilize coping mechanisms discussed with Dr. Sanchez Discharge Plan Disposition Patient Disposition: HOME Condition: Stable Discharge Details Reason For Visit: DEPRESSION,SUICIDAL IDEATION Admit Date/Time: 09/07/20 22:01 Admit Provider: Erickson Alvarez Attending Provider: Erickson Alvarez Primary Care Provider: Gaetano Hdz [facility] Course Hospital Course: This 25-year-old male says he depressed and this has been going on for about 2 days. He has a long history of psychiatric difficulties as well and reviews his med list. He says he lives with his mother and father and has been thinking about suicide for the last couple days. His thought of putting a knife into his abdomen to kill himself. He cannot really state any particular reason why he might be feeling depressed. He denies using tobacco or alcohol. 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 He presented to the emergency department and will be a voluntary psychiatric admission to treat his severe depression and suicidal ideation. He has a past history of congenital heart defect and had h eart surgery when he was young. Today he met with and agrees to feeling safe enough to go home with a safety contract. He will check in daily with [facility] and utilize coping mechanisms. He is being discharged home. Home Meds and New Rx's Prescriptions: Continued clonazepam 1 mg tablet 2 mg PO HS PRN PRNRF: 0 mirtazapine 15 mg tablet 15 mg PO HS RF: 0 polyethylene glycol 3350 [Miralax] 17 gram/dose Powder 17 g PO DAILY PRNRF: 0 senna-docusate sodium Tablet 1 tab PO DAILY RF: 0 ondansetron 4 mg tablet,disintegrating 4 mg PO BID PRN PRNRF: 0 aripiprazole 2 mg tablet 2 mg PO HS RF: 0 Discharge Instructions Instructions: Depression (DC), Help Prevent Suicide (DC), Suicide Prevention (DC) Additional Instructions: Check in with [facility] daily at 10 am Use coping mechanisms to help with depression and stress Activity:: Activity as Tolerated Equipment/Supplies:: No Equipment Needed Diet:: As Tolerated Discharge Orders Discharge Orders: Discharge Order (Routine); Ordered 09/08/20 Ordered By: Valerie Thomas DS: Summary Time Spent with Patient providing and/or coordinating discharge services: Less than 30 minutes Status at Discharge Functional status at discharge: independent ambulation Overall status at discharge: patient is progressing back to baseline Mental Status: other Speech and Movement: speech and movement normal Mood: other Affect: normal affect Exam Const General: cooperative, comfortable, no acute distress and anxious Nutritional Appearance: well nourished Orientation: alert, awake and oriented x3 Neck Neck: normal visual inspection and no lymphadenopathy Thyroid: thyroid normal Resp Effort & Inspection: normal respiratory effort, able to speak in complete sentences and not tachypneic Auscultation: no rales, no rhonchi and no wheezes Cardio Rate: regular rate Rhythm: regular rhythm Heart Sounds: S1 normal, S2 normal and murmur (2-3/6 systolic murmur) systolic GI Inspection: normal to inspection and non-distended Palpation: soft, no hepatosplenomegaly and tender Skin General skin exam: no rashes or lesions noted Psych Mental Status: other Speech and Movement: speech and movement normal Mood: other Affect: normal affect Attitude: cooperative DS: Data Vitals/I&O Vitals and I&O: Vital Signs Temperature 36.1 C L 09/08/20 07:44 Temperature Source Tympanic 09/08/20 07:44 Pulse 88 09/08/20 07:44 Pulse Rhythm Regular 09/08/20 09:03 Respiratory Rate 18 09/08/20 07:44 Respiratory Effort Non-Labored 09/08/20 09:03 Respiratory Depth Normal 09/08/20 09:03 Respiratory Pattern Normal 09/08/20 09:03 Blood Pressure 108/70 09/08/20 07:44 Blood Pressure Position Sitting 09/07/20 17:08 Pulse Oximetry 100 09/08/20 07:44 Oxygen Delivery Method Room Air 09/08/20 07:44 Oxygen Flow Rate 0 09/08/20 07:44 Pain Level 0 09/08/20 07:44 Intake & Output 09/07/20 09/07/20 09/08/20 11:59 23:59 11:59 Intake Total 240 / 240 Balance 240 / 240 Weight 54.431 kg Intake: Oral 240 / 240 Other: Urine Color Yellow Urine Appearance Clear Urine Odor Normal Comment independant Voiding Methods Toilet Data Completed and Pending Labs on day of discharge: Labs from last 24 hours 09/07/20 09/07/20 09/07/20 23:55 23:55 19:45 Urine Color Yellow Urine Clarity Sl Cloudy Urine pH 7.0 Ur Specific [place] 1.025 Urine Protein Negative Urine Ketones Negative Urine Blood Negative Urine Nitrite Negative Urine Bilirubin Negative Urine Urobilinogen 0.2 Ur Leukocyte Esterase Negative Urine Glucose Negative Urine Opiates Screen Negative Urine Methadone Screen Negative Ur Barbiturates Screen Negative Ur Tricyclics Screen Negative Ur Amphetamines Screen Negative U Benzodiazepines Scrn Negative Urine Cocaine Screen Negative Ur THC Screen Negative COVID-19 Source Nasal/Nares SARS-CoV-2 (PCR) Negative [facility] Medical History Aorta coarctation Congenital heart defect H/O aortic coarctation repair Abhishek syndrome Social History Smoking/Tobacco Use Status: Never Smoking risk assessment performed?: Yes Alcohol Intake: never Drug use: Never Substance use type: does not use Current gender identity: male Do you feel safe at home: Yes Do you feel safe in your relationship?: Yes
--- NOTE | 2020-09-08 11:54 | PDOC.CMDIS ---
- If Service Date Differs Date of service: 09/08/20 Time of Service: 11:55 Care Management Discharge Reason for Hospitalization: SI Discharge Plan: Emil will be discharged home with a contract for safety completed this morning with Mita from [facility]. He will follow up with his community providers and transport with family. Patient/Family Education Needs: Review discharge instructions, follow up plan, Ask Me Three - MH Services (Omit if N/A) Current MH Services: [facility] - Disposition Disposition: Community Discharge
== END 2020-09-08 12:17 | disposition home or self-care (01) | DRG 880 ==
LOC: ER 22:05 → MS 23:20
PROVIDERS: Admitting Provider Family Medicine; Emergency Provider Registered Nurse Emergency; PCP Neuromusculoskeletal Medicine & OMM; Visit Provider Family Medicine
DX: R45.851 Suicidal ideations (principal); Q93.82 Williams syndrome; F32.9 Major depressive disorder, single episode, unspecified
CPT/HCPCS: 80307; 87635; 99285; 81003; 99222; 99238; 99283; J3490

== ENCOUNTER 2020-09-08 14:37 | Emergency (ER) | payer MEDICARE, MEDICAID, SELFPAY ==
[2020-09-08 14:48] VITALS: BP 126/81; PULSE 89; TEMP 36.9; O2SAT 99
--- NOTE | 2020-09-08 18:02 | W.ED.FU ---
Patient presented shortly after being discharged from inpatient bed with c/c of depression and SI. He was brought into triage but patient eloped prior to being evaluated by myself. I called mental health. They called mom but did not speak to the patient. Called local PD, patient is at his own home. I am concerned that he eloped prior to being evaluated. advises she will likely meet PD at their house.
== END 2020-09-08 15:40 ==
PROVIDERS: Emergency Provider Physician Assistant; PCP Neuromusculoskeletal Medicine & OMM
DX: Z53.21 Procedure and treatment not carried out due to patient leaving prior to being seen by health care provider (principal)

== ENCOUNTER 2020-11-18 18:13 | Emergency (ER) | payer MEDICARE, MEDICAID, SELFPAY ==
[2020-11-18 18:21] VITALS: BP 147/88; PULSE 112; RESP 16; TEMP 37.1; O2SAT 96
--- NOTE | 2020-11-18 18:45 | DI.CT_ITS ---
Exam(s) CT ABDOMEN PELVIS W EXAM: CT ABDOMEN PELVIS W CLINICAL HISTORY: RLQ pain, R inguinal pain. TECHNIQUE: Imaging Protocol: Axial computed tomography images with coronal and sagittal reformatted images were created and reviewed CONTRAST MATERIAL: Intravenous: Omnipaque 350 Contrast volume:100 ml Oral: yes COMPARISON: CT CT ABDOMEN PELVIS W from 12/07/2019 FINDINGS: ABDOMEN: Lung Bases: Normal where visualized. Liver: Normal density. No measurable mass. Gallbladder and biliary tract: No radiodense calculus or dilation. Pancreas: Normal density, no abnormal calcifications or inflammatory process. Spleen: Normal. Kidneys: Normal size, contour and axis. No radiodense stones or obstructive uropathy. No masses seen. Adrenal glands: No masses seen. Abdominal Aorta: Abdominal portion non-dilated. PELVIS: Bladder: No gross wall thickening. No calculi.No focal mass. Bowel: No obstruction or bowel wall thickening. Appendix is retrocecal and shows mild dilatation to 1 0 millimeters but no definite surrounding stranding. The appearance is similar to the previous exam. Stool is noted in the spine rectum. The colon is otherwise unremarkable. Peritoneal cavity: No ascites, collection or mesenteric inflammatory response. Bones: Within normal limits for age. Reproductive organs: Within normal limits. Lymph nodes: Unremarkable. Impression: Thickening of the appendix appears unchanged from previous exam. No definite surrounding inflammator y changes. Clinical correlation is recommended. RADIATION DOSE DELIVERED: 743.45mGy.cm Total DLP DATA REPOSITORY: All CT scans at this facility are submitted to the National Radiology Data Registry (NRDR) Dose Index Registry (DIR) with the [employer] (ACR). RADIATION OPTIMIZATION: All CT scans at this facility use at least one of these dose optimization te chniques: automated exposure control; mA and/or kV adjustment per patient size (includes targeted exa ms where dose is matched to clinical indication); or iterative reconstruction.
--- NOTE | 2020-11-18 18:50 | W.ED.GENAD ---
Discharge Plan Disposition Patient Disposition: HOME Condition: Improving Discharge Details Clinical Impression: Chronic appendicitis Primary Care Provider: Gaetano Hdz ED Provider: Ross Singh Home Meds and New Rx's Prescriptions: New amoxicillin-pot clavulanate 875-125 mg tablet 1 tab PO BID 10 Days Qty: 20 RF: 0 Continued clonazepam 1 mg tablet 2 mg PO HS PRN PRNRF: 0 mirtazapine 15 mg tablet 15 mg PO HS RF: 0 polyethylene glycol 3350 [Miralax] 17 gram/dose Powder 17 g PO DAILY PRNRF: 0 senna-docusate sodium Tablet 1 tab PO DAILY RF: 0 ondansetron 4 mg tablet,disintegrating 4 mg PO BID PRN PRNRF: 0 Discharge Instructions Additional Instructions: Continue your routine medications. I have placed a referral to you for follow-up in general surgery clinic regarding which you will receive a phone call. Return if you develop a fever, worsening pain, vomiting, or any other acute concerns. Home to rest tonight. Prescription to start tomorrow. Medical Decision Making 25-year-old male referred from urgent care. He developed right lower quadrant/right inguinal pain on Wednesday. Is been intermittent. Worse with movement. Associate with nausea and some emesis. Has not noted with fever or change to urination. On exam he is tender in the right lower quadrant. Differential diagnosis would include appendicitis, colitis, constipation, UTI. He does not have testicular tenderness. Distended and nontender bilaterally. Review of records reveals presentation December 2019 for acute appendicitis with a dilated thickened appendix, the patient's also transferred to [facility], treated for constipation discharge to home. Tonight patient IV access established, screening labs obtained and he is referred for CT imaging. Laboratories show an unremarkable CBC and chemistries. Urinalysis CT with a 10 mm thickened distal appendix. Minimal dejah-appendiceal fat stranding. Discussed the case with Dr. Hui. Certainly may be a acute on chronic appendicitis. Patient does not have a surgical abdomen at this time, his white blood cell count is normal and there is no fever. We will treat with oral antibiotics after initial dose of Unasyn in the ED. We will have the patient follow-up in general surgery clinic. He and his mother understand indications to seek reevaluation. HPI General Mode of arrival: ambulatory. Date/Time Provider Initiated Documentation: 11/18/20 18:42. Limitations to Documentation: no limitations. Information obtained by: patient. History of Present Illness 25 year old M presents to the emergency department with the chief complaint of Right inguinal pain since Wednesday, described as moderate, Quality is described as dull and constant, and is localized to the abdomen and right. Patient abdomen. Patient started experiencing this day(s) and it has been intermittent. No relieving factors improve symptom(s), Movement worsens symptoms . Patient notes nausea/vomiting; denies fever/chills. Patient did receive the following treatments prior to arrival, none Related Data Home Medications Medication Instructions Recorded Confirmed clonazepam 2 mg PO HS PRN PRN 07/04/19 11/18/20 ondansetron 4 mg PO BID PRN PRN 05/20/20 11/18/20 mirtazapine 15 mg PO HS 09/05/20 11/18/20 polyethylene glycol 3350 [Miralax] 17 g PO DAILY PRN 09/05/20 11/18/20 senna-docusate sodium 1 tab PO DAILY 09/05/20 11/18/20 amoxicillin-pot clavulanate 1 tab PO BID 10 Days #20 tab 11/18/20 Previous Rx's Medication Instructions Recorded amoxicillin-pot clavulanate 1 tab PO BID 10 Days #20 tab 11/18/20 Allergies Allergy/AdvReac Type Severity Reaction Status Date / Time green pepper Allergy Swelling/Ed Unverified 11/18/20 18:25 feroz SSRI AdvReac Other (See Uncoded 11/18/20 18:25 Comment) General Stated Complaint: Abd Prob MARQUISE: 3 Review of Systems Narrative: 8 systems reviewed and otherwise negative [facility] Medical History 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 Surgical History H/O aortic coarctation repair Social History Smoking/Tobacco Use Status: Never Smoking risk assessment performed?: Yes Alcohol Intake: never Drug use: Never Substance use type: does not use Current gender identity: male Do you feel safe at home: Yes Do you feel safe in your relationship?: Yes Exam Narrative Exam Narrative: GEN: awake, alert, oriented 3. Pleasant, well groomed, interactive. HEAD: Normocephalic, atraumatic ENT: Mucous membranes moist, oropharynx unremarkable, External ear exam unremarkable EYES: PERRL, EOMI NECK: Full ROM, no KP, no menigismus CHEST/RESP: Nontender, clear to auscultation bilateral, no wheeze/rhonchi/rales CARDIOVASCULAR: RRR, no murmur, rub darren. 2+ Rad pulse bilateral ABDOMEN: Soft, tender right lower quadrant to palpation, no inguinal mass appreciated, testes descended bilaterally and nontender,, no mass. +Bowel sounds EXT: Full ROM, no edema, no rash Neuro: Grossly normal neurologic exam, conversant, interactive. Psych: Speech fluent, thoughts congruent, affect normal Course Vital Signs Vital signs: Vital Signs Temperature 37.1 C 11/18/20 18:21 Pulse 112 H 11/18/20 18:21 Respiratory Rate 16 11/18/20 18:21 Blood Pressure 147/88 H 11/18/20 18:21 Pulse Oximetry 96 11/18/20 18:21 Temperature 37.1 C 11/18/20 18:21 Temperature Source Skin 11/18/20 18:21 Pulse 112 H 11/18/20 18:21 Respiratory Rate 16 11/18/20 18:21 Respiratory Effort Non-Labored 11/18/20 18:21 Blood Pressure 147/88 H 11/18/20 18:21 Blood Pressure Position Sitting 11/18/20 18:21 Pulse Oximetry 96 11/18/20 18:21 Oxygen Delivery Method Room Air 11/18/20 18:21 Oxygen Flow Rate 0 11/18/20 18:21 Pain Level 6 11/18/20 18:21
[2020-11-18] MEDS: Ondansetron 4 MG/2 ML VIAL IVP (19:12)
[2020-11-18] MEDS: Normal Saline 1,000 ML 1000 ML IV (19:14)
[2020-11-18 19:18] LABS: Abs Immature Grans 0.02 10^3/uL (0.0-0.06); Absolute Basophil Count 0.04 10^3/uL (0.0-0.2); Absolute Eosinophil Count 0.19 10^3/uL (0.0-0.7); Absolute Lymphocyte Count 1.04 10^3/uL (1.2-3.4); Absolute Monocyte Count 0.46 10^3/uL (0.1-0.8); Absolute Neutrophil Count 5.63 10^3/uL (1.2-6.7); Basophils % 0.5; Eosinophils % 2.6; HCT 46.8 % (40.0-50.0); HGB 15.3 g/dL (13.5-17.5); Immature Grans % 0.3; Lymphocytes % 14.1; MCH 27.8 pg (27.0-33.0); MCHC 32.7 % (32.0-36.0); MCV 84.9 fL (80-95); MPV 10.5 fL (8.0-11.0); Monocytes % 6.2; Neutrophils % 76.3; Nucleated RBC 0 %; Platelet Count 210 10^3/uL (130-400); RBC 5.51 10^6/uL (4.36-5.78); RDW 12.9 % (11.8-14.1); RDW-SD 40.3 fL; WBC 7.38 10^3/uL (4.4-10.8)
[2020-11-18 19:37] LABS: ALT 38 U/L (16-63); AST 28 U/L (15-37); Albumin 4.8 g/dL (3.4-5.0); Alkaline Phosphatase 69 U/L (46-116); Anion Gap 8.9 mmol/L (3-11); BUN 15 mg/dL (7-18); Bilirubin, Total 0.3 mg/dL (0.2-1.0); CO2 31.1 mmol/L (21.0-32.0); CREATININE 1.2 mg/dL (0.70-1.30); Calcium 9.3 mg/dL (8.5-10.1); Chloride 104 mmol/L (98-107); Glucose 98 mg/dL (74-106); Potassium 4.5 mmol/L (3.5-5.1); Sodium 144 mmol/L (136-145); Total Protein 8.7 g/dL (6.4-8.2)
[2020-11-18] MEDS: Omnipaque 350 MG/ML 100 ML BTL IJ (19:54)
[2020-11-18] MEDS: Normal Saline Flush 10 ML SYR IVP ×2 (19:55→22:07)
[2020-11-18] MEDS: Ondansetron 4 MG/2 ML VIAL (20:26)
--- NOTE | 2020-11-18 20:26 | DI.VRAD_ITS ---
Addendum created by You Tobar MD on 11/18/2020 8:37:50 PM EDT: THIS REPORT CONTAINS FINDINGS THAT MAY BE CRITICAL TO PATIENT CARE. The findings were verbally communicated via telephone conference with JERED ARNOLD at 8:37 PM EDT on 11/18/2020. The findings were acknowledged and understood. Initial report created on 11/18/2020 8:25:49 PM EDT: PROCEDURE INFORMATION: Exam: CT Abdomen And Pelvis With Contrast Exam date and time: 11/18/2020 6:50 PM Age: 25 years old Clinical indication: Abdominal pain; Localized; Right; Patient HX: Rlq pain, R inguinal pain TECHNIQUE: Imaging protocol: Computed tomography of the abdomen and pelvis with contrast. Radiation optimization: All CT scans at this facility use at least one of these dose optimization techniques: automated exposure control; mA and/or kV adjustment per patient size (includes targeted exams where dose is matched to clinical indication); or iterative reconstruction. Contrast material: OMNIPAQUE 350; Contrast volume: 100 ml; Contrast route: INTRAVENOUS (IV); COMPARISON: CT ABDOMEN PELVIS W 12/07/2019 3:37 PM FINDINGS: Liver: Normal. No mass. Gallbladder and bile ducts: Gallbladder is contracted. No biliary duct dilatation. Pancreas: Normal. No ductal dilation. Spleen: Normal. No splenomegaly. Adrenal glands: Normal. No mass. Kidneys and ureters: Normal. No hydronephrosis. Stomach and bowel: Unremarkable. No obstruction. No mucosal thickening. Appendix: Mural thickening and mild dilatation, to 10 mm, of the distal appendix, similar to the comparison exam. Minimal periappendiceal fat stranding. Intraperitoneal space: No free air. No significant fluid collection. Vasculature: Unremarkable. No abdominal aortic aneurysm. Lymph nodes: Unremarkable. No enlarged lymph nodes. Urinary bladder: Unremarkable as visualized. Reproductive: Unremarkable as visualized. Bones/joints: Unremarkable. No acute fracture. Soft tissues: Unremarkable. IMPRESSION: Mild appendicitis, with an appearance similar to the comparison exam, possibly chronic. Dictated and Authenticated by: You Tobar MD. Ordering:RESHMA Hawkins MD
[2020-11-18 20:53] LABS: Bilirubin Negative (Negative); Blood Negative (Negative); Clarity Clear (Clear); Glucose Negative (Negative); Ketones Negative (Negative); Leukocyte Esterase Negative (Negative); Nitrite Negative (Negative); Specific Gravity 1.015 (1.005-1.025); Urobilinogen 0.2 EU/dL (Up TO 0.2); pH 7.5 (5-8)
[2020-11-18] MEDS: AMPICILLIN/SULBACTAM 3 GM in Normal Saline 100 ML IVPB (21:59)
[2020-11-18 22:38] VITALS: BP 131/88; PULSE 97; RESP 18; TEMP 36.8; O2SAT 99
--- NOTE | 2020-11-19 02:25 | NUR.NOTE ---
faxed the gen surgery referral to care management , [facility] Nursing Note:
--- NOTE | 2020-11-19 14:03 | PDOC.ERCMPRO ---
- If Service Date Differs Date of service: 11/19/20 Time of Service: 14:03 Care Management Progress Note Emil is seen in the ED for chronic appendicitis. At the request of ED provider, CM coordinates a referral to [facility] for evaluation and treatment.
== END 2020-11-18 22:49 | disposition home or self-care (01) ==
PROVIDERS: Emergency Provider Emergency Medicine; PCP Neuromusculoskeletal Medicine & OMM
DX: K36 Other appendicitis (principal)
CPT/HCPCS: 80053; 96361; 96365; 96375; 99285; 74177; 81003; 85025; 99284; J0295; J2405; J3490

== ENCOUNTER 2020-11-19 15:18 | Emergency (ER) | payer MEDICARE, MEDICAID, SELFPAY ==
[2020-11-19 15:24] VITALS: BP 146/79; PULSE 124; RESP 16; TEMP 36.4; O2SAT 98
--- NOTE | 2020-11-19 15:34 | ED.GENADUL_ITS ---
Discharge Plan Disposition Patient Disposition: HOME Condition: Stable Discharge Details Clinical Impression: Chronic appendicitis, Vomiting Primary Care Provider: Gaetano Hdz ED Provider: Jeanna Boyd Home Meds and New Rx's Prescriptions: New dicyclomine 20 mg tablet 20 mg PO QID PRN (Reason: pain) Qty: 20 RF: 0 promethazine 25 mg tablet 25 mg PO TID PRN (Reason: nausea and vomiting) Qty: 10 RF: 0 Continued clonazepam 1 mg tablet 2 mg PO HS PRN PRNRF: 0 mirtazapine 15 mg tablet 15 mg PO HS RF: 0 polyethylene glycol 3350 [Miralax] 17 gram/dose Powder 17 g PO DAILY PRNRF: 0 senna-docusate sodium Tablet 1 tab PO DAILY RF: 0 amoxicillin-pot clavulanate 875-125 mg tablet 1 tab PO BID 10 Days Qty: 20 RF: 0 ondansetron 4 mg tablet,disintegrating 4 mg PO BID PRN PRNRF: 0 Discharge Instructions Instructions: Acute Nausea and Vomiting (ED), Abdominal Pain (ED) Additional Instructions: Drink plenty of fluids and get plenty of rest. Take the Phenergan as needed and directed for nausea and vomiting. Take the Bentyl as needed and directed for abdominal pain. Prescriptions for the Phenergan and Bentyl were sent electronically to your pharmacy. Take the antibiotics as directed until finished. Call the general surgery office tomorrow to schedule a follow-up appointment for reevaluation in the next week and for consideration for outpatient colonoscopy for further evaluation. Return to the emergency department with any worsening or new concerning symptoms such as fever, persistent vomiting, worsening abdominal pain or any other concerns. Discharge Data Discharge Physician: Jeanna Boyd Medical Decision Making 25-year-old male with a history of Abhishek syndrome, aortic coarctation with repair seen here last night and diagnosed with acute on chronic appendicitis and sent home on Augmentin presents with worsening pain and and vomiting. CT last night noted Thickening of the appendix appears unchanged from previous exam. No definite surrounding inflammatory changes. Clinical correlation is recommended. Patient has not yet started his Augmentin prescription today. Heart rate on arrival 120s. He is afebrile and appears comfortable and nontoxic. His abdomen is soft and diffusely tender. Will repeat screening labs and call surgery. Will place an IV, give a dose of IV Tylenol,, IV Zofran and fluids. Discussed with Dr. Brown who recommends CT scan with oral contrast. Mom and patient agreeable with plan. Labs and imaging reviewed. Normal white blood cell count. CT scan reviewed with virtual radiology and general surgery who note this is unchanged from yesterday's CT and likely consistent with chronic appendicitis. Per virtual radiology Dr. Laurent, this could be also seen with Crohn's disease in the appendix and recommends considering a colonoscopy. Per discussion with Dr. Brown, as patient remains afebrile with normal white blood cell count and unchanged CT from yesterday and 1 year ago, likely consistent with chronic appendicitis and recommend taking his antibiotics given yesterday as directed until finished and follow-up with surgery outpatient. Also discussed with patient and mom in the room and that as CT findings are unchanged from yesterday and 1 year ago, they may be incidental and unrelated to his current abdominal pain and vomiting. His abdomen was diffusely tender but soft. He has had nausea and vomiting, which was worse today after eating a burger. He is advised to drink plenty of fluids and follow a diet of clear liquids over the next 24 to 48 hours to allow for bowel rest and slowly advance diet as tolerated. Patient was given a dose of Bentyl here. Prescriptions for Phenergan and Bentyl sent electronically to his pharmacy. He was also given Augmentin to go until he can pick of his prescription tomorrow. Patient placed on surgery follow-up list for reevaluation. Usual and customary return precautions given prior to discharge. Medical Records Medical records reviewed: Yes I reviewed the patient's medical records. Imaging Data Radiologic Study: Radiologist's impression: CT Abdomen And Pelvis Without Contrast Exam date and time: 11/19/2020 4:14 PM Age: 25 years old Clinical indication: Nausea and vomiting; Abdominal pain; Generalized; Patient HX: Abd pain, vomiting, thickened appendix on CT 11/18; Additional info: Worsening abd pain, R/O acute appendicitis TECHNIQUE: Imaging protocol: Computed tomography of the abdomen and pelvis without contrast. Radiation optimization: All CT scans at this facility use at least one of these dose optimization techniques: automated exposure control; mA and/or kV adjustment per patient size (includes targeted exams where dose is matched to clinical indication); or iterative reconstruction. COMPARISON: CT ABDOMEN PELVIS W 11/18/2020 7:[address] ABDOMEN PELVIS 12/07/2019 3:43 PM. FINDINGS: Lungs: Lung bases are clear. Liver: Unremarkable noncontrast liver imaging. Gallbladder and bile ducts: Normal. No calcified stones. No ductal dilation. Pancreas: Normal. No ductal dilation. Spleen: Normal. No splenomegaly. Adrenal glands: Normal. No mass. Kidneys and ureters: Negative for hydronephrosis. Negative for stones in the ureters or the collecting systems. The renal pelvis is mildly prominent in each kidney. Stomach and bowel: Unremarkable stomach. Nondilated small bowel. Enteric contrast extends to the rectum. Negative for inflammatory changes around the colon. Appendix: Abnormal retrocecal appendix. The appendix is 10 mm diameter and wall thickening is noted throughout. There is mild periappendiceal fat stranding. The appearance is similar to yesterday's exam. Intraperitoneal space: Negative for free fluid or free air. Negative for abscess. Vasculature: Unremarkable. No abdominal aortic aneurysm. Lymph nodes: Unremarkable. No enlarged lymph nodes. Urinary bladder: Unremarkable as visualized. Reproductive: Unremarkable as visualized. Bones/joints: Unremarkable. No acute fracture. Soft tissues: Unremarkable. IMPRESSION: 1. Findings of acute appendicitis. Underlying chronic or recurrent appendiceal inflammation also considered. 2. No evidence of perforation or abscess. 3. Negative for bowel obstruction. Addendum created by Vernon Laurent MD on 11/19/2020 7:42:14 PM EDT: Findings were discussed with Jeanna Ruiz at 11/19/2020 7:37 PM EDT. The chronic appearance of an abnormal appendix also raises consideration for Crohn's disease of the appendix. A low-grade appendiceal tumor could be considered. Lab Data Lab results reviewed: Yes I reviewed the patient's lab results. Labs: Laboratory Tests Range/Units 11/19/20 11/19/20 15:40 15:40 WBC (4.4-10.8) 10^3/uL 6.02 RBC (4.36-5.78) 10^6/uL 5.02 Hgb (13.5-17.5) g/dL 14.2 Hct (40.0-50.0) % 43.6 MCV (80-95) fL 86.9 MCH (27.0-33.0) pg 28.3 MCHC (32.0-36.0) % 32.6 RDW (11.8-14.1) % 13.0 Plt Count (130-400) 10^3/uL 189 MPV (8.0-11.0) fL 10.2 Immature Gran % 0.5 Neutrophils % 70.7 Lymphocytes % 17.8 Monocytes % 7.3 Eosinophils % 3.2 Basophils % 0.5 Nucleated RBC % % 0 Absolute Neutrophils (1.2-6.7) 10^3/uL 4.26 Absolute Lymphocytes (1.2-3.4) 10^3/uL 1.07 L Absolute Monocytes (0.1-0.8) 10^3/uL 0.44 Absolute Eosinophils (0.0-0.7) 10^3/uL 0.19 Absolute Basophils (0.0-0.2) 10^3/uL 0.03 Sodium (136-145) mmol/L 142 Potassium (3.5-5.1) mmol/L 3.7 Chloride (98-107) mmol/L 104 Carbon Dioxide (21.0-32.0) mmol/L 33.7 H Anion Gap (3-11) mmol/L 4.3 BUN (7-18) mg/dL 16 Creatinine (0.70-1.30) mg/dL 1.1 Estimated GFR/1.73 m2 (mL/min/1.73m2) >= 60.00 Glucose (74-106) mg/dL 85 Calcium (8.5-10.1) mg/dL 9.1 Total Bilirubin (0.2-1.0) mg/dL 0.5 AST (15-37) U/L 27 ALT (16-63) U/L 38 Alkaline Phosphatase (46-116) U/L 59 Total Protein (6.4-8.2) g/dL 8.0 Albumin (3.4-5.0) g/dL 4.5 HPI General Mode of arrival: ambulatory . Date/Time Provider Initiated Documentation: 11/19/20 15:19 . Limitations to Documentation: no limitations . Information obtained by: patient . HPI Narrative: Pt is a 25yo M with a history of Abhishek syndrome, aortic coarctation with repair who presents to the ED w/ a c/o abdominal pain for the past 5 days. Patient states the abdominal pain has been in his right lower quadrant, sharp and crampy and now worse. Patient was seen here in the ED last night for the same complaint and diagnosed with potentially acute on chronic appendicitis after he was noted to have a dilated appendix on CT and case was discussed with surgery who recommended oral antibiotics and discharge home as he had normal wbc and no fever. Mom states the antibiotic prescription has not yet been filled and they were going to pick it up this evening. Patient states his pain was 2/10 after discharge last night but pain became worse today after eating a burger and vomiting 3 times. He states his vomitus was mainly food. He states the pain is currently 7/10 and in the right lower quadrant. He denies any known fever, diarrhea, urinary symptoms. He states his last bowel movement was yesterday and within normal de guzman its. Of note, patient was diagnosed with possible appendicitis here 1 year ago and was transferred to [facility]. At that time, mom states he was evaluated at [facility] who thought that his symptoms were not consistent with appendicitis but rather constipation he was discharged home. Patient has not taken any Tylenol or Motrin today. He is currently complaining of nausea as well. Related Data Home Medications Medication Instructions Recorded Confirmed clonazepam 2 mg PO HS PRN PRN 07/04/19 11/19/20 ondansetron 4 mg PO BID PRN PRN 05/20/20 11/19/20 mirtazapine 15 mg PO HS 09/05/20 11/19/20 polyethylene glycol 3350 [Miralax] 17 g PO DAILY PRN 09/05/20 11/19/20 senna-docusate sodium 1 tab PO DAILY 09/05/20 11/19/20 amoxicillin-pot clavulanate 1 tab PO BID 10 Days #20 tab 11/18/20 11/19/20 dicyclomine 20 mg PO QID PRN #20 tab 11/19/20 promethazine 25 mg PO TID PRN #10 tab 11/19/20 Previous Rx's Medication Instructions Recorded amoxicillin-pot clavulanate 1 tab PO BID 10 Days #20 tab 11/18/20 dicyclomine 20 mg PO QID PRN #20 tab 11/19/20 promethazine 25 mg PO TID PRN #10 tab 11/19/20 Allergies Allergy/AdvReac Type Severity Reaction Status Date / Time green pepper Allergy Swelling/Ed Unverified 11/19/20 15:28 feroz SSRI AdvReac Other (See Uncoded 11/19/20 15:28 Comment) General Stated Complaint: Abd Prob MARQUISE: 3 Review of Systems All systems reviewed & are unremarkable except as noted in HPI and below Constitutional Constitutional: Reports as per HPI, Denies chills and Denies fever(s) Eyes Eyes: Denies blurry vision ENT Ears, Nose, Mouth, and Throat: Denies dizziness, Denies sore throat and Denies throat swelling Cardiovascular Cardiovascular: Denies chest pain and Denies dyspnea Respiratory Respiratory: Denies cough and Denies dyspnea Gastrointestinal Gastrointestinal: Reports abdominal pain, Denies diarrhea and Reports vomiting Genitourinary Genitourinary: Denies hematuria and Denies dysuria Musculoskeletal Musculoskeletal: Denies back pain and Denies numbness Integumentary/Breasts Skin/Breast: Denies lesions and Denies rash Neurologic Neurologic: Denies dizziness, Denies localized weakness and Denies numbness Allergic/Immunologic Allergic/Immunologic: Denies throat swelling [facility] Medical History 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 Surgical History H/O aortic coarctation repair Social History Smoking/Tobacco Use Status: Never Smoking risk assessment performed?: Yes Alcohol Intake: never Drug use: Never Substance use type: does not use Current gender identity: male Do you feel safe at home: Yes Do you feel safe in your relationship?: Yes Exam Const General: cooperative, healthy appearing and no acute distress HENOK Head: normal to inspection Face and sinus: normal facial exam Eyes General: appearance normal, both eyes and all related structures EOM: EOM intact bilaterally Neck Neck: normal visual inspection and No submandibular swelling Lymphatic: no lymphadenopathy noted Chest Chest: normal inspection of the chest and no tenderness Resp Effort & Inspection: normal respiratory effort and able to speak in complete sentences Auscultation: clear to auscultation bilaterally Cardio Rate: regular rate Rhythm: regular rhythm GI Inspection: normal to inspection Palpation: soft, not firm, not rigid and nontender Auscultation: normal bowel sounds Male General Exam: Yes normal external exam Penis: normal penis Scrotum: scrotum normal Skin General skin exam: no rashes or lesions noted Neuro General: patient alert, patient awake and patient oriented x3 Cognition: normal cognition Speech: speech normal Motor: muscle tone normal throughout Sensory Exam: no sensory deficits noted Extrem General: normal to inspection, full ROM, capillary refill normal, no calf tenderness bilaterally and no edema Psych Appearance: grossly normal Mental Status: mental status grossly normal Speech and Movement: speech and movement normal Affect: normal affect Course Vital Signs Vital signs: Vital Signs Temperature 97.5 F L 11/19/20 15:24 Pulse 124 H 11/19/20 15:24 Respiratory Rate 16 11/19/20 15:24 Blood Pressure 146/79 H 11/19/20 15:24 Pulse Oximetry 98 11/19/20 15:24 Temperature 97.5 F L 11/19/20 15:24 Temperature Source Skin 11/19/20 15:24 Pulse 124 H 11/19/20 15:24 Respiratory Rate 16 11/19/20 15:24 Respiratory Effort 11/19/20 15:27 Blood Pressure 146/79 H 11/19/20 15:24 Blood Pressure Position Sitting 11/19/20 15:24 Pulse Oximetry 98 11/19/20 15:24 Oxygen Delivery Method Room Air 11/19/20 15:24 Oxygen Flow Rate 0 11/19/20 15:24 Pain Level 7 11/19/20 15:24
[2020-11-19 15:49] LABS: Abs Immature Grans 0.03 10^3/uL (0.0-0.06); Absolute Basophil Count 0.03 10^3/uL (0.0-0.2); Absolute Eosinophil Count 0.19 10^3/uL (0.0-0.7); Absolute Lymphocyte Count 1.07 10^3/uL (1.2-3.4); Absolute Monocyte Count 0.44 10^3/uL (0.1-0.8); Absolute Neutrophil Count 4.26 10^3/uL (1.2-6.7); Basophils % 0.5; Eosinophils % 3.2; HCT 43.6 % (40.0-50.0); HGB 14.2 g/dL (13.5-17.5); Immature Grans % 0.5; Lymphocytes % 17.8; MCH 28.3 pg (27.0-33.0); MCHC 32.6 % (32.0-36.0); MCV 86.9 fL (80-95); MPV 10.2 fL (8.0-11.0); Monocytes % 7.3; Neutrophils % 70.7; Nucleated RBC 0 %; Platelet Count 189 10^3/uL (130-400); RBC 5.02 10^6/uL (4.36-5.78); RDW-SD 40.6 fL; WBC 6.02 10^3/uL (4.4-10.8)
--- NOTE | 2020-11-19 16:00 | DI.CT_ITS ---
Exam(s) CT ABDOMEN PELVIS WO EXAM: CT ABDOMEN PELVIS WO CLINICAL HISTORY: abd pain, vomiting, thickened appendix on ct 11/18. TECHNIQUE: Imaging Protocol: Axial computed tomography images with coronal and sagittal reformatted images were created and reviewed. COMPARISON: CT CT ABDOMEN PELVIS W from 11/18/2020 FINDINGS: ABDOMEN: Lung Bases: Normal where visualized. Liver: Normal density. No measurable mass. Gallbladder and biliary tract: No radiodense calculus or biliary ductal dilation. Pancreas: Normal density, no abnormal calcifications or inflammatory process. Spleen: Normal. Kidneys: Normal size, contour and axis.No radiodense stones or obstructive uropathy. No masses seen. Adrenal glands: No mass is seen. Lymph nodes: Within normal limits. Abdominal Aorta: Abdominal portion non-dilated. PELVIS: Bladder:Symmetric distention, no gross wall thickening. Bowel: No obstruction or bowel wall thickening. There is unchanged thickening of the wall of the appe ndix. The appendix measures 1 cm in diameter. There is contrast seen within the appendix. No defin ite periappendiceal inflammatory changes are present. Peritoneal cavity: No ascites, collection or mesenteric inflammatory response. No free air. Reproductive organs: Within normal limits. Bones: Within normal limits. Soft Tissues: Within normal limits. IMPRESSION: There is no change in appearance of the appendix compared to the prior examination. There is persist ent appendiceal wall thickening.Acute appendicitis cannot be entirely excluded. Please correlate cli nically. No abscess or free air. RADIATION DOSE DELIVERED: 697.41mGy.cm Total DLP DATA REPOSITORY: All CT scans at this facility are submitted to the National Radiology Data Registry (NRDR) Dose Index Registry (DIR) with the [employer] (ACR). RADIATION OPTIMIZATION: All CT scans at this facility use at least one of these dose optimization te chniques: automated exposure control; mA and/or kV adjustment per patient size (includes targeted exa ms where dose is matched to clinical indication); or iterative reconstruction.
[2020-11-19 16:01] LABS: ALT 38 U/L (16-63); AST 27 U/L (15-37); Albumin 4.5 g/dL (3.4-5.0); Alkaline Phosphatase 59 U/L (46-116); Anion Gap 4.3 mmol/L (3-11); BUN 16 mg/dL (7-18); Bilirubin, Total 0.5 mg/dL (0.2-1.0); CO2 33.7 mmol/L (21.0-32.0); CREATININE 1.1 mg/dL (0.70-1.30); Calcium 9.1 mg/dL (8.5-10.1); Chloride 104 mmol/L (98-107); Glucose 85 mg/dL (74-106); Potassium 3.7 mmol/L (3.5-5.1); Sodium 142 mmol/L (136-145)
[2020-11-19] MEDS: Normal Saline 1,000 ML 1000 ML IV (16:06)
[2020-11-19] MEDS: Ondansetron 4 MG/2 ML VIAL IVP (16:07)
[2020-11-19] MEDS: ACETAMINOPHEN 1,000 MG/100 ML BTL 400 MG IVPB (16:08)
[2020-11-19 19:18] VITALS: BP 129/85; PULSE 92; RESP 18; TEMP 36.5; O2SAT 96
--- NOTE | 2020-11-19 19:24 | DI.VRAD_ITS ---
Addendum created by Vernon Laurent MD on 11/19/2020 7:42:14 PM EDT: Findings were discussed with Jeanna Ruiz at 11/19/2020 7:37 PM EDT. The chronic appearance of an abnormal appendix also raises consideration for Crohn's disease of the appendix. A low-grade appendiceal tumor could be considered. Initial report created on 11/19/2020 7:24:00 PM EDT: PROCEDURE INFORMATION: Exam: CT Abdomen And Pelvis Without Contrast Exam date and time: 11/19/2020 4:14 PM Age: 25 years old Clinical indication: Nausea and vomiting; Abdominal pain; Generalized; Patient HX: Abd pain, vomiting, thickened appendix on CT 11/18; Additional info: Worsening abd pain, R/O acute appendicitis TECHNIQUE: Imaging protocol: Computed tomography of the abdomen and pelvis without contrast. Radiation optimization: All CT scans at this facility use at least one of these dose optimization techniques: automated exposure control; mA and/or kV adjustment per patient size (includes targeted exams where dose is matched to clinical indication); or iterative reconstruction. COMPARISON: CT ABDOMEN PELVIS W 11/18/2020 7:[address] ABDOMEN PELVIS 12/07/2019 3:43 PM. FINDINGS: Lungs: Lung bases are clear. Liver: Unremarkable noncontrast liver imaging. Gallbladder and bile ducts: Normal. No calcified stones. No ductal dilation. Pancreas: Normal. No ductal dilation. Spleen: Normal. No splenomegaly. Adrenal glands: Normal. No mass. Kidneys and ureters: Negative for hydronephrosis. Negative for stones in the ureters or the collecting systems. The renal pelvis is mildly prominent in each kidney. Stomach and bowel: Unremarkable stomach. Nondilated small bowel. Enteric contrast extends to the rectum. Negative for inflammatory changes around the colon. Appendix: Abnormal retrocecal appendix. The appendix is 10 mm diameter and wall thickening is noted throughout. There is mild periappendiceal fat stranding. The appearance is similar to yesterday's exam. Intraperitoneal space: Negative for free fluid or free air. Negative for abscess. Vasculature: Unremarkable. No abdominal aortic aneurysm. Lymph nodes: Unremarkable. No enlarged lymph nodes. Urinary bladder: Unremarkable as visualized. Reproductive: Unremarkable as visualized. Bones/joints: Unremarkable. No acute fracture. Soft tissues: Unremarkable. IMPRESSION: 1. Findings of acute appendicitis. Underlying chronic or recurrent appendiceal inflammation also considered. 2. No evidence of perforation or abscess. 3. Negative for bowel obstruction. Dictated and Authenticated by: Vernon Laurent MD. Ordering:ISELA Meeks MD
[2020-11-19] MEDS: Amox. 875/Clav. 125, 2 TABS/BTL 1 TAB PO (20:05)
[2020-11-19] MEDS: Dicyclomine 20 MG TAB PO ×2 (20:07→20:12)
[2020-11-19 20:15] VITALS: PULSE 92; RESP 20; TEMP 35.9; O2SAT 97
== END 2020-11-19 20:20 | disposition home or self-care (01) ==
PROVIDERS: Emergency Provider Physician Assistant; PCP Neuromusculoskeletal Medicine & OMM
DX: K36 Other appendicitis (principal); R11.10 Vomiting, unspecified
CPT/HCPCS: 36415; 80053; 96361; 96365; 96367; 96375; 99284; 74176; 85025; J0131; J2405

== ENCOUNTER 2021-01-08 16:09 | Emergency (ER) | payer MEDICARE, MEDICAID, SELFPAY ==
[2021-01-08 17:14] LABS: Abs Immature Grans 0.03 10^3/uL (0.0-0.06); Absolute Basophil Count 0.04 10^3/uL (0.0-0.2); Absolute Lymphocyte Count 1.12 10^3/uL (1.2-3.4); Absolute Monocyte Count 0.42 10^3/uL (0.1-0.8); Absolute Neutrophil Count 5.22 10^3/uL (1.2-6.7); Basophils % 0.6; Eosinophils % 2.8; HCT 45.8 % (40.0-50.0); Immature Grans % 0.4; Lymphocytes % 15.9; MCH 27.9 pg (27.0-33.0); MCHC 32.8 % (32.0-36.0); MCV 85.1 fL (80-95); MPV 10.4 fL (8.0-11.0); Neutrophils % 74.3; Nucleated RBC 0 %; Platelet Count 234 10^3/uL (130-400); RBC 5.38 10^6/uL (4.36-5.78); RDW 12.9 % (11.8-14.1); RDW-SD 39.3 fL; Salicylate < 2.8 mg/dL (<2.8); WBC 7.03 10^3/uL (4.4-10.8)
[2021-01-08 17:15] LABS: Acetaminophen < 2 ug/mL (10-30)
[2021-01-08 17:18] LABS: ALT 23 U/L (16-63); AST 18 U/L (15-37); Albumin 4.7 g/dL (3.4-5.0); Alkaline Phosphatase 65 U/L (46-116); Anion Gap 6.9 mmol/L (3-11); BUN 10 mg/dL (7-18); Bilirubin, Total 0.3 mg/dL (0.2-1.0); CO2 31.1 mmol/L (21.0-32.0); Calcium 9.2 mg/dL (8.5-10.1); Chloride 106 mmol/L (98-107); Glucose 98 mg/dL (74-106); Sodium 144 mmol/L (136-145); TSH (W/Ref FT4) 1.25 uIU/mL (0.36-3.74); Total Protein 8.3 g/dL (6.4-8.2)
[2021-01-08 17:28] LABS: ETHANOL BLOOD < 3.0 mg/dL (<10)
--- NOTE | 2021-01-08 18:43 | ED.GENADUL_ITS ---
Discharge Plan Disposition Patient Disposition: HOME Condition: Stable Discharge Details Clinical Impression: Suicidal ideation Primary Care Provider: Gaetano Hdz ED Provider: Pamela Francisco Home Meds and New Rx's Prescriptions: Continued clonazepam 1 mg tablet 2 mg PO HS PRN PRNRF: 0 mirtazapine 15 mg tablet 15 mg PO HS RF: 0 polyethylene glycol 3350 [Miralax] 17 gram/dose Powder 17 g PO DAILY PRNRF: 0 senna-docusate sodium Tablet 1 tab PO DAILY RF: 0 dicyclomine 20 mg tablet 20 mg PO QID PRN (Reason: pain) Qty: 20 RF: 0 promethazine 25 mg tablet 25 mg PO TID PRN (Reason: nausea and vomiting) Qty: 10 RF: 0 ondansetron 4 mg tablet,disintegrating 4 mg PO BID PRN PRNRF: 0 Discharge Instructions Instructions: Depression (ED), Help Prevent Suicide (ED) Additional Instructions: mental health outpatient plan as discussed with Kole Referrals: Gaetano Hdz [Primary Care Provider] - Medical Decision Making patient presents for mental health evaluation medically screening is unremarkable. mental health consulted and outpatient plan has been established. will be discharged, advised to return for new or worsening symptoms Medical Records Medical records reviewed: Yes I reviewed the patient's medical records. Lab Data Lab results reviewed: Yes I reviewed the patient's lab results. Lab results narrative: Laboratory Results - last 24 hr 01/08/21 01/08/21 01/08/21 16:45 16:45 16:45 WBC 7.03 RBC 5.38 Hgb 15.0 Hct 45.8 MCV 85.1 MCH 27.9 MCHC 32.8 RDW 12.9 Plt Count 234 MPV 10.4 Immature Gran % 0.4 Neutrophils % 74.3 Lymphocytes % 15.9 Monocytes % 6.0 Eosinophils % 2.8 Basophils % 0.6 Nucleated RBC % 0 Absolute Neutrophils 5.22 Absolute Lymphocytes 1.12 L Absolute Monocytes 0.42 Absolute Eosinophils 0.20 Absolute Basophils 0.04 Sodium 144 Potassium 4.0 Chloride 106 Carbon Dioxide 31.1 Anion Gap 6.9 BUN 10 Creatinine 1.0 Estimated GFR/1.73 m2 >= 60.00 Glucose 98 Calcium 9.2 Total Bilirubin 0.3 AST 18 ALT 23 Alkaline Phosphatase 65 Total Protein 8.3 H Albumin 4.7 TSH 1.25 Salicylates < 2.8 Acetaminophen < 2 Ethyl Alcohol < 3.0 HPI General Mode of arrival: ambulatory . Date/Time Provider Initiated Documentation: 01/08/21 16:14 . Information obtained by: patient and family (mother) . HPI Narrative: patient presents with mother for c/o suicidal ideation. states he's been struggling for 4 days and coping skills are not working. he denies any attempts and denies a plan. his mom states he was trying to get her to take him to the hospital for past couple days and she wanted him to continue to try his coping skills but today he insisted and when she complied he changed his mind but she brought him in regardless. medically he denies any c/o. states he is eating and drinking and sleeping well. Related Data Home Medications Medication Instructions Recorded Confirmed clonazepam 2 mg PO HS PRN PRN 07/04/19 01/08/21 ondansetron 4 mg PO BID PRN PRN 05/20/20 01/08/21 mirtazapine 15 mg PO HS 09/05/20 01/08/21 polyethylene glycol 3350 [Miralax] 17 g PO DAILY PRN 09/05/20 01/08/21 senna-docusate sodium 1 tab PO DAILY 09/05/20 01/08/21 dicyclomine 20 mg PO QID PRN #20 tab 11/19/20 01/08/21 promethazine 25 mg PO TID PRN #10 tab 11/19/20 01/08/21 Previous Rx's Medication Instructions Recorded dicyclomine 20 mg PO QID PRN #20 tab 11/19/20 promethazine 25 mg PO TID PRN #10 tab 11/19/20 Allergies Allergy/AdvReac Type Severity Reaction Status Date / Time green pepper Allergy Swelling/Ed Unverified 01/08/21 16:20 feroz SSRI AdvReac Other (See Uncoded 01/08/21 16:20 Comment) General Stated Complaint: PsychEval MARQUISE: 2 Review of Systems All systems reviewed & are unremarkable except as noted in HPI and below PFSH Medical History 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 Surgical History H/O aortic coarctation repair Social History Smoking/Tobacco Use Status: Never Smoking risk assessment performed?: Yes Alcohol Intake: never Drug use: Never Substance use type: does not use Current gender identity: male Do you feel safe at home: Yes Do you feel safe in your relationship?: Yes Exam Const General: cooperative, healthy appearing, comfortable and no acute distress Nutritional Appearance: average body habitus and well nourished Orientation: alert, awake and oriented x3 HENMT Head: normal to inspection, normocephalic and atraumatic Mouth: oral mucosae normal Chest Chest: normal inspection of the chest Resp Effort & Inspection: normal respiratory effort Auscultation: clear to auscultation bilaterally Cardio Rate: regular rate Rhythm: regular rhythm GI Inspection: normal to inspection Palpation: soft Auscultation: normal bowel sounds Skin General skin exam: no rashes or lesions noted Neuro General: patient alert, patient awake, patient oriented x3 and no focal motor deficits Extrem General: normal to inspection, full ROM and no pedal edema Course Vital Signs Vital signs: Respiratory Effort Non-Labored 01/08/21 16:21 Pain Level 0 01/08/21 16:16 Lab/Test Results Lab/Test Results: Laboratory Tests Range/Units 01/08/21 01/08/21 01/08/21 16:45 16:45 16:45 WBC (4.4-10.8) 10^3/uL 7.03 RBC (4.36-5.78) 10^6/uL 5.38 Hgb (13.5-17.5) g/dL 15.0 Hct (40.0-50.0) % 45.8 MCV (80-95) fL 85.1 MCH (27.0-33.0) pg 27.9 MCHC (32.0-36.0) % 32.8 RDW (11.8-14.1) % 12.9 Plt Count (130-400) 10^3/uL 234 MPV (8.0-11.0) fL 10.4 Immature Gran % 0.4 Neutrophils % 74.3 Lymphocytes % 15.9 Monocytes % 6.0 Eosinophils % 2.8 Basophils % 0.6 Nucleated RBC % % 0 Absolute Neutrophils (1.2-6.7) 10^3/uL 5.22 Absolute Lymphocytes (1.2-3.4) 10^3/uL 1.12 L Absolute Monocytes (0.1-0.8) 10^3/uL 0.42 Absolute Eosinophils (0.0-0.7) 10^3/uL 0.20 Absolute Basophils (0.0-0.2) 10^3/uL 0.04 Sodium (136-145) mmol/L 144 Potassium (3.5-5.1) mmol/L 4.0 Chloride (98-107) mmol/L 106 Carbon Dioxide (21.0-32.0) mmol/L 31.1 Anion Gap (3-11) mmol/L 6.9 BUN (7-18) mg/dL 10 Creatinine (0.70-1.30) mg/dL 1.0 Estimated GFR/1.73 m2 (mL/min/1.73m2) >= 60.00 Glucose (74-106) mg/dL 98 Calcium (8.5-10.1) mg/dL 9.2 Total Bilirubin (0.2-1.0) mg/dL 0.3 AST (15-37) U/L 18 ALT (16-63) U/L 23 Alkaline Phosphatase (46-116) U/L 65 Total Protein (6.4-8.2) g/dL 8.3 H Albumin (3.4-5.0) g/dL 4.7 TSH (0.36-3.74) uIU/mL 1.25 Salicylates (<2.8) mg/dL < 2.8 Acetaminophen (10-30) ug/mL < 2 Ethyl Alcohol (<10) mg/dL < 3.0
--- NOTE | 2021-01-08 18:48 | PDOC.MHCN ---
Date of service: 01/08/21 Time of Service: 18:48 Mental Health Crisis Note Presenting Issue How did you arrive at the ED and why did you come: Client presented to the ED with his mother due to feeling bad and stating all the time that he need to go to the hospital. Precipitating Factors Client denied SI/HI at this time. Disposition BEHAVIOR: Client presented as future-oriented and engaging during this assessment. EYE CONTACT: Client did not make eye contact during this assessment. Client kept looking at his mother for answer to questions asked by this screener. MOOD: Client presented with euthymic mood AFFECT: Client presented with blunted affected. APPETITE: Client reported his appetite was good. SLEEP(trouble falling/staying asleep: Client reported no sleep disturbance at this time. Plan Client is not appropriate for placement for psychiatric treatment at this time. Client is connected to IDDS services through [facility] and is scheduled to meet with his director of casework department tomorrow. Client is also scheduled to meet his therapist at 2pm tomorrow for an hour. Client also has social activities through the IDDS program from 1-4 pm. Client was also able to identify his coping skills and was encouraged to utilize his coping skills. Client was also encouraged to call [facility] crisis line if and when in crisis. Signature Clinician's Name/Title: Sherrie Richardson / Emergency Services, [facility].
[2021-01-08 18:54] VITALS: PULSE 88; RESP 18; TEMP 36.8
== END 2021-01-08 18:54 | disposition home or self-care (01) ==
PROVIDERS: Emergency Provider Nurse Practitioner Acute Care; PCP Neuromusculoskeletal Medicine & OMM
DX: F32.A Depression, unspecified (principal); R45.851 Suicidal ideations
CPT/HCPCS: 36415; 80053; 80307; 99285; 80320; 80329; 81003; 84443; 85025; 99283

== ENCOUNTER 2021-01-16 16:21 | Emergency (ER) | payer MEDICARE, MEDICAID, SELFPAY ==
[2021-01-16 16:33] VITALS: BP 137/85; PULSE 100; RESP 16; TEMP 37; O2SAT 97
--- NOTE | 2021-01-16 16:49 | ED.GENADUL_ITS ---
Discharge Plan Disposition Patient Disposition: HOME Condition: Stable Discharge Details Clinical Impression: Depression Primary Care Provider: Gaetano Hdz ED Provider: Naman Coronel Home Meds and New Rx's Prescriptions: Continued clonazepam 1 mg tablet 2 mg PO HS PRN PRNRF: 0 mirtazapine 15 mg tablet 15 mg PO HS RF: 0 polyethylene glycol 3350 [Miralax] 17 gram/dose Powder 17 g PO DAILY PRNRF: 0 senna-docusate sodium Tablet 1 tab PO DAILY RF: 0 promethazine 25 mg tablet 25 mg PO TID PRN (Reason: nausea and vomiting) Qty: 10 RF: 0 ondansetron 4 mg tablet,disintegrating 4 mg PO BID PRN PRNRF: 0 Discharge Instructions Instructions: Depression (ED) Additional Instructions: Please follow the instructions given to you by our mental health team. Watch for new or worsening symptoms and return to the ER for any concerns. Please reach out to your outpatient mental health team tomorrow as well as your primary care provider to discuss your ER visit and ongoing symptoms. Medical Decision Making This is a 25-year-old male presenting with his mental health team requesting a mental health evaluation for ongoing depression, not caring acute lives, but not actively suicidal or having thoughts to harm himself. He feels as though he can likely be safety plan home. Given this I will not reflexively obtain laboratory values as he has no medical concerns or complaints. Will request a mental health evaluation and initiate a safety plan. Given his staff is with him, we will not initiate a cpso. Patient remained calm and cooperative during his ER stay. Mental health evaluation completed, patient is able to be safety plan at home without difficulty. He is comfortable with this plan. He has no additional questions or concerns. They will check in with him later this evening with a safety call and he will proceed tomorrow with his typical routine and activities. Encouraged to return to the ER for new or worsening symptoms. Standard discharge and return precautions provided This documentation was generated using [employer] system, please disregard any oddities of phrase or misspellings. Medical Records Medical records reviewed: Yes I reviewed the patient's medical records. HPI General Mode of arrival: ambulatory . Date/Time Provider Initiated Documentation: 01/16/21 16:33 . Limitations to Documentation: no limitations . Information obtained by: patient . HPI Narrative: This is a 25-year-old male presenting to the ER this evening with a member of his mental health team requesting a mental health evaluation. Patient states that he has acute on chronic depression, nothing really exacerbated this today except it is a holiday and he does not have his typical outpatient resources and schedule that he would have on a normal weekday. Patient reports that he does not care if he lives but denies any suicidal or homicidal ideation. He has no plan to harm himself. He has taken all of his medications as directed but he did not take a as needed clonazepam which is prescribed. He denies any alcohol or drug use. Denies recent illness or trauma. Patient was already evaluated in his therapist office today but wanted to come to the ER for a more thorough evaluation. He does report that he likely will feel safe going home after speaking with mental health and having a more set plan. Related Data Home Medications Medication Instructions Recorded Confirmed clonazepam 2 mg PO HS PRN PRN 07/04/19 01/16/21 ondansetron 4 mg PO BID PRN PRN 05/20/20 01/16/21 mirtazapine 15 mg PO HS 09/05/20 01/16/21 polyethylene glycol 3350 [Miralax] 17 g PO DAILY PRN 09/05/20 01/16/21 senna-docusate sodium 1 tab PO DAILY 09/05/20 01/16/21 promethazine 25 mg PO TID PRN #10 tab 11/19/20 01/08/21 Previous Rx's Medication Instructions Recorded promethazine 25 mg PO TID PRN #10 tab 11/19/20 Allergies Allergy/AdvReac Type Severity Reaction Status Date / Time green pepper Allergy Swelling/Ed Unverified 01/16/21 16:36 feroz SSRI AdvReac Other (See Uncoded 01/16/21 16:36 Comment) General Stated Complaint: PsychEval MARQUISE: 2 Review of Systems Constitutional Constitutional: Denies fever(s) and Denies headache(s) ENT Ears, Nose, Mouth, and Throat: Denies headache(s) and Denies neck pain Cardiovascular Cardiovascular: Denies chest pain Respiratory Respiratory: Denies cough Gastrointestinal Gastrointestinal: Denies abdominal pain, Denies nausea and Denies vomiting Musculoskeletal Musculoskeletal: Denies back pain and Denies neck pain Integumentary/Breasts Skin/Breast: Denies rash Neurologic Neurologic: Denies headache(s) Psychiatric Psychiatric: Reports anxiety, Reports depression, Denies homicidal ideation and Denies suicidal ideation [facility] Medical History 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 Surgical History H/O aortic coarctation repair Social History Smoking/Tobacco Use Status: Never Smoking risk assessment performed?: Yes Alcohol Intake: never Drug use: Never Substance use type: does not use Current gender identity: male Do you feel safe at home: Yes Do you feel safe in your relationship?: Yes Exam Const General: cooperative, healthy appearing, comfortable and no acute distress Orientation: alert, awake and oriented x3 HENMT Head: normal to inspection, normocephalic and atraumatic Mouth: moist mucous membranes Eyes General: appearance normal, both eyes and all related structures Conjunctivae: conjunctivae normal Neck Neck: normal visual inspection, trachea midline and supple Resp Effort & Inspection: normal respiratory effort and able to speak in complete sentences Auscultation: clear to auscultation bilaterally Cardio Rate: regular rate Rhythm: regular rhythm GI Palpation: soft and nontender Back/Spine/Pelvis Back: No back tenderness Skin General skin exam: no rashes or lesions noted Neuro General: patient alert, patient awake, patient oriented x3, moves all extremities and no focal motor deficits Cognition: normal cognition Speech: speech normal Gait: normal gait Motor: muscle tone normal throughout Sensory Exam: no sensory deficits noted Extrem General: normal to inspection, full ROM and capillary refill normal Psych Appearance: grossly normal Mental Status: mental status grossly normal Speech and Movement: speech and movement normal Mood: dysthymic mood Affect: sad Attitude: cooperative Thought Process: normal Thought Content: normal Insight: fair Judgment: fair Course Vital Signs Vital signs: Vital Signs Temperature 37.0 C 01/16/21 16:33 Pulse 100 H 01/16/21 16:33 Respiratory Rate 16 01/16/21 16:33 Blood Pressure 137/85 01/16/21 16:33 Pulse Oximetry 97 01/16/21 16:33 Temperature 37.0 C 01/16/21 16:33 Temperature Source Temporal Artery Scan 01/16/21 16:33 Pulse 100 H 01/16/21 16:33 Respiratory Rate 16 01/16/21 16:33 Respiratory Effort Non-Labored 01/16/21 16:39 Blood Pressure 137/85 01/16/21 16:33 Blood Pressure Position Sitting 01/16/21 16:33 Pulse Oximetry 97 01/16/21 16:33 Oxygen Delivery Method Room Air 01/16/21 16:33 Oxygen Flow Rate 0 01/16/21 16:33 Pain Level 0 01/16/21 16:33
== END 2021-01-16 19:07 | disposition home or self-care (01) ==
PROVIDERS: Emergency Provider Physician Assistant; PCP Neuromusculoskeletal Medicine & OMM
DX: F41.8 Other specified anxiety disorders (principal)
CPT/HCPCS: 99283

== ENCOUNTER 2021-03-10 14:27 | Emergency (ER) | payer MEDICARE, MEDICAID, SELFPAY ==
[2021-03-10 14:37] VITALS: BP 143/85; PULSE 100; RESP 18; TEMP 36.3; O2SAT 98
--- NOTE | 2021-03-10 15:00 | DI.CT_ITS ---
Exam(s) CT ABDOMEN PELVIS W EXAM: CT ABDOMEN PELVIS W CLINICAL HISTORY: RLQ pain, hx of chronic appendicitis TECHNIQUE: Imaging Protocol: Axial computed tomography images with coronal and sagittal reformatted images were created and reviewed CONTRAST MATERIAL: Intravenous: Omnipaque 350 Contrast volume:100 mL Oral: yes / no COMPARISON: CT CT ABDOMEN PELVIS WO from 11/19/2020 FINDINGS: ABDOMEN: Lung Bases: Normal where visualized. Liver: Normal density. No measurable mass. There is a tiny density in the right lobe of the liver. I t is too small for further characterization but likely reflects a small cyst. Portal, Superior Mesenteric, and Splenic Veins: Unremarkable. Gallbladder and Biliary Tract: No radiodense calculus or dilation. Pancreas: Normal density, no abnormal calcifications or inflammatory process. Spleen: Normal. Adrenals: No masses seen. Kidneys: Normal size, contour and axis. No radiodense stones or obstructive uropathy. No masses seen. Abdominal Aorta: Abdominal portion non-dilated. Bowel: No obstruction or bowel wall thickening. The appendix again measures up to 1 cm in diameter. There is persistent mild thickening of the wall of the appendix. No periappendiceal inflammatory queenie nges are seen. Peritoneal Cavity: No ascites, collection or mesenteric inflammatory response. No free air. Lymph Nodes: Within normal limits. Bones: Within normal limits for the patient's age. Soft Tissues: Unremarkable. PELVIS: Bladder: There is diffuse thickening of the wall of the undescended urinary bladder. This is nonspec ific and may reflect the nondistended bladder. Cystitis cannot be excluded. Please correlate clinic ally. Reproductive Organs: Unremarkable as visualized. Lymph Nodes: Within normal limits. Bones: Within normal limits for the patient's age. IMPRESSION: 1. Stable appearance of the appendix. No periappendiceal inflammation. 2. Diffuse thickening of the wall of the urinary bladder. This may reflect the nondistended bladder. Cystitis cannot be excluded. Please correlate clinically. RADIATION DOSE DELIVERED: 728.69mGy.cm Total DLP DATA REPOSITORY: All CT scans at this facility are submitted to the National Radiology Data Registry (NRDR) Dose Index Registry (DIR) with the [employer] (ACR). RADIATION OPTIMIZATION: All CT scans at this facility use at least one of these dose optimization te chniques: automated exposure control; mA and/or kV adjustment per patient size (includes targeted exa ms where dose is matched to clinical indication); or iterative reconstruction.
--- NOTE | 2021-03-10 15:20 | ED.GENADUL_ITS ---
Discharge Plan Disposition Patient Disposition: HOME Condition: Improving Discharge Details Clinical Impression: Chronic appendicitis, Abdominal pain Primary Care Provider: Gaetano Hdz ED Provider: Naman Coronel Home Meds and New Rx's Prescriptions: New ondansetron HCl [Zofran] 4 mg tablet 4 mg PO Q8H PRNQty: 10 RF: 0 Continued clonazepam 1 mg tablet 2 mg PO HS PRN PRNRF: 0 mirtazapine 15 mg tablet 15 mg PO HS RF: 0 polyethylene glycol 3350 [Miralax] 17 gram/dose Powder 17 g PO DAILY PRNRF: 0 senna-docusate sodium Tablet 1 tab PO DAILY RF: 0 promethazine 25 mg tablet 25 mg PO TID PRN (Reason: nausea and vomiting) Qty: 10 RF: 0 ondansetron 4 mg tablet,disintegrating 4 mg PO BID PRN PRNRF: 0 Discharge Instructions Instructions: Abdominal Pain (ED) Additional Instructions: Your laboratory values and CT findings reveal stable chronic appendicitis but no acute emergent process. Please watch for new or worsening symptoms and return to the ER for any concerns. Zofran as directed for nausea. I do recommend reaching out your primary care provider tomorrow to discuss your ongoing symptoms and I will also provide you a referral to our surgical team who I also recommend reaching out to for outpatient follow-up. Referrals: Yamini Brown DO [OSTEOPATHIC DOCTOR] - Discharge Data Discharge Date/Time-TO BE ENTERED AT DEPARTURE: 03/10/21 17:18 Medical Decision Making <KRISTIN Santana - Last Filed: 03/14/21 16:55> Given periumbilical and right lower quadrant pain, will order CT abdomen pelvis and diagnostic blood work on Zofran and IV fluids care will be transitioned to Naman Coronel PA-C 1600 Medical Records Medical records reviewed: Yes I reviewed the patient's medical records. Lab Data Lab results reviewed: Yes I reviewed the patient's lab results. <KRISTIN Rico - Last Filed: 03/10/21 17:33> This is a 25-year-old male that I received signout from my colleague KRISTIN Perla. Please see her initial HPI and examination. In short, patient reports nausea, vomiting, abdominal pain, diarrhea that began yesterday. At time of signout pending CT imaging and urinalysis. I will add on a lipase as it appears this was not initially ordered and he did present with abdominal pain. CT imaging reveals stable large appendix which is consistent with the patient's history of chronic appendicitis. Urinalysis unremarkable for hematuria or signs of infection. Vital signs appear unremarkable, he is hemodynamically stable. Blood pressure 113/76, pulse in the 90s, he remains afebrile. Upon evaluation he is resting comfortably. Currently he reports being asymptomatic. He states feeling improved with IV fluid and Zofran. Abdomen is soft, nontender without guarding, rebound or rigidity. Lipase normal at 139. Given his stable abnormal CT, I did place a call to our surgical team. I was able to speak with Dr. Colin who felt as long as the patient was feeling well discharge home was reasonable with a stable appearing CT. He is afebrile without evidence of leukocytosis. Indeterminant CRP. He does recommend referral to our local surgical team for potential elective appendectomy. Patient and family are comfortable with discharge at this time. He remains asymptomatic. Will provide a prescription for Zofran as he did have nausea earlier. Strict discharge and return precautions provided as this always could be extremely early acute appendicitis. Patient and family without additional questions or concerns. This documentation was generated using [employer] dictation system, please disregard any oddities of phrase or misspellings. Medical Records Medical records reviewed: Yes I reviewed the patient's medical records. Imaging Data Radiologic Study: Attestation: I personally reviewed and interpreted this imaging study as follows: Imaging: CT Scan Radiologist's impression: PROCEDURE INFORMATION: Exam: CT Abdomen And Pelvis With Contrast Exam date and time: 03/10/2021 3:02 PM Age: 25 years old Clinical indication: Abdominal pain; Localized; Right lower quadrant (rlq); Patient HX: Rlq pain, HX of chronic appendicitis TECHNIQUE: Imaging protocol: Computed tomography of the abdomen and pelvis with contrast. COMPARISON: CT ABDOMEN PELVIS W 11/18/2020 7:46 PM FINDINGS: Lungs: The visualized lung bases are unremarkable. Heart: The visualized portions of the heart and pericardium are within normal l imits. Liver: The liver is within normal limits. Gallbladder and bile ducts: The gallbladder is unremarkable. Pancreas: The pancreas is within normal limits. Spleen: The spleen is unremarkable. Adrenal glands: The adrenal glands are within normal limits. Kidneys and ureters: There are bilateral extrarenal pelves. Stomach and bowel: Unremarkable. No obstruction. No mucosal thickening. Appendix: The appendix is enlarged measuring approximately a 1 cm. This was present on the earlier study and appears unchanged. Intraperitoneal space: No free air. No significant fluid collection. Vasculature: . No abdominal aortic aneurysm. Lymph nodes: No enlarged lymph nodes. Urinary bladder: The urinary bladder is not very distended with urine. Reproductive: The prostate and seminal vesicles are within normal limits. [facility] Preliminary Radiology Report EXPLOSION WELDER (QA) DISCREPANCY? If there is a discrepancy between the preliminary and final interpretation, please notify [email or web address] via [email or web address]. If you do not have access to our QA portal, call our QA team at [phone] CONFIDENTIALITY STATEMENT This report is intended only for the use of the referring physician, and only in accordance with law, If you received this in error, call [phone] Page 2 of 2 Bones/joints: Unremarkable. No acute fracture. Soft tissues: Unremarkable. IMPRESSION: Stable large appendix. This is consistent with the patient's history of chronic appendicitis. Clinical correlation is recommended. Thank you for allowing us to participate in the care of your patient. Lab Data Lab results reviewed: Yes I reviewed the patient's lab results. Labs: Laboratory Tests Range/Units 03/10/21 03/10/21 03/10/21 15:30 15:30 15:40 WBC (4.4-10.8) 10^3/uL 5.03 RBC (4.36-5.78) 10^6/uL 5.22 Hgb (13.5-17.5) g/dL 14.7 Hct (40.0-50.0) % 45.2 MCV (80-95) fL 86.6 MCH (27.0-33.0) pg 28.2 MCHC (32.0-36.0) % 32.5 RDW (11.8-14.1) % 12.9 Plt Count (130-400) 10^3/uL 184 MPV (8.0-11.0) fL 10.2 Immature Gran % 0.2 Neutrophils % 73.5 Lymphocytes % 16.7 Monocytes % 5.8 Eosinophils % 3.2 Basophils % 0.6 Nucleated RBC % % 0 Absolute Neutrophils (1.2-6.7) 10^3/uL 3.70 Absolute Lymphocytes (1.2-3.4) 10^3/uL 0.84 L Absolute Monocytes (0.1-0.8) 10^3/uL 0.29 Absolute Eosinophils (0.0-0.7) 10^3/uL 0.16 Absolute Basophils (0.0-0.2) 10^3/uL 0.03 Sodium (136-145) mmol/L 142 Potassium (3.5-5.1) mmol/L 4.6 Chloride (98-107) mmol/L 103 Carbon Dioxide (21.0-32.0) mmol/L 30.0 Anion Gap (3-11) mmol/L 9.0 BUN (7-18) mg/dL 14 Creatinine (0.70-1.30) mg/dL 1.1 Estimated GFR/1.73 m2 (mL/min/1.73m2) >= 60.00 Glucose (74-106) mg/dL 85 Calcium (8.5-10.1) mg/dL 8.8 Total Bilirubin (0.2-1.0) mg/dL 0.5 AST (15-37) U/L 24 ALT (16-63) U/L 27 Alkaline Phosphatase (46-116) U/L 56 C-Reactive Protein (0.0-0.3) mg/dL 0.32 H Total Protein (6.4-8.2) g/dL 7.7 Albumin (3.4-5.0) g/dL 4.3 Urine Color (Yellow) Urine Clarity (Clear) Urine pH (5-8) Ur Specific [place] (1.005-1.025) Urine Protein (Negative) mg/dL Urine Ketones (Negative) mg/dL Urine Blood (Negative) Urine Nitrite (Negative) Urine Bilirubin (Negative) Urine Urobilinogen (Up TO 0.2) EU/dL Ur Leukocyte Esterase (Negative) Urine Glucose (Negative) mg/dL COVID-19 Source Nasal/Nares SARS-CoV-2 (PCR) (Negative) Negative Range/Units 03/10/21 16:30 WBC (4.4-10.8) 10^3/uL RBC (4.36-5.78) 10^6/uL Hgb (13.5-17.5) g/dL Hct (40.0-50.0) % MCV (80-95) fL MCH (27.0-33.0) pg MCHC (32.0-36.0) % RDW (11.8-14.1) % Plt Count (130-400) 10^3/uL MPV (8.0-11.0) fL Immature Gran % Neutrophils % Lymphocytes % Monocytes % Eosinophils % Basophils % Nucleated RBC % % Absolute Neutrophils (1.2-6.7) 10^3/uL Absolute Lymphocytes (1.2-3.4) 10^3/uL Absolute Monocytes (0.1-0.8) 10^3/uL Absolute Eosinophils (0.0-0.7) 10^3/uL Absolute Basophils (0.0-0.2) 10^3/uL Sodium (136-145) mmol/L Potassium (3.5-5.1) mmol/L Chloride (98-107) mmol/L Carbon Dioxide (21.0-32.0) mmol/L Anion Gap (3-11) mmol/L BUN (7-18) mg/dL Creatinine (0.70-1.30) mg/dL Estimated GFR/1.73 m2 (mL/min/1.73m2) Glucose (74-106) mg/dL Calcium (8.5-10.1) mg/dL Total Bilirubin (0.2-1.0) mg/dL AST (15-37) U/L ALT (16-63) U/L Alkaline Phosphatase (46-116) U/L C-Reactive Protein (0.0-0.3) mg/dL Total Protein (6.4-8.2) g/dL Albumin (3.4-5.0) g/dL Urine Color (Yellow) Yellow Urine Clarity (Clear) Clear Urine pH (5-8) 7.0 Ur Specific [place] (1.005-1.025) >= 1.030 H Urine Protein (Negative) mg/dL Negative Urine Ketones (Negative) mg/dL Negative Urine Blood (Negative) Negative Urine Nitrite (Negative) Negative Urine Bilirubin (Negative) Negative Urine Urobilinogen (Up TO 0.2) EU/dL 0.2 Ur Leukocyte Esterase (Negative) Negative Urine Glucose (Negative) mg/dL Negative COVID-19 Source SARS-CoV-2 (PCR) (Negative) HPI <KRISTIN Santana - Last Filed: 03/14/21 16:55> General Mode of arrival: ambulatory . Date/Time Provider Initiated Documentation: 03/10/21 14:47 . Limitations to Documentation: no limitations . Information obtained by: patient . HPI Narrative: This 25-year-old male presents with periumbilical pain with radiation to right lower quadrant. He denies any fever or chills. He does report nausea, vomiting, diarrhea and cough. He states the pain is exacerbated with walking and movement. He does reportedly have a history of chronic pancreatitis which he is taken antibiotics for in the past. He does still have his appendix reportedly. Denies any urinary complaints. Denies any rashes or lesions. Related Data Home Medications Medication Instructions Recorded Confirmed clonazepam 2 mg PO HS PRN PRN 07/04/19 03/11/21 ondansetron 4 mg PO BID PRN PRN 05/20/20 03/11/21 mirtazapine 15 mg PO HS 09/05/20 03/11/21 polyethylene glycol 3350 [Miralax] 17 g PO DAILY PRN 09/05/20 03/10/21 senna-docusate sodium 1 tab PO DAILY 09/05/20 03/11/21 promethazine 25 mg PO TID PRN #10 tab 11/19/20 03/10/21 ondansetron HCl [Zofran] 4 mg PO Q8H PRN #10 tab 03/10/21 Previous Rx's Medication Instructions Recorded promethazine 25 mg PO TID PRN #10 tab 11/19/20 ondansetron HCl [Zofran] 4 mg PO Q8H PRN #10 tab 03/10/21 Allergies Allergy/AdvReac Type Severity Reaction Status Date / Time green pepper Allergy Swelling/Ed Unverified 01/16/21 16:36 feroz SSRI AdvReac Other (See Uncoded 01/16/21 16:36 Comment) General Stated Complaint: Abd Prob MARQUISE: 3 Review of Systems <KRISTIN Santana - Last Filed: 03/14/21 16:55> All systems reviewed & are unremarkable except as noted in HPI and below PFSH <KRISTIN Santana - Last Filed: 03/14/21 16:55> All Active Problems (Updated 03/13/21 @ 00:05 by ROSA ISELA CONNOLLY) Chronic appendicitis (Acute) Vomiting (Acute) Abdominal pain (Acute) Suicidal ideation (Acute) Depression (Chronic) Light-headed feeling (Acute) Medical History 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 Surgical History H/O aortic coarctation repair Social History Smoking/Tobacco Use Status: Never Smoking risk assessment performed?: Yes Alcohol Intake: never Drug use: Never Substance use type: does not use Current gender identity: male Do you feel safe at home: Yes Do you feel safe in your relationship?: Yes Exam <KRISTIN Santana - Last Filed: 03/14/21 16:55> Const General: cooperative, comfortable and no acute distress HENMT Throat: uvula midline Other: moist mucous membranes Resp Effort & Inspection: normal respiratory effort Auscultation: clear to auscultation bilaterally Cardio Rate: regular rate Rhythm: regular rhythm GI Other: periumbilical tenderness, no rebound or guarding Other: no testicular tenderness or evidence of torsion Skin General skin exam: no rashes or lesions noted Neuro General: patient alert and patient oriented x3 Course <KRISTIN Santana - Last Filed: 03/14/21 16:55> Vital Signs Vital signs: Vital Signs Temperature 36.3 C L 03/10/21 14:37 Pulse 100 H 03/10/21 14:37 Respiratory Rate 18 03/10/21 14:37 Blood Pressure 143/85 H 03/10/21 14:37 Pulse Oximetry 98 03/10/21 14:37 Temperature 36.3 C L 03/10/21 14:37 Temperature Source Oral 03/10/21 14:37 Pulse 100 H 03/10/21 14:37 Respiratory Rate 18 03/10/21 14:37 Respiratory Effort Non-Labored 03/10/21 14:41 Blood Pressure 143/85 H 03/10/21 14:37 Pulse Oximetry 98 03/10/21 14:37 Oxygen Delivery Method Room Air 03/10/21 14:37 Oxygen Flow Rate 0 03/10/21 14:37 Pain Level 8 03/10/21 14:41 Sign Out <KRISTIN Santana - Last Filed: 03/14/21 16:55> Sign Out Data: Sign Out Comment: pending labs and ct abd/pelvis Last updated by Sandy Perla PA at 03/10/21 15:48
[2021-03-10] MEDS: Ondansetron 4 MG/2 ML VIAL IVP (15:35)
[2021-03-10] MEDS: Normal Saline 1,000 ML 1000 ML IV (15:35)
[2021-03-10 15:36] LABS: Abs Immature Grans 0.01 10^3/uL (0.0-0.06); Absolute Basophil Count 0.03 10^3/uL (0.0-0.2); Absolute Eosinophil Count 0.16 10^3/uL (0.0-0.7); Absolute Lymphocyte Count 0.84 10^3/uL (1.2-3.4); Absolute Monocyte Count 0.29 10^3/uL (0.1-0.8); Basophils % 0.6; Eosinophils % 3.2; HCT 45.2 % (40.0-50.0); HGB 14.7 g/dL (13.5-17.5); Immature Grans % 0.2; Lymphocytes % 16.7; MCH 28.2 pg (27.0-33.0); MCHC 32.5 % (32.0-36.0); MCV 86.6 fL (80-95); MPV 10.2 fL (8.0-11.0); Monocytes % 5.8; Neutrophils % 73.5; Nucleated RBC 0 %; Platelet Count 184 10^3/uL (130-400); RBC 5.22 10^6/uL (4.36-5.78); RDW 12.9 % (11.8-14.1); RDW-SD 40.2 fL; WBC 5.03 10^3/uL (4.4-10.8)
[2021-03-10 15:44] LABS: Source Nasal/Nares
[2021-03-10 15:49] LABS: ALT 27 U/L (16-63); AST 24 U/L (15-37); Albumin 4.3 g/dL (3.4-5.0); Alkaline Phosphatase 56 U/L (46-116); BUN 14 mg/dL (7-18); Bilirubin, Total 0.5 mg/dL (0.2-1.0); C-Reactive Protein 0.32 mg/dL (0.0-0.3); CREATININE 1.1 mg/dL (0.70-1.30); Calcium 8.8 mg/dL (8.5-10.1); Chloride 103 mmol/L (98-107); Glucose 85 mg/dL (74-106); Potassium 4.6 mmol/L (3.5-5.1); Sodium 142 mmol/L (136-145); Total Protein 7.7 g/dL (6.4-8.2)
[2021-03-10] MEDS: Omnipaque 350 MG/ML 100 ML BTL IJ (16:03)
[2021-03-10] MEDS: Normal Saline Flush 10 ML SYR IVP (16:05)
[2021-03-10 16:22] LABS: COVID-19 PCR Negative (Negative)
--- NOTE | 2021-03-10 16:26 | DI.VRAD_ITS ---
PROCEDURE INFORMATION: Exam: CT Abdomen And Pelvis With Contrast Exam date and time: 03/10/2021 3:02 PM Age: 25 years old Clinical indication: Abdominal pain; Localized; Right lower quadrant (rlq); Patient HX: Rlq pain, HX of chronic appendicitis TECHNIQUE: Imaging protocol: Computed tomography of the abdomen and pelvis with contrast. COMPARISON: CT ABDOMEN PELVIS W 11/18/2020 7:46 PM FINDINGS: Lungs: The visualized lung bases are unremarkable. Heart: The visualized portions of the heart and pericardium are within normal limits. Liver: The liver is within normal limits. Gallbladder and bile ducts: The gallbladder is unremarkable. Pancreas: The pancreas is within normal limits. Spleen: The spleen is unremarkable. Adrenal glands: The adrenal glands are within normal limits. Kidneys and ureters: There are bilateral extrarenal pelves. Stomach and bowel: Unremarkable. No obstruction. No mucosal thickening. Appendix: The appendix is enlarged measuring approximately a 1 cm. This was present on the earlier study and appears unchanged. Intraperitoneal space: No free air. No significant fluid collection. Vasculature: . No abdominal aortic aneurysm. Lymph nodes: No enlarged lymph nodes. Urinary bladder: The urinary bladder is not very distended with urine. Reproductive: The prostate and seminal vesicles are within normal limits. Bones/joints: Unremarkable. No acute fracture. Soft tissues: Unremarkable. IMPRESSION: Stable large appendix. This is consistent with the patient's history of chronic appendicitis. Clinical correlation is recommended. Dictated and Authenticated by: Triston Beck MD. Ordering:DESHAWN Delgado MD
[2021-03-10 16:37] LABS: Bilirubin Negative (Negative); Blood Negative (Negative); Clarity Clear (Clear); Glucose Negative (Negative); Ketones Negative (Negative); Leukocyte Esterase Negative (Negative); Nitrite Negative (Negative); Specific Gravity >= 1.030 (1.005-1.025); Urobilinogen 0.2 EU/dL (Up TO 0.2)
[2021-03-10 16:39] VITALS: BP 113/76; PULSE 90; RESP 16; TEMP 37.2; O2SAT 97
[2021-03-10 17:19] LABS: Lipase 139 U/L (73-393)
[2021-03-10 17:24] VITALS: BP 113/76; PULSE 90; RESP 16; TEMP 37.2; O2SAT 97
== END 2021-03-10 17:18 | disposition home or self-care (01) ==
PROVIDERS: Physician Assistant; Emergency Provider Physician Assistant; PCP Neuromusculoskeletal Medicine & OMM
DX: K36 Other appendicitis (principal); R10.31 Right lower quadrant pain; Z20.822 Contact with and (suspected) exposure to COVID-19
CPT/HCPCS: 80053; 83690; 87635; 96361; 96374; 99285; 74177; 81003; 85025; 86140; 99284; J2405; J3490

== ENCOUNTER 2021-03-11 16:28 | Inpatient (IN) | payer MEDICARE, MEDICAID, SELFPAY ==
[2021-03-11 16:36] VITALS: BP 128/89; PULSE 99; RESP 14; TEMP 36.9; O2SAT 100
--- NOTE | 2021-03-11 16:56 | W.ED.GENAD ---
Discharge Plan Disposition Patient Disposition: [facility] INPATIENT Condition: Stable Discharge Details Clinical Impression: Chronic appendicitis, Abdominal pain Admit Date/Time: 03/11/21 18:29 Admit Provider: Kelby Colin Attending Provider: Kelby Colin Primary Care Provider: Gaetano Hdz ED Provider: Melvin Carrasco Discharge Data Discharge Date/Time-TO BE ENTERED AT DEPARTURE: 03/11/21 19:49 Medical Decision Making Patient presents with abdominal pain of most likely from chronic appendicitis which she has been seen multiple times for even as recent as yesterday. Mother reports this has been going on for approximately [address] scan was performed yesterday that appeared stable and overall appearance with recommendation of outpatient follow-up. Patient reports continuing worsening of pain and discomfort, has not eaten since yesterday evening. Physical exam continues to show right lower quadrant discomfort with guarding otherwise unremarkable exam. Plan to recheck labs for comparison to yesterday studies and consult with surgery given patient 3 days of continuing worsening symptoms. Review of labs from today compared to yesterday show very little change and are nonemergent at this time. Plan to call surgeon to discuss case given that patient reports worsening over the last 3 days. call or contact centre coach surgeon Dr Colin was paged and came to evaluate patient and placed in admission orders. Patient is agreeable to plan of care for admission given worsening abdominal pain. HPI General Mode of arrival: ambulatory. Date/Time Provider Initiated Documentation: 03/11/21 16:32. Limitations to Documentation: no limitations. Information obtained by: patient, family and old records reviewed. History of Present Illness 25 year old M presents to the emergency department with the chief complaint of Abd pain, described as moderate and similar to prior episodes, with intensity rated at 9. Quality is described as aching, sharp and constant, and is localized to the abdomen. Patient reports no radiation. Patient started experiencing this day(s) (3) and it has been constant. No relieving factors improve symptom(s), No exacerbating factors reported . Patient notes nausea/vomiting. Patient did receive the following treatments prior to arrival, NSAID Related Data Home Medications Medication Instructions Recorded Confirmed clonazepam 2 mg PO HS PRN PRN 07/04/19 03/11/21 ondansetron 4 mg PO BID PRN PRN 05/20/20 03/11/21 mirtazapine 15 mg PO HS 09/05/20 03/11/21 polyethylene glycol 3350 [Miralax] 17 g PO DAILY PRN 09/05/20 03/10/21 senna-docusate sodium 1 tab PO DAILY 09/05/20 03/11/21 promethazine 25 mg PO TID PRN #10 tab 11/19/20 03/10/21 ondansetron HCl [Zofran] 4 mg PO Q8H PRN #10 tab 03/10/21 Previous Rx's Medication Instructions Recorded promethazine 25 mg PO TID PRN #10 tab 11/19/20 ondansetron HCl [Zofran] 4 mg PO Q8H PRN #10 tab 03/10/21 Allergies Allergy/AdvReac Type Severity Reaction Status Date / Time green pepper Allergy Swelling/Ed Unverified 01/16/21 16:36 efroz SSRI AdvReac Other (See Uncoded 01/16/21 16:36 Comment) General Stated Complaint: Abd Prob MARQUISE: 3 Review of Systems Constitutional Constitutional: Denies chills, Denies fever(s) and Reports poor appetite Cardiovascular Cardiovascular: Denies chest pain and Denies dyspnea Respiratory Respiratory: Denies cough and Denies dyspnea Gastrointestinal Gastrointestinal: Reports as per HPI, Reports abdominal pain, Denies melena, Denies change in bowel habits, Denies constipation, Denies diarrhea, Reports nausea and Reports vomiting Genitourinary Genitourinary: Denies hematuria, Denies difficulty urinating, Denies urinary hesitancy, Denies urinary incontinence and Denies urinary urgency Integumentary/Breasts Skin/Breast: Denies rash PFSH All Active Problems (Updated 03/11/21 @ 19:39 by Melvin Carrasco NP) Chronic appendicitis (Acute) Chronic appendicitis (Acute) Vomiting (Acute) Abdominal pain (Acute) Suicidal ideation (Acute) Depression (Chronic) Light-headed feeling (Acute) Medical History 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 Surgical History H/O aortic coarctation repair Social History Smoking/Tobacco Use Status: Never Smoking risk assessment performed?: Yes Alcohol Intake: never Drug use: Never Substance use type: does not use Current gender identity: male Do you feel safe at home: Yes Do you feel safe in your relationship?: Yes Exam Const General: cooperative Orientation: alert, awake and oriented x3 Resp Effort & Inspection: normal respiratory effort and able to speak in complete sentences Auscultation: clear to auscultation bilaterally Cardio Rate: regular rate Rhythm: regular rhythm Heart Sounds: S1 normal and S2 normal GI Palpation: soft, no hepatosplenomegaly, not firm, guarding in the RLQ, no masses, no pulsatile masses, not rigid, no splenomegaly and tender Auscultation: normal bowel sounds Back/Spine/Pelvis Back: no CVA tenderness Neuro General: patient alert, patient awake, patient oriented x3, gait normal and moves all extremities Course Vital Signs Vital signs: Vital Signs Temperature 36.9 C 03/11/21 16:36 Pulse 99 H 03/11/21 16:36 Respiratory Rate 14 03/11/21 16:36 Blood Pressure 128/89 03/11/21 16:36 Pulse Oximetry 100 03/11/21 16:36 Temperature 36.9 C 03/11/21 16:36 Temperature Source Skin 03/11/21 16:36 Pulse 99 H 03/11/21 16:36 Respiratory Rate 14 03/11/21 16:36 Respiratory Effort 03/11/21 16:42 Blood Pressure 128/89 03/11/21 16:36 Pulse Oximetry 100 03/11/21 16:36 Oxygen Delivery Method Room Air 03/11/21 16:36 Oxygen Flow Rate 0 03/11/21 16:36 Pain Level 9 03/11/21 16:39
[2021-03-11] MEDS: Ondansetron 4 MG/2 ML VIAL IVP (16:59)
[2021-03-11 17:00] LABS: Lactate 0.9 mmol/L (0.6-1.4)
[2021-03-11 17:04] LABS: Abs Immature Grans 0.02 10^3/uL (0.0-0.06); Absolute Basophil Count 0.03 10^3/uL (0.0-0.2); Absolute Eosinophil Count 0.16 10^3/uL (0.0-0.7); Absolute Lymphocyte Count 0.88 10^3/uL (1.2-3.4); Absolute Monocyte Count 0.38 10^3/uL (0.1-0.8); Absolute Neutrophil Count 3.84 10^3/uL (1.2-6.7); Basophils % 0.6; HCT 44.8 % (40.0-50.0); HGB 14.7 g/dL (13.5-17.5); Immature Grans % 0.4; Lymphocytes % 16.6; MCH 28.2 pg (27.0-33.0); MCHC 32.8 % (32.0-36.0); MPV 10.2 fL (8.0-11.0); Monocytes % 7.2; Neutrophils % 72.2; Nucleated RBC 0 %; Platelet Count 180 10^3/uL (130-400); RBC 5.21 10^6/uL (4.36-5.78); RDW 12.9 % (11.8-14.1); RDW-SD 39.9 fL; WBC 5.31 10^3/uL (4.4-10.8)
[2021-03-11] MEDS: Normal Saline 500 ML IV (17:06)
[2021-03-11 17:16] LABS: ALT 28 U/L (16-63); AST 21 U/L (15-37); Albumin 4.4 g/dL (3.4-5.0); Alkaline Phosphatase 63 U/L (46-116); Anion Gap 7.5 mmol/L (3-11); BUN 10 mg/dL (7-18); Bilirubin, Total 0.3 mg/dL (0.2-1.0); C-Reactive Protein 0.22 mg/dL (0.0-0.3); CO2 28.5 mmol/L (21.0-32.0); Calcium 8.7 mg/dL (8.5-10.1); Chloride 106 mmol/L (98-107); Glucose 89 mg/dL (74-106); Lipase 209 U/L (73-393); Potassium 4.4 mmol/L (3.5-5.1); Sodium 142 mmol/L (136-145); Total Protein 7.6 g/dL (6.4-8.2)
[2021-03-11 18:22] LABS: Source Nasal/Nares
[2021-03-11 18:28] VITALS: BP 127/79; PULSE 94; TEMP 37.2; O2SAT 99
--- NOTE | 2021-03-11 18:38 | W.PM.HP.N ---
Date of service: 03/11/21 Time of Service: 18:39 Assessment and Plan Assessment and plan (1) Chronic appendicitis: Status: Acute Assessment and plan: - plan for laparoscopic appendectomy tomorrow - can have some light diet tonight, NPO after midnight - continue IV fluid hydration LR 125cc/hr - start abx ceftriaxone and flagyl - plan discussed with patient and mother at bedside - Plan relayed to Nurse project product manager and operative team History of Present Illness History of Present Illness Chief Complaint: Abdominal pain Narrative: 26 year old male presents to ER with abdominal pain. He has had several episodes of similar abdominal pain in the last year and has been to the ER multiple times and been diagnosed with chronic appendicitis. He was in the ER yesterday with abdominal pain though after some IV fluid hydration and pain medications decided to go home a follow up in the General Surgery clinic. He returns today with his mother for recurrent abdominal pain. Collaterally her has a history of developmental delay, he has had coarctation of the aorta and septoplasty described by his mother at bedside when he was less than 1 year old. He denies fevers, chills, n/v/d/c or urinary f/u/d. In the ER yesterday, he had a CT scan that showed dilated appendix suspicious for appendicitis. PMHx: developmental delay. chronic appendicitis PSHx: veried heart surgeries at infancy Meds: reviewed, no blood thinners Social: denies x3 Review of Systems Constitutional Comments: well appearing Eyes Comments: anicteric sclera Cardiovascular Comments: good peripheral perfusion Respiratory Comments: non-labored breathing Gastrointestinal Comments: general loss of appetite, abdominal pain Genitourinary Comments: no change in bladder habits, no frequency urgency or dysuria PFSH All Active Problems Chronic appendicitis (Acute) Chronic appendicitis (Acute) Vomiting (Acute) Abdominal pain (Acute) Suicidal ideation (Acute) Depression (Chronic) Light-headed feeling (Acute) Medical History 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 Surgical History H/O aortic coarctation repair Social History Smoking/Tobacco Use Status: Never Smoking risk assessment performed?: Yes Alcohol Intake: never Drug use: Never Substance use type: does not use Current gender identity: male Do you feel safe at home: Yes Do you feel safe in your relationship?: Yes Meds Allergies and Home Medications Allergies Allergy/AdvReac Type Severity Reaction Status Date / Time green pepper Allergy Swelling/Ed Unverified 01/16/21 16:36 feroz SSRI AdvReac Other (See Uncoded 01/16/21 16:36 Comment) Home Medications Medication Instructions Recorded Confirmed Type clonazepam 2 mg PO HS PRN PRN 07/04/19 03/10/21 History ondansetron 4 mg PO BID PRN PRN 05/20/20 03/10/21 History mirtazapine 15 mg PO HS 09/05/20 03/10/21 History polyethylene glycol 3350 [Miralax] 17 g PO DAILY PRN 09/05/20 03/10/21 History senna-docusate sodium 1 tab PO DAILY 09/05/20 03/10/21 History promethazine 25 mg PO TID PRN #10 tab 11/19/20 03/10/21 Rx ondansetron HCl [Zofran] 4 mg PO Q8H PRN #10 tab 03/10/21 Rx Exam Const Other: well appearing though uncomfortable HENMT Other: moist mucous membranes Eyes Other: anicteric sclera Neck Other: trachea midline Chest Other: non-labored breathing Cardio Other: good peripheral perfusion GI Other: soft, though tender to palpation in lower quadrants R>L Neuro Other: no focal deficits, alert, attentive Results Labs Result diagrams: 03/11/21 16:45 03/11/21 16:45 Labs: Laboratory Results - last 24 hr 03/11/21 03/11/21 03/11/21 16:45 16:45 16:45 WBC 5.31 RBC 5.21 Hgb 14.7 Hct 44.8 MCV 86.0 MCH 28.2 MCHC 32.8 RDW 12.9 Plt Count 180 MPV 10.2 Immature Gran % 0.4 Neutrophils % 72.2 Lymphocytes % 16.6 Monocytes % 7.2 Eosinophils % 3.0 Basophils % 0.6 Nucleated RBC % 0 Absolute Neutrophils 3.84 Absolute Lymphocytes 0.88 L Absolute Monocytes 0.38 Absolute Eosinophils 0.16 Absolute Basophils 0.03 VBG Lactate 0.9 Sodium 142 Potassium 4.4 Chloride 106 Carbon Dioxide 28.5 Anion Gap 7.5 BUN 10 Creatinine 1.0 Estimated GFR/1.73 m2 >= 60.00 Glucose 89 Calcium 8.7 Total Bilirubin 0.3 AST 21 ALT 28 Alkaline Phosphatase 63 C-Reactive Protein 0.22 Total Protein 7.6 Albumin 4.4 Lipase 209 COVID-19 Source 03/11/21 18:15 WBC RBC Hgb Hct MCV MCH MCHC RDW Plt Count MPV Immature Gran % Neutrophils % Lymphocytes % Monocytes % Eosinophils % Basophils % Nucleated RBC % Absolute Neutrophils Absolute Lymphocytes Absolute Monocytes Absolute Eosinophils Absolute Basophils VBG Lactate Sodium Potassium Chloride Carbon Dioxide Anion Gap BUN Creatinine Estimated GFR/1.73 m2 Glucose Calcium Total Bilirubin AST ALT Alkaline Phosphatase C-Reactive Protein Total Protein Albumin Lipase COVID-19 Source Nasal/Nares Last Vital Signs Temp 99.0 F 03/11/21 18:28 Pulse 94 H 03/11/21 18:28 Resp 14 03/11/21 16:36 BP 127/79 03/11/21 18:28 Pulse Ox 99 03/11/21 18:28
[2021-03-11] MEDS: cefTRIAXone 1 GM/50 ML BAG IVPB (18:51)
[2021-03-11 19:16] VITALS: BP 118/76; PULSE 93; TEMP 37.1; O2SAT 97
[2021-03-11] MEDS: metroNIDAZOLE 500 MG/100 ML BAG 100 MG IVPB (19:27)
[2021-03-11] MEDS: Lactated Ringers 1,000 ML 125 ML IV (20:34)
[2021-03-11] MEDS: Enoxaparin 40 MG/0.4 ML SYR SC (20:34)
[2021-03-11 20:39] VITALS: BP 120/80; PULSE 92; RESP 16; TEMP 36.9; O2SAT 97
[2021-03-11] MEDS: clonazePAM 1 MG TAB 2 MG PO (21:17)
[2021-03-11] MEDS: Mirtazapine 15 MG TAB PO (21:18)
[2021-03-11 21:49] LABS: Troponin I < 50 ng/L (<or=60)
[2021-03-11 23:19] VITALS: BP 144/84; PULSE 93; RESP 18; TEMP 36.6; O2SAT 100
[2021-03-11 23:20] LABS: COVID-19 PCR Negative (Negative)
[2021-03-12] MEDS: metroNIDAZOLE 500 MG/100 ML BAG 100 MG IVPB ×2 (03:10→12:04)
[2021-03-12] MEDS: Lactated Ringers 1,000 ML 125 ML IV ×2 (03:11→11:48)
[2021-03-12 07:55] VITALS: BP 130/82; PULSE 79; RESP 16; TEMP 36.1; O2SAT 98
--- NOTE | 2021-03-12 09:10 | PDOC.ANES ---
Date of service: 03/12/21 Time of Service: 09:00 Anesthesia Note Report Anesthesia Note: Upon reviewing the patient's chart for preoperative assessment, I came across a note from Dr. Lorenz, [facility] which states the need for repeat Echo, EST, OV in one year (due by 05/2021). Also stated in this note is the patient's increased risk for acute coronary ischemia, especially during anesthesia induction. Since we do not have interventional cardiology at our facility, I am recommending transfer to a tertiary care center where any complications could be addressed in a timely manner. Dr. Colin, surgeon, informed and he discussed with the patient and his mother.
--- NOTE | 2021-03-12 09:45 | W.PM.PROGNOT ---
Date of Service Date of service: 03/12/21 Time of Service: 09:45 Assessment and Plan Assessment and plan (1) Chronic appendicitis: Status: Acute Assessment and plan: Upon discussion with Anesthesia, it was determined that in the setting of his heart defect and slightly elevated risk of coronary event while undergoing general anesthesia he would best be served by performing the operation in a setting that has the necessary supportive services should there be a coronary event. 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 He has no complaints. He has been NPO since midnight. He has been continued on IV fluid and IV abx. Upon discussion with Anesthesia, it was determined that in the setting of his heart defect and slightly elevated risk of coronary event while undergoing general anesthesia he would best be served by performing the operation in a setting that has the necessary supportive services should there be a coronary event. Exam Const Other: alert, awake, well appearing HENNV Other: moist mucous membranes Eyes Other: anicteric sclera Resp Other: non-labored breathing Cardio Other: good peripheral pulses, equal GI Other: soft, minimal tenderness to palpation Neuro Other: no focal deficits Objective Last Vital Signs Temp 97.0 F L 03/12/21 07:55 Pulse 79 03/12/21 07:55 Resp 16 03/12/21 07:55 BP 130/82 03/12/21 07:55 Pulse Ox 98 03/12/21 07:55 Laboratory Results - last 24 hr 03/11/21 03/11/21 03/11/21 16:45 16:45 16:45 WBC 5.31 RBC 5.21 Hgb 14.7 Hct 44.8 MCV 86.0 MCH 28.2 MCHC 32.8 RDW 12.9 Plt Count 180 MPV 10.2 Immature Gran % 0.4 Neutrophils % 72.2 Band Neutrophils % Lymphocytes % 16.6 Atypical Lymphs % Monocytes % 7.2 Eosinophils % 3.0 Basophils % 0.6 Metamyelocytes % Myelocytes % Promyelocytes % Other Cells % Nucleated RBC % 0 Absolute Neutrophils 3.84 Absolute Lymphocytes 0.88 L Absolute Monocytes 0.38 Absolute Eosinophils 0.16 Absolute Basophils 0.03 RBC Morphology Polychromasia Hypochromasia Poikilocytosis Basophilic Stippling Anisocytosis Microcytosis Macrocytosis Spherocytes Tear Drop Cells Ovalocytes Stomatocytes [place] Bodies [place] Cells/Echinocytes Acanthocytes (Spur) Schistocytes VBG Lactate 0.9 Sodium 142 Potassium 4.4 Chloride 106 Carbon Dioxide 28.5 Anion Gap 7.5 BUN 10 Creatinine 1.0 Estimated GFR/1.73 m2 >= 60.00 Glucose 89 Calcium 8.7 Magnesium Total Bilirubin 0.3 AST 21 ALT 28 Alkaline Phosphatase 63 Troponin I C-Reactive Protein 0.22 Total Protein 7.6 Albumin 4.4 Lipase 209 COVID-19 Source SARS-CoV-2 (PCR) 03/11/21 03/11/21 03/11/21 18:15 18:28 18:28 WBC Cancelled RBC Cancelled Hgb Cancelled Hct Cancelled MCV Cancelled MCH Cancelled MCHC Cancelled RDW Cancelled Plt Count Cancelled MPV Cancelled Immature Gran % Cancelled Neutrophils % Cancelled Band Neutrophils % Cancelled Lymphocytes % Cancelled Atypical Lymphs % Cancelled Monocytes % Cancelled Eosinophils % Cancelled Basophils % Cancelled Metamyelocytes % Cancelled Myelocytes % Cancelled Promyelocytes % Cancelled Other Cells % Cancelled Nucleated RBC % Cancelled Absolute Neutrophils Cancelled Absolute Lymphocytes Cancelled Absolute Monocytes Cancelled Absolute Eosinophils Cancelled Absolute Basophils Cancelled RBC Morphology Cancelled Polychromasia Cancelled Hypochromasia Cancelled Poikilocytosis Cancelled Basophilic Stippling Cancelled Anisocytosis Cancelled Microcytosis Cancelled Macrocytosis Cancelled Spherocytes Cancelled Tear Drop Cells Cancelled Ovalocytes Cancelled Stomatocytes Cancelled [place] Bodies Cancelled Yan Cells/Echinocytes Cancelled Acanthocytes (Spur) Cancelled Schistocytes Cancelled VBG Lactate Sodium Cancelled Potassium Cancelled Chloride Cancelled Carbon Dioxide Cancelled Anion Gap Cancelled BUN Cancelled Creatinine Cancelled Estimated GFR/1.73 m2 Cancelled Glucose Cancelled Calcium Cancelled Magnesium Cancelled Total Bilirubin Cancelled AST Cancelled ALT Cancelled Alkaline Phosphatase Cancelled Troponin I Cancelled C-Reactive Protein Total Protein Cancelled Albumin Cancelled Lipase COVID-19 Source Nasal/Nares SARS-CoV-2 (PCR) Negative 03/11/21 21:30 WBC RBC Hgb Hct MCV MCH MCHC RDW Plt Count MPV Immature Gran % Neutrophils % Band Neutrophils % Lymphocytes % Atypical Lymphs % Monocytes % Eosinophils % Basophils % Metamyelocytes % Myelocytes % Promyelocytes % Other Cells % Nucleated RBC % Absolute Neutrophils Absolute Lymphocytes Absolute Monocytes Absolute Eosinophils Absolute Basophils RBC Morphology Polychromasia Hypochromasia Poikilocytosis Basophilic Stippling Anisocytosis Microcytosis Macrocytosis Spherocytes Tear Drop Cells Ovalocytes Stomatocytes [place] Bodies [place] Cells/Echinocytes Acanthocytes (Spur) Schistocytes VBG Lactate Sodium Potassium Chloride Carbon Dioxide Anion Gap BUN Creatinine Estimated GFR/1.73 m2 Glucose Calcium Magnesium Total Bilirubin AST ALT Alkaline Phosphatase Troponin I < 50 C-Reactive Protein Total Protein Albumin Lipase COVID-19 Source SARS-CoV-2 (PCR)
--- NOTE | 2021-03-12 10:38 | CHAPLAIN ---
Emil was resting in bed when I visited. He told me he hasn't had his appendix out yet, and may be transferred to [facility] for the surgery. Emil showed me the photo on his cell phone cover of himself and his two sisters. He said he was a [place] gift from his sisters. He said his parents are nearby and know that he may be transferred to [facility]. 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
--- NOTE | 2021-03-12 11:00 | W.PM.DS.N ---
Date of service: 03/12/21 Time of Service: 11:01 DS: Diagnosis Discharge Diagnosis (1) Chronic appendicitis: Status: Acute Discharge Plan Disposition Patient Disposition: [facility] Condition: Stable Discharge Details Reason For Visit: Appedicitis Admit Date/Time: 03/11/21 18:29 Admit Provider: Kelby Colin Attending Provider: Kelby Colin Primary Care Provider: Gaetano Hdz [facility] Hospital Course: The patient presented to the ER for the second consecutive day for periumbilical and lower quadrant pain. After review of the CT scan the decision was made to plan for appendectomy. He was given IV fluid hydration, IV abx and kept NPO after midnight in preparation. The following morning after discussion with anesthesia, it was determined based on his history of cardiac defects that is slight increase for coronary event during induction would constitute a risk too high for this institution to support if something were to go wrong and so the case was cancelled. [facility] was called to see if a transfer could be arranged and was agreed upon by all parties.He remains hemodynamically stable. Home Meds and New Rx's Prescriptions: No Action clonazepam 1 mg tablet 2 mg PO HS PRN PRNRF: 0 mirtazapine 15 mg tablet 15 mg PO HS RF: 0 polyethylene glycol 3350 [Miralax] 17 gram/dose Powder 17 g PO DAILY PRNRF: 0 senna-docusate sodium Tablet 1 tab PO DAILY RF: 0 promethazine 25 mg tablet 25 mg PO TID PRN (Reason: nausea and vomiting) Qty: 10 RF: 0 ondansetron HCl [Zofran] 4 mg tablet 4 mg PO Q8H PRNQty: 10 RF: 0 ondansetron 4 mg tablet,disintegrating 4 mg PO BID PRN PRNRF: 0 Discharge Instructions Care Plan Goals: Transfer to [facility] for appendectomy Stand Alone Forms: Nursing Discharge Form Activity:: Activity as Tolerated Diet:: NPO Discharge Orders Discharge Orders: Discharge Order (Routine); Ordered 03/12/21 Ordered By: Kelby Colin Discharge Data Discharge Comment: transfer to [facility], direct admission DS: Summary Time Spent with Patient providing and/or coordinating discharge services: Greater than 30 minutes Status at Discharge Functional status at discharge: independent ambulation Overall status at discharge: patient is progressing back to baseline Mental Status: mental status grossly normal Speech and Movement: speech and movement normal Mood: congruent mood Affect: normal affect Exam Const Other: alert, awake, cooperative Eyes Other: anicteric sclera Resp Effort & Inspection: respiratory distress Other: non-labored respiration Cardio Other: good peripheral pulses, equal GI Other: soft, minimal tenderness in the periumbilical and lower quadrants R>L, non-distended Neuro Other: no focal deficits Psych Mental Status: mental status grossly normal Speech and Movement: speech and movement normal Mood: congruent mood Affect: normal affect DS: Data Vitals/I&O Vitals and I&O: Vital Signs Temperature 97.0 F L 03/12/21 07:55 Temperature Source Tympanic 03/12/21 07:55 Pulse 79 03/12/21 07:55 Pulse Rhythm Regular 03/12/21 02:23 Respiratory Rate 16 03/12/21 07:55 Respiratory Effort Non-Labored 03/12/21 02:23 Respiratory Depth Normal 03/12/21 02:23 Respiratory Pattern Normal 03/12/21 02:23 Blood Pressure 130/82 03/12/21 07:55 Pulse Oximetry 98 03/12/21 07:55 Oxygen Delivery Method Room Air 03/12/21 07:55 Oxygen Flow Rate 0 03/12/21 07:55 Pain Level 0 03/12/21 07:55 Comment 03/12/21 07:55 Intake & Output 03/11/21 03/11/21 03/12/21 11:59 23:59 11:59 Intake Total 650 / 650 927.083 / 927.083 Output Total 1000 / 1000 100 / 100 Balance -350 / -350 827.083 / 827.083 Weight 68.039 kg Intake: IV 650 / 650 927.083 / 927.083 Output: Urine 1000 / 1000 100 / 100 Other: Urine Color Yellow Pale Urine Appearance Clear Clear Urine Odor Normal Normal Voiding Methods Toilet Urinal Data Completed and Pending Labs on day of discharge: Labs from last 24 hours 03/11/21 03/11/21 03/11/21 21:30 18:28 18:28 WBC Cancelled RBC Cancelled Hgb Cancelled Hct Cancelled MCV Cancelled MCH Cancelled MCHC Cancelled RDW Cancelled Plt Count Cancelled MPV Cancelled Immature Gran % Cancelled Neutrophils % Cancelled Band Neutrophils % Cancelled Lymphocytes % Cancelled Atypical Lymphs % Cancelled Monocytes % Cancelled Eosinophils % Cancelled Basophils % Cancelled Metamyelocytes % Cancelled Myelocytes % Cancelled Promyelocytes % Cancelled Other Cells % Cancelled Nucleated RBC % Cancelled Absolute Neutrophils Cancelled Absolute Lymphocytes Cancelled Absolute Monocytes Cancelled Absolute Eosinophils Cancelled Absolute Basophils Cancelled RBC Morphology Cancelled Polychromasia Cancelled Hypochromasia Cancelled Poikilocytosis Cancelled Basophilic Stippling Cancelled Anisocytosis Cancelled Microcytosis Cancelled Macrocytosis Cancelled Spherocytes Cancelled Tear Drop Cells Cancelled Ovalocytes Cancelled Stomatocytes Cancelled [place] Bodies Cancelled [place] Cells/Echinocytes Cancelled Acanthocytes (Spur) Cancelled Schistocytes Cancelled VBG Lactate Sodium Cancelled Potassium Cancelled Chloride Cancelled Carbon Dioxide Cancelled Anion Gap Cancelled BUN Cancelled Creatinine Cancelled Estimated GFR/1.73 m2 Cancelled Glucose Cancelled Calcium Cancelled Magnesium Cancelled Total Bilirubin Cancelled AST Cancelled ALT Cancelled Alkaline Phosphatase Cancelled Troponin I < 50 Cancelled C-Reactive Protein Total Protein Cancelled Albumin Cancelled Lipase COVID-19 Source SARS-CoV-2 (PCR) 03/11/21 03/11/21 03/11/21 18:15 16:45 16:45 WBC 5.31 RBC 5.21 Hgb 14.7 Hct 44.8 MCV 86.0 MCH 28.2 MCHC 32.8 RDW 12.9 Plt Count 180 MPV 10.2 Immature Gran % 0.4 Neutrophils % 72.2 Band Neutrophils % Lymphocytes % 16.6 Atypical Lymphs % Monocytes % 7.2 Eosinophils % 3.0 Basophils % 0.6 Metamyelocytes % Myelocytes % Promyelocytes % Other Cells % Nucleated RBC % 0 Absolute Neutrophils 3.84 Absolute Lymphocytes 0.88 L Absolute Monocytes 0.38 Absolute Eosinophils 0.16 Absolute Basophils 0.03 RBC Morphology Polychromasia Hypochromasia Poikilocytosis Basophilic Stippling Anisocytosis Microcytosis Macrocytosis Spherocytes Tear Drop Cells Ovalocytes Stomatocytes [place] Bodies Yan Cells/Echinocytes Acanthocytes (Spur) Schistocytes VBG Lactate 0.9 Sodium Potassium Chloride Carbon Dioxide Anion Gap BUN Creatinine Estimated GFR/1.73 m2 Glucose Calcium Magnesium Total Bilirubin AST ALT Alkaline Phosphatase Troponin I C-Reactive Protein Total Protein Albumin Lipase COVID-19 Source Nasal/Nares SARS-CoV-2 (PCR) Negative 03/11/21 16:45 WBC RBC Hgb Hct MCV MCH MCHC RDW Plt Count MPV Immature Gran % Neutrophils % Band Neutrophils % Lymphocytes % Atypical Lymphs % Monocytes % Eosinophils % Basophils % Metamyelocytes % Myelocytes % Promyelocytes % Other Cells % Nucleated RBC % Absolute Neutrophils Absolute Lymphocytes Absolute Monocytes Absolute Eosinophils Absolute Basophils RBC Morphology Polychromasia Hypochromasia Poikilocytosis Basophilic Stippling Anisocytosis Microcytosis Macrocytosis Spherocytes Tear Drop Cells Ovalocytes Stomatocytes [place] Bodies Yan Cells/Echinocytes Acanthocytes (Spur) Schistocytes VBG Lactate Sodium 142 Potassium 4.4 Chloride 106 Carbon Dioxide 28.5 Anion Gap 7.5 BUN 10 Creatinine 1.0 Estimated GFR/1.73 m2 >= 60.00 Glucose 89 Calcium 8.7 Magnesium Total Bilirubin 0.3 AST 21 ALT 28 Alkaline Phosphatase 63 Troponin I C-Reactive Protein 0.22 Total Protein 7.6 Albumin 4.4 Lipase 209 COVID-19 Source SARS-CoV-2 (PCR) PFSH All Active Problems (Updated 03/11/21 @ 19:39 by Melvin Carrasco NP) Chronic appendicitis (Acute) Chronic appendicitis (Acute) Vomiting (Acute) Abdominal pain (Acute) Suicidal ideation (Acute) Depression (Chronic) Light-headed feeling (Acute) Medical History 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 Surgical History H/O aortic coarctation repair Social History Smoking/Tobacco Use Status: Never Smoking risk assessment performed?: Yes Alcohol Intake: never Drug use: Never Substance use type: does not use Current gender identity: male Do you feel safe at home: Yes Do you feel safe in your relationship?: Yes
--- NOTE | 2021-03-12 14:38 | NUR.NOTE ---
Nursing Note: At 1434 on 03/12/21, this RN attempted to call report to [facility] [address] regarding the pt. RN was informed by staff at [facility] that the primary nurse was on break and would call back in approximately 10 minutes. RN will reassess as necessary.
--- NOTE | 2021-03-12 14:58 | NUR.NOTE ---
Nursing Note: At 1445 on 03/12/21, this RN received a call back from JULISSA Burrell at [address] RN gave a nurse to nurse report on the pt. [facility] RN was updated regarding pt.'s admitting diagnosis, code status, allergies, mentation, VS, pain level, head to toe assessment, plan of care, medications administered, etc. [facility] RN verbalized understanding and presented with no questions. [facility] RN informed that pt. had left via [facility] ambulance at 1422. RN will reassess as necessary.
== END 2021-03-12 14:24 | disposition short-term general hospital (02) | DRG 394 ==
LOC: ER 19:39 → MS 20:07
PROVIDERS: Admitting Provider Surgery; Emergency Provider Nurse Practitioner Family; PCP Neuromusculoskeletal Medicine & OMM; Visit Provider Surgery
DX: K36 Other appendicitis (principal); Q93.82 Williams syndrome; F32.A Depression, unspecified; Q24.8 Other specified congenital malformations of heart
CPT/HCPCS: 36415; 80053; 83690; 87635; 96365; 96367; 96375; 99221; 99239; 99285; J1650; 83605; 83735; 84484; 85025; 86140; J0696; J1885; J2001; J2250; J2405; J2704

== ENCOUNTER 2021-03-14 22:31 | Emergency (ER) | payer MEDICARE, MEDICAID, SELFPAY ==
[2021-03-14 22:30] VITALS: BP 121/81; PULSE 92; RESP 16; TEMP 36.9; O2SAT 95
--- NOTE | 2021-03-14 22:30 | DI.CT_ITS ---
Exam(s) CT CHEST PE CTA EXAM: CT CHEST PE CTA CLINICAL HISTORY: chest pain and sob post op. TECHNIQUE: Imaging Protocol: Axial CT angiography was performed with multi-slice acquisition and mu lti-planar and/or 3D reconstructions. CONTRAST MATERIAL: Intravenous: Omnipaque 350 Contrast volume:70 ml COMPARISON: CT CT ABDOMEN PELVIS W from 03/10/2021 FINDINGS: Pulmonary Arteries: Pulmonary arteries well opacified with IV contrast. Prominent main pulmonary art eries. No evidence of filling defect to suggest pulmonary emboli. There is some motion in the lower lobes. Tracheobronchial tree: Patent where visualized. Mediastinum and Carie: No dominant adenopathy or fluid collection. Pulmonary parenchyma: No consolidation or dominant measurable mass. Pleura: No effusion or pneumothorax. Heart: Mild left ventricular dilatation.. No coronary artery calcifications are seen. Aorta: Thoracic aorta non-dilated. No aneurysm. No dissection. Upper abdomen: Unremarkable. Bones: Scoliosis, otherwise unremarkable for age.Median sternotomy wires. Soft tissues: Minimal symmetric bilateral gynecomastia. IMPRESSION: Severe dilatation of the pulmonary arteries. No evidence of pulmonary embolism. RADIATION DOSE DELIVERED: 396.53mGy.cm Total DLP DATA REPOSITORY: All CT scans at this facility are submitted to the National Radiology Data Registry (NRDR) Dose Index Registry (DIR) with the [employer] (ACR). RADIATION OPTIMIZATION: All CT scans at this facility use at least one of these dose optimization te chniques: automated exposure control; mA and/or kV adjustment per patient size (includes targeted exa ms where dose is matched to clinical indication); or iterative reconstruction.
[2021-03-14] MEDS: Acetaminophen 325 MG TAB 650 MG PO (22:48)
[2021-03-14 23:06] LABS: Abs Immature Grans 0.01 10^3/uL (0.0-0.06); Absolute Basophil Count 0.01 10^3/uL (0.0-0.2); Absolute Eosinophil Count 0.15 10^3/uL (0.0-0.7); Absolute Lymphocyte Count 1.48 10^3/uL (1.2-3.4); Absolute Monocyte Count 0.51 10^3/uL (0.1-0.8); Absolute Neutrophil Count 5.27 10^3/uL (1.2-6.7); Basophils % 0.1; HGB 13.5 g/dL (13.5-17.5); Immature Grans % 0.1; Lymphocytes % 19.9; MCH 27.8 pg (27.0-33.0); MCHC 32.1 % (32.0-36.0); MCV 86.6 fL (80-95); MPV 10.5 fL (8.0-11.0); Monocytes % 6.9; Nucleated RBC 0 %; Platelet Count 197 10^3/uL (130-400); RBC 4.85 10^6/uL (4.36-5.78); RDW 12.9 % (11.8-14.1); RDW-SD 40.2 fL; WBC 7.43 10^3/uL (4.4-10.8)
--- NOTE | 2021-03-14 23:15 | RT.EKG_ITS ---
APPROVED REPORT Exam: Resting ECG Reason for Exam: chest pain Patient Location: E HR:88 bpm ECG Measurements Heart Rate 88 AXIS GA 149 P 37 QRSd 108 QRS 237 QT 360 T 61 QTc 437 Conclusion Sinus rhythm...normal P axis, V-rate 60- 99 Probable left atrial enlargement...P >50mS, <-0.10mV V1 ST elev, probable normal early repol pattern...ST elevation, age<55 There are no significant changes compared to prior EKG performed on 12/07/2019 at 16:41.
--- NOTE | 2021-03-14 23:15 | ED.GENADUL_ITS ---
Discharge Plan Disposition Patient Disposition: HOME Condition: Stable Discharge Details Clinical Impression: Chest discomfort, Muscle pain Primary Care Provider: Gaetano Hdz ED Provider: Sandy Perla Home Meds and New Rx's Prescriptions: Continued clonazepam 1 mg tablet 2 mg PO HS PRN PRNRF: 0 mirtazapine 15 mg tablet 15 mg PO HS RF: 0 polyethylene glycol 3350 [Miralax] 17 gram/dose Powder 17 g PO DAILY PRNRF: 0 senna-docusate sodium Tablet 1 tab PO DAILY RF: 0 ondansetron HCl [Zofran] 4 mg tablet 4 mg PO Q8H PRNQty: 10 RF: 0 Discharge Instructions Additional Instructions: Take Tylenol as needed for discomfort Follow-up with your powder nipper on Wednesday Please return immediately should you have new or worsening complaints Your tests today do not show significant abnormality Discharge Data Discharge Date/Time-TO BE ENTERED AT DEPARTURE: 03/15/21 00:39 Medical Decision Making Negative troponin with pain persistent since earlier morning, greater than 6 hours, D-dimer negative and is very low patient CT does not show evidence of large pulmonary embolism, patient is not hypoxic, tachycardic, tachypneic, at this time he is stable for discharge home per radiology interpretation my review Pulmonary artery severely dilated, reviewed echocardiogram from 2019 that showed severe dilation cannot stand with CT findings, patient made aware, discussed with father as well Patient is feeling symptomatically improved after Tylenol administration, he is resting comfortably in room, he is extremely low risk from a cardiac standpoint aside from his history of coarctation which appears to be stable with his regular cardiology visits Patient is ambulatory, pleasant, stable vital signs, CT does not show evidence of large pulmonary embolism, with a negative D-dimer, listed patient PE or DVT Recheck with PCP on Wednesday recommended Patient is also instructed to follow-up with cardiology and return earlier with new or worsening complaints Discharged home in stable condition HPI General Mode of arrival: ambulatory . Date/Time Provider Initiated Documentation: 03/14/21 22:34 . Limitations to Documentation: no limitations . Information obtained by: patient . 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 He presents with report of cramping in his lower leg and subsequent development of chest pain and shortness of breath. Denies prior history of coagulopathy. Denies any continuous chest pain. Denies any fever or chills. Denies any cough. Denies any abdominal pain, nausea or vomiting. Denies any new medications. Describes the pain is is like this symmetrical. Related Data Home Medications Medication Instructions Recorded Confirmed clonazepam 2 mg PO HS PRN PRN 07/04/19 03/14/21 mirtazapine 15 mg PO HS 09/05/20 03/14/21 polyethylene glycol 3350 [Miralax] 17 g PO DAILY PRN 09/05/20 03/14/21 senna-docusate sodium 1 tab PO DAILY 09/05/20 03/14/21 ondansetron HCl [Zofran] 4 mg PO Q8H PRN #10 tab 03/10/21 03/14/21 Previous Rx's Medication Instructions Recorded ondansetron HCl [Zofran] 4 mg PO Q8H PRN #10 tab 03/10/21 Allergies Allergy/AdvReac Type Severity Reaction Status Date / Time green pepper Allergy Swelling/Ed Unverified 03/14/21 23:14 feroz SSRI AdvReac Other (See Uncoded 03/14/21 23:14 Comment) General Stated Complaint: GenMedical MARQUISE: 2 Review of Systems All systems reviewed & are unremarkable except as noted in HPI and below PFSH All Active Problems (Updated 03/15/21 @ 00:07 by KRISTIN Santana) Chest discomfort (Acute) Muscle pain (Acute) Chronic appendicitis (Acute) Vomiting (Acute) Abdominal pain (Acute) Suicidal ideation (Acute) Depression (Chronic) Light-headed feeling (Acute) Medical History 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 Surgical History H/O aortic coarctation repair Social History Smoking/Tobacco Use Status: Never Smoking risk assessment performed?: Yes Alcohol Intake: never Drug use: Never Substance use type: does not use Current gender identity: male Do you feel safe at home: Yes Do you feel safe in your relationship?: Yes Exam Const General: cooperative and comfortable Orientation: alert and oriented x3 Eyes Pupils: PERRL Resp Effort & Inspection: normal respiratory effort Auscultation: clear to auscultation bilaterally Cardio Rate: regular rate Rhythm: regular rhythm GI Other: Nontender abdominal exam, well-appearing postoperative site Skin General skin exam: no rashes or lesions noted Neuro General: patient alert and patient oriented x3 Extrem Other: Distal pulses intact, no calf swelling or tenderness appreciated Course Vital Signs Vital signs: Vital Signs Temperature 36.9 C 03/14/21 22:30 Pulse 92 H 03/14/21 22:30 Respiratory Rate 16 03/14/21 22:30 Blood Pressure 121/81 03/14/21 22:30 Pulse Oximetry 95 03/14/21 22:30 Temperature 36.9 C 03/14/21 22:30 Temperature Source Skin 03/14/21 22:30 Pulse 92 H 03/14/21 22:30 Respiratory Rate 16 03/14/21 22:30 Blood Pressure 121/81 03/14/21 22:30 Blood Pressure Position Sitting 03/14/21 22:30 Pulse Oximetry 95 03/14/21 22:30 Oxygen Delivery Method Room Air 03/14/21 22:30 Oxygen Flow Rate 0 03/14/21 22:30 Pain Level 6 03/14/21 22:30
[2021-03-14] MEDS: Omnipaque 350 MG/ML 100 ML BTL IJ (23:23)
[2021-03-14 23:25] LABS: ALT 39 U/L (16-63); AST 46 U/L (15-37); Albumin 4.1 g/dL (3.4-5.0); Alkaline Phosphatase 50 U/L (46-116); Anion Gap 7.4 mmol/L (3-11); BUN 15 mg/dL (7-18); Bilirubin, Total 0.3 mg/dL (0.2-1.0); CO2 30.6 mmol/L (21.0-32.0); Calcium 8.6 mg/dL (8.5-10.1); Chloride 105 mmol/L (98-107); Creatine Kinase 100 U/L (39-308); Glucose 92 mg/dL (74-106); Lipase 135 U/L (73-393); Magnesium 1.7 mg/dL (1.8-2.4); Potassium 3.5 mmol/L (3.5-5.1); Sodium 143 mmol/L (136-145); Total Protein 7.5 g/dL (6.4-8.2); Troponin I < 50 ng/L (<or=60)
[2021-03-14 23:45] VITALS: BP 139/81; PULSE 87; RESP 18; O2SAT 96
[2021-03-14 23:46] LABS: D-Dimer 297 ng/mlFEU (<500)
--- NOTE | 2021-03-14 23:50 | DI.VRAD_ITS ---
PROCEDURE INFORMATION: Exam: CTA Chest With Contrast Exam date and time: 03/14/2021 10:44 PM Age: 25 years old Clinical indication: Other: Chest pain and SOB post op; Patient HX: PT with shonna syndrome, prior aortic coarctation TECHNIQUE: Imaging protocol: Computed tomographic angiography of the chest with contrast. 3D rendering (Not supervised by radiologist): MIP and/or 3D reconstructed images were created by the technologist. COMPARISON: CT ABDOMEN PELVIS W 03/10/2021 3:47 PM FINDINGS: Pulmonary arteries: Pulmonary artery opacification is adequate. Motion limits evaluation of the bibasilar segmental and subsegmental pulmonary arteries, otherwise without convincing evidence of pulmonary embolism. There is severe dilation of the main pulmonary artery. Aorta: No thoracic aortic aneurysm or dissection. Thyroid: No mass. Lungs: No pulmonary consolidation. No mass. Pleural spaces: No pneumothorax. No pleural effusion. Heart: Heart is mildly enlarged. No pericardial effusion. Mediastinal space: Mild mural thickening of the distal esophagus. Correlate for history of reflux. Lymph nodes: No pathologically enlarged axillary, mediastinal, or hilar lymph nodes. Bones/joints: Median sternotomy wires are in place. No acute fracture. Thoracic vertebral body heights are preserved. Soft tissues: Mild symmetric gynecomastia. IMPRESSION: 1. Motion limits evaluation of the bibasilar segmental and subsegmental pulmonary arteries. Otherwise no convincing evidence of pulmonary embolism. 2. Severe dilation of the main pulmonary artery. Dictated and Authenticated by: Nish Urias MD. Ordering:DESHAWN Delgado MD
== END 2021-03-15 00:39 | disposition home or self-care (01) ==
PROVIDERS: Emergency Provider Physician Assistant; PCP Neuromusculoskeletal Medicine & OMM
DX: R07.89 Other chest pain (principal); R06.02 Shortness of breath; Z98.890 Other specified postprocedural states; M79.10 Myalgia, unspecified site; R07.9 Chest pain, unspecified; Z87.74 Personal history of (corrected) congenital malformations of heart and circulatory system
CPT/HCPCS: 36415; 71275; 80053; 82550; 83690; 93005; 99285; 83735; 84484; 85025; 85379; 93010; 99283; J3490

== ENCOUNTER 2021-03-19 13:26 | Emergency (ER) | payer MEDICARE, MEDICAID, SELFPAY ==
[2021-03-19 13:40] VITALS: BP 136/81; PULSE 106; RESP 18; TEMP 36.7; O2SAT 100
[2021-03-19] MEDS: Normal Saline 1,000 ML 1000 ML IV (15:24)
[2021-03-19] MEDS: Ondansetron 4 MG/2 ML VIAL IVP (15:28)
[2021-03-19 15:35] LABS: Abs Immature Grans 0.02 10^3/uL (0.0-0.06); Absolute Basophil Count 0.02 10^3/uL (0.0-0.2); Absolute Eosinophil Count 0.11 10^3/uL (0.0-0.7); Absolute Lymphocyte Count 0.85 10^3/uL (1.2-3.4); Absolute Monocyte Count 0.38 10^3/uL (0.1-0.8); Absolute Neutrophil Count 5.63 10^3/uL (1.2-6.7); Basophils % 0.3; Eosinophils % 1.6; HCT 46.7 % (40.0-50.0); HGB 14.9 g/dL (13.5-17.5); Immature Grans % 0.3; Lymphocytes % 12.1; MCH 27.7 pg (27.0-33.0); MCHC 31.9 % (32.0-36.0); MCV 86.8 fL (80-95); MPV 10.1 fL (8.0-11.0); Monocytes % 5.4; Neutrophils % 80.3; Nucleated RBC 0 %; Platelet Count 212 10^3/uL (130-400); RBC 5.38 10^6/uL (4.36-5.78); RDW 12.9 % (11.8-14.1); RDW-SD 40.2 fL; WBC 7.01 10^3/uL (4.4-10.8)
[2021-03-19 15:53] LABS: Bilirubin Negative (Negative); Blood Negative (Negative); Clarity Clear (Clear); Glucose Negative (Negative); Ketones Trace mg/dL (Negative); Leukocyte Esterase Negative (Negative); Nitrite Negative (Negative); Specific Gravity >= 1.030 (1.005-1.025); Urobilinogen 0.2 EU/dL (Up TO 0.2)
[2021-03-19 16:02] LABS: ALT 43 U/L (16-63); AST 26 U/L (15-37); Albumin 4.7 g/dL (3.4-5.0); Alkaline Phosphatase 56 U/L (46-116); Anion Gap 10.3 mmol/L (3-11); BUN 11 mg/dL (7-18); Bilirubin, Total 0.4 mg/dL (0.2-1.0); CO2 29.7 mmol/L (21.0-32.0); CREATININE 1.1 mg/dL (0.70-1.30); Calcium 9.4 mg/dL (8.5-10.1); Chloride 102 mmol/L (98-107); Glucose 96 mg/dL (74-106); Lipase 98 U/L (73-393); Potassium 4.2 mmol/L (3.5-5.1); Sodium 142 mmol/L (136-145); Total Protein 8.4 g/dL (6.4-8.2)
--- NOTE | 2021-03-19 16:25 | W.ED.GENAD ---
Discharge Plan Disposition Patient Disposition: HOME Condition: Improving Discharge Details Clinical Impression: Vomiting and diarrhea Primary Care Provider: Gaetano Hdz ED Provider: Jeanna Boyd Home Meds and New Rx's Prescriptions: New metoclopramide HCl [Reglan] 10 mg tablet 10 mg PO Q6H PRNQty: 7 RF: 0 Continued clonazepam 1 mg tablet 2 mg PO HS PRN PRNRF: 0 mirtazapine 15 mg tablet 15 mg PO HS RF: 0 polyethylene glycol 3350 [Miralax] 17 gram/dose Powder 17 g PO DAILY PRNRF: 0 senna-docusate sodium Tablet 1 tab PO DAILY RF: 0 Discontinued ondansetron HCl [Zofran] 4 mg tablet 4 mg PO Q8H PRNQty: 10 RF: 0 Discharge Instructions Instructions: Acute Nausea and Vomiting (ED), Acute Diarrhea (ED) Additional Instructions: Drink plenty of fluids and get plenty of rest. A prescription for Reglan has been sent electronically to your pharmacy to take as needed and directed for nausea and vomiting. Stop taking the Zofran if you feel that this is not helping with your nausea and vomiting. Follow-up with your primary care doctor in 1 week and with your surgeon at [facility] as directed. Return to the emergency department with any worsening or new concerning symptoms. Discharge Data Discharge Date/Time-TO BE ENTERED AT DEPARTURE: 03/19/21 18:27 Discharge Physician: Jeanna Boyd Medical Decision Making <Claribel Donahue MD - Last Filed: 04/09/21 12:32> Emil Mclean is a 25 y/o man 88 with history of depression, chronic appendicitis presenting to the emergency department for vomiting. On exam patient is well and nontoxic-appearing. Abdominal exam is benign. Doubt postoperative complication at this time. Patient's mother does report that he has a history of cyclic vomiting, concern for cyclic vomiting, dehydration, metabolic/lyte derangement, other. Exam/history at this time is not with sepsis, testicular torsion, pancreatitis. Plan for IV placement, IV fluid hydration, screening labs, IV Zofran. Labs reviewed, WBC 7.01, hemoglobin 14.9, anion gap 10.3, creatinine 1.1. Exam/history at this time is not consistent with acute emergent intra-abdominal process. Patient signed out to Dr. Boyd at time of shift change with p.o. challenge, reevaluation pending. Medical Records Medical records reviewed: Yes I reviewed the patient's medical records. <Jeanna Boyd DO - Last Filed: 03/19/21 22:00> 1500 -- please see Dr. Claribel Donahue's note for initial presentation, exam and plan. Case endorsed to follow-up after p.o. challenge and final disposition. 25-year-old male with a history of laparoscopic appendectomy on 03/12/[address] [facility] presented for vomiting and diarrhea for the past few days. Last episode of diarrhea last night. Last episode of vomiting earlier today. Review of [facility] records noted that he had an uneventful postoperative course and was discharged home on 03/13/2021. Patient was seen here in the ED on 03/14/2021 for chest pain, shortness of breath and leg pain and had a CT chest negative for PE and was discharged home. Labs reviewed and unremarkable. Normal white blood cell count and electrolytes. Urinalysis notes high specific gravity and trace ketones but no evidence of infection. As he has no pain and abdomen exam benign with unremarkable labs and pt feels better here, no indication for repeat CT imaging at this time. 1630 -- patient was able to drink fluids and eat crackers and denies any nausea or pain and had no further vomiting and feels comfortable going home. As he reported to have no relief with Zofran at home, will start Reglan. He was given a few times of Reglan to go and a prescription for Reglan sent electronically to his pharmacy Advised to follow up with the primary care doctor for re-evaluation. Usual and customary return precautions given prior to discharge. Medical Records Medical records reviewed: Yes I reviewed the patient's medical records. Lab Data Lab results reviewed: Yes I reviewed the patient's lab results. Labs: Laboratory Tests Range/Units 03/19/21 03/19/21 03/19/21 15:10 15:20 15:20 WBC (4.4-10.8) 10^3/uL 7.01 RBC (4.36-5.78) 10^6/uL 5.38 Hgb (13.5-17.5) g/dL 14.9 Hct (40.0-50.0) % 46.7 MCV (80-95) fL 86.8 MCH (27.0-33.0) pg 27.7 MCHC (32.0-36.0) % 31.9 L RDW (11.8-14.1) % 12.9 Plt Count (130-400) 10^3/uL 212 MPV (8.0-11.0) fL 10.1 Immature Gran % 0.3 Neutrophils % 80.3 Lymphocytes % 12.1 Monocytes % 5.4 Eosinophils % 1.6 Basophils % 0.3 Nucleated RBC % % 0 Absolute Neutrophils (1.2-6.7) 10^3/uL 5.63 Absolute Lymphocytes (1.2-3.4) 10^3/uL 0.85 L Absolute Monocytes (0.1-0.8) 10^3/uL 0.38 Absolute Eosinophils (0.0-0.7) 10^3/uL 0.11 Absolute Basophils (0.0-0.2) 10^3/uL 0.02 Sodium (136-145) mmol/L 142 Potassium (3.5-5.1) mmol/L 4.2 Chloride (98-107) mmol/L 102 Carbon Dioxide (21.0-32.0) mmol/L 29.7 Anion Gap (3-11) mmol/L 10.3 BUN (7-18) mg/dL 11 Creatinine (0.70-1.30) mg/dL 1.1 Estimated GFR/1.73 m2 (mL/min/1.73m2) >= 60.00 Glucose (74-106) mg/dL 96 Calcium (8.5-10.1) mg/dL 9.4 Total Bilirubin (0.2-1.0) mg/dL 0.4 AST (15-37) U/L 26 ALT (16-63) U/L 43 Alkaline Phosphatase (46-116) U/L 56 Total Protein (6.4-8.2) g/dL 8.4 H Albumin (3.4-5.0) g/dL 4.7 Lipase (73-393) U/L 98 Urine Color (Yellow) Yellow Urine Clarity (Clear) Clear Urine pH (5-8) 6.0 Ur Specific Sherwood (1.005-1.025) >= 1.030 H Urine Protein (Negative) mg/dL Negative Urine Ketones (Negative) mg/dL Trace H Urine Blood (Negative) Negative Urine Nitrite (Negative) Negative Urine Bilirubin (Negative) Negative Urine Urobilinogen (Up TO 0.2) EU/dL 0.2 Ur Leukocyte Esterase (Negative) Negative Urine Glucose (Negative) mg/dL Negative HPI <Claribel Donahue MD - Last Filed: 04/09/21 12:32> General Mode of arrival: ambulatory. Date/Time Provider Initiated Documentation: 03/19/21 13:32. Limitations to Documentation: no limitations. Information obtained by: patient, family, RN notes reviewed and old records reviewed. HPI Narrative: Emil Mclean is a 25-year-old man with a history of depression, chronic appendicitis presenting to the emergency department for vomiting. Patient is accompanied by his mother who also provides the history. Patient underwent appendectomy last week at [facility]. Patient presented to this emergency department on 03/14/2021 for chest pain, had CT scan of the chest at that time that was found to be negative for acute process. Patient reports that 2 days later on 03/16/2011, patient developed vomiting. Vomiting has persisted and patient has been unable to hold food or fluids down. Patient reports that walked him he urinated was last night. He reports that last p.o. intake was dinner last night, which he subsequently vomited. Patient reports that he has had intermittent normal stools and diarrhea since surgery, with no black or bloody stools. He denies any abdominal pain at the time. No fevers, cough, shortness of breath, rash, numbness, weakness, or pain. Patient's mother reports that patient does have history of cyclic vomiting that happens intermittently, however Zofran usually works for this. Patient's mother reports that patient did take Zofran either last night or the night before, and it did not improve his symptoms. Related Data Home Medications Medication Instructions Recorded Confirmed clonazepam 2 mg PO HS PRN PRN 07/04/19 03/19/21 mirtazapine 15 mg PO HS 09/05/20 03/19/21 polyethylene glycol 3350 [Miralax] 17 g PO DAILY PRN 09/05/20 03/14/21 senna-docusate sodium 1 tab PO DAILY 09/05/20 03/14/21 metoclopramide HCl [Reglan] 10 mg PO Q6H PRN #7 tab 03/19/21 Previous Rx's Medication Instructions Recorded metoclopramide HCl [Reglan] 10 mg PO Q6H PRN #7 tab 03/19/21 Allergies Allergy/AdvReac Type Severity Reaction Status Date / Time green pepper Allergy Swelling/Ed Unverified 03/19/21 13:49 feroz SSRI AdvReac Other (See Uncoded 03/19/21 13:49 Comment) General Stated Complaint: Nausea/Vomit/Diar MARQUISE: 3 Review of Systems <Claribel Donahue MD - Last Filed: 04/09/21 12:32> Narrative: Constitutional: denies fevers Eyes: denies eye pain ENT: denies ear pain, dental pain, sore throat Cardiovascular: denies chest pain Respiratory: denies SOB, cough GI: denies abdominal pain, reports vomiting, diarrhea : denies flank pain MSK: denies back pain, neck pain, arthralgias, myalgias Skin: denies rash Neuro: denies headaches, numbness, weakness <Jeanna Boyd DO - Last Filed: 03/19/21 22:00> All systems reviewed & are unremarkable except as noted in HPI and below Constitutional Constitutional: Reports as per HPI, Denies chills and Denies fever(s) Eyes Eyes: Denies blurry vision ENT Ears, Nose, Mouth, and Throat: Denies dizziness, Denies sore throat and Denies throat swelling Cardiovascular Cardiovascular: Denies chest pain and Denies dyspnea Respiratory Respiratory: Denies cough and Denies dyspnea Gastrointestinal Gastrointestinal: Denies abdominal pain, Reports diarrhea and Reports vomiting Genitourinary Genitourinary: Denies hematuria and Denies dysuria Musculoskeletal Musculoskeletal: Denies back pain and Denies numbness Integumentary/Breasts Skin/Breast: Denies lesions and Denies rash Neurologic Neurologic: Denies dizziness, Denies localized weakness and Denies numbness Allergic/Immunologic Allergic/Immunologic: Denies throat swelling PFSH <Claribel Donahue MD - Last Filed: 04/09/21 12:32> All Active Problems Chest discomfort (Acute) Muscle pain (Acute) Vomiting and diarrhea (Acute) Chronic appendicitis (Acute) Vomiting (Acute) Abdominal pain (Acute) Suicidal ideation (Acute) Depression (Chronic) Light-headed feeling (Acute) Medical History 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 Surgical History H/O aortic coarctation repair Social History Smoking/Tobacco Use Status: Never Smoking risk assessment performed?: Yes Alcohol Intake: never Drug use: Never Substance use type: does not use Current gender identity: male Do you feel safe at home: Yes Do you feel safe in your relationship?: Yes Exam <Claribel Donahue MD - Last Filed: 04/09/21 12:32> Narrative Exam Narrative: Constitutional: well and [id number], pleasant, conversing normally HENT: head atraumatic/normocephalic/normal inspection, mucous membranes moist Eyes: conjunctiva normal, sclera normal, pupils 3mm b/l Neck: no stridor, normal ROM, trachea midline Resp: normal work of breathing, LCTAB Cardio: normal rate, normal rhythm, no murmur appreciated GI: abdomen soft, non-tender, non-distended, laparoscopic surgical scars healing well, no edema, erythema, drainage, or dehiscence Skin: warm, dry, normal color, no rash Neuro: alert, not altered, grossly non-focal, normal tone Ext: no edema Psych: normal mood, normal affect, normal behavior Course <Claribel Donahue MD - Last Filed: 04/09/21 12:32> Vital Signs Vital signs: Vital Signs Temperature 36.7 C 03/19/21 13:40 Pulse 106 H 03/19/21 13:40 Respiratory Rate 18 03/19/21 13:40 Blood Pressure 136/81 03/19/21 13:40 Pulse Oximetry 100 03/19/21 13:40 Temperature 36.7 C 03/19/21 13:40 Temperature Source Skin 03/19/21 13:40 Pulse 106 H 03/19/21 13:40 Respiratory Rate 18 03/19/21 13:40 Respiratory Effort 03/19/21 13:50 Blood Pressure 136/81 03/19/21 13:40 Blood Pressure Position Sitting 03/19/21 13:40 Pulse Oximetry 100 03/19/21 13:40 Oxygen Delivery Method Room Air 03/19/21 13:40 Oxygen Flow Rate 0 03/19/21 13:40 Pain Level 0 03/19/21 13:40 Lab/Test Results Lab/Test Results: Laboratory Tests Range/Units 03/19/21 03/19/21 03/19/21 15:10 15:20 15:20 WBC (4.4-10.8) 10^3/uL 7.01 RBC (4.36-5.78) 10^6/uL 5.38 Hgb (13.5-17.5) g/dL 14.9 Hct (40.0-50.0) % 46.7 MCV (80-95) fL 86.8 MCH (27.0-33.0) pg 27.7 MCHC (32.0-36.0) % 31.9 L RDW (11.8-14.1) % 12.9 Plt Count (130-400) 10^3/uL 212 MPV (8.0-11.0) fL 10.1 Immature Gran % 0.3 Neutrophils % 80.3 Lymphocytes % 12.1 Monocytes % 5.4 Eosinophils % 1.6 Basophils % 0.3 Nucleated RBC % % 0 Absolute Neutrophils (1.2-6.7) 10^3/uL 5.63 Absolute Lymphocytes (1.2-3.4) 10^3/uL 0.85 L Absolute Monocytes (0.1-0.8) 10^3/uL 0.38 Absolute Eosinophils (0.0-0.7) 10^3/uL 0.11 Absolute Basophils (0.0-0.2) 10^3/uL 0.02 Sodium (136-145) mmol/L 142 Potassium (3.5-5.1) mmol/L 4.2 Chloride (98-107) mmol/L 102 Carbon Dioxide (21.0-32.0) mmol/L 29.7 Anion Gap (3-11) mmol/L 10.3 BUN (7-18) mg/dL 11 Creatinine (0.70-1.30) mg/dL 1.1 Estimated GFR/1.73 m2 (mL/min/1.73m2) >= 60.00 Glucose (74-106) mg/dL 96 Calcium (8.5-10.1) mg/dL 9.4 Total Bilirubin (0.2-1.0) mg/dL 0.4 AST (15-37) U/L 26 ALT (16-63) U/L 43 Alkaline Phosphatase (46-116) U/L 56 Total Protein (6.4-8.2) g/dL 8.4 H Albumin (3.4-5.0) g/dL 4.7 Lipase (73-393) U/L 98 Urine Color (Yellow) Yellow Urine Clarity (Clear) Clear Urine pH (5-8) 6.0 Ur Specific Sherwood (1.005-1.025) >= 1.030 H Urine Protein (Negative) mg/dL Negative Urine Ketones (Negative) mg/dL Trace H Urine Blood (Negative) Negative Urine Nitrite (Negative) Negative Urine Bilirubin (Negative) Negative Urine Urobilinogen (Up TO 0.2) EU/dL 0.2 Ur Leukocyte Esterase (Negative) Negative Urine Glucose (Negative) mg/dL Negative Sign Out <Claribel Donahue MD - Last Filed: 04/09/21 12:32> Sign Out Data: Sign Out Comment: Patient signed out to Dr. Boyd at time of shift change with p.o. challenge and reevaluation pending Last updated by Claribel Donahue MD at 03/19/21 16:30
--- NOTE | 2021-03-19 16:29 | NUR.NOTE ---
Nursing Note: IVF infused, pt reports no feelings of nausea, no vomiting/diarrhea since admit to ER, continue to monitor.
[2021-03-19 16:32] VITALS: BP 130/88; PULSE 81; RESP 18; TEMP 36.8; O2SAT 100
--- NOTE | 2021-03-19 17:22 | NUR.NOTE ---
Nursing Note: Pt attempting PO challenge after speaking w/provider, gingerale & jordana crackers given. Pt reports no nausea at this time, cont. to monitor.
--- NOTE | 2021-03-19 17:36 | NUR.NOTE ---
Nursing Note: Pt successfully drank 8oz gingerale and ate crackers w/o nausea or vomiting, pt states i feel goos, I had it all, provider notified, cont. to monitor.
== END 2021-03-19 18:27 | disposition home or self-care (01) ==
PROVIDERS: Student in an Organized Health Care Education/Training Program; Emergency Provider Physician Assistant; PCP Neuromusculoskeletal Medicine & OMM
DX: R11.10 Vomiting, unspecified (principal); R19.7 Diarrhea, unspecified; Z98.890 Other specified postprocedural states
CPT/HCPCS: 36415; 80053; 83690; 96361; 96374; 99284; 81003; 85025; 99283; J2405

== ENCOUNTER 2021-05-15 15:17 | Emergency (ER) | payer MEDICARE, MEDICAID, SELFPAY ==
[2021-05-15 15:25] VITALS: BP 130/88; PULSE 109; RESP 16; TEMP 37.6; O2SAT 97
[2021-05-15 15:55] VITALS: PULSE 104; TEMP 37; O2SAT 97
--- NOTE | 2021-05-15 16:09 | ED.GENADUL_ITS ---
Discharge Plan Disposition Patient Disposition: HOME Condition: Stable Discharge Details Clinical Impression: Depression Primary Care Provider: Gaetano Hdz ED Provider: Naman Coronel Home Meds and New Rx's Prescriptions: Continued clonazepam 1 mg tablet 2 mg PO HS PRN PRN0RF Label Comments: TK 1/2 TO 1 T PO QHS mirtazapine 15 mg tablet 15 mg PO HS 0RF Label Comments: TAKE 1 TABLET BY MOUTH EVERY DAY AT BEDTIME polyethylene glycol 3350 [Miralax] 17 gram/dose Powder 17 g PO DAILY PRN0RF Label Comments: not taking senna-docusate sodium Tablet 1 tab PO DAILY 0RF metoclopramide HCl [Reglan] 10 mg tablet 10 mg PO Q6H PRNQty: 7 0RF Discharge Instructions Instructions: Depression (ED) Additional Instructions: Please follow the instructions given to you by the mental health team. Watch for new or worsening symptoms and return to the ER for any concerns. Medical Decision Making 25-year-old gentleman well-known to our ER for similar presentations presents today feeling depressed, thoughts of cutting his arm superficially but has not acted upon it, vague suicidal thoughts without a plan or desire to act upon them. He has no medical concerns or complaints. I will initiate a interim safety plan, requested mental health evaluation and request a CPSO. As I do not believe that he will need involuntary placement and he is not requesting inpatient hospitalization, I will not reflexively obtain any laboratory values as I do not believe that we will change his overall disposition Mental health evaluation completed, patient is able to safety plan home without difficulty. He feels safe with this plan and has no additional questions or concerns. Strict discharge and return precautions were provided. This documentation was generated using [employer] dictation system, please disregard any oddities of phrase or misspellings. Medical Records Medical records reviewed: Yes I reviewed the patient's medical records. HPI General Mode of arrival: ambulatory . Date/Time Provider Initiated Documentation: 05/15/21 15:19 . Limitations to Documentation: no limitations . Information obtained by: patient . HPI Narrative: 25-year-old gentleman who presents to the ER reporting worsening depression, thoughts of self-harm such as cutting his forearms, reports general thoughts of , but denies any active suicidal ideation with plan. He is unaware of any stressors over the past 48 hours that brought this on. He denies any medical concerns or complaints at this time. Denies alcohol or drug use. Patient did not cut his arms today. He spoke with mental health in the phone last night and they stated if he felt worse today to come to the ER for evaluation. He has not spoken with mental health today. Related Data Home Medications Medication Instructions Recorded Confirmed clonazepam 1 mg tablet 2 mg PO HS PRN PRN 07/04/19 05/15/21 mirtazapine 15 mg tablet 15 mg PO HS 09/05/20 05/15/21 polyethylene glycol 3350 17 17 g PO DAILY PRN 09/05/20 05/15/21 gram/dose oral powder (Miralax) senna-docusate sodium tablet 1 tab PO DAILY 09/05/20 05/15/21 metoclopramide HCl 10 mg tablet 10 mg PO Q6H PRN #7 tab 03/19/21 05/15/21 (Reglan) Previous Rx's Medication Instructions Recorded metoclopramide HCl 10 mg tablet 10 mg PO Q6H PRN #7 tab 03/19/21 (Reglan) Allergies Allergy/AdvReac Type Severity Reaction Status Date / Time green pepper Allergy Swelling/Ed Unverified 05/15/21 15:29 feroz SSRI AdvReac Other (See Uncoded 05/15/21 15:29 Comment) General Stated Complaint: PsychEval MARQUISE: 2 Review of Systems Constitutional Constitutional: Denies fever(s) and Denies headache(s) ENT Ears, Nose, Mouth, and Throat: Denies headache(s) Cardiovascular Cardiovascular: Denies chest pain and Denies dyspnea Respiratory Respiratory: Denies dyspnea Gastrointestinal Gastrointestinal: Denies abdominal pain, Denies nausea and Denies vomiting Musculoskeletal Musculoskeletal: Denies back pain Integumentary/Breasts Skin/Breast: Denies rash Neurologic Neurologic: Denies headache(s) Psychiatric Psychiatric: Reports depression, Denies homicidal ideation and Reports suicidal ideation PFSH All Active Problems (Updated 05/15/21 @ 17:40 by KRISTIN Rico) Chronic appendicitis (Acute) Vomiting (Acute) Abdominal pain (Acute) Suicidal ideation (Acute) Depression (Chronic) Light-headed feeling (Acute) Medical History 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 Surgical History H/O aortic coarctation repair Social History Smoking/Tobacco Use Status: Never Smoking risk assessment performed?: Yes Alcohol Intake: never Drug use: Never Substance use type: does not use Current gender identity: male Do you feel safe at home: Yes Do you feel safe in your relationship?: Yes Exam Const General: cooperative, healthy appearing, comfortable and no acute distress Orientation: alert, awake and oriented x3 HENMT Head: normal to inspection, normocephalic and atraumatic Mouth: moist mucous membranes Eyes General: appearance normal, both eyes and all related structures Conjunctivae: conjunctivae normal Neck Neck: normal visual inspection, trachea midline and supple Resp Effort & Inspection: normal respiratory effort and able to speak in complete sentences Auscultation: clear to auscultation bilaterally Cardio Rate: regular rate Rhythm: regular rhythm GI Palpation: soft and nontender Back/Spine/Pelvis Back: No back tenderness Skin General skin exam: no rashes or lesions noted Neuro General: patient alert, patient awake, patient oriented x3, moves all extremities and no focal motor deficits Cognition: normal cognition Speech: speech normal Gait: normal gait Motor: muscle tone normal throughout Sensory Exam: no sensory deficits noted Extrem General: normal to inspection, full ROM and capillary refill normal Psych Appearance: grossly normal Mental Status: mental status grossly normal Speech and Movement: speech and movement normal Mood: dysthymic mood Affect: sad Attitude: cooperative Thought Process: normal Thought Content: no homicidality and suicidality (Vague, no plan) Insight: fair Judgment: fair Course Vital Signs Vital signs: Vital Signs Temperature 37.6 C H 05/15/21 15:25 Pulse 109 H 05/15/21 15:25 Respiratory Rate 16 05/15/21 15:25 Blood Pressure 130/88 05/15/21 15:25 Pulse Oximetry 97 05/15/21 15:25 Temperature 37 C 05/15/21 15:55 Temperature Source Tympanic 05/15/21 15:55 Pulse 104 H 05/15/21 15:55 Respiratory Rate 16 05/15/21 15:25 Respiratory Effort 05/15/21 15:25 Blood Pressure 130/88 05/15/21 15:25 Blood Pressure Position Sitting 05/15/21 15:25 Pulse Oximetry 97 03/10/22 15:55 Oxygen Delivery Method Room Air 05/15/21 15:55 Oxygen Flow Rate 0 05/15/21 15:55 Pain Level 0 05/15/21 15:25
--- NOTE | 2021-05-15 16:51 | PDOC.MHCN_ITS ---
Date of service: 05/15/21 Time of Service: 16:51 Mental Health Crisis Note Presenting Issue How did you arrive at the ED and why did you come: Pt and mother convinced his DPS to bring him to the ED for evaluation. Precipitating Factors Pt is feeling sad but is not suicidal or homicidal. He is not showing any signs of delusions. Pt self-reports his risk a 0/10. Disposition BEHAVIOR: Pt is cooperative and engaged. EYE CONTACT: Pt makes good eye contact. MOOD: Pt reported he is feeling good AFFECT: Pt's affect is happy and smiling. APPETITE: Good per Pt report. SLEEP(trouble falling/staying asleep: Good per Pt report. Plan Pt to be discharged back home. He will outreach to [facility] or the [employer] via phone for additional supports. Pt's steps to receiving support were reviewed with him 1. Use coping skills 2. Call his IDDS team 3. Call [facility] or [facility] ES [facility] will outreach to 911 or his mother if we feel he needs to go to the ED. Pt's DSP is waiting for himn in the parking lot. Signature Clinician's Name/Title: Pebbles Gorman MS, [facility] Emergency Services Clinician, [facility]
== END 2021-05-15 17:59 | disposition home or self-care (01) ==
PROVIDERS: Emergency Provider Physician Assistant; PCP Neuromusculoskeletal Medicine & OMM
DX: F32.A Depression, unspecified (principal)
CPT/HCPCS: 99283

== ENCOUNTER 2021-08-11 13:46 | Emergency (ER) | payer MEDICARE, MEDICAID, SELFPAY ==
[2021-08-11 13:57] VITALS: BP 122/85; PULSE 103; RESP 18; TEMP 36.9; O2SAT 96
--- NOTE | 2021-08-11 14:43 | ED.GENADUL_ITS ---
Discharge Plan Disposition Patient Disposition: HOME Condition: Improving Discharge Details Clinical Impression: Abdominal pain, Depression, Foreign body ingestion Primary Care Provider: Gaetano Hdz ED Provider: Acosta Franks Home Meds and New Rx's Prescriptions: No Action clonazepam 1 mg tablet 2 mg PO HS PRN PRN Label Comments: TK 1/2 TO 1 T PO QHS mirtazapine 15 mg tablet 15 mg PO HS Label Comments: not taking polyethylene glycol 3350 [Miralax] 17 gram/dose Powder 17 g PO DAILY PRN Label Comments: not taking senna-docusate sodium Tablet 1 tab PO DAILY Label Comments: not taking metoclopramide HCl [Reglan] 10 mg tablet 10 mg PO Q6H PRNQty: 7 0RF Label Comments: does not take omeprazole 40 mg capsule,delayed release(DR/EC) 1 cap PO DAILY Discharge Instructions Instructions: Depression (ED) Additional Instructions: Please return to the [facility] if you have worsening symptoms specifically any thoughts of harming yourself or harming other people. Please return to the emergency department if you have any other symptoms such as nausea vomiting abdominal pain or other abnormal symptoms. Please follow-up with psychiatric team as scheduled. Return to emergency department if depression is worsening anyd you do not feel safe. Medical Decision Making <Vernon Snyder MD - Last Filed: 08/11/21 14:53> 25 yo male with hx of depression comes in with several days of worsening depression and thoughts of self harm and has consuming non food items in an attempt to harm himself (examples include foam ear plugs and cloth). He has had some nausea and epigastric pain since consuming the objects. He currently denies pain or nausea, still endorses depression. He is in no distress and is pleasant during exam answering all questions. He has a soft nondistended abdomen with no tenderness. Doubt he has an acute obstruction but will obtain xray to evaluate for this and also to evaluate for sharp metallic foreign body ingestion and obtain standard psych labs. If labs and imaging unremarkable will have mental health evaluate Differential Diagnosis Differential Diagnosis: depression, pica, obstruction Medical Records Medical records reviewed: Yes I reviewed the patient's medical records. Lab Data Lab results reviewed: Yes I reviewed the patient's lab results. <Acosta Franks MD - Last Filed: 08/11/21 20:14> 25 yo male with hx of depression comes in with several days of worsening depression and thoughts of self harm and has consuming non food items in an attempt to harm himself (examples include foam ear plugs and cloth). He has had some nausea and epigastric pain since consuming the objects. He currently denies pain or nausea, still endorses depression. He is in no distress and is pleasant during exam answering all questions. He has a soft nondistended abdomen with no tenderness. Doubt he has an acute obstruction but will obtain xray to evaluate for this and also to evaluate for sharp metallic foreign body ingestion and obtain standard psych labs. If labs and imaging unremarkable will have mental health evaluate 20: 12 patient resting comfortably no acute distress, medically cleared, patient was evaluated by [facility] human services and was set up with a safety plan and close follow-up, given home care instructions and strict return precautions. Family is also amenable with this plan. HPI <Vernon Snyder MD - Last Filed: 08/11/21 14:53> General Mode of arrival: ambulatory . Date/Time Provider Initiated Documentation: 08/11/21 13:57 . Limitations to Documentation: no limitations . Information obtained by: patient . History of Present Illness 25 year old M presents to the emergency department with the chief complaint of depression/si, described as moderate, and it has been constant. No relieving factors improve symptom(s), No exacerbating factors reported . Patient did receive the following treatments prior to arrival, none Related Data Home Medications Medication Instructions Recorded Confirmed clonazepam 1 mg tablet 2 mg PO HS PRN PRN 07/04/19 08/11/21 mirtazapine 15 mg tablet 15 mg PO HS 09/05/20 05/15/21 polyethylene glycol 3350 17 17 g PO DAILY PRN 09/05/20 08/11/21 gram/dose oral powder (Miralax) senna-docusate sodium tablet 1 tab PO DAILY 09/05/20 05/15/21 metoclopramide HCl 10 mg tablet 10 mg PO Q6H PRN #7 tabs 03/19/21 05/15/21 (Reglan) omeprazole 40 mg capsule,delayed 1 cap PO DAILY 08/11/21 08/11/21 release Previous Rx's Medication Instructions Recorded metoclopramide HCl 10 mg tablet 10 mg PO Q6H PRN #7 tabs 03/19/21 (Reglan) Allergies Allergy/AdvReac Type Severity Reaction Status Date / Time green pepper Allergy Swelling/Ed Unverified 08/11/21 14:04 feroz ortiz peppers Allergy Intermediate swelling, Uncoded 08/11/21 14:05 edema, vomiting SSRI AdvReac Other (See Uncoded 05/15/21 15:29 Comment) General Stated Complaint: PsychEval MARQUISE: 2 Review of Systems <Vernon Snyder MD - Last Filed: 08/11/21 14:53> All systems reviewed & are unremarkable except as noted in HPI and below Constitutional Constitutional: Denies chills and Denies fever(s) Cardiovascular Cardiovascular: Denies chest pain and Denies dyspnea Respiratory Respiratory: Denies cough and Denies dyspnea Gastrointestinal Gastrointestinal: Denies vomiting Musculoskeletal Musculoskeletal: Denies joint swelling PFSH <Vernon Snyder MD - Last Filed: 08/11/21 14:53> All Active Problems (Updated 08/11/21 @ 14:53 by Vernon Snyder MD) Foreign body ingestion (Acute) Chronic appendicitis (Acute) Vomiting (Acute) Abdominal pain (Acute) Suicidal ideation (Acute) Depression (Chronic) Light-headed feeling (Acute) Medical History 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 Surgical History H/O aortic coarctation repair Social History Smoking/Tobacco Use Status: Never Smoking risk assessment performed?: Yes Alcohol Intake: never Drug use: Never Substance use type: does not use Current gender identity: male Do you feel safe at home: Yes Do you feel safe in your relationship?: Yes Exam <Vernon Snyder MD - Last Filed: 08/11/21 14:53> Const General: no acute distress Orientation: alert HENMT Head: normal to inspection Ears: external ears normal General nose exam: external nose normal Mouth: moist mucous membranes Eyes General: appearance normal, both eyes and all related structures Neck Neck: normal visual inspection Resp Effort & Inspection: normal respiratory effort and able to speak in complete sentences Cardio Rate: regular rate GI Palpation: soft and nontender Skin General skin exam: no rashes or lesions noted Neuro General: patient alert and patient oriented x3 Extrem General: normal to inspection Course <Vernon Snyder MD - Last Filed: 08/11/21 14:53> Vital Signs Vital signs: Vital Signs Temperature 36.9 C 08/11/21 13:57 Pulse 103 H 08/11/21 13:57 Respiratory Rate 18 08/11/21 13:57 Blood Pressure 122/85 08/11/21 13:57 Pulse Oximetry 96 08/11/21 13:57 Temperature 36.9 C 08/11/21 13:57 Temperature Source Skin 08/11/21 13:57 Pulse 103 H 08/11/21 13:57 Respiratory Rate 18 08/11/21 13:57 Blood Pressure 122/85 08/11/21 13:57 Blood Pressure Position Sitting 08/11/21 13:57 Pulse Oximetry 96 08/11/21 13:57 Oxygen Delivery Method Room Air 08/11/21 13:57 Oxygen Flow Rate 0 08/11/21 13:57 Pain Level 8 08/11/21 13:57 Sign Out <Vernon Snyder MD - Last Filed: 08/11/21 14:53> Sign Out Data: Sign Out Comment: hx of depression and last few days thoughts of self harm and been consuming objects such as foam ear plugs to harm himself. Pending labs and xray and if negative will need mental health eval. Last updated by Vernon Snyder MD at 08/11/21 15:12
[2021-08-11 14:57] LABS: Abs Immature Grans 0.01 10^3/uL (0.0-0.06); Absolute Basophil Count 0.02 10^3/uL (0.0-0.2); Absolute Eosinophil Count 0.09 10^3/uL (0.0-0.7); Absolute Lymphocyte Count 0.71 10^3/uL (1.2-3.4); Absolute Monocyte Count 0.26 10^3/uL (0.1-0.8); Absolute Neutrophil Count 3.36 10^3/uL (1.2-6.7); Basophils % 0.4; HCT 48.3 % (40.0-50.0); HGB 15.6 g/dL (13.5-17.5); Immature Grans % 0.2; MCH 27.8 pg (27.0-33.0); MCHC 32.3 % (32.0-36.0); MCV 86 fL (80-95); MPV 10.6 fL (8.0-11.0); Monocytes % 5.8; Neutrophils % 75.6; Platelet Count 196 10^3/uL (130-400); RBC 5.62 10^6/uL (4.36-5.78); RDW 12.9 % (11.8-14.1); RDW-SD 39.8 fL; WBC 4.45 10^3/uL (4.4-10.8)
--- NOTE | 2021-08-11 15:20 | DI.RAD_ITS ---
Exam(s) XR ABDOMEN FLAT UPRIGHT EXAM: 2D digital imaging was performed. CLINICAL HISTORY: eating objects, abdomen pain. COMPARISON: CT CT ABDOMEN PELVIS W from 03/10/[address] CHEST PE CTA from 03/14/2021 TECHNIQUE: Supine and uprightSupine and Lateral views of the abdomen were performed. FINDINGS: BOWEL GAS PATTERN: Nondistended.No free air. No visible ingested foreign bodies identified. CALCIFICATIONS: No radiopaque calcifications. OSSEOUS STRUCTURES: Normal for age. OTHER FINDINGS: Sternal wires. Apparent single surgical clip projecting over the superior portion th e right SI joint. IMPRESSION: 1. Nonobstructive bowel gas pattern. No foreign bodies. 2. No radiopaque calculi. 3. No free air. DATA REPOSITORY: RADIATION DOSE DELIVERED:
[2021-08-11 15:24] LABS: ALT 17 U/L (16-63); AST 19 U/L (15-37); Albumin 4.9 g/dL (3.4-5.0); Alkaline Phosphatase 73 U/L (46-116); Anion Gap 9.5 mmol/L (3-11); BUN 12 mg/dL (7-18); Bilirubin, Total 0.3 mg/dL (0.2-1.0); CO2 30.5 mmol/L (21.0-32.0); CREATININE 1.1 mg/dL (0.70-1.30); Calcium 9.4 mg/dL (8.5-10.1); Chloride 105 mmol/L (98-107); Glucose 98 mg/dL (74-106); Potassium 4.3 mmol/L (3.5-5.1); Sodium 145 mmol/L (136-145); TSH (W/Ref FT4) 1.78 uIU/mL (0.36-3.74); Total Protein 8.7 g/dL (6.4-8.2)
[2021-08-11 15:34] LABS: ETHANOL BLOOD < 3.0 mg/dL (<10)
[2021-08-11 15:50] LABS: Acetaminophen < 2 ug/mL (10-30); Salicylate < 2.8 mg/dL (<2.8)
[2021-08-11 19:04] LABS: Bilirubin Negative (Negative); Blood Negative (Negative); Clarity Clear (Clear); Glucose Negative (Negative); Ketones Negative (Negative); Leukocyte Esterase Negative (Negative); Nitrite Negative (Negative); Specific Gravity 1.015 (1.005-1.025); Urobilinogen 0.2 EU/dL (Up TO 0.2); pH 7.5 (5-8)
[2021-08-11 19:16] LABS: *AMPHETAMINES SCREEN URINE Negative (Negative); *BARBITURATES SCREEN URINE Negative (Negative); *BENZODIAZEPINES SCREEN URINE Negative (Negative); Cannabinoids THC Negative (Negative); Cocaine Screen,Urine Negative (Negative); METHADONE URINE SCREEN Negative (Negative); OPIATES URINE SCREEN Negative (Negative)
[2021-08-11 19:17] LABS: Tricyclic Antidepressants Negative (Negative)
--- NOTE | 2021-08-11 22:25 | PDOC.MHCN_ITS ---
Date of service: 08/11/21 Time of Service: 19:45 Mental Health Crisis Note Presenting Issue How did you arrive at the ED and why did you come: Client arrived at [facility] ED due to SI. Precipitating Factors Client denies SI/HI, intent and plan. Disposition BEHAVIOR: Client is laying down in hospital bed dressed in proper paper hospital clothing when this health underwriter arrives via zoom. Client is cooperative with assessmet answering all questions that are asked of him. EYE CONTACT: good. MOOD: happy AFFECT: normal APPETITE: good SLEEP(trouble falling/staying asleep: good Plan Client will discharge home. Client will follow up with team at [facility] tomorrow and will call [facility] ES if he feels like he needs support. Signature Clinician's Name/Title: Mita Lewis [facility] Emergency Clinician
== END 2021-08-11 20:39 | disposition home or self-care (01) ==
PROVIDERS: Registered Nurse Emergency; Emergency Provider Emergency Medicine; PCP Neuromusculoskeletal Medicine & OMM
DX: F32.A Depression, unspecified (principal); R10.9 Unspecified abdominal pain; T18.9XXA Foreign body of alimentary tract, part unspecified, initial encounter
CPT/HCPCS: 80053; 80307; 99283; 74019; 80320; 80329; 81003; 84443; 85025

== ENCOUNTER 2021-09-07 14:26 | Emergency (ER) | payer MEDICARE, MEDICAID, SELFPAY ==
[2021-09-07 14:32] VITALS: BP 120/87; PULSE 100; RESP 18; TEMP 37.2; O2SAT 97
== END 2021-09-07 15:00 | disposition left before discharge ==
LOC: ER 14:52
PROVIDERS: PCP Neuromusculoskeletal Medicine & OMM
DX: Z53.21 Procedure and treatment not carried out due to patient leaving prior to being seen by health care provider (principal)

== ENCOUNTER → 2021-09-08 13:31 | Outpatient (CLI) | payer MEDICARE, MEDICAID, SELFPAY ==
--- NOTE | 2021-09-08 | DI.RAD_ITS ---
Exam(s) XR ABDOMEN FLAT PLATE EXAM: XR ABDOMEN FLAT PLATE CLINICAL HISTORY: ACCIDENTAL INGESTION. TECHNIQUE: 2D digital imaging was performed. COMPARISON: CR XR ABDOMEN FLAT UPRIGHT from 08/11/2021 FINDINGS: Single supine view of the abdomen-pelvis: The bowel gas pattern is nonspecific in the supine position. There is air seen in the colon. Stomac h is not distended. There is no radiopaque foreign body. There is a single surgical clip in the right iliac fossa again noted. This is probably related to pr ior appendectomy. Please note that IMPRESSION: As above. Please note that it is not possible to determine if there is bowel obstruction or free air without an upright film. DATA REPOSITORY: RADIATION DOSE DELIVERED:
--- OUTSIDE RECORDS SUMMARY | 2021-09-08 13:35 | XMS_ITS | Clinical Summary ---
:1995 Author Organization [facility] Address [address] [place] [address] Care Team Providers Name Role Phone Gaetano Hdz DO Primary Care Provider Medications Medication Sig Dispensed Refills Start Date End Date Status SUMAtriptan (IMITREX) Instill 1 Metz 6 Each 0 06/04/2021 Active 20 mg/actuation nasal into right spray nostril as needed (Vomiting). omeprazole (PRILOSEC) Take 1 capsule 60 capsule 0 06/04/2021 Active 40 mg capsule by mouth daily. ondansetron Take 1 Tablet by 30 Tablet 1 06/04/2021 Active (ZOFRAN-ODT) 4 mg mouth every 8 disintegrating tablet hours as needed for Nausea. riboflavin, vitamin B2, Take 1 Tablet by 90 Tablet 1 2 Active (VITAMIN B-2) 100 mg mouth daily. tablet tablet co-enzyme Q-10 200 mg Take 1 capsule 60 capsule 3 06/04/2021 Active capsule by mouth daily. Active Problems Patient Care Coordination Note Formatting of this note might be differe nt from the original. INFO ADDED PER TRANSFER SHEET FROM [facility] No additional problems on file Social History Tobacco Use Types Packs/Day Years Used Date Never Assessed Sex Assigned at Date Recorded Not on file Plan of Treatment Health Maintenance Due Date Last Done Comments Hepatitis C Screen 1995 COVID-19 Vaccine (1) 08/21/2000 Care Teams Quality Control Projectionist Relationship Specialty Start Date End Date Gaetano Hdz DO PCP - General 12/07/19 [address], [place] [id number]
--- OUTSIDE RECORDS SUMMARY | 2021-09-08 13:35 | XMS_ITS | Encounter Summary ---
:1995 Author Organization [facility] Address [address] [place] [address] Care Team Providers Name Role Phone Gaetano Hdz Primary Care Provider Encounter Details Date Type Department Care Team Description 06/03/2021 Documentation Visit [facility] Leonela Bell usea and vomiting, - [facility] Norman Garsia MD intractability of [address] [facility] [address] [place] [address] [address], [address] unspecified vomiting [place], [place] type (Primary D x) [id number] Social History Tobacco Use Types Packs/Day Years Used Date Never Assessed Sex Assigned at Date Recorded Not on file documented as of this encounter Ordered Prescriptions Prescription Sig Dispensed Refills Start Date End Date co-enzyme Q-10 200 mg Take 1 capsule by 60 capsule 3 022 capsule mouth daily. riboflavin, vitamin B2, Take 1 Tablet by 90 Tablet 1 2021 (VITAMIN B-2) 100 mg tablet mouth daily. tablet ondansetron (ZOFRAN-ODT) 4 Take 1 Tablet by 30 Tablet 1 mg disintegrating tablet mouth every 8 hours as needed for Nausea. omeprazole (PRILOSEC) 40 mg Take 1 capsule by 60 capsule 0 0 06/04/2021 capsule mouth daily. SUMAtriptan (IMITREX) 20 Instill 1 [place] 6 Each 0 2021 mg/actuation nasal spray into right nostril as needed (Vomiting). documented in this encounter Progress Notes Norman Bell MD - 06/03/2021 0556 EDT [facility] Note The Gastroenterology service was consulted to see Emil Shonna OrtaMclean for vomiting Requesting Physician: Gaetano Hdz HPI: 25 y.o.male with a history of Harsha's syndorme, OCD, and seizure who was referred for vomiting. Patient is accompanied by mother and uncle. He reports being diagnosed with cyclic vomiting at age 6. His vomiting recently began to worsen. It tends to occur shortly after eating. Sometimes vomiting occurs when having bowel movements. Anxiety tends to worsen vomiting. He used to CoQ10 which was helpful.He had tried starting amitriptyline in the past which caused tachycardia. He has also had issues with constipation and stool impactions. He has been increasing. Appetite has been good. No solid food dysphagia. Though he does get some difficulty swallowing pills. He tends to vomit when he's excited. Noregurgitation of gastric contents. He does get some substernal chest pain. He tries pepcid for heartburn. No abdominal pain, though stomach aches tend to occur intermittently. Headaches don't seem to be happening is regularly as they used to. ROS: Full review of systems was negative except as detailed above. Harsha's syndorme, OCD, seizure Appendectomy, coarctation of aorta repair MEDICATION LIST: Clonazepam 1mg BID, Bentyl 20mg QID PRN, Miralax daily, mirtazapine 30mg at bedtime, Zofran 4mg BID PRN, promethazine 25mg every 4 hours PRN, Allergies to Day Peppers Non-smoker. No marijuana use. No esophageal or gastric disease in family aside from GERD PE: Gen: NAD. AAOx3 Skin: Warm. Dry. No rashes or lesions HEENT: Anicteric Sclera Neuro: Spontaneously moving bilateral upper and lower extremities without focal deficits Laboratory/Imaging/Procedures: None Impression: 25 y.o. male with a history of Harsha's syndorme, OCD, and seizure who was referred for vomiting. He has long standing vomiting and had been diagnosed with cyclic vomiting when he was a child. Symptoms stopped for a period of time before recurring. Will exclude electrolyte abnormalities, though I suspect this is functional vomiting as it does not seem to be occurring in a cyclical pattern. Recommendations: -CMP, magnesium -Begin Coenzyme Q10 200mg PO daily -Begin riboflavin 100mg PO daily -Trial omeprazole 40mg PO once daily for an 8 week course. Stop Pepcid during this trial -Zofran 4mg PO TID PRN -Recommend taking in early afternoon daily as symptoms seem worse in the early evening -Previously unable to tolerate amitriptyline due to palpitations vs arrhythmia -Could trial topiramate, aprepitant, zonisamide, or levetiracetam (though data for these agents is less robust than for amitriptyline) -Recommend patient discuss whether mirtazapine is worsening vomiting with psychiatrist (Alyssa Kilgore) -I informed family that I do not think mirtazapine is causing the vomiting -Sumatriptan 20mg intranasal to be used every 2 hours x3 to try and break episode of vomiting -Follow up in 6 months The total time I spent on this new patient visit on 06/04/21 was 60 minutes. Norman Bell MD documented in this encounter Plan of Treatment Scheduled Orders Name Type Priority Associated Diagnoses Order S chedule COMPREHENSIVE METABOLIC Lab Routine Nausea and vomiti ng, Expected: 06/04/2021 PANEL (CMP) intractability of vomiting ( Approximate), not specified, unspecified E xpires: 06/04/2022 vomiting type MAGNESIUM Lab Routine Nausea and vomiting, Expecte d: 06/04/2021 intractability of vomiting ( Approximate), not specified, unspecified E xpires: 06/04/2022 vomiting type documented as of this encounter Visit Diagnoses Diagnosis Nausea and vomiting, intractability of v omiting not specified, unspecified vomiting type - Primary documented in this encounter Care Teams Progressive Care Manager Relationship Specialty Start Date End Date Gaetano Hdz DO PCP - General 12/07/19 [address] [place] [address] documented as of this encounter
--- OUTSIDE RECORDS SUMMARY | 2021-09-08 13:35 | XMS_ITS | Encounter Summary ---
:[address] [facility] Address [address] [place] [address] Care Team Providers Name Role Phone Gaetano Hdz DO Primary Care Provider Reason for Visit (Routine) - Receiving Office to Obtain Authorization Specialty Diagnoses / Procedures Referred By Contact Refer red To Contact Procedures Unknown, Provider, CT OUTSIDE IMAGES BODY Phone: Referral ID Status Reason Start Expiration Visits Visits Date Date Requested Authorized [id number] Receiving Office 12/07/2019 1 1 to Obtain Authorization Encounter Details Date Type Department Care Team Description 12/07/2019 Hospital Encounter [facility] Secondary Reads [place] Social History Tobacco Use Types Packs/Day Years Used Date Never Assessed Sex Assigned at Date Recorded Not on file documented as of this encounter Discharge Disposition Disposition Code Departure Means Destination Home or Self Care documented in this encounter Plan of Treatment Not on filedocumented as of this encounter Procedures Procedure Name Priority Date/Time Associated Diagnosis Comme nts CT OUTSIDE IMAGES Routine 12/07/2019 22:00 Result s for this BODY EDT procedure are i n the results section. documented in this encounter Results CT OUTSIDE IMAGES BODY (12/07/2019 22:00 EDT) Specimen Narrative 12/07/2019 22:00 EDT This is a non-reportable exam. documented in this encounter Visit Diagnoses Not on filedocumented in this encounter Care Teams Senior Courtroom Clerk Relationship Specialty Start Date End Date Gaetano Hdz DO PCP - General 12/07/19 [address] [place] [address] documented as of this encounter
--- NOTE | 2021-09-08 14:02 | DI.VRAD_ITS ---
PROCEDURE INFORMATION: Exam: XR Abdomen Exam date and time: 09/08/2021 1:42 PM Age: 26 years old Clinical indication: Other: Ingestion of non-edible items. Patient HX: PT ingested ear plugs, paper, and a cloth material 2 weeks ago. TECHNIQUE: Imaging protocol: Radiologic exam of the abdomen. Views: Frontal supine view of the abdomen. 1 View. COMPARISON: CR XR ABDOMEN FLAT UPRIGHT 08/11/2021 3:10 PM FINDINGS: Tubes, catheters and devices: Metallic clip is re-identified over the right sacroiliac joint. Gastrointestinal tract: Normal. No bowel dilation. Bones/joints: Unremarkable. Soft tissues: No radiopaque foreign bodies identified. IMPRESSION: No radiopaque foreign bodies or evidence of obstruction. Dictated and Authenticated by: Edmnud Shepard MD. Ordering:SVETLANA DAY MD
== END ==
PROVIDERS: PCP Neuromusculoskeletal Medicine & OMM; Visit Provider Nurse Practitioner Family
DX: T18.9XXA Foreign body of alimentary tract, part unspecified, initial encounter (principal); Z03.821 Encounter for observation for suspected ingested foreign body ruled out
CPT/HCPCS: 74018

== ENCOUNTER 2021-10-17 16:07 | Emergency (ER) | payer MEDICARE, MEDICAID, SELFPAY ==
[2021-10-17 16:13] VITALS: BP 124/77; PULSE 101; RESP 18; TEMP 36.8; O2SAT 97
[2021-10-17 16:18] VITALS: RESP 18
--- NOTE | 2021-10-17 17:24 | W.ED.GENAD ---
Discharge Plan Disposition Patient Disposition: HOME Condition: Stable Discharge Details Clinical Impression: Pharyngitis Primary Care Provider: Gaetano Hdz ED Provider: Naman Coronel Home Meds and New Rx's Prescriptions: New ondansetron 4 mg tablet,disintegrating 4 mg PO Q8H PRN3 Days Qty: 9 0RF Continued clonazepam 1 mg tablet 2 mg PO HS PRN PRN Label Comments: TK 1/2 TO 1 T PO QHS metoclopramide HCl [Reglan] 10 mg tablet 10 mg PO Q6H PRNQty: 7 0RF Label Comments: does not take melatonin 10 mg Capsule 20 mg PO HS fluvoxamine 25 mg tablet 1 tab PO DAILY trazodone 50 mg tablet 50 mg PO QHS omeprazole 40 mg capsule,delayed release(DR/EC) 1 cap PO DAILY Discharge Instructions Instructions: Pharyngitis (ED) Additional Instructions: Your rapid strep is negative. Your strep culture and COVID test are both pending, I recommend wearing a mask until your COVID test has resulted negative hopefully in the next 24-48 hours. Continue [id number] medications as directed for symptomatic control. Zofran for nausea and vomiting as directed. Plenty of fluids to avoid dehydration. Please watch for new or worsening symptoms and return to the ER for any concerns. Lastly, please contact your primary care provider on Wednesday to discuss your ER visit and need for outpatient reevaluation. Discharge Data Discharge Date/Time-TO BE ENTERED AT DEPARTURE: 10/17/21 17:34 Medical Decision Making 26-year-old male reports URI-like symptoms for the past 3 days, clinically he appears well, nontoxic, afebrile, hemodynamically stable. Airway is patent, no active nausea or vomiting here in the ER, pharynx unremarkable, lungs clear to auscultation, abdomen soft, nontender. I do not believe that obtaining IV access is indicated. Will obtain rapid strep and a send out COVID swab. Patient comfortable with this plan. Rapid strep negative. Strep culture and COVID pending. No clear indication to obtain a chest x-ray at this time. Will provide prescription for Zofran as he has had intermittent nausea and vomiting. No indication for IV fluids. He has been able to tolerate p.o. intake. Standard discharge and return precautions were provided. Patient understands, is agreeable to this plan, and has no additional questions or concerns upon discharge. This documentation was generated using [employer] system, please disregard any oddities of phrase or misspellings. Medical Records Medical records reviewed: Yes I reviewed the patient's medical records. Lab Data Lab results reviewed: Yes I reviewed the patient's lab results. Labs: 10/17/21 17:17 Pharynx Group A Streptococcus Culture - Pending HPI General Mode of arrival: ambulatory. Date/Time Provider Initiated Documentation: 10/17/21 16:21. Limitations to Documentation: no limitations. Information obtained by: patient. HPI Narrative: This is a 26-year-old gentleman who reports a mild sore throat, headache, subjective fever, and intermittent vomiting over the past few days. Reports a total of 2 episodes of vomiting, no nausea now. He reports that he has been able to tolerate p.o. intake. He reports that he is vaccinated against COVID but concerned that he may have COVID, no known contacts. He has taken [id number] medication for his symptoms. He denies ear pain, neck pain, chest pain, shortness of breath, abdominal pain, dysuria, diarrhea, skin rash. Patient is not a smoker Related Data Home Medications Medication Instructions Recorded Confirmed clonazepam 1 mg tablet 2 mg PO HS PRN PRN 07/04/19 10/17/21 metoclopramide HCl 10 mg tablet 10 mg PO Q6H PRN #7 tabs 03/19/21 09/07/21 (Reglan) omeprazole 40 mg capsule,delayed 1 cap PO DAILY 08/11/21 09/07/21 release fluvoxamine 25 mg tablet 1 tab PO DAILY 09/07/21 09/07/21 melatonin 10 mg capsule 20 mg PO HS 09/07/21 09/07/21 ondansetron 4 mg disintegrating 4 mg PO Q8H PRN 3 days #9 tabs 10/17/21 tablet trazodone 50 mg tablet 50 mg PO QHS 10/17/21 10/17/21 Previous Rx's Medication Instructions Recorded metoclopramide HCl 10 mg tablet 10 mg PO Q6H PRN #7 tabs 03/19/21 (Reglan) ondansetron 4 mg disintegrating 4 mg PO Q8H PRN 3 days #9 tabs 10/17/21 tablet Allergies Allergy/AdvReac Type Severity Reaction Status Date / Time green pepper Allergy Swelling/Ed Unverified 10/17/21 16:15 feroz ortiz peppers Allergy Intermediate swelling, Uncoded 10/17/21 16:15 edema, vomiting SSRI AdvReac Other (See Uncoded 10/17/21 16:15 Comment) General Stated Complaint: GenMedical MARQUISE: 4 Review of Systems Constitutional Constitutional: Reports fever(s) and Reports headache(s) ENT Ears, Nose, Mouth, and Throat: Reports headache(s), Denies neck pain and Reports sore throat Cardiovascular Cardiovascular: Denies chest pain and Denies dyspnea Respiratory Respiratory: Denies cough and Denies dyspnea Gastrointestinal Gastrointestinal: Denies abdominal pain, Denies constipation, Denies diarrhea, Reports nausea and Reports vomiting Genitourinary Genitourinary: Denies dysuria Musculoskeletal Musculoskeletal: Denies myalgias and Denies neck pain Integumentary/Breasts Skin/Breast: Denies rash Neurologic Neurologic: Reports headache(s) PFSH All Active Problems Pharyngitis (Acute) Chronic appendicitis (Acute) Vomiting (Acute) Abdominal pain (Acute) Suicidal ideation (Acute) Depression (Chronic) Light-headed feeling (Acute) Medical History 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 Surgical History H/O aortic coarctation repair Social History Smoking/Tobacco Use Status: Never Smoking risk assessment performed?: Yes Alcohol Intake: never Drug use: Never Substance use type: does not use Current gender identity: male Do you feel safe at home: Yes Do you feel safe in your relationship?: Yes Exam Const General: cooperative, healthy appearing, comfortable and no acute distress Orientation: alert and awake HENMT Head: normal to inspection, normocephalic and atraumatic Ears: external ears normal, TM's normal bilaterally and EAC's normal General nose exam: external nose normal Face and sinus: normal facial exam Mouth: moist mucous membranes Throat: posterior oropharynx normal Eyes General: appearance normal, both eyes and all related structures Conjunctivae: conjunctivae normal Neck Neck: normal visual inspection, full ROM, no lymphadenopathy, no meningeal signs, trachea midline and supple Resp Effort & Inspection: normal respiratory effort and able to speak in complete sentences Auscultation: clear to auscultation bilaterally Cardio Rate: regular rate Rhythm: regular rhythm GI Palpation: soft, not firm, no guarding, no pulsatile masses and nontender Back/Spine/Pelvis Back: No back tenderness Skin General skin exam: no rashes or lesions noted Neuro General: patient alert, patient awake, moves all extremities and no focal motor deficits Sensory Exam: no sensory deficits noted Psych Appearance: grossly normal Mental Status: mental status grossly normal Course Vital Signs Vital signs: Vital Signs Temperature 36.8 C 10/17/21 16:13 Pulse 101 H 10/17/21 16:13 Respiratory Rate 18 10/17/21 16:13 Blood Pressure 124/77 10/17/21 16:13 Pulse Oximetry 97 10/17/21 16:13 Temperature 36.8 C 10/17/21 16:13 Temperature Source Temporal Artery Scan 10/17/21 16:13 Pulse 101 H 10/17/21 16:13 Respiratory Rate 18 10/17/21 16:18 Respiratory Effort Non-Labored 10/17/21 16:18 Respiratory Depth Normal 10/17/21 16:18 Respiratory Pattern Normal 10/17/21 16:18 Blood Pressure 124/77 10/17/21 16:13 Blood Pressure Position Sitting 10/17/21 16:13 Pulse Oximetry 97 10/17/21 16:13 Oxygen Delivery Method Room Air 10/17/21 16:13 Oxygen Flow Rate 0 10/17/21 16:13 Lab/Test Results Lab/Test Results: 10/17/21 17:17 Pharynx Group A Streptococcus Culture - Pending POC Strep Test-LEFTY(Rapid) Start: 10/17/21 16:21 Freq: .Rapid Strep Test Status: Active Protocol: Document 10/17/21 17:07 BRADLY (Rec: 10/17/21 17:09 BRADLY [id number]) Strep test-LEFTY(Rapid)-POC POC-Strep test-LEFTY (Rapid) Negative POC-Strep test-LEFTY (Rapid) Negative
[2021-10-17 17:34] VITALS: BP 115/78; PULSE 90; RESP 18; O2SAT 99
[2021-10-19 11:26] LABS: COVID-19 RT-PCR UVMMC Result Negative (Negative)
== END 2021-10-17 17:34 | disposition home or self-care (01) ==
PROVIDERS: Emergency Provider Physician Assistant; PCP Neuromusculoskeletal Medicine & OMM
DX: J02.9 Acute pharyngitis, unspecified (principal); Z20.822 Contact with and (suspected) exposure to COVID-19; R11.2 Nausea with vomiting, unspecified
CPT/HCPCS: 87880; 99283; 99284; U0003; U0005; 87081

== ENCOUNTER 2021-11-09 15:38 | Emergency (ER) | payer MEDICARE, MEDICAID, SELFPAY ==
[2021-11-09 16:31] VITALS: BP 129/79; PULSE 87; RESP 19; TEMP 37.1; O2SAT 98
--- NOTE | 2021-11-09 16:42 | ED.GENADUL_ITS ---
Discharge Plan Disposition Patient Disposition: HOME Condition: Stable Discharge Details Clinical Impression: Suicidal ideation Primary Care Provider: Gaetano Hdz ED Provider: Ross Singh Home Meds and New Rx's Prescriptions: Continued melatonin 10 mg Capsule 20 mg PO HS No Action clonazepam 1 mg tablet 2 mg PO HS PRN PRN Label Comments: TK / TO 1 T PO QHS Discharge Instructions Instructions: Depression (ED) Additional Instructions: No further clonazepam today. [facility] human services will check in with you twice daily as per the plan they have established with you. Medical Decision Making 26-year-old male presents from home with his mother. He is feeling quite anxious regarding possible respite stay. He felt there was too much going on in my head, and intentionally took 4-5 Klonopin tablets approximately 3 PM. He was nauseated and vomited once. He now feels improved. He has fleeting ideation of harming himself and no thoughts of harming others. Patient arrives to the ER pleasant, alert and interactive. His exam is reassuring. Medical screening performed including blood work. CBC, chemistries, urinalysis unremarkable. Remainder of labs are also reassuring. Patient medically stable for further evaluation by metal casting trades worker. Patient evaluated by metal casting trades worker and plan for outpatient care and safety was initiated. He will undergo twice daily checks by his community resource team. Lab Data Lab results reviewed: Yes I reviewed the patient's lab results. Labs: Laboratory Results - last 24 hr 11/09/21 11/09/21 11/09/21 17:10 17:10 17:10 WBC RBC Hgb Hct MCV MCH MCHC RDW Plt Count MPV Immature Gran % Neutrophils % Lymphocytes % Monocytes % Eosinophils % Basophils % Nucleated RBC % Absolute Neutrophils Absolute Lymphocytes Absolute Monocytes Absolute Eosinophils Absolute Basophils Sodium 142 Potassium 4.2 Chloride 104 Carbon Dioxide 30.7 Anion Gap 7.3 BUN 11 Creatinine 1.0 Est GFR (CKD-EPI 2020) 106.45 Glucose 90 Calcium 9.0 Total Bilirubin 0.5 AST 18 ALT 19 Alkaline Phosphatase 60 Total Protein 8.3 H Albumin 4.7 Urine Color Urine Clarity Urine pH Ur Specific [place] Urine Protein Urine Ketones Urine Blood Urine Nitrite Urine Bilirubin Urine Urobilinogen Ur Leukocyte Esterase Urine Glucose Salicylates < 2.8 Acetaminophen < 2 Ethyl Alcohol < 3.0 11/09/21 11/09/21 17:10 18:29 WBC 6.93 RBC 5.22 Hgb 14.6 Hct 44.1 MCV 85 MCH 28.0 MCHC 33.1 RDW 13.1 Plt Count 194 MPV 10.5 Immature Gran % 0.3 Neutrophils % 78.1 Lymphocytes % 14.7 Monocytes % 5.5 Eosinophils % 1.0 Basophils % 0.4 Nucleated RBC % 0.0 Absolute Neutrophils 5.41 Absolute Lymphocytes 1.02 L Absolute Monocytes 0.38 Absolute Eosinophils 0.07 Absolute Basophils 0.03 Sodium Potassium Chloride Carbon Dioxide Anion Gap BUN Creatinine Est GFR (CKD-EPI 2020) Glucose Calcium Total Bilirubin AST ALT Alkaline Phosphatase Total Protein Albumin Urine Color Yellow Urine Clarity Clear Urine pH 6.0 Ur Specific [place] 1.010 Urine Protein Negative Urine Ketones Negative Urine Blood Negative Urine Nitrite Negative Urine Bilirubin Negative Urine Urobilinogen 0.2 Ur Leukocyte Esterase Negative Urine Glucose Negative Salicylates Acetaminophen Ethyl Alcohol HPI General Mode of arrival: ambulatory . Date/Time Provider Initiated Documentation: 11/09/21 16:17 . Limitations to Documentation: no limitations . Information obtained by: patient and family . History of Present Illness 26 ye ar old M presents to the emergency department with the chief complaint of Intentional ingestion of Klonopin x4 tablets, described as mild, Patient started experiencing this hour(s) No relieving factors improve symptom(s), No exacerbating factors reported . Patient notes other ([place] anxious and feels his head is full). Patient did receive the following treatments prior to arrival, none Related Data Home Medications Medication Instructions Recorded Confirmed clonazepam 1 mg tablet 2 mg PO HS PRN PRN 07/04/19 11/09/21 melatonin 10 mg capsule 20 mg PO HS 09/07/21 11/09/21 Allergies Allergy/AdvReac Type Severity Reaction Status Date / Time green pepper Allergy Swelling/Ed Unverified 11/09/21 16:39 feroz ortiz peppers Allergy Intermediate swelling, Uncoded 11/09/21 16:39 edema, vomiting SSRI AdvReac Other (See Uncoded 11/09/21 16:39 Comment) General Stated Complaint: PsychEval MARQUISE: 2 Review of Systems Narrative: Mild nausea. Vomited once. Does not feel like harming himself or others. 8 systems reviewed and otherwise negative. PFSH All Active Problems (Updated 11/09/21 @ 19:38 by Ross Singh MD) Pharyngitis (Acute) Chronic appendicitis (Acute) Vomiting (Acute) Abdominal pain (Acute) Suicidal ideation (Acute) Depression (Chronic) Light-headed feeling (Acute) Medical History 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 Surgical History H/O aortic coarctation repair Social History Smoking/Tobacco Use Status: Never Smoking risk assessment performed?: Yes Alcohol Intake: never Drug use: Never Substance use type: does not use Current gender identity: male Do you feel safe at home: Yes Do you feel safe in your relationship?: Yes Exam Narrative Exam Narrative: GEN: awake, alert, oriented 3. Pleasant, well groomed, interactive. HEAD: Normocephalic, atraumatic ENT: Mucous membranes moist, oropharynx unremarkable, External ear exam unremarkable EYES: PERRL, EOMI NECK: Full ROM, no KP, no menigismus CHEST/RESP: Nontender, clear to auscultation bilateral, no wheeze/rhonchi/rales CARDIOVASCULAR: RRR, no murmur, rub darren. 2+ Rad pulse bilateral ABDOMEN: Soft, nontender, no mass. +Bowel sounds EXT: Full ROM, no edema, no rash Neuro: Grossly normal neurologic exam, conversant, interactive. Psych: Speech fluent, thoughts congruent, affect flat Course Vital Signs Vital signs: Vital Signs Temperature 37.1 C 11/09/21 16:31 Pulse 87 11/09/21 16:31 Respiratory Rate 19 11/09/21 16:31 Blood Pressure 129/79 11/09/21 16:31 Pulse Oximetry 98 11/09/21 16:31 Temperature 37.1 C 11/09/21 16:31 Pulse 87 11/09/21 16:31 Respiratory Rate 19 11/09/21 16:31 Respiratory Effort Non-Labored 11/09/21 16:36 Blood Pressure 129/79 11/09/21 16:31 Blood Pressure Position Sitting 11/09/21 16:31 Pulse Oximetry 98 11/09/21 16:31 Oxygen Delivery Method Room Air 11/09/21 16:31 Oxygen Flow Rate 0 11/09/21 16:31 Pain Level 0 11/09/21 16:31
[2021-11-09 17:23] LABS: Abs Immature Grans 0.02 10^3/uL (0.0-0.06); Absolute Basophil Count 0.03 10^3/uL (0.0-0.2); Absolute Eosinophil Count 0.07 10^3/uL (0.0-0.7); Absolute Lymphocyte Count 1.02 10^3/uL (1.2-3.4); Absolute Monocyte Count 0.38 10^3/uL (0.1-0.8); Absolute Neutrophil Count 5.41 10^3/uL (1.2-6.7); Basophils % 0.4; HCT 44.1 % (40.0-50.0); HGB 14.6 g/dL (13.5-17.5); Immature Grans % 0.3; Lymphocytes % 14.7; MCHC 33.1 % (32.0-36.0); MCV 85 fL (80-95); MPV 10.5 fL (8.0-11.0); Monocytes % 5.5; Neutrophils % 78.1; Platelet Count 194 10^3/uL (130-400); RBC 5.22 10^6/uL (4.36-5.78); RDW 13.1 % (11.8-14.1); RDW-SD 40.3 fL; WBC 6.93 10^3/uL (4.4-10.8)
[2021-11-09 17:35] LABS: ALT 19 U/L (16-63); AST 18 U/L (15-37); Albumin 4.7 g/dL (3.4-5.0); Alkaline Phosphatase 60 U/L (46-116); Anion Gap 7.3 mmol/L (3-11); BUN 11 mg/dL (7-18); Bilirubin, Total 0.5 mg/dL (0.2-1.0); CO2 30.7 mmol/L (21.0-32.0); Chloride 104 mmol/L (98-107); Estimated GFR 106.45 (mL/min/1.73m2); Glucose 90 mg/dL (74-106); Potassium 4.2 mmol/L (3.5-5.1); Sodium 142 mmol/L (136-145); Total Protein 8.3 g/dL (6.4-8.2)
[2021-11-09] MEDS: Ondansetron O.D.T. 4 MG TABEF PO (17:44)
[2021-11-09 17:45] LABS: ETHANOL BLOOD < 3.0 mg/dL (<10)
[2021-11-09 17:46] LABS: Salicylate < 2.8 mg/dL (<2.8)
[2021-11-09 17:47] LABS: Acetaminophen < 2 ug/mL (10-30)
[2021-11-09 18:38] LABS: Bilirubin Negative (Negative); Blood Negative (Negative); Clarity Clear (Clear); Glucose Negative (Negative); Ketones Negative (Negative); Leukocyte Esterase Negative (Negative); Nitrite Negative (Negative); Urobilinogen 0.2 EU/dL (Up TO 0.2)
[2021-11-09 18:50] LABS: *AMPHETAMINES SCREEN URINE Negative (Negative); *BARBITURATES SCREEN URINE Negative (Negative); *BENZODIAZEPINES SCREEN URINE Negative (Negative); Cannabinoids THC Negative (Negative); Cocaine Screen,Urine Negative (Negative); METHADONE URINE SCREEN Negative (Negative); OPIATES URINE SCREEN Negative (Negative)
[2021-11-09 18:51] LABS: Tricyclic Antidepressants Negative (Negative)
[2021-11-09] MEDS: Ondansetron O.D.T. 4 MG TABEF (19:01)
--- NOTE | 2021-11-09 20:38 | NUR.NOTE ---
assumed observationof patient. Pt in room #9 in ER and is awaiting his family to pick him up to go home. Patient is currently changing into his home clothing.Nursing Note:
--- NOTE | 2021-11-09 20:46 | NUR.NOTE ---
Pt was allowed to await for his ride from Uncle-in the waiting room per JULISSA Ortiz. Pt to waiting roomNursing Note:
--- NOTE | 2021-11-09 20:58 | PDOC.MHCN ---
Date of service: 11/09/21 Time of Service: 19:10 Mental Health Emergency Note Release [facility] release signed:: Yes Reason for Visit Client reports he overdosed on Klonopin. In the last 2 weeks has the pt presented for ES prior to today?: No Client Information Client is: IDDS Well Housed: Yes Non Suicidal Self Injury Current: No History: No Safety Risk/Harm to Self or Others Current Ideation to Harm Self or Others: Yes to self. (Client reports thinking about wrapping his sleep mask around his neck.) Intent: no, has no intent. Plan: yes,has a plan. History of suicide attempt: No history of suicide attempt reported Risk: Does risk to harm exist?: No Risk: Low Risk Duty to warn indicated: No Asssessment/Mental Status Appearance: Unremarkable Attitude: Cooperative and Friendly Behavior: Unremarkable Speech: Normal Affect: Cogruent with mood Mood: Stressed and Anxious Thought process: Unremarkable Hallucinations: No Delusions: No Attention: Unremarkable Perception: Not impaired Orientation: Fully orientated Memory: Intact Insight: Fair Judgement: Poor Neurovegetative Symptoms Sleep: No change Appetitie: No change Interests: No change Energy: No change Libido: Not applicable Substance Use: Do you use nicotine?: No Have you used substances in the last 7 days?: No Additional Issues: Assaultive/Threatening Behavior: No Medical Concerns: Yes Client engaged in active self harm w/weapon: No Threatening to run away: No Child reported abuse/neglect: No Voluntarily presenting for services: Yes Domestic violence is a concern: No Extreme Psychosis or extreme behavior is present: No Impression This client is presenting to the ED stating he overdosed on Klonopin. Client reports he did this because he did not want to go to the respite home. Client feels overwhelmed with everything going on in his life and in his head. Client reports mom and dad are his main supports and reason to live. Client states several coping skills he can use and ways to distract himself from these negative thoughts. Client is safe to go home. Resources Reosurces reviewed and given:: [facility] Plan/Disposition Recommended Disposition: [facility] Services [facility] Services: Other (IDDS team) and Other (IDDS team follow up). Plan: IDDS worker Yvonne Whiteside, this clinician, and client built a safety plan where KD will check in 2x daily with IDDS. All access to means including medications are supposed to be locked up and mom is supposed to check on KD throguhout the night. Doner plans to call mom and discuss how KD accessed his medications today and report they need to be locked up. Person reported agreement to plan: Yes Reports/communication Outcome discussed with: ED/Personnel and Other (Client's mother.)
[2021-11-09 23:49] VITALS: BP 121/81; PULSE 96; RESP 16; O2SAT 98
== END 2021-11-09 20:49 | disposition home or self-care (01) ==
PROVIDERS: Emergency Provider Emergency Medicine; PCP Neuromusculoskeletal Medicine & OMM
DX: T42.4X2A Poisoning by benzodiazepines, intentional self-harm, initial encounter (principal); R11.2 Nausea with vomiting, unspecified
CPT/HCPCS: 80053; 80307; 99285; 80320; 80329; 81003; 85025; 99284

== ENCOUNTER 2021-11-10 02:00 | Emergency (ER) | payer MEDICARE, MEDICAID, SELFPAY ==
[2021-11-10 02:08] VITALS: BP 119/82; PULSE 103; RESP 16; TEMP 36.8; O2SAT 96
--- NOTE | 2021-11-10 02:24 | ED.GENADUL_ITS ---
Discharge Plan Disposition Patient Disposition: HOME Condition: Good Discharge Details Clinical Impression: Mental health disorder Primary Care Provider: Gaetano Hdz ED Provider: Jus Goncalves Home Meds and New Rx's Prescriptions: No Action clonazepam 1 mg tablet 2 mg PO HS PRN PRN Label Comments: TK 1/2 TO 1 T PO QHS melatonin 10 mg Capsule 20 mg PO HS Discharge Instructions Additional Instructions: Please abide by your safety plan, follow-up with your outpatient resources closely. If you notice any worsening of your symptoms, or any new symptoms such as vomiting, diarrhea, fever, chills, shortness of breath, chest pain, numbness, weakness, or fainting , please return immediately to the emergency department for reevaluation. Please follow up with your primary care provider as soon as possible for reassessment and reevaluation. As always, it was a pleasure participating in your medical care today. Referrals: Gaetano Hdz [Primary Care Provider] - Medical Decision Making 26-year-old male with a past medical history of Abhishek syndrome, presents today for mental health evaluation. He was just here earlier today then discharged with safety plan. While at home he states that he had a walking stick and he threatened to hit his family members with it, he is also hitting his ankle with an attempt to end his life per the patient. He denies any other complaints at this time. Upon arriving here via EMS he states that he no longer wants to end his life, he regrets doing that, he feels fine, and I think I can go home. And patient denies any new medications will try to overdose on anything at home currently. No other complaints at this time. No other modifying factors. Physical exam demonstrates a well-appearing male, no signs of trauma. Patient denies any homicidal or suicidal ideations currently. He states that he had threatened people with a walking stick but no longer wishes to do this. [facility] has seen and evaluated the patient, they have safety plan him and believes that he can go home safely at this time. Family has been contacted and they agree with this plan. No ride is currently available, we will keep the patient here in the ED until a ride is available. I have extensively reviewed the treatment plan and discharge instructions with the patient and their family. I have addressed all patient concerns at this time. The patient and family was made aware of what symptoms to monitor for that would warrant a return to the emergency department. Discussed the plan with the patient and family, they demonstrate verbal understanding and agreement with our assessment and plan at this time. The documentation in this chart was dictated using [employer] dictation software. Please excuse any dictation errors. HPI General Date/Time Provider Initiated Documentation: 11/10/21 02:17 . HPI Narrative: 26-year-old male with a past medical history of Abhishek syndrome, presents today for mental health evaluation. He was just here earlier today then discharged with safety plan. While at home he states that he had a walking stick and he threatened to hit his family members with it, he is also hitting his ankle with an attempt to end his life per the patient. He denies any other complaints at this time. Upon arriving here via EMS he states that he no longer wants to end his life, he regrets doing that, he feels fine, and I think I can go home. And patient denies any new medications will try to overdose on anything at home currently. No other complaints at this time. No other modifying factors. Related Data Home Medications Medication Instructions Recorded Confirmed clonazepam 1 mg tablet 2 mg PO HS PRN PRN 07/04/19 11/10/21 melatonin 10 mg capsule 20 mg PO HS 09/07/21 11/10/21 Allergies Allergy/AdvReac Type Severity Reaction Status Date / Time green pepper Allergy Swelling/Ed Unverified 11/10/21 02:13 feroz ortiz peppers Allergy Intermediate swelling, Uncoded 11/10/21 02:13 edema, vomiting SSRI AdvReac Other (See Uncoded 11/10/21 02:13 Comment) General Stated Complaint: PsychEval MARQUISE: 2 Review of Systems All systems reviewed & are unremarkable except as noted in HPI and below PFSH All Active Problems Pharyngitis (Acute) Mental health disorder (Acute) Chronic appendicitis (Acute) Vomiting (Acute) Abdominal pain (Acute) Suicidal ideation (Acute) Depression (Chronic) Light-headed feeling (Acute) Medical History 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 Surgical History H/O aortic coarctation repair Social History Smoking/Tobacco Use Status: Never Smoking risk assessment performed?: Yes Alcohol Intake: never Drug use: Never Substance use type: does not use Current gender identity: male Do you feel safe at home: Yes Do you feel safe in your relationship?: Yes Exam Narrative Exam Narrative: 1.Const: Well-nourished, Well-developed, appearing stated age 2.Eyes: PERRL, no conjunctival injection, and symmetrical lids. 3.ENT: Atraumatic external nose and ears. Moist MM. Neck: Symmetric, trachea midline, No thyromegaly. 4.CVS: +S1/S2, No murmurs or gallops. Peripheral pulses 2+ and equal in all extremities. Brisk capillary refill in all extremities. 5.RESP: Unlabored respiratory effort. Clear to auscultation bilaterally. No wheezes rales or rhonchi 6.GI: Soft, Nontender/Nondistended, No hepatosplenomegaly. No guarding or rebound. 7.MSK: Normocephalic/Atraumatic, Extremities w/o deformity or ttp No cyanosis or clubbing, Normal movement of all extremities 8.Skin: Warm, Dry. No rashes or lesions. 9.Neuro: quality control assistant II-XII grossly intact. Sensation grossly intact, no focal neurologic deficits. 10.Psych: (AAO) x3. Appropriate mood and affect Course Vital Signs Vital signs: Vital Signs Temperature 36.8 C 11/10/21 02:08 Pulse 103 H 11/10/21 02:08 Respiratory Rate 16 11/10/21 02:08 Blood Pressure 119/82 11/10/21 02:08 Pulse Oximetry 96 11/10/21 02:08 Temperature 36.8 C 11/10/21 02:08 Temperature Source Temporal Artery Scan 11/10/21 02:08 Pulse 103 H 11/10/21 02:08 Respiratory Rate 16 11/10/21 02:08 Respiratory Effort 11/10/21 02:08 Blood Pressure 119/82 11/10/21 02:08 Blood Pressure Position Sitting 11/10/21 02:08 Pulse Oximetry 96 11/10/21 02:08 Pain Level 0 11/10/21 02:08
--- NOTE | 2021-11-10 02:45 | MHPN_ITS ---
Date of service: 11/10/21 Time of Service: 02:45 Mental Health Emergency Note Release [facility] release signed:: Yes Reason for Visit Client was attempting to by suicide via walking stick. Client presented to [facility] via ambulance. In the last 2 weeks has the pt presented for ES prior to today?: Yes, presented at [facility] ED Client Information Client is: IDDS Well Housed: Yes Non Suicidal Self Injury Current: Yes, Hitting himself with a walking stick. Safety Risk/Harm to Self or Others Current Ideation to Harm Self or Others: Yes to self. (Client was attempting to by suicide via walking stick. Client's plan was disabled.) Intent: no, has no intent. Plan: yes,has a plan. History of suicide attempt: No history of suicide attempt reported Risk: Does risk to harm exist?: No Risk: Low Risk Asssessment/Mental Status Appearance: Unremarkable Attitude: Cooperative and Friendly Behavior: Poor impulse control Speech: Normal Affect: Cogruent with mood Mood: Elevated, Stressed and Anxious Thought process: Unremarkable Hallucinations: No Delusions: No Attention: Unremarkable Perception: Not impaired Orientation: Fully orientated Memory: Intact Insight: Poor Judgement: Poor Neurovegetative Symptoms Sleep: No change Appetitie: No change Interests: No change Energy: No change Libido: No change Substance Use: Do you use nicotine?: No Have you used substances in the last 7 days?: No Additional Issues: Assaultive/Threatening Behavior: No Medical Concerns: No Client engaged in active self harm w/weapon: Yes Threatening to run away: No Child reported abuse/neglect: No Voluntarily presenting for services: Yes Domestic violence is a concern: No Extreme Psychosis or extreme behavior is present: No Impression Client returned to [facility] via ambulance reporting he was going to by suicide via walking stick. This clinician asked KD his plan to by suicide via walking stick and he responded he was unsure and did not think it would work. KD then stated he felt better since getting to the hospital and feels like he can go home. Client reports he is not thinking about any other ways he could hurt himself or anyone else. Client reports he will go home and relax then go to bed. Client does not meet criteria for hospitalization and will be cleared by mental health. Emil will complete check in calls with IDDs, he has an upcoming outing with IDDS, and an upcoming therapy appointment. Resources Reosurces reviewed and given:: [facility] (IDDS services.) Plan/Disposition Recommended Disposition: [facility] Services [facility] Services: Other (IDDS check in calls & team follow up). Plan: Client is cleared by mental health and prepared to be discharged. Client does not meet criteria for hospitalization and can utilize his outpatient services. Yvonne Whiteside, IDDS worker, is following up with KD's family to make sure they are on board with KD's safety plan. Person reported agreement to plan: Yes Reports/communication Outcome discussed with: ED/Personnel
== END 2021-11-13 21:13 | disposition home or self-care (01) ==
PROVIDERS: Emergency Provider Student in an Organized Health Care Education/Training Program; PCP Neuromusculoskeletal Medicine & OMM
DX: T14.91XA Suicide attempt, initial encounter (principal); X83.8XXA Intentional self-harm by other specified means, initial encounter; F32.A Depression, unspecified
CPT/HCPCS: 99285

== ENCOUNTER 2021-11-10 23:29 | Emergency (ER) | payer MEDICARE, MEDICAID, SELFPAY ==
[2021-11-10 23:28] VITALS: BP 131/84; PULSE 89; RESP 16; TEMP 36.7; O2SAT 98
--- NOTE | 2021-11-10 23:34 | ED.GENADUL_ITS ---
Discharge Plan Disposition Patient Disposition: HOME Condition: Good Discharge Details Clinical Impression: Mental health disorder Primary Care Provider: Gaetano Hdz ED Provider: Jus Goncalves Home Meds and New Rx's Prescriptions: No Action clonazepam 1 mg tablet 2 mg PO HS PRN PRN Label Comments: TK 1/2 TO 1 T PO QHS melatonin 10 mg Capsule 20 mg PO HS Discharge Instructions Additional Instructions: Please utilize your outpatient resources with your mental health advocates and your outpatient clinical care team. Please abide by the safety plan that was discussed with you by your fellow team members. If you notice any worsening of your symptoms, or any new symptoms such as vomiting, diarrhea, fever, chills, shortness of breath, chest pain, numbness, weakness, or fainting , please return immediately to the emergency department for reevaluation. Please follow up with your primary care provider as soon as possible for reassessment and reevaluation. As always, it was a pleasure participating in your medical care today. Referrals: Gaetano Hdz [Primary Care Provider] - Medical Decision Making 26-year-old male with a past medical history of Abhishek syndrome, presents today for mental health evaluation. The patient has been here twice for the last 24 hours for suicidal attempts. Yesterday he was hitting his ankle with a walking stick which left no bruises. Today he presents via EMS for trying to hurt himself by splitting vinegar and water onto his tongue. EMS was contacted, and the patient was brought into the ER for evaluation. Currently the patient denies any homicidal or suicidal ideations. He has no complaints otherwise. He denies taking any extra medications Exam demonstrates a well-appearing male who denies any homicidal or suicidal ideations whatsoever. I discussed the case with his mother who was from bedside so that we could talk about. She states that she has noted progressive incidents of these thoughts and desires for self-harm, and she is worried that he will continue to push the boundaries until he does something that truly does harm himself. Mother states that this evening he did not want to come in to be evaluated, but she felt that due to his progressing actions, that he did need evaluation. She feels that the best solution would be for him to be admitted for psychiatric evaluation and management. Patient has been cleared medically from the smart scoring system, and does not need additional labs at this time. We will get a COVID swab. Currently he denies any homicidal or suicidal ideations, and does not show a need for a direct observer what the mother is in the room. 1 AM Mental health has evaluated the patient, they do not feel that he is appropriate for inpatient therapy at this time. They feel that he has multiple outpatient resources that could have forwarded the visit tonight. They also had a long discussion with mother about the current situation, they do verbalize understanding of her frustrations as well, and together they have come up with a plan where all parties involved have agreed. They will continue to manage on an outpatient basis, have a group meeting with the family and other mental health advocate groups, and continue to find options for treatment for the patient on a nonemergent outpatient basis. Family and patient are in agreement with this. Patient will be discharged. I have extensively reviewed the treatment plan and discharge instructions with the patient and their family. I have addressed all patient concerns at this time. The patient and family was made aware of what symptoms to monitor for that would warrant a return to the emergency department. Discussed the plan with the patient and family, they demonstrate verbal understanding and agreement with our assessment and plan at this time. The documentation in this chart was dictated using [employer] dictation software. Please excuse any dictation errors. HPI General Date/Time Provider Initiated Documentation: 11/10/21 23:34 . HPI Narrative: 26-year-old male with a past medical history of Abhishek syndrome, presents to [facility] for mental health evaluation. The patient has been here twice for the last 24 hours for suicidal attempts. Yesterday he was hitting his ankle with a walking stick which left no bruises. Today he presents via EMS for trying to hurt himself by splitting vinegar and water onto his tongue. EMS was contacted, and the patient was brought into the ER for evaluation. Currently the patient denies any homicidal or suicidal ideations. He has no complaints otherwise. He denies taking any extra medications Related Data Home Medications Medication Instructions Recorded Confirmed clonazepam 1 mg tablet 2 mg PO HS PRN PRN 07/04/19 11/10/21 melatonin 10 mg capsule 20 mg PO HS 09/07/21 11/10/21 Allergies Allergy/AdvReac Type Severity Reaction Status Date / Time green pepper Allergy Swelling/Ed Unverified 09/05/22 23:31 feroz ortiz peppers Allergy Intermediate swelling, Uncoded 11/10/21 23:31 edema, vomiting SSRI AdvReac Other (See Uncoded 11/10/21 23:31 Comment) General Stated Complaint: PsychEval MARQUISE: 2 Review of Systems All systems reviewed & are unremarkable except as noted in HPI and below PFSH All Active Problems (Updated 11/11/21 @ 00:09 by ROSA ISELA CONNOLLY) Pharyngitis (Acute) Mental health disorder (Acute) Chronic appendicitis (Acute) Vomiting (Acute) Abdominal pain (Acute) Suicidal ideation (Acute) Depression (Chronic) Light-headed feeling (Acute) Medical History 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 Surgical History H/O aortic coarctation repair Social History Smoking/Tobacco Use Status: Never Smoking risk assessment performed?: Yes Alcohol Intake: never Drug use: Never Substance use type: does not use Current gender identity: male Do you feel safe at home: Yes Do you feel safe in your relationship?: Yes Exam Narrative Exam Narrative: 1.Const: Well-nourished, Well-developed, appearing stated age 2.Eyes: PERRL, no conjunctival injection, and symmetrical lids. 3.ENT: Atraumatic external nose and ears. Moist MM. Neck: Symmetric, trachea midline, No thyromegaly. 4.CVS: +S1/S2, No murmurs or gallops. Peripheral pulses 2+ and equal in all extremities. Brisk capillary refill in all extremities. 5.RESP: Unlabored respiratory effort. Clear to auscultation bilaterally. No wheezes rales or rhonchi 6.GI: Soft, Nontender/Nondistended, No hepatosplenomegaly. No guarding or rebound. 7.MSK: Normocephalic/Atraumatic, Extremities w/o deformity or ttp No cyanosis or clubbing, Normal movement of all extremities 8.Skin: Warm, Dry. No rashes or lesions. 9.Neuro: employment counselor II-XII grossly intact. Sensation grossly intact, no focal neurologic deficits. 10.Psych: (AAO) x3. Appropriate mood and affect Course Vital Signs Vital signs: Vital Signs Temperature 36.7 C 11/10/21 23:28 Pulse 89 11/10/21 23:28 Respiratory Rate 16 11/10/21 23:28 Blood Pressure 131/84 11/10/21 23:28 Pulse Oximetry 98 11/10/21 23:28 Temperature 36.7 C 11/10/21 23:28 Temperature Source Skin 11/10/21 23:28 Pulse 89 11/10/21 23:28 Respiratory Rate 16 11/10/21 23:28 Respiratory Effort Non-Labored 11/10/21 23:31 Blood Pressure 131/84 11/10/21 23:28 Pulse Oximetry 98 11/10/21 23:28 Pain Level 0 11/10/21 23:28
[2021-11-11 00:16] LABS: Source Nasal/Nares
[2021-11-11 01:27] LABS: COVID-19 PCR Negative (Negative)
== END 2021-11-11 01:06 | disposition home or self-care (01) ==
PROVIDERS: Emergency Provider Student in an Organized Health Care Education/Training Program; PCP Neuromusculoskeletal Medicine & OMM
DX: F99 Mental disorder, not otherwise specified (principal); Z20.822 Contact with and (suspected) exposure to COVID-19
CPT/HCPCS: 87635; 99285

== ENCOUNTER 2021-11-12 14:32 | Emergency (ER) | payer MEDICARE, MEDICAID, SELFPAY ==
[2021-11-12 14:40] VITALS: BP 125/85; PULSE 85; RESP 16; TEMP 36.9; O2SAT 97
== END 2021-11-12 15:19 ==
LOC: ER 15:01
PROVIDERS: PCP Neuromusculoskeletal Medicine & OMM
DX: Z53.21 Procedure and treatment not carried out due to patient leaving prior to being seen by health care provider (principal)

== ENCOUNTER 2021-12-05 14:31 | Emergency (ER) | payer MEDICARE, MEDICAID, SELFPAY ==
[2021-12-05 14:34] VITALS: BP 133/88; PULSE 102; RESP 22; TEMP 36.2; O2SAT 99
--- NOTE | 2021-12-05 14:57 | ED.GENADUL_ITS ---
Discharge Plan Disposition Patient Disposition: STILL A PATIENT Discharge Details Clinical Impression: Suicide attempt Primary Care Provider: Gaetano Hdz ED Provider: Singh Donahue Home Meds and New Rx's Prescriptions: No Action clonazepam 1 mg tablet 2 mg PO HS PRN PRN Label Comments: TK 1/2 TO 1 T PO QHS melatonin 10 mg Capsule 20 mg PO HS quetiapine [Seroquel] 25 mg Tablet 25 mg PO QHS Medical Decision Making 1500 --26-year-old male with history of depression here after intentional ingestion of googone, Gisselle dish detergent and men's One-A-Day vitamin. No signs of acute injury on exam. I called Poison Control Center and discussed ED presentation, they recommend observation for 4 to 6 hours monitoring for caustic GI effects as well as potential for respiratory pneumonitis. Plan to observe here in the emergency department until cleared medically and consult [facility] human services for crisis evaluation. HPI General Mode of arrival: EMS . Date/Time Provider Initiated Documentation: 12/05/21 14:47 . Limitations to Documentation: no limitations . Information obtained by: patient and EMS . HPI Narrative: 26-year-old male with history of depression, here with suicidal attempt by ingestion. Patient intentionally ingested approximately 140 mL of Gisselle ultra dish detergent, 59 mL of gloogon, and approximately 85 tablets of men's One-A-Day vitamin Gummies. Ingestion occurred around 2 PM. Shortly thereafter he vomited. He is complaining of mild upper abdominal discomfort. He is depressed. Depression is severe. No modifiers. Patient denies additional ingestion. He is here seeking help voluntarily. Related Data Home Medications Medication Instructions Recorded Confirmed clonazepam 1 mg tablet 2 mg PO HS PRN PRN 07/04/19 11/12/21 melatonin 10 mg capsule 20 mg PO HS 09/07/21 11/12/21 quetiapine 25 mg tablet (Seroquel) 25 mg PO QHS 11/12/21 11/12/21 Allergies Allergy/AdvReac Type Severity Reaction Status Date / Time green pepper Allergy Swelling/Ed Unverified 11/12/21 14:46 feroz ortiz peppers Allergy Intermediate swelling, Uncoded 11/12/21 14:46 edema, vomiting SSRI AdvReac Other (See Uncoded 11/12/21 14:46 Comment) General Stated Complaint: Suicide-Atempt MARQUISE: 2 Review of Systems All systems reviewed & are unremarkable except as noted in HPI and below Constitutional Constitutional: Denies fever(s) Gastrointestinal Gastrointestinal: Reports as per HPI Psychiatric Psychiatric: Reports as per HPI PFSH All Active Problems (Updated 12/05/21 @ 15:07 by Singh Donahue MD) Mental health disorder (Acute) Suicide attempt (Acute) Chronic appendicitis (Acute) Vomiting (Acute) Abdominal pain (Acute) Suicidal ideation (Acute) Depression (Chronic) Light-headed feeling (Acute) Medical History 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 Surgical History H/O aortic coarctation repair Social History Smoking/Tobacco Use Status: Never Smoking risk assessment performed?: Yes Alcohol Intake: never Drug use: Never Substance use type: does not use Current gender identity: male Do you feel safe at home: Yes (Has scary thoughts at night that keep him up.) Do you feel safe in your relationship?: Yes Exam Const General: cooperative and no acute distress HENMT Mouth: oropharynx normal and moist mucous membranes Throat: posterior oropharynx normal Eyes Conjunctivae: normal conjunctivae Sclera: normal sclerae EOM: EOM intact bilaterally Neck Neck: trachea midline and supple Resp Auscultation: clear to auscultation bilaterally, no rales, no rhonchi and no wheezes Cardio Rate: regular rate and not tachycardic Rhythm: regular rhythm GI Palpation: soft, not firm, no guarding, no masses, not rigid and nontender Skin General skin exam: no rashes or lesions noted Neuro General: patient alert, patient awake, patient oriented x3 and tone normal Extrem General: no edema Psych Appearance: grossly normal Mental Status: mental status grossly normal Speech and Movement: speech and movement normal Affect: normal affect Other: Depressed Course Vital Signs Vital signs: Vital Signs Temperature 36.2 C L 12/05/21 14:34 Pulse 102 H 12/05/21 14:34 Respiratory Rate 12/05/21 14:34 Blood Pressure 133/88 12/05/21 14:34 Pulse Oximetry 99 12/05/21 14:34 Temperature 36.2 C L 12/05/21 14:34 Temperature Source Tympanic 12/05/21 14:34 Pulse 102 H 12/05/21 14:34 Respiratory Rate 22 12/05/21 14:34 Blood Pressure 133/88 12/05/21 14:34 Pulse Oximetry 99 12/05/21 14:34 Oxygen Delivery Method Room Air 12/05/21 14:34 Oxygen Flow Rate 0 12/05/21 14:34 Pain Level 2 12/05/21 14:34
[2021-12-05 15:15] LABS: Abs Immature Grans 0.01 10^3/uL (0.0-0.06); Absolute Basophil Count 0.02 10^3/uL (0.0-0.2); Absolute Eosinophil Count 0.09 10^3/uL (0.0-0.7); Absolute Lymphocyte Count 0.73 10^3/uL (1.2-3.4); Absolute Monocyte Count 0.34 10^3/uL (0.1-0.8); Absolute Neutrophil Count 4.97 10^3/uL (1.2-6.7); Basophils % 0.3; Eosinophils % 1.5; HCT 43.2 % (40.0-50.0); HGB 14.1 g/dL (13.5-17.5); Immature Grans % 0.2; Lymphocytes % 11.9; MCH 28.3 pg (27.0-33.0); MCHC 32.6 % (32.0-36.0); MCV 87 fL (80-95); MPV 10.7 fL (8.0-11.0); Monocytes % 5.5; Neutrophils % 80.6; Platelet Count 186 10^3/uL (130-400); RBC 4.99 10^6/uL (4.36-5.78); RDW-SD 40.8 fL; WBC 6.16 10^3/uL (4.4-10.8)
[2021-12-05 15:40] LABS: ALT 17 U/L (16-63); AST 20 U/L (15-37); Albumin 4.6 g/dL (3.4-5.0); Alkaline Phosphatase 64 U/L (46-116); Bilirubin, Total 0.3 mg/dL (0.2-1.0); Calcium 9.5 mg/dL (8.5-10.1); Chloride 103 mmol/L (98-107); Estimated GFR 106.45 (mL/min/1.73m2); Glucose 106 mg/dL (74-106); Potassium 4.1 mmol/L (3.5-5.1); Sodium 141 mmol/L (136-145); Total Protein 8.1 g/dL (6.4-8.2)
[2021-12-05 15:45] LABS: Salicylate < 2.8 mg/dL (<2.8)
--- NOTE | 2021-12-05 16:08 | W.EDPROG ---
Date of service: 12/05/21 Time of Service: 15:00 Medical Decision Making 1500 -- Please see Dr. Donahue's note for initial presentation, exam, and plan. Case endorsed with plan to monitor for 4-6 hours observation after ingestion of Goo-Gone, Gisselle dish soap and One-a-day gummie vitamins at 2pm today. 1800 --patient is requesting to go home. It has been 4 hours postingestion and patient denies any symptoms and his labs are unremarkable. Patient is medically cleared. We will consult mental health for evaluation. 1900 --patient evaluated mental health and cleared for discharge to home. Patient discussed with them that he took these ingestions because he was mad at his mom and wanted to get attention and he is remorseful and regrets his actions. He has denying SI and feels much better and would like to go home. Discussed with poison control and they are requesting an EKG and a repeat Tylenol level. Repeat EKG unchanged compared to previous. Repeat acetaminophen level within normal limits. Will discharge patient to home. Pt reported that my brain feels happy and would like to go home. He will f/u with his ID[facility] team. Medical Records Medical records reviewed: Yes I reviewed the patient's medical records. ECG Data Attestation: I personally reviewed and interpreted this ECG (s) as follows: Interpretation: rate of 92, sinus, no stemi, no significant change compared to previous EKG. Sign Out Sign Out Data: Sign Out Comment: Follow-up labs, initiate notes he is getting human services crisis evaluation, reassess patient for disposition Last updated by Singh Donahue MD at 12/05/21 15:14 Discharge Plan Disposition Patient Disposition: HOME Condition: Stable Discharge Details Clinical Impression: Major depression, Suicide attempt Primary Care Provider: Gaetano Hdz ED Provider: Jeanna Boyd Home Meds and New Rx's Prescriptions: Continued clonazepam 1 mg tablet 2 mg PO HS PRN PRN Label Comments: TK 1/2 TO 1 T PO QHS melatonin 10 mg Capsule 20 mg PO HS quetiapine [Seroquel] 25 mg Tablet 25 mg PO QHS Discharge Instructions Instructions: Depression (ED) Additional Instructions: Your blood tests and EKG today are reassuring and show no evidence of acute concerning or significant findings. Follow-up with [facility] services as directed. Follow-up with your primary care doctor in 1 week. Return to the emergency department with any worsening or new concerning symptoms. Discharge Data Discharge Date/Time-TO BE ENTERED AT DEPARTURE: 12/05/21 21:56 Discharge Physician: Jeanna Boyd
[2021-12-05 16:36] LABS: ETHANOL BLOOD < 3.0 mg/dL (<10)
[2021-12-05 17:05] LABS: Acetaminophen < 2 ug/mL (10-30)
[2021-12-05 17:13] LABS: BUN 16 mg/dL (7-18)
--- NOTE | 2021-12-05 18:03 | NUR.NOTE ---
Patient requested I call his mother, which I did. Conversation was held with his mother. She is concerned that if he is discharged without follow-up inpatient treatment, she is afraid his behavior will continue to escalate. This RN explained that patient still needs to be evaluated by [facility] and then a disposition will be made at that time.:
--- NOTE | 2021-12-05 19:15 | RT.EKG_ITS ---
APPROVED REPORT Exam: Resting ECG Reason for Exam: od Patient Location: E HR:92 bpm ECG Measurements Heart Rate 92 AXIS [place] 132 P 39 QRSd 108 QRS 237 QT 346 T 65 QTc 427 Conclusion Sinus rhythm...normal P axis, V-rate 60- 99 Probable left atrial enlargement...P >50mS, <-0.10mV V1 ST elev, probable normal early repol pattern...ST elevation, age<55. Sinus. Normal axis. No STEMI. No change from previous. I have reviewed and interpreted ECG and agree with software generated interpretation.
--- NOTE | 2021-12-05 19:17 | PDOC.MHCN_ITS ---
Date of service: 12/05/21 Time of Service: 06:30 [facility] Emergency Note Release [facility] release signed:: No Reason for Visit Client presented at [facility] ED by ambulance for suicide attempt by ingestion. In the last 2 weeks has the pt presented for ES prior to today?: Unknown Client Information Client is: IDDS Well Housed: Yes Non Suicidal Self Injury Current: No History: No Risk: Does risk to harm exist?: No Risk: N/A Duty to warn indicated: No Asssessment/Mental Status Appearance: Unremarkable Attitude: Cooperative and Friendly Behavior: Unremarkable Speech: Normal Affect: Normal Mood: Happy Thought process: Unremarkable Hallucinations: No evidence Delusions: No evidence Attention: Unremarkable Perception: Not impaired Orientation: Fully orientated Memory: Intact Insight: Good Judgement: Good Neurovegetative Symptoms Sleep: No change (Client reports going to bed last night at 11:30 pm and awoke at 10 am this morning) Appetitie: No change (Client reports he typically eats one meal per day, client reports he has not eaten a meal yet today) Interests: No change Energy: No change Libido: Not applicable Impression This consumer loan underwriter assessed client via zoom. It should be noted Mita PATEL, and Rip MICHELLEDS were also present during the screening. Client presented at [facility] via ambulance after apparent suicide attempt. Client reports he ingested household items such as: googone, joselyn dish soap and a total of 4 men multivitamins. Client reports no change to his sleep habits; eg. client states he slept last night from 11:30 pm to 10 am. Client states he is compliant in taking his prescribed night time medications. Client reports no change to appetite; client reports typically eating one meal per day. last Client reports he ingested these mentioned items, with the intention to end his life by suicide. Client reported prior to ingesting these items, not feeling well. Client reports he first experienced feeling suicidal today around 2 pm this afternoon. Client reports he was feeling upset due to his family members going to [facility] to run errands. This resulted in the client being left alone at home. Client reports he feels now, that he should have gone with them but decid ed not to at the time Client reports after feeling down he acted on his thoughts. Client denies actively endorsing SI/HI/NSSI. Client reports past history of suicide attempt one month prior; Client reports ingesting items such as: earplugs and a top of a google mini. Client reports since being in the ED he has not had any fleeting thoughts of suicide. Client denies intent/plan. Client reports current mood as happier than earlier today. On a self rated scale of 0-10, 0 being not at all to 10 being 100%, client rates himself a 0 on how likely he would be to act on attempting to commit suicide or injury himself in anyway, if he were to leave the ED tonight. This consumer loan underwriter and ESC Mita Lewis discussed with the client the dangers of ingesting items other than food. Client stated he understood. JORGE Fan asked for client to identify coping skills he can apply if he were to begin to feel suicidal again rather than ingesting items. Client reports he would listen to music, watch TV, and/or partake in deep breathing. Client stated he would like to go home and feels he can keep himself safe, if he were given the option to be discharged. Proactive safety plan (SP) was developed with client. Copy of developed plan was shared with IDDS steam box operator Rip Garcia. Jose will share SP with client's mother. Client will complete check-in calls with her IDDS team daily in the afternoon for the duration on the weekend through 12/07. After screening client, this consumer loan underwriter discussed findings of assessment and disposition plan with nurse My Briggs. Plan/Disposition Recommended Disposition: [facility] Services (Proactive Safety Plan in place through 12/07) [facility] Services: Other. Plan: Client is to be discharged from [facility] on proactive safety plan (SP). SP was developed with client, this consumer loan underwriter, ESC Mita Lewis, & IDDS Rip Garcia. SP will be shared with client's mother by IDDS. IDDS will arrange for client to be transported from ED to home. Client is to complete daily afternoon check-in calls with IDDS through 12/07. Person reported agreement to plan: Yes Reports/communication Outcome discussed with: ED/Personnel (Nurse My Briggs)
[2021-12-05 20:15] LABS: *AMPHETAMINES SCREEN URINE Negative (Negative); *BARBITURATES SCREEN URINE Negative (Negative); *BENZODIAZEPINES SCREEN URINE Negative (Negative); Cannabinoids THC Negative (Negative); Cocaine Screen,Urine Negative (Negative); METHADONE URINE SCREEN Negative (Negative); OPIATES URINE SCREEN Negative (Negative)
[2021-12-05 20:56] LABS: Tricyclic Antidepressants Negative (Negative)
[2021-12-05 21:21] LABS: Acetaminophen < 2 ug/mL (10-30)
[2021-12-05 21:52] VITALS: BP 128/96; PULSE 94; RESP 16; TEMP 36.6; O2SAT 99
== END 2021-12-05 21:56 | disposition home or self-care (01) ==
PROVIDERS: Student in an Organized Health Care Education/Training Program; Emergency Provider Physician Assistant; PCP Neuromusculoskeletal Medicine & OMM
DX: T50.992A Poisoning by other drugs, medicaments and biological substances, intentional self-harm, initial encounter (principal); F32.9 Major depressive disorder, single episode, unspecified
CPT/HCPCS: 36415; 80053; 80307; 93005; 99285; 80320; 80329; 85025; 93010

== ENCOUNTER 2022-02-09 13:53 | Emergency (ER) | payer MEDICARE, MEDICAID, SELFPAY ==
[2022-02-09 14:08] VITALS: BP 131/86; PULSE 89; RESP 16; TEMP 36.8; O2SAT 100
--- NOTE | 2022-02-09 14:52 | ED.GENADUL_ITS ---
Discharge Plan Disposition Patient Disposition: Home Condition: Improving Discharge Details Clinical Impression: Abdominal pain, Suicidal ideation, Depression Primary Care Provider: Gaetano Hdz ED Provider: Naman Coronel Home Meds and New Rx's Prescriptions: Continued clonazepam 1 mg tablet 2 mg PO HS PRN PRN Label Comments: TK 1/2 TO 1 T PO QHS melatonin 10 mg Capsule 20 mg PO HS quetiapine [Seroquel] 25 mg Tablet 25 mg PO QHS Discharge Instructions Instructions: Depression (ED), Help Prevent Suicide (ED), Abdominal Pain (ED) Additional Instructions: Work-up in the ER does not reveal any obvious emergent process. Please watch for new or worsening symptoms and return to the ER for any concerns. Please follow the instructions given to you by the mental health team, it appears as though they will be seeking care bed placement. I also recommend contacting your primary care provider tomorrow to discuss your ER visit, ongoing symptoms, and need for outpatient reevaluation. Discharge Data Discharge Date/Time-TO BE ENTERED AT DEPARTURE: 02/09/22 19:50 Medical Decision Making <KRISTIN Barraza - Last Filed: 02/23/22 08:14> Patient is a pleasant 26-year-old male, well-known to myself in the department, presenting today with chief complaint of suicidal ideation, diarrhea and right side abdominal pain. He reports that his increased depression and thoughts of self-harm began about 1 week ago. Patient does have past medical history pertinent for pica and he states that he has been eating unusual things such as cards and had to eat his stuffed animal. 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 States that if he was put suicide he would do so via stabbing. Seems very well supported by mom. Regard to the abdominal pain, he states that this began yesterday. Indicates the right mid abdomen. Is status post appendectomy the beginning of the year. Pain is not worsened with p.o. intake. Pain seems to increase depending on position. Denies any hematuria, dysuria, testicular pain. Pain does not radiate into his back. Denies any fevers or chills. No other pertinent surgical history. On exam, patient appears nontoxic. Interacting appropriately and often supported by mom. Limited personal insight. Given the interaction with mom, not see need for one-to-one sitter at this time she seems very supportive and in tune with his mental health and physical needs. If she leaves, we will need to get a one-to-one sitter. In regard to the abdominal pain, will obtain baseline blood work, CT abdomen. At the end of my shift, care transition to Kelby Coronel PA-C with labs and imaging assessment by mental health pending. 1530: Naman Coronel PA-C I assumed care of this 26-year-old gentleman from my colleague KRISTIN Sauceda, please see her initial HPI and examination. At time of signout awaiting work-up including laboratory values and CT imaging for abdominal pain, if and when medically cleared then needs to have a mental health evaluation. Clinically patient appears well, nontoxic. Reports that abdominal pain is much improved. Reports that he would like to eat dinner. CT has not resulted, will hold any oral intake. Laboratory values are unremarkable for any obvious emergent process. CT imaging is also unremarkable. Patient able to tolerate dinner without difficulty. Reports that his abdominal pain has resolved completely. Mental health evaluation completed, please see their evaluation. Plan to discharge home with safety plan and they will pursue outpatient care bed. Patient and family are comfortable this plan and have no additional questions or concerns. Standard discharge and return precautions were provided. Patient understands, is agreeable to this plan, and has no additional questions or concerns upon discharge. This documentation was generated using [email or web address] dictation system, please disregard any oddities of phrase or misspellings. <KRISTIN Rico - Last Filed: 02/09/22 18:52> Patient is a pleasant 26-year-old male, well-known to myself in the department, presenting today with chief complaint of suicidal ideation, diarrhea and right side abdominal pain. He reports that his increased depression and thoughts of self-harm began about 1 week ago. Patient does have past medical history pertinent for pica and he states that he has been eating unusual things such as cards and had to eat his stuffed animal. 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 States that if he was put suicide he would do so via stabbing. Seems very well supported by mom. Regard to the abdominal pain, he states that this began yesterday. Indicates the right mid abdomen. Is status post appendectomy the beginning of the year. Pain is not worsened with p.o. intake. Pain seems to increase depending on position. Denies any hematuria, dysuria, testicular pain. Pain does not radiate into his back. Denies any fevers or chills. No other pertinent surgical history. On exam, patient appears nontoxic. Interacting appropriately and often supported by mom. Limited personal insight. Given the interaction with mom, not see need for one-to-one sitter at this time she seems very supportive and in tune with his mental health and physical needs. If she leaves, we will need to get a one-to-one sitter. In regard to the abdominal pain, will obtain baseline blood work, CT abdomen. 1530: Naman Coronel PA-C I assumed care of this 26-year-old gentleman from my colleague KRISTIN Sauceda, please see her initial HPI and examination. At time of signout awaiting work-up including laboratory values and CT imaging for abdominal pain, if and when medically cleared then needs to have a mental health evaluation. Clinically patient appears well, nontoxic. Reports that abdominal pain is much improved. Reports that he would like to eat dinner. CT has not resulted, will hold any oral intake. Laboratory values are unremarkable for any obvious emergent process. CT imaging is also unremarkable. Patient able to tolerate dinner without difficulty. Reports that his abdominal pain has resolved completely. Mental health evaluation completed, please see their evaluation. Plan to discharge home with safety plan and they will pursue outpatient care bed. Patient and family are comfortable this plan and have no additional questions or concerns. Standard discharge and return precautions were provided. Patient understands, is agreeable to this plan, and has no additional questions or concerns upon discharge. This documentation was generated using [email or web address] dictation system, please disregard any oddities of phrase or misspellings. Medical Records Medical records reviewed: Yes I reviewed the patient's medical records. Imaging Data Radiologic Study: Attestation: I personally reviewed and interpreted this imaging study as follows: Imaging: CT Scan Radiologist's impression: Exam(s) CT ABDOMEN PELVIS W EXAM: CT ABDOMEN PELVIS W CLINICAL HISTORY: right sided abdominal pain. TECHNIQUE: Imaging Protocol: Axial computed tomography images with coronal and sagittal reformatted images were created and reviewed CONTRAST MATERIAL: Intravenous: Omnipaque 350 Contrast volume:100 ml Oral: no COMPARISON: CT CT CHEST PE CTA from 03/14/2021 FINDINGS: ABDOMEN: Lung Bases: Normal where visualized. Liver: Normal density. No measurable mass. Gallbladder and biliary tract: No radiodense calculus or dilation. Pancreas: Normal density, no abnormal calcifications or inflammatory process. Spleen: Normal. Kidneys: Normal size, contour and axis. No radiodense stones or obstructive uropathy. No masses seen. Stable mild prominence of the renal pelves, symmetric bilaterally. Adrenal glands: No masses seen. Abdominal Aorta: Abdominal portion non-dilated. PELVIS: Bladder: Somewhat distended. No gross wall thickening. No calculi.No focal mass. Bowel: No obstruction or bowel wall thickening. Status post appendectomy. Peritoneal cavity: No ascites, collection or mesenteric inflammatory response. Bones: Within normal limits for age. Reproductive organs: Within normal limits. Lymph nodes: Unremarkable. Impression: Unremarkable CT scan of the abdomen and pelvis. Findings called to Naman Coronel, provider in the emergency department. Lab Data Lab results reviewed: Yes I reviewed the patient's lab results. Labs: Laboratory Tests Range/Units 02/09/22 02/09/22 02/09/22 15:25 15:25 15:25 WBC (4.4-10.8) 10^3/uL 5.50 RBC (4.36-5.78) 10^6/uL 5.58 Hgb (13.5-17.5) g/dL 15.6 Hct (40.0-50.0) % 47.8 MCV (80-95) fL 86 MCH (27.0-33.0) pg 28.0 MCHC (32.0-36.0) % 32.6 RDW (11.8-14.1) % 12.6 Plt Count (130-400) 10^3/uL 192 MPV (8.0-11.0) fL 10.4 Immature Gran % 0.4 Neutrophils % 72.3 Lymphocytes % 16.0 Monocytes % 4.9 Eosinophils % 6.0 Basophils % 0.4 Nucleated RBC % (0.0-0.3) % 0.0 Absolute Neutrophils (1.2-6.7) 10^3/uL 3.98 Absolute Lymphocytes (1.2-3.4) 10^3/uL 0.88 L Absolute Monocytes (0.1-0.8) 10^3/uL 0.27 Absolute Eosinophils (0.0-0.7) 10^3/uL 0.33 Absolute Basophils (0.0-0.2) 10^3/uL 0.02 Sodium (136-145) mmol/L 143 Potassium (3.5-5.1) mmol/L 4.1 Chloride (98-107) mmol/L 103 Carbon Dioxide (21.0-32.0) mmol/L 31.6 Anion Gap (3-11) mmol/L 8.4 BUN (7-18) mg/dL 12 Creatinine (0.70-1.30) mg/dL 1.1 Est GFR (CKD-EPI 2020) (mL/min/1.73m2) 94.95 Glucose (74-106) mg/dL 112 H Calcium (8.5-10.1) mg/dL 9.6 Total Bilirubin (0.2-1.0) mg/dL 0.3 AST (15-37) U/L 23 ALT (16-63) U/L 21 Alkaline Phosphatase (46-116) U/L 71 Total Protein (6.4-8.2) g/dL 8.4 H Albumin (3.4-5.0) g/dL 4.8 Lipase (73-393) U/L 183 TSH (0.36-3.74) uIU/mL 2.69 Urine Color (Yellow) Urine Clarity (Clear) Urine pH (5-8) Ur Specific Ripley (1.005-1.025) Urine Protein (Negative) mg/dL Urine Ketones (Negative) mg/dL Urine Blood (Negative) Urine Nitrite (Negative) Urine Bilirubin (Negative) Urine Urobilinogen (Up TO 0.2) EU/dL Ur Leukocyte Esterase (Negative) Urine Glucose (Negative) mg/dL Salicylates (<2.8) mg/dL < 2.8 Urine Opiates Screen (Negative) Urine Methadone Screen (Negative) Acetaminophen (10-30) ug/mL < 2 Ur Barbiturates Screen (Negative) Ur Tricyclics Screen (Negative) Ur Amphetamines Screen (Negative) U Benzodiazepines Scrn (Negative) Urine Cocaine Screen (Negative) Ur THC Screen (Negative) Ethyl Alcohol (<10) mg/dL < 3.0 Range/Units 02/09/22 02/09/22 17:27 17:27 WBC (4.4-10.8) 10^3/uL RBC (4.36-5.78) 10^6/uL Hgb (13.5-17.5) g/dL Hct (40.0-50.0) % MCV (80-95) fL MCH (27.0-33.0) pg MCHC (32.0-36.0) % RDW (11.8-14.1) % Plt Count (130-400) 10^3/uL MPV (8.0-11.0) fL Immature Gran % Neutrophils % Lymphocytes % Monocytes % Eosinophils % Basophils % Nucleated RBC % (0.0-0.3) % Absolute Neutrophils (1.2-6.7) 10^3/uL Absolute Lymphocytes (1.2-3.4) 10^3/uL Absolute Monocytes (0.1-0.8) 10^3/uL Absolute Eosinophils (0.0-0.7) 10^3/uL Absolute Basophils (0.0-0.2) 10^3/uL Sodium (136-145) mmol/L Potassium (3.5-5.1) mmol/L Chloride (98-107) mmol/L Carbon Dioxide (21.0-32.0) mmol/L Anion Gap (3-11) mmol/L BUN (7-18) mg/dL Creatinine (0.70-1.30) mg/dL Est GFR (CKD-EPI 2020) (mL/min/1.73m2) Glucose (74-106) mg/dL Calcium (8.5-10.1) mg/dL Total Bilirubin (0.2-1.0) mg/dL AST (15-37) U/L ALT (16-63) U/L Alkaline Phosphatase (46-116) U/L Total Protein (6.4-8.2) g/dL Albumin (3.4-5.0) g/dL Lipase (73-393) U/L TSH (0.36-3.74) uIU/mL Urine Color (Yellow) Yellow Urine Clarity (Clear) Clear Urine pH (5-8) 6.5 Ur Specific Ripley (1.005-1.025) 1.015 Urine Protein (Negative) mg/dL Negative Urine Ketones (Negative) mg/dL Negative Urine Blood (Negative) Negative Urine Nitrite (Negative) Negative Urine Bilirubin (Negative) Negative Urine Urobilinogen (Up TO 0.2) EU/dL 0.2 Ur Leukocyte Esterase (Negative) Negative Urine Glucose (Negative) mg/dL Negative Salicylates (<2.8) mg/dL Urine Opiates Screen (Negative) Negative Urine Methadone Screen (Negative) Negative Acetaminophen (10-30) ug/mL Ur Barbiturates Screen (Negative) Negative Ur Tricyclics Screen (Negative) Negative Ur Amphetamines Screen (Negative) Negative U Benzodiazepines Scrn (Negative) Negative Urine Cocaine Screen (Negative) Negative Ur THC Screen (Negative) Negative Ethyl Alcohol (<10) mg/dL Sign Out No HPI <KRISTIN Barraza - Last Filed: 02/23/22 08:14> General Date/Time Provider Initiated Documentation: 02/09/22 14:52 . Limitations to Documentation: no limitations . Information obtained by: patient, family (mom), RN notes reviewed and old records reviewed . History of Present Illness 26 year old M presents to the emergency department with the chief complaint of SI, abdominal pain, described as moderate and similar to prior episodes, Quality is described as aching, and is localized to the abdomen. Patient reports no radiation. Patient started experiencing this week(s) and it has been constant. No relieving factors improve symptom(s), No exacerbating factors reported . Patient notes malaise; denies chest pain, cough, diaphoresis, fever/chills, headaches, loss of appetite, nausea/vomiting and shortness of breath. Patient did receive the following treatments prior to arrival, none Related Data Home Medications Medication Instructions Recorded Confirmed clonazepam 1 mg tablet 2 mg PO HS PRN PRN 07/04/19 02/09/22 melatonin 10 mg capsule 20 mg PO HS 09/07/21 02/09/22 quetiapine 25 mg tablet (Seroquel) 25 mg PO QHS 11/12/21 02/09/22 Allergies Allergy/AdvReac Type Severity Reaction Status Date / Time green pepper Allergy Swelling/Ed Unverified 02/09/22 14:11 feroz ortiz peppers Allergy Intermediate swelling, Uncoded 02/09/22 14:11 edema, vomiting SSRI AdvReac Other (See Uncoded 02/09/22 14:11 Comment) General Stated Complaint: PsychEval MARQUISE: 2 Review of Systems <KRISTIN Barraza - Last Filed: 02/23/22 08:14> Constitutional Constitutional: Reports as per HPI, Denies chills, Denies fatigue, Denies fever(s) and Denies headache(s) ENT Ears, Nose, Mouth, and Throat: Denies headache(s) Cardiovascular Cardiovascular: Reports as per HPI, Denies chest pain and Denies dyspnea Respiratory Respiratory: Reports as per HPI, Denies cough and Denies dyspnea Gastrointestinal Gastrointestinal: Reports as per HPI Genitourinary Genitourinary: Denies system reviewed and no additional complaints, except as documented (patient denies any change in urinary habits) Musculoskeletal Musculoskeletal: Reports as per HPI and Denies back pain Integumentary/Breasts Skin/Breast: Reports as per HPI and Denies rash Neurologic Neurologic: Reports as per HPI and Denies headache(s) Psychiatric Psychiatric: Reports as per HPI, Reports anxiety, Reports depression, Reports mood swings, Denies homicidal ideation and Reports suicidal ideation Endocrine Endocrine: Denies fatigue PFSH <KRISTIN Barraza - Last Filed: 02/23/22 08:14> All Active Problems (Updated 02/09/22 @ 18:51 by KRISTIN Rico) Chronic appendicitis (Acute) Vomiting (Acute) Abdominal pain (Acute) Suicidal ideation (Acute) Depression (Chronic) Light-headed feeling (Acute) Medical History 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 Surgical History H/O aortic coarctation repair Social History Smoking/Tobacco Use Status: Never Smoking risk assessment performed?: Yes Alcohol Intake: never Drug use: Never Substance use type: does not use Current gender identity: male Do you feel safe at home: Yes (Has scary thoughts at night that keep him up.) Do you feel safe in your relationship?: Yes Exam <KRISTIN Barraza - Last Filed: 02/23/22 08:14> Const General: cooperative, healthy appearing, comfortable, no acute distress and well developed Nutritional Appearance: average body habitus and well nourished Orientation: alert and awake HENMT Head: normal to inspection Mouth: moist mucous membranes Resp Effort & Inspection: normal respiratory effort, able to speak in complete sentences and no respiratory distress Auscultation: clear to auscultation bilaterally, no rales, no rhonchi and no wheezes Cardio Rate: regular rate Rhythm: regular rhythm Heart Sounds: S1 normal and S2 normal GI Inspection: normal to inspection, no edema and non-distended Palpation: soft, no hepatosplenomegaly, no guarding, not rigid and tender in the RLQ; Macias's sign negative, obturator sign negative, psoas sign negative and with no rebound tenderness Percussion: normal to percussion Auscultation: normal bowel sounds Back/Spine/Pelvis Back: no CVA tenderness Skin General skin exam: no rashes or lesions noted Trauma: no lacerations or abrasions Neuro General: patient alert and patient awake Cognition: normal cognition Speech: speech normal Gait: normal gait Psych Appearance: grossly normal and well kempt Mental Status: mental status grossly normal Speech and Movement: speech and movement normal Mood: congruent mood Affect: normal affect Attitude: cooperative Thought Process: normal Thought Content: normal Insight: fair Judgment: fair Course <KRISTIN Barraza Last Filed: 02/23/22 08:14> Vital Signs Vital signs: Vital Signs Temperature 36.8 C 02/09/22 14:08 Pulse 89 02/09/22 14:08 Respiratory Rate 16 02/09/22 14:08 Blood Pressure 131/86 02/09/22 14:08 Pulse Oximetry 100 02/09/22 14:08 Temperature 36.8 C 02/09/22 14:08 Temperature Source Temporal Artery Scan 02/09/22 14:08 Pulse 89 02/09/22 14:08 Respiratory Rate 16 02/09/22 14:08 Respiratory Effort Non-Labored 02/09/22 14:12 Blood Pressure 131/86 02/09/22 14:08 Blood Pressure Position Sitting 02/09/22 14:08 Pulse Oximetry 100 02/09/22 14:08 Oxygen Delivery Method Room Air 02/09/22 14:08 Oxygen Flow Rate 0 02/09/22 14:08 Sign Out <KRISTIN Barraza Last Filed: 02/23/22 08:14> Sign Out Data: Sign Out Comment: Care return to Kelby Coronel PA-C. Patient pending labs and CT to evaluate for right-sided abdominal pain x2 days. Also here for suicidal ideation after being medically cleared will need to speak with mental health. Last updated by Kat Sauceda PA at 02/09/22 16:15
--- NOTE | 2022-02-09 15:00 | DI.CT_ITS ---
Exam(s) CT ABDOMEN PELVIS W EXAM: CT ABDOMEN PELVIS W CLINICAL HISTORY: right sided abdominal pain. TECHNIQUE: Imaging Protocol: Axial computed tomography images with coronal and sagittal reformatted images were created and reviewed CONTRAST MATERIAL: Intravenous: Omnipaque 350 Contrast volume:100 ml Oral: no COMPARISON: CT CT CHEST PE CTA from 03/14/2021 FINDINGS: ABDOMEN: Lung Bases: Normal where visualized. Liver: Normal density. No measurable mass. Gallbladder and biliary tract: No radiodense calculus or dilation. Pancreas: Normal density, no abnormal calcifications or inflammatory process. Spleen: Normal. Kidneys: Normal size, contour and axis. No radiodense stones or obstructive uropathy. No masses seen. Stable mild prominence of the renal pelves, symmetric bilaterally. Adrenal glands: No masses seen. Abdominal Aorta: Abdominal portion non-dilated. PELVIS: Bladder: Somewhat distended. No gross wall thickening. No calculi.No focal mass. Bowel: No obstruction or bowel wall thickening. Status post appendectomy. Peritoneal cavity: No ascites, collection or mesenteric inflammatory response. Bones: Within normal limits for age. Reproductive organs: Within normal limits. Lymph nodes: Unremarkable. Impression: Unremarkable CT scan of the abdomen and pelvis. Findings called to Naman Coronel, provider in the emergency department. RADIATION DOSE DELIVERED: 620.12mGy.cm Total DLP DATA REPOSITORY: All CT scans at this facility are submitted to the National Radiology Data Registry (NRDR) Dose Index Registry (DIR) with the [employer] (ACR). RADIATION OPTIMIZATION: All CT scans at this facility use at least one of these dose optimization te chniques: automated exposure control; mA and/or kV adjustment per patient size (includes targeted exa ms where dose is matched to clinical indication); or iterative reconstruction.
[2022-02-09] MEDS: Normal Saline 1,000 ML 1000 ML IV (15:27)
[2022-02-09 15:30] LABS: Abs Immature Grans 0.02 10^3/uL (0.0-0.06); Absolute Basophil Count 0.02 10^3/uL (0.0-0.2); Absolute Eosinophil Count 0.33 10^3/uL (0.0-0.7); Absolute Lymphocyte Count 0.88 10^3/uL (1.2-3.4); Absolute Monocyte Count 0.27 10^3/uL (0.1-0.8); Absolute Neutrophil Count 3.98 10^3/uL (1.2-6.7); Basophils % 0.4; HCT 47.8 % (40.0-50.0); HGB 15.6 g/dL (13.5-17.5); Immature Grans % 0.4; MCHC 32.6 % (32.0-36.0); MCV 86 fL (80-95); MPV 10.4 fL (8.0-11.0); Monocytes % 4.9; Neutrophils % 72.3; Platelet Count 192 10^3/uL (130-400); RBC 5.58 10^6/uL (4.36-5.78); RDW 12.6 % (11.8-14.1); RDW-SD 38.9 fL
[2022-02-09] MEDS: LORazepam 2 MG/ML VIAL 0.5 MG IVP (15:41)
[2022-02-09 15:53] LABS: ALT 21 U/L (16-63); AST 23 U/L (15-37); Albumin 4.8 g/dL (3.4-5.0); Alkaline Phosphatase 71 U/L (46-116); Anion Gap 8.4 mmol/L (3-11); BUN 12 mg/dL (7-18); Bilirubin, Total 0.3 mg/dL (0.2-1.0); CO2 31.6 mmol/L (21.0-32.0); CREATININE 1.1 mg/dL (0.70-1.30); Calcium 9.6 mg/dL (8.5-10.1); Chloride 103 mmol/L (98-107); ETHANOL BLOOD < 3.0 mg/dL (<10); Estimated GFR 94.95 (mL/min/1.73m2); Glucose 112 mg/dL (74-106); Lipase 183 U/L (73-393); Potassium 4.1 mmol/L (3.5-5.1); Sodium 143 mmol/L (136-145); TSH (W/Ref FT4) 2.69 uIU/mL (0.36-3.74); Total Protein 8.4 g/dL (6.4-8.2)
[2022-02-09 16:13] LABS: Acetaminophen < 2 ug/mL (10-30); Salicylate < 2.8 mg/dL (<2.8)
[2022-02-09] MEDS: Normal Saline - Diluent 50 ML VIAL IJ (17:00)
[2022-02-09] MEDS: Normal Saline Flush 10 ML SYR IVP (17:00)
[2022-02-09] MEDS: Omnipaque 350 MG/ML 500 ML BTL-Imaging package 100 ML IJ (17:01)
[2022-02-09 17:38] LABS: Bilirubin Negative (Negative); Blood Negative (Negative); Clarity Clear (Clear); Glucose Negative (Negative); Ketones Negative (Negative); Leukocyte Esterase Negative (Negative); Nitrite Negative (Negative); Specific Gravity 1.015 (1.005-1.025); Urobilinogen 0.2 EU/dL (Up TO 0.2); pH 6.5 (5-8)
[2022-02-09 17:48] LABS: *AMPHETAMINES SCREEN URINE Negative (Negative); *BARBITURATES SCREEN URINE Negative (Negative); *BENZODIAZEPINES SCREEN URINE Negative (Negative); Cannabinoids THC Negative (Negative); Cocaine Screen,Urine Negative (Negative); METHADONE URINE SCREEN Negative (Negative); OPIATES URINE SCREEN Negative (Negative); Tricyclic Antidepressants Negative (Negative)
[2022-02-09 19:05] VITALS: BP 136/85; PULSE 100; RESP 18; O2SAT 96
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
== END 2022-02-09 19:50 | disposition home or self-care (01) ==
PROVIDERS: Physician Assistant; Emergency Provider Physician Assistant; PCP Neuromusculoskeletal Medicine & OMM
DX: F32.A Depression, unspecified (principal); R10.31 Right lower quadrant pain; R19.7 Diarrhea, unspecified; Z79.899 Other long term (current) drug therapy
CPT/HCPCS: 80053; 80307; 83690; 96361; 96374; 99285; 74177; 80320; 80329; 81003; 84443; 85025; 99284; J2060

== ENCOUNTER 2022-03-16 15:33 | Emergency (ER) | payer MEDICARE, MEDICAID, SELFPAY ==
[2022-03-16 15:50] VITALS: BP 132/79; PULSE 110; RESP 20; TEMP 37; O2SAT 98
--- NOTE | 2022-03-16 16:00 | DI.RAD_ITS ---
Exam(s) XR ABDOMEN FLAT PLATE EXAM: 2D digital imaging was performed. CLINICAL HISTORY: coin ingestion. COMPARISON: CT CT ABDOMEN PELVIS W from 02/09/2022 TECHNIQUE: Supine views of the abdomen performed. FINDINGS: BOWEL GAS PATTERN: Nondistended. Stool seen throughout colon, greater on the right. CALCIFICATIONS: No radiopaque calcifications. OSSEOUS STRUCTURES: Normal for age. OTHER FINDINGS: Foreign body seen low in the pelvis convert ejecting the expected location of the rec toni. Visualized portions of the the lung bases are clear. Right lower quadrant surgical clips noted . No organomegaly. IMPRESSION: 1. Nonobstructive bowel gas pattern. 2. Ingested foreign body projects at the level of the rectum. DATA REPOSITORY: RADIATION DOSE DELIVERED:
--- NOTE | 2022-03-16 16:10 | ED.GENADUL_ITS ---
Discharge Plan Disposition Patient Disposition: Home Condition: Stable Discharge Details Clinical Impression: Depression Primary Care Provider: Gaetano Hdz ED Provider: Vernon Snyder Home Meds and New Rx's Prescriptions: Continued clonazepam 1 mg tablet 2 mg PO HS PRN PRN Label Comments: TK / TO 1 T PO QHS melatonin 10 mg Capsule 20 mg PO HS quetiapine [Seroquel] 25 mg Tablet 25 mg PO QHS Discharge Instructions Instructions: Depression (ED) Additional Instructions: follow up with your primary care provider within 1 week if you feel more ill, have worsening symptoms return to the emergency department Medical Decision Making 26 yo male with hx of depression and frequent visits for this comes in with complaints of self harm and depression. HE states over this past weekend he swallowed a coin to try and harm himself. Denies ingesting any other substance, no alcohol or drug use. ARrives stable in no distress and appears well speaking clearly. HAs a soft nontender abdomen, no focal deficits, caox4. Given his chronic psych history do not feel blood work or labs indicated, will consult mental health after abdominal xray to confirm coin is in the abdomen. xray shows coin in the rectum, medically cleared to speak with mental health pt has madea safetly plan with nk and comfortable with this plan as well, he will f/u with pcp and [facility] and return precautions given Differential Diagnosis Differential Diagnosis: depression, si Imaging Data Radiologic Study: Attestation: I personally reviewed and interpreted this imaging study as follows: Imaging: X-Ray Radiologist's impression: IMPRESSION: 1. Nonobstructive bowel gas pattern. 2. Ingested foreign body projects at the level of the rectum. HPI General Mode of arrival: ambulatory . Date/Time Provider Initiated Documentation: 03/16/22 15:46 . Limitations to Documentation: no limitations . Information obtained by: patient . History of Present Illness 26 year old M presents to the emergency department with the chief complaint of depression, described as moderate, Patient started experiencing this year(s) (6) and it has been constant. No relieving factors improve symptom(s), No exacerbating factors reported . Patient notes no other symptoms.. Patient did receive the following treatments prior to arrival, none Related Data Home Medications Medication Instructions Recorded Confirmed clonazepam 1 mg tablet 2 mg PO HS PRN PRN 07/04/19 02/09/22 melatonin 10 mg capsule 20 mg PO HS 09/07/21 02/09/22 quetiapine 25 mg tablet (Seroquel) 25 mg PO QHS 11/12/21 02/09/22 Allergies Allergy/AdvReac Type Severity Reaction Status Date / Time green pepper Allergy Swelling/Ed Unverified 02/09/22 14:11 feroz ortiz peppers Allergy Intermediate swelling, Uncoded 02/09/22 14:11 edema, vomiting SSRI AdvReac Other (See Uncoded 02/09/22 14:11 Comment) General Stated Complaint: PsychEval MARQUISE: 2 Review of Systems All systems reviewed & are unremarkable except as noted in HPI and below Constitutional Constitutional: Denies chills and Denies fever(s) Cardiovascular Cardiovascular: Denies chest pain and Denies dyspnea Respiratory Respiratory: Denies cough and Denies dyspnea Gastrointestinal Gastrointestinal: Denies abdominal pain, Denies nausea and Denies vomiting Genitourinary Genitourinary: Denies dysuria Musculoskeletal Musculoskeletal: Denies joint swelling Integumentary/Breasts Skin/Breast: Denies rash PFSH All Active Problems (Updated 03/16/22 @ 18:58 by Vernon Snyder MD) Chronic appendicitis (Acute) Vomiting (Acute) Abdominal pain (Acute) Suicidal ideation (Acute) Depression (Chronic) Light-headed feeling (Acute) Medical History 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 Surgical History H/O aortic coarctation repair Social History Smoking/Tobacco Use Status: Never Smoking risk assessment performed?: Yes Alcohol Intake: never Drug use: Never Substance use type: does not use Current gender identity: male Do you feel safe at home: Yes (Has scary thoughts at night that keep him up.) Do you feel safe in your relationship?: Yes Exam Const General: no acute distress Orientation: alert HENMT Head: normal to inspection Ears: external ears normal General nose exam: external nose normal Mouth: moist mucous membranes Eyes General: appearance normal, both eyes and all related structures Neck Neck: normal visual inspection Resp Effort & Inspection: normal respiratory effort and able to speak in complete sentences Cardio Rate: regular rate GI Palpation: soft and nontender Skin General skin exam: no rashes or lesions noted Neuro General: patient alert and patient oriented x3 Extrem General: normal to inspection Psych Mental Status: mental status grossly normal Course Vital Signs Vital signs: Vital Signs Temperature 37.0 C 03/16/22 15:50 Pulse 110 H 03/16/22 15:50 Respiratory Rate 20 03/16/22 15:50 Blood Pressure 132/79 03/16/22 15:50 Pulse Oximetry 98 03/16/22 15:50 Temperature 37.0 C 03/16/22 15:50 Temperature Source Oral 03/16/22 15:50 Pulse 110 H 03/16/22 15:50 Respiratory Rate 20 03/16/22 15:50 Blood Pressure 132/79 03/16/22 15:50 Blood Pressure Position Sitting 03/16/22 15:50 Pulse Oximetry 98 03/16/22 15:50 Oxygen Delivery Method Room Air 03/16/22 15:50 Oxygen Flow Rate 0 03/16/22 15:50
--- NOTE | 2022-03-16 17:03 | DI.VRAD_ITS ---
PROCEDURE INFORMATION: Exam: XR Abdomen Exam date and time: 03/16/2022 4:58 PM Age: 26 years old Clinical indication: Other: [place] ingestion TECHNIQUE: Imaging protocol: Radiologic exam of the abdomen. Views: Frontal supine view of the abdomen. 1 View. COMPARISON: CT ABDOMEN PELVIS W 02/09/2022 4:42 PM FINDINGS: Gastrointestinal tract: Constipation in the right colon and left colon Bones/joints: Unremarkable. Other findings: Metallic density overlies the rectum. This may represent a retained foreign body. IMPRESSION: Metallic density overlies the rectum. This may represent a retained foreign body. Dictated and Authenticated by: Chrystal Romano MD. Ordering:PAZ Junior MD
--- NOTE | 2022-03-16 20:22 | PDOC.MHCN ---
Date of service: 03/16/22 Time of Service: 06:56 Mental Health Emergency Note Release [facility] release signed:: Yes Reason for Visit Emil reports he came to the emergency room because he ate inanimate objects and was having suicidal thoughts. In the last 2 weeks has the pt presented for ES prior to today?: Unknown Client Information Client is: [facility] Well Housed: Yes Non Suicidal Self Injury Current: No History: yes, Emil often eats inedible things. Safety Risk/Harm to Self or Others Current Ideation to Harm Self or Others: No Risk: Does risk to harm exist?: No Risk: N/A Asssessment/Mental Status Appearance: Unremarkable Attitude: Cooperative and Friendly Behavior: Unremarkable Speech: Normal Affect: Normal Mood: Happy and Anxious Thought process: Unremarkable Hallucinations: No evidence Delusions: No evidence Attention: Unremarkable Orientation: Fully orientated Memory: Intact Insight: Poor Judgement: Poor Neurovegetative Symptoms Sleep: No change Appetitie: No change Interests: No change Energy: No change Libido: Not applicable Substance Use: Do you use nicotine?: No Have you used substances in the last 7 days?: No Additional Issues: Assaultive/Threatening Behavior: No Medical Concerns: No Client engaged in active self harm w/weapon: No Threatening to run away: No Child reported abuse/neglect: No Voluntarily presenting for services: Yes Domestic violence is a concern: No Extreme Psychosis or extreme behavior is present: No Impression Emil presents to the hospital with fleeting SI. Emil reports eating a coin, a sock, and a rubber elastic earlier in the day. Emil was sad when this curriculum writer had a conversation with Emil about what could happen if something became lodged in his throat. Emil reports he does not want to , he wants to continue living and the most important thing for him is his outings.Emil reports cancelling his outing today because he was sad, but also reports if he had an outing he would not be in the emergency room. Resources Reosurces reviewed and given:: 988 and [facility] Plan/Disposition Recommended Disposition: [facility] Services ([facility]) [facility] Services: Other. Plan: Emil is going home on a safety plan. Person reported agreement to plan: Yes Reports/communication Outcome discussed with: ED/Personnel
== END 2022-03-16 19:14 | disposition home or self-care (01) ==
PROVIDERS: Emergency Provider Emergency Medicine; PCP Neuromusculoskeletal Medicine & OMM
DX: F32.A Depression, unspecified (principal); R45.88 Nonsuicidal self-harm
CPT/HCPCS: 99283; 74018; 99284

== ENCOUNTER 2022-04-30 04:03 | Emergency (ER) | payer MEDICARE, MEDICAID, SELFPAY ==
--- NOTE | 2022-04-30 04:15 | W.ED.GENAD ---
Discharge Plan Disposition Patient Disposition: Home Condition: Stable Discharge Details Clinical Impression: Depression Primary Care Provider: Gaetano Hdz ED Provider: Jeanna Boyd Home Meds and New Rx's Prescriptions: Continued clonazepam 1 mg tablet 2 mg PO HS PRN PRN Patient Comments: TK 1/2 TO 1 T PO QHS melatonin 10 mg Capsule 10 mg PO HS quetiapine [Seroquel] 25 mg Tablet 50 mg PO QHS Discharge Instructions Instructions: Depression (ED) Additional Instructions: Follow-up with [facility] for reevaluation as directed. Continue your medications as directed. Try to adjust your schedule to sleep in the night and be awake during the day. Limit screen time at nighttime to help with falling asleep in the evening. Follow-up with your primary care doctor in 1 week. Return to the emergency department with any worsening or new concerning symptoms. Discharge Data Discharge Date/Time-TO BE ENTERED AT DEPARTURE: 04/30/22 06:00 Discharge Physician: Jeanna Boyd Medical Decision Making 0400 -- 26-year-old male with a history of Abhishek syndrome, depression and multiple visits to the emergency department for psychiatric complaints presents for suicidal ideation for the past 4 days. 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 He denies any acute complaints at this time. He currently is not suicidal and has no plan. He denies any other alcohol or drug use. As patient is hemodynamically stable and asymptomatic and has been eating and drinking normally, he is medically cleared and will consult mental health. 0530 --patient evaluated by mental health and cleared for discharge to home. Safety plan contracted. Patient will follow-up with [facility] later today. Patient and mom feel comfortable with plan. Advised to follow up with the primary care doctor for re-evaluation. Usual and customary return precautions given prior to discharge. Medical Records Medical records reviewed: Yes I reviewed the patient's medical records. HPI General Mode of arrival: ambulatory. Date/Time Provider Initiated Documentation: 04/30/22 04:04. Limitations to Documentation: no limitations. Information obtained by: patient. HPI Narrative: Patient is a 26-year-old male with a history of Abhishek syndrome, depression and multiple visits for psychiatric complaints including suicidal ideation presents for feeling suicidal for the past 4 days. 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 He states he did this to harm himself. He states several hours later he vomited once but then has been able to eat for the past day and a half without incident. He currently denies any symptoms of fever, chest pain, difficulty breathing, abdominal pain, vomiting or diarrhea. Patient states he has been having trouble sleeping lately as he is mainly on his phone and watching TV throughout the night and sleeps throughout the day. He had been involved in community supports in which she would gather socially and go out to lunch but states he has been canceling this more frequently as he is sleeping during the day. He did visit his sisters recently who he says are good social support from mom states he becomes quite down when the visits are over. Mom states they are thinking of moving back to [place]. He currently denies feeling suicidal. He currently does not have a plan. He denies homicidal ideation. He denies alcohol or drug use. He denies auditory hallucinations. Mom states she is concerned about his ongoing thoughts of depression and suicide as she feels that his current treatment plan is not helping. She states he meets with his psychiatrist once weekly and feels he needs more frequent evaluation with counseling or psychology. Related Data Home Medications Medication Instructions Recorded Confirmed clonazepam 1 mg tablet 2 mg PO HS PRN PRN 07/04/19 04/30/22 melatonin 10 mg capsule 10 mg PO HS 09/07/21 04/30/22 quetiapine 25 mg tablet (Seroquel) 50 mg PO QHS 11/12/21 04/30/22 Allergies Allergy/AdvReac Type Severity Reaction Status Date / Time green pepper Allergy Swelling/Ed Unverified 04/30/22 04:21 feroz ortiz peppers Allergy Intermediate swelling, Uncoded 04/30/22 04:21 edema, vomiting SSRI AdvReac Other (See Uncoded 04/30/22 04:21 Comment) General Stated Complaint: PsychEval MARQUISE: 2 Review of Systems All systems reviewed & are unremarkable except as noted in HPI and below Constitutional Constitutional: Reports as per HPI, Denies chills and Denies fever(s) Eyes Eyes: Denies blurry vision ENT Ears, Nose, Mouth, and Throat: Denies dizziness, Denies sore throat and Denies throat swelling Cardiovascular Cardiovascular: Denies chest pain and Denies dyspnea Respiratory Respiratory: Denies cough and Denies dyspnea Gastrointestinal Gastrointestinal: Denies abdominal pain, Denies diarrhea and Denies vomiting Genitourinary Genitourinary: Denies hematuria and Denies dysuria Musculoskeletal Musculoskeletal: Denies back pain and Denies numbness Integumentary/Breasts Skin/Breast: Denies lesions and Denies rash Neurologic Neurologic: Denies dizziness, Denies localized weakness and Denies numbness Psychiatric Psychiatric: Reports suicidal ideation Allergic/Immunologic Allergic/Immunologic: Denies throat swelling PFSH All Active Problems (Updated 04/30/22 @ 05:50 by Jeanna Boyd DO) Depression (Chronic) Chronic appendicitis (Acute) Vomiting (Acute) Abdominal pain (Acute) Suicidal ideation (Acute) Depression (Chronic) Light-headed feeling (Acute) Medical History 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 Surgical History H/O aortic coarctation repair Social History Smoking/Tobacco Use Status: Never Smoking risk assessment performed?: Yes Alcohol Intake: never Drug use: Never Substance use type: does not use Current gender identity: male Do you feel safe at home: Yes (Has scary thoughts at night that keep him up.) Do you feel safe in your relationship?: Yes Exam Const General: cooperative and no acute distress Orientation: alert, awake and oriented x3 HENMT Head: normal to inspection Mouth: oral mucosae normal Eyes General: appearance normal, both eyes and all related structures Neck Neck: normal visual inspection Resp Effort & Inspection: normal respiratory effort and able to speak in complete sentences Auscultation: clear to auscultation bilaterally Cardio Rate: regular rate Rhythm: regular rhythm Skin General skin exam: no rashes or lesions noted Neuro General: patient alert, patient awake and patient oriented x3 Motor: muscle tone normal throughout Extrem General: normal to inspection and full ROM Psych Appearance: grossly normal Affect: normal affect
--- NOTE | 2022-04-30 05:06 | PDOC.MHCN ---
Date of service: 04/30/22 Time of Service: 05:06 Suicide Severity Rate CSSRS Have you wished you were or wished you could go to sleep and not wake up?: Yes Have you actually had any thoughts of killing yourself?: Yes CSSRS2 Have you been thinking about how you might do this?: Yes Have you had these thoughts and had some intention of acting on them?: Yes Have you started to work out or worked out the details of how to kill yourself? Do you intend to carry out this plan?: No CSSRS3 Have you ever done anything, started to do anything or prepared to do anything to end your life?: No CSSRS4 Was this within the past three months?: No Screening Score Total Score: 4 Screening: Positive Mental Health Emergency Note Release [facility] release signed:: No Reason for Visit Client presented to the ED for an eval. In the last 2 weeks has the pt presented for ES prior to today?: Unknown Client Information Client is: [facility] Well Housed: Yes Non Suicidal Self Injury Current: No History: yes, Client eats inanimate objects, stated he almost ate a battery on Wednesday. Safety Risk/Harm to Self or Others Current Ideation to Harm Self or Others: No Risk: Does risk to harm exist?: No Duty to warn indicated: No Asssessment/Mental Status Appearance: Unremarkable Attitude: Cooperative Behavior: Unremarkable Speech: Normal Affect: Normal Mood: Happy Thought process: Unremarkable Hallucinations: No evidence Delusions: No evidence Attention: Unremarkable Perception: Not impaired Orientation: Fully orientated Memory: Intact Insight: Fair Judgement: Poor Neurovegetative Symptoms Sleep: Decrease Appetitie: No change Interests: No change Energy: No change Substance Use: Do you use nicotine?: No Have you used substances in the last 7 days?: No Additional Issues: Assaultive/Threatening Behavior: No Medical Concerns: No Client engaged in active self harm w/weapon: No Threatening to run away: No Child reported abuse/neglect: No Voluntarily presenting for services: Yes Domestic violence is a concern: No Extreme Psychosis or extreme behavior is present: No Impression This client presented to the ED looking for an evaluation as he had endorsed SI in the early hours of 04/30/22. This client stated he no longer feels suicidal and would like to return home with his family. Client identified several deterrents for himself like his sisters, his mother and his father. This client identified a few things he would like to work on with his public service administrator like scheduling more outings, getting on a better sleep schedule and exercising more. Vinay feels that if he could get some help working on those areas his quality of life would improve and he would feel less suicidal. Client stated his sleep pattern has been an issue for him lately. No HI/NSSI/SI endorsed, client will return home and check in with the [facility] surgical product sales consultant/his DSP. Resources Reosurces reviewed and given:: 988 Plan/Disposition Recommended Disposition: [facility] Services [facility] Services: Other ([facility]) and Community resources. Plan: Client will connect with mechanical service specialist during business hours today, 04/30, about more weekly outings and working on his sleep routine. Person reported agreement to plan: Yes Reports/communication Outcome discussed with: ED/Personnel
[2022-04-30 05:21] VITALS: BP 142/95; PULSE 93; RESP 20; TEMP 37; O2SAT 97
== END 2022-04-30 06:00 | disposition home or self-care (01) ==
PROVIDERS: Emergency Provider Physician Assistant; PCP Neuromusculoskeletal Medicine & OMM
DX: F32.A Depression, unspecified (principal); R45.851 Suicidal ideations
CPT/HCPCS: 99285; 99283

== ENCOUNTER 2022-05-15 12:49 | Emergency (ER) | payer MEDICARE, MEDICAID, SELFPAY ==
[2022-05-15 13:16] VITALS: BP 124/80; PULSE 108; RESP 16; TEMP 36.9; O2SAT 95
--- NOTE | 2022-05-15 13:25 | ED.GENADUL_ITS ---
Discharge Plan Disposition Patient Disposition: Home Condition: Stable Discharge Details Clinical Impression: Suicidal ideations Primary Care Provider: Gaetano Hdz ED Provider: Yaz Yusuf Home Meds and New Rx's Prescriptions: Continued clonazepam 1 mg tablet 2 mg PO HS PRN PRN Patient Comments: TK 1/2 TO 1 T PO QHS melatonin 10 mg Capsule 10 mg PO HS quetiapine [Seroquel] 25 mg Tablet 50 mg PO QHS Discharge Instructions Instructions: Depression (ED), Help Prevent Suicide (ED) Additional Instructions: At this time you have declined care bed placement. Please follow-up with [facility] if any additional thoughts of suicidal tendencies. Follow up with primary care provider in 3-5 days. Return to ED sooner if any worsening or concerns. Increase oral fluids. Referrals: Gaetano Hdz [Primary Care Provider] - 3 days Medical Decision Making 26-year-old male with past medical history of aortic coarctation repair, Abhishek syndrome presents to the ER with chief complaint of suicidal ideation for the last 2 weeks. Patient reports that he has thoughts of hurting himself with a coat gutter hanger. He denies doing anything or taking any medications to hurt himself over the last couple of days. He denies any pain, headache nausea vomiting diarrhea or any other associated symptoms. He denies smoking no illicit drugs or alcohol. Smart medical clearance form filled out patient does not appear to be under the influence of any substances. Sitter at bedside, patient placed in paper scrubs mental health consult ordered. Patient has been evaluated by any [facility] they will be trying to get him a care bed. They request UDS and COVID swab. They also state the patient does not need a CPS O if his mom is going to stay with him. Orders placed. Informed by production staff worker that patient does not want to go to care bed, will plan on discharge unless other instructions from [facility]. This text was generated using [employer] system, please disregard any oddities of phrase or misspellings. HPI General Mode of arrival: ambulatory . Date/Time Provider Initiated Documentation: 05/15/22 12:50 . Limitations to Documentation: no limitations . Information obtained by: patient, RN notes reviewed and old records reviewed . HPI Narrative: 26-year-old male with past medical history of aortic coarctation repair, Abhishek syndrome presents to the ER with chief complaint of suicidal ideation for the last 2 weeks. Patient reports that he has thoughts of hurting himself with a coat gutter hanger. He denies doing anything or taking any medications to hurt himself over the last couple of days. He denies any pain, headache nausea vomiting diarrhea or any other associated symptoms. He denies smoking no illicit drugs or alcohol. Related Data Home Medications Medication Instructions Recorded Confirmed clonazepam 1 mg tablet 2 mg PO HS PRN PRN 07/04/19 05/15/22 melatonin 10 mg capsule 10 mg PO HS 09/07/21 05/15/22 quetiapine 25 mg tablet (Seroquel) 50 mg PO QHS 11/12/21 05/15/22 Allergies Allergy/AdvReac Type Severity Reaction Status Date / Time green pepper Allergy Swelling/Ed Unverified 05/15/22 13:21 feroz ortiz peppers Allergy Intermediate swelling, Uncoded 05/15/22 13:21 edema, vomiting SSRI AdvReac Other (See Uncoded 05/15/22 13:21 Comment) General Stated Complaint: PsychEval MARQUISE: 2 Review of Systems All systems reviewed & are unremarkable except as noted in HPI and below Psychiatric Psychiatric: Reports suicidal ideation PFSH All Active Problems (Updated 05/15/22 @ 14:45 by Yaz Yusuf NP) Depression (Chronic) Suicidal ideations (Acute) Chronic appendicitis (Acute) Vomiting (Acute) Abdominal pain (Acute) Suicidal ideation (Acute) Depression (Chronic) Light-headed feeling (Acute) Medical History 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 Surgical History H/O aortic coarctation repair Social History Smoking/Tobacco Use Status: Never Smoking risk assessment performed?: Yes Alcohol Intake: never Drug use: Never Substance use type: does not use Current gender identity: male Do you feel safe in your relationship?: Yes Additional Social history: patient does not feel safe with self. Exam Narrative Exam Narrative: Constitutional: Alert and oriented x3. Appears stated age. Normal body habitus. Head: Normocephalic, no trauma. Eyes: Pupils PERRL, Red reflex noted, EOM's intact. Eyelids symmetrical without lesions, discharge, or swelling. ENT: Bilateral TM's WNL, External ear normal to inspection, no mastoid TTP, swelling, or erythema, Nasal turbinates WNL, no nasal discharge. Normal dentition, Posterior pharynx WNL, no exudate. Chest: RRR, Normal S1, S2, distal pulses intact. Resp: Lungs clear to auscultation bilaterally, no wheezes, rales, or rhonchi. Abdomen: Soft, non-distended, Normoactive bowel sounds all 4 quads. Musculoskeletal: Normal gait, 5/5 strength to all four extremities. Skin: No suspicious rashes or lesions. Capillary refill less than 2 sec. Neurologic: Cranial nerves II-XII intact. Alert and oriented x 3. Motor: No deficits noted. Sensory: Intact bilaterally all 4 extremities. Reflexes: DTR's intact bilaterally.. Hematologic/Lymphatic: No ecchymosis, no lymphadenopathy. Psych Appearance: grossly normal Speech and Movement: speech and movement normal Mood: congruent mood Affect: normal affect Thought Process: normal Thought Content: normal Insight: fair Judgment: fair Course Vital Signs Vital signs: Vital Signs Temperature 36.9 C 05/15/22 13:16 Pulse 108 H 05/15/22 13:16 Respiratory Rate 16 05/15/22 13:16 Blood Pressure 124/80 05/15/22 13:16 Pulse Oximetry 95 05/15/22 13:16 Temperature 36.9 C 05/15/22 13:16 Temperature Source Oral 05/15/22 13:16 Pulse 108 H 05/15/22 13:16 Respiratory Rate 16 05/15/22 13:16 Blood Pressure 124/80 05/15/22 13:16 Blood Pressure Position Sitting 05/15/22 13:16 Pulse Oximetry 95 05/15/22 13:16 Oxygen Delivery Method Room Air 05/15/22 13:16 Oxygen Flow Rate 0 05/15/22 13:16
== END 2022-05-15 16:07 | disposition home or self-care (01) ==
PROVIDERS: Emergency Provider Registered Nurse Emergency; PCP Neuromusculoskeletal Medicine & OMM
DX: F32.A Depression, unspecified (principal); R45.851 Suicidal ideations; Q93.82 Williams syndrome
CPT/HCPCS: 87635; 99285; 99283

== ENCOUNTER 2023-05-16 15:18 | Emergency (ER) | payer MEDICARE, MEDICAID, SELFPAY ==
[2023-05-16 15:25] VITALS: BP 135/60; PULSE 90; RESP 16; TEMP 36.5; O2SAT 100
--- NOTE | 2023-05-16 15:31 | ED.GENADUL_ITS ---
Discharge Plan Disposition Patient Disposition: Home Condition: Stable Discharge Details Clinical Impression: Depression Primary Care Provider: Antonio Burgos ED Provider: Vernon Snyder Home Meds and New Rx's Prescriptions: Continued clonazepam 1 mg tablet 2 mg PO HS PRN PRN Patient Comments: TK 1/2 TO 1 T PO QHS prazosin 1 mg capsule 1 mg PO QHS Discharge Instructions Additional Instructions: Follow-up with your primary care provider and [facility] services If you feel more ill, or have thoughts of self-harm return to the emergency department for reevaluation HPI General Mode of arrival: ambulatory . Date/Time Provider Initiated Documentation: 05/16/23 15:19 . Limitations to Documentation: no limitations . Information obtained by: patient . History of Present Illness 27 year old M presents to the emergency department with the chief complaint of depression, described as mild, Patient started experiencing this week(s) (1) and it has been constant. No relieving factors improve symptom(s), No exacerbating factors reported . Patient notes no other symptoms.. Patient did receive the following treatments prior to arrival, none Related Data Home Medications Medication Instructions Recorded Confirmed clonazepam 1 mg tablet 2 mg PO HS PRN PRN 07/04/19 05/16/23 prazosin 1 mg capsule 1 mg PO QHS 05/16/23 05/16/23 Allergies Allergy/AdvReac Type Severity Reaction Status Date / Time ortiz pepper [green pepper] Allergy Swelling/Ed Unverified 05/16/23 15:23 feroz ortiz peppers Allergy Intermediate swelling, Uncoded 05/16/23 15:23 edema, vomiting SSRI AdvReac Other (See Uncoded 05/16/23 15:23 Comment) General Stated Complaint: PsychEval MARQUISE: 3 Review of Systems All systems reviewed & are unremarkable except as noted in HPI and below Constitutional Constitutional: Denies chills, Denies fever(s) and Denies weakness Cardiovascular Cardiovascular: Denies chest pain and Denies dyspnea Respiratory Respiratory: Denies cough and Denies dyspnea Gastrointestinal Gastrointestinal: Denies abdominal pain, Denies nausea and Denies vomiting Musculoskeletal Musculoskeletal: Denies joint swelling Neurologic Neurologic: Denies weakness Exam Const General: no acute distress Orientation: alert HENMT Head: normal to inspection Ears: external ears normal General nose exam: external nose normal Mouth: moist mucous membranes Eyes General: appearance normal, both eyes and all related structures Neck Neck: normal visual inspection Resp Effort & Inspection: normal respiratory effort and able to speak in complete sentences Cardio Rate: regular rate Skin General skin exam: no rashes or lesions noted Neuro General: patient alert and patient oriented x3 Extrem General: normal to inspection Course Vital Signs Vital signs: Vital Signs Temperature 36.5 C 05/16/23 15:25 Pulse 90 05/16/23 15:25 Respiratory Rate 16 05/16/23 15:25 Blood Pressure 135/60 05/16/23 15:25 Pulse Oximetry 100 05/16/23 15:25 Temperature 36.5 C 05/16/23 15:25 Temperature Source Temporal Artery Scan 05/16/23 15:25 Pulse 90 05/16/23 15:25 Respiratory Rate 16 05/16/23 15:25 Respiratory Effort Normal, Non-Labored 05/16/23 15:26 Blood Pressure 135/60 05/16/23 15:25 Blood Pressure Position Sitting 05/16/23 15:25 Pulse Oximetry 100 05/16/23 15:25 Oxygen Delivery Method Room Air 05/16/23 15:25 Oxygen Flow Rate 0 05/16/23 15:25 Pain Level 0 05/16/23 15:25 Medical Decision Making 27-year-old male with a history of Abhishek syndrome, prior history of depression and SI, comes in with a week of worsening depression without SI. Has not done anything to actually try and harm himself and has no plan. Has states he has a data processing equipment repairer advised him to come here for an evaluation. Denies any fevers, headache, difficulty breathing, abdominal pain, denies any alcohol or drug use. Oriented x 4 on arrival clear speech. Medically cleared to speak with mental health for evaluation Patient met with [facility] human services hospice social worker, patient willing to safety plan home I feel this is reasonable given lack of SI. He will follow- up with his primary care and with the significant services and return precautions given Differential Diagnosis Differential Diagnosis: Depression, anxiety Quality:SDOH Health Related Social Needs: No Data to Display PFSH All Active Problems (Updated 05/16/23 @ 16:45 by Vernon Snyder MD) Chronic appendicitis (Acute) Vomiting (Acute) Abdominal pain (Acute) Suicidal ideation (Acute) Depression (Chronic) Light-headed feeling (Acute) Medical History 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 Additional Social history: patient does not feel safe with self.
== END 2023-05-16 17:10 | disposition home or self-care (01) ==
LOC: ER 16:50
PROVIDERS: Emergency Provider Emergency Medicine; PCP Family Medicine
DX: F32.9 Major depressive disorder, single episode, unspecified (principal)
CPT/HCPCS: 99283

== ENCOUNTER 2024-02-14 12:45 | Outpatient (CLI) | payer MEDICARE, MEDICAID, SELFPAY ==
[2024-02-14 12:45] LABS: Abs Immature Grans 0.01 10^3/uL (0.0-0.06); Absolute Basophil Count 0.05 10^3/uL (0.0-0.2); Absolute Eosinophil Count 0.17 10^3/uL (0.0-0.7); Absolute Lymphocyte Count 1.18 10^3/uL (1.2-3.4); Absolute Monocyte Count 0.38 10^3/uL (0.1-0.8); Absolute Neutrophil Count 4.43 10^3/uL (1.2-6.7); Basophils % 0.8 %; Eosinophils % 2.7 %; HGB 15.3 g/dL (13.5-17.5); Immature Grans % 0.2 %; MCH 28.2 pg (27.0-33.0); MCHC 32.6 % (32.0-36.0); MCV 87 fL (80-95); MPV 10.4 fL (8.0-11.0); Monocytes % 6.1 %; Neutrophils % 71.2 %; Platelet Count 188 10^3/uL (130-400); RBC 5.42 10^6/uL (4.36-5.78); RDW 12.6 % (11.8-14.1); RDW-SD 39.8 fL; WBC 6.22 10^3/uL (4.4-10.8)
[2024-02-14 13:09] LABS: ALT 19 U/L (16-63); AST 22 U/L (15-37); Albumin 4.6 g/dL (3.4-5.0); Alkaline Phosphatase 75 U/L (46-116); Anion Gap 7.3 mmol/L (3-11); BUN 17 mg/dL (7-18); Bilirubin, Total 0.31 mg/dL (0.2-1.0); CO2 31.7 mmol/L (21.0-32.0); CREATININE 1.2 mg/dL (0.70-1.30); Calcium 9.6 mg/dL (8.5-10.1); Calculated LDL 156 mg/dL (<100); Chloride 106 mmol/L (98-107); Cholesterol 228 mg/dL (<200); Estimated GFR 84.48 (mL/min/1.73m2); Glucose 108 mg/dL (74-106); HDL Cholesterol 63 mg/dL (40-60); Potassium 4.6 mmol/L (3.5-5.1); Sodium 145 mmol/L (136-145); TSH (W/Ref FT4) 2.62 uIU/mL (0.36-3.74); Total Protein 8.4 g/dL (6.4-8.2); Triglyceride 46 mg/dL (<150)
[2024-02-15 14:33] LABS: Albumin 64.2 % (55.8-66.1); Total Protein 7.8 g/dL (6.3-8.2)
== END 2024-02-14 12:46 | disposition home or self-care (01) ==
LOC: LBO 12:45
PROVIDERS: PCP Family Medicine; Visit Provider Family Medicine
DX: Z13.6 Encounter for screening for cardiovascular disorders (principal); R53.82 Chronic fatigue, unspecified; G40.89 Other seizures; Q93.82 Williams syndrome; Q25.1 Coarctation of aorta
CPT/HCPCS: 36415; 80053; 80061; 84155; 84165; 84443; 85025; 86320

== ENCOUNTER 2024-03-12 02:43 | Emergency (ER) | payer MEDICARE, MEDICAID, SELFPAY ==
[2024-03-12] VITALS (22 sets, daily range): BP systolic 111–140; BP diastolic 84–102; PULSE 109–136; RESP 3–30; TEMP 37.4; O2SAT 97–100
--- NOTE | 2024-03-12 02:30 | RT.EKG_ITS ---
APPROVED REPORT Exam: Resting ECG Reason for Exam: high heart rate Patient Location: E HR:134 bpm ECG Measurements Heart Rate 134 AXIS MN 143 P 58 QRSd 95 QRS 191 QT 293 T 23 QTc 438 Conclusion Sinus tachycardia, rate 134 No interval abnormalities No STEMI Compared to priors, no significant morphology changes, rate has increased
--- NOTE | 2024-03-12 02:49 | ED.GENADUL_ITS ---
Discharge Plan Disposition Patient Disposition: Home Condition: Stable Discharge Details Clinical Impression: Hypomagnesemia, Depression, Light-headed feeling Primary Care Provider: Antonio Burgos ED Provider: Laure Guzman Home Meds and New Rx's Prescriptions: No Action clonazepam 1 mg tablet 2 mg PO HS PRN PRN Patient Comments: TK / TO 1 T PO QHS prazosin 1 mg capsule 1 mg PO QHS Discharge Instructions Instructions: Hypomagnesemia Additional Instructions: You were seen in the emergency department today for evaluation of lightheadedness, an episode of vomiting, and fast heart rate. You were found to have low magnesium which can be contributing to the symptoms. You met with the social workers and it is safe for you to go home and continue to take all your medications as prescribed. You should follow-up with your primary care doctor in the next few days to discuss this visit and have your heart rate rechecked. You can also return to the emergency department if you have any concerns, and thank you for allowing us to be part of your care. HPI General Mode of arrival: ambulatory . Date/Time Provider Initiated Documentation: 03/12/24 02:44 . Limitations to Documentation: no limitations . Information obtained by: family, EMS and old records reviewed . HPI Narrative: HPI: This is a 28-year-old male patient with a past medical history significant for Abhishek syndrome, aortic coarctation status post open heart surgery as an , and history of depression presenting for evaluation of dizziness, an episode of vomiting, and anxiety. The patient was brought in by EMS, and the patient reports that several weeks ago he experienced thoughts of wanting to kill himself by jumping in front of a vehicle. He reports that he has thoughts and feelings about suicide have actually improved, and he currently is not experiencing suicidal ideation or intent. He was scheduled to meet with his mental health providers to discuss these feelings on Wednesday. Tonight, the patient had an episode of vomiting, and felt lightheaded, which caused some sign ificant concern in his household and prompted the call to EMS. The patient reports that he was nervous to come to the hospital and be evaluated. The patient is currently not experiencing any pain, states his dizziness and nausea have resolved. He has not had chest pain or shortness of breath. He started new medications about a month ago, to include Pristiq, Ambien, and has continued to take his clonazepam and prazosin. He has not had any intentional overdose or missed doses of this medication regimen. He states that he does not use alcohol, nicotine or tobacco, or other illicit substances, and has not made any attempts to harm himself this evening. Exam: Gen: Awake and alert, in no apparent distress HEENT: Non-icteric sclera, pupils equal and reactive at 3 mm bilaterally Neck: Supple Lungs: No apparent respiratory distress, normal respiratory effort. Lung sounds clear and equal bilaterally without wheezes, rhonchi, rales CV: Appears well perfused, heart with tachycardic rate but regular rhythm, the patient has a loud systolic murmur best auscultated over the left upper sternal border and a well-healed midline sternotomy scar. Abdomen: Non-distended, soft, nontender MSK: Moves 4 extremities without apparent limitation in ROM Skin: Visualized skin without rashes, cyanosis. Neuro: Normal Gait, no obvious focal deficits or facial asymmetry. Speaks in full, clear sentences. Psych: Appropriate for situation. Currently denying suicidal or homicidal ideation, reports a history of suicidal thoughts without intent. MDM: This is a 28-year-old male patient presenting for evaluation of depression and suicidal thoughts and feelings as well as an episode of dizziness and nausea tonight that has resolved. Certainly considered in my differential primary psychiatric disturbance including depression, anxiety, though I am reassured by the patient's lack of suicidal ideation at this time. Considered medical abnormalities including dehydration, metabolic and electrolyte derangements, arrhythmia, hyperthyroidism, kidney and liver abnormalities. Considered intoxication, overdose and withdrawal syndrome though this is less consistent with the patient's history. Given his tachycardia, I did obtain a twelve-lead EKG which shows a sinus tachycardia without evidence of ischemia, interval abnormality, or ectopy. I am reassured by the patient's lack of dizziness, associated hypotension, and his well-perfused appearance. We will obtain laboratory studies to include CBC, CMP, TSH, ethanol, urinalysis and urine drug screen. I anticipate after medical clearance examination if the patient continues to feel well he will be appropriate for evaluation by crisis, though I anticipate given his lack of active suicidal ideation that safety planning will be the most likely outcome. I did offer this patient medications for management of his anxiety and at this time he is desiring to wait and see how his symptoms improve with rest and time. ED Course: I independently interpreted the laboratory studies, which show no significant leukocytosis, anemia, or thrombocytopenia. The chemistry panel is without evidence of electrolyte abnormality, kidney dysfunction, or liver injury, with the exception of a low magnesium at 1.3. TSH within normal limits, ethanol level negative. The patient was provided with 2 g of magnesium IV for repletion. I did note a significant decrease in his heart rate, though he continued to have a rate greater than 100. He was provided with oral fluids and tolerated them well, and I suspect that the patient's endorsed anxiety regarding the evening and his hospital visit is a significant contributor to his heart rate. The patient met with the social workers from and [facility]. He has a standing protocol and safety plan which was utilized given the patient's lack of active suicidal ideation. The patient reports that his symptoms feel significantly improved, he was able to ambulate, and is desiring of discharge. At this time the patient has had adequate workup and I recommended high magnesium foods and recheck with his primary care of his heart rate and magnesium in the next few days. At this time, the patient has had a full medical evaluation and is safe for discharge to home. They are hemodynamically stable, ambulatory, and tolerating PO. They are understanding of the follow-up plan and return precautions. They left our facility without incident. Laure Guzman MD Related Data Home Medications ?Medication ?Instructions ?Recorded ?Confirmed clonazepam 1 mg tablet 2 mg PO HS PRN PRN 07/04/19 03/12/24 prazosin 1 mg capsule 1 mg PO QHS 05/16/23 03/12/24 Allergies Allergy/AdvReac Type Severity Reaction Status Date / Time ortiz pepper (green pepper) Allergy Swelling/Ed Unverified 03/12/24 02:57 feroz ortiz peppers Allergy Intermediate swelling, Uncoded 03/12/24 02:57 edema, vomiting SSRI AdvReac Other (See Uncoded 03/12/24 02:57 Comment) General Stated Complaint: PsychEval MARQUISE: 2 Course Vital Signs Vital signs: Vital Signs Pulse 129 H 03/12/24 02:35 Respiratory Rate 18 03/12/24 02:35 Blood Pressure 140/102 H 03/12/24 02:35 Pulse Oximetry 99 03/12/24 02:35 Pulse 129 H 03/12/24 02:35 Respiratory Rate 18 03/12/24 02:35 Blood Pressure 140/102 H 03/12/24 02:35 Blood Pressure Position Sitting 03/12/24 02:35 Pulse Oximetry 99 03/12/24 02:35 Oxygen Delivery Method Room Air 03/12/24 02:35 Oxygen Flow Rate 0 03/12/24 02:35 Medical Decision Making Quality:SDOH Health Related Social Needs: No Data to Display PFSH All Active Problems (Updated 03/12/24 @ 05:53 by Laure Guzman MD) Hypomagnesemia (Acute) Chronic appendicitis (Acute) Vomiting (Acute) Abdominal pain (Acute) Suicidal ideation (Acute) Depression (Chronic) Light-headed feeling (Acute) Medical History 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
[2024-03-12 02:56] LABS: Abs Immature Grans 0.03 10^3/uL (0.0-0.06); Absolute Basophil Count 0.02 10^3/uL (0.0-0.2); Absolute Eosinophil Count 0.04 10^3/uL (0.0-0.7); Absolute Lymphocyte Count 0.81 10^3/uL (1.2-3.4); Absolute Neutrophil Count 4.93 10^3/uL (1.2-6.7); Basophils % 0.3 %; Eosinophils % 0.6 %; HGB 15.5 g/dL (13.5-17.5); Immature Grans % 0.5 %; Lymphocytes % 12.6 %; MCH 28.4 pg (27.0-33.0); MCHC 33.7 % (32.0-36.0); MCV 84 fL (80-95); MPV 10.5 fL (8.0-11.0); Monocytes % 9.3 %; Neutrophils % 76.7 %; Platelet Count 180 10^3/uL (130-400); RBC 5.46 10^6/uL (4.36-5.78); RDW 12.7 % (11.8-14.1); RDW-SD 38.6 fL; WBC 6.43 10^3/uL (4.4-10.8)
[2024-03-12 03:18] LABS: ALT 18 U/L (16-63); AST 24 U/L (15-37); Albumin 4.3 g/dL (3.4-5.0); Alkaline Phosphatase 61 U/L (46-116); Anion Gap 8.5 mmol/L (3-11); BUN 13 mg/dL (7-18); Bilirubin, Total 0.88 mg/dL (0.2-1.0); CO2 31.5 mmol/L (21.0-32.0); CREATININE 1.2 mg/dL (0.70-1.30); Calcium 8.7 mg/dL (8.5-10.1); Chloride 103 mmol/L (98-107); Estimated GFR 84.48 (mL/min/1.73m2); Glucose 115 mg/dL (74-106); Potassium 3.4 mmol/L (3.5-5.1); Sodium 143 mmol/L (136-145); TSH (W/Ref FT4) 0.65 uIU/mL (0.36-3.74); Total Protein 7.9 g/dL (6.4-8.2)
[2024-03-12 03:24] LABS: Magnesium 1.3 mg/dL (1.8-2.4)
[2024-03-12 03:33] LABS: ETHANOL BLOOD < 3.0 mg/dL (<10)
[2024-03-12] MEDS: MAGNESIUM SULFATE 2 GM/50 ML BAG IV_INF (03:35)
[2024-03-12] MEDS: Famotidine 20 MG TAB (06:07)
--- NOTE | 2024-03-13 10:39 | PDOC.MHCN ---
Date of service: 03/12/24 Time of Service: 01:30 Mental Health Emergency Note Release [facility] release signed:: Yes Reason for Visit paris stated that his doctor advised him to come in because he was feeling unwell. In the last 2 weeks has the pt presented for ES prior to today?: No Client Information Client is: [facility] Well Housed: Yes Non Suicidal Self Injury Current: No History: yes, Client is staying for medical care. Safety Risk/Harm to Self or Others Current Ideation to Harm Self or Others: No Risk: Does risk to harm exist?: No Risk: N/A Duty to warn indicated: No Impression Client reports no SI/HI. He is only in the ER for medical treatment. Plan/Disposition Recommended Disposition: Other. Plan: Client will stay in ER for treatment. Person reported agreement to plan: Yes Reports/communication Outcome discussed with: ED/Personnel
== END 2024-03-12 06:11 | disposition home or self-care (01) ==
PROVIDERS: Emergency Provider Emergency Medicine; PCP Family Medicine
DX: R11.10 Vomiting, unspecified (principal); R42 Dizziness and giddiness; R45.851 Suicidal ideations; F32.A Depression, unspecified; E83.42 Hypomagnesemia; R00.0 Tachycardia, unspecified; Z79.899 Other long term (current) drug therapy
CPT/HCPCS: 00123; 36415; 80053; 93005; 96365; 96366; 99284; 80320; 83735; 84443; 85025; 93010; J3475

== ENCOUNTER 2024-05-18 14:18 | Outpatient (CLI) | payer MEDICARE, MEDICAID, SELFPAY ==
[2024-05-18 16:23] LABS: Magnesium 2.2 mg/dL
== END 2024-05-18 14:19 | disposition home or self-care (01) ==
PROVIDERS: PCP Family Medicine; Visit Provider Family Medicine
DX: E83.42 Hypomagnesemia (principal)
CPT/HCPCS: 36415; 83735

== ENCOUNTER 2024-06-09 15:33 | Emergency (ER) | payer MEDICARE, MEDICAID, SELFPAY ==
[2024-06-09 15:35] VITALS: BP 134/84; PULSE 120; RESP 16; TEMP 36.9; O2SAT 97
--- NOTE | 2024-06-09 15:35 | ED.GENADUL_ITS ---
Discharge Plan Disposition Patient Disposition: Home Discharge Details Clinical Impression: Suicide ideation Primary Care Provider: Antonio Burgos ED Provider: Erickson Santos Home Meds and New Rx's Prescriptions: Continued clonazepam 1 mg tablet 2 mg PO QHS PRN Patient Comments: TK 1/2 TO 1 T PO QHS prazosin 1 mg capsule 1 mg PO QHS zolpidem 5 mg tablet 5 mg PO QHS omeprazole 40 mg capsule,delayed release(DR/EC) 40 mg PO PRN PRN desvenlafaxine succinate 25 mg tablet extended release 24 hr 25 mg PO DAILY Patient Comments: TAKE 1 TABLET BY MOUTH DAILY FAILED MULTIPLE TRIALS OF ANTIDEPRESSANTS No Action epinephrine 0.3 mg/0.3 mL auto-injector 0.3 mg IM ONCE PRN Patient Comments: ADMINISTER 0.3 MG IN THE MUSCLE 1 TIME Discharge Instructions Instructions: Depression in adults Additional Instructions: You are seen emergency department for your thoughts of self-harm. If you do not feel safe at home or do not feel comfortable this plan please return to the emergency department. Otherwise please pursue the care plan that has been established for you by your outpatient mental health provider. Discharge Data Discharge Date/Time-TO BE ENTERED AT DEPARTURE: 06/09/24 17:00 HPI General Date/Time Provider Initiated Documentation: 06/09/24 15:35 . HPI Narrative: MDM This is an overall very well-appearing oriented tachycardic but not normothermic 28-year-old male with history of depression suicidal ideation with recurrent suicidal ideation and plan with his outpatient mental health provider manage [facility] for outpatient management for which patient will be discharged. No flight of ideas to suggest psychosis. No auditory nor visual hallucinations to suggest schizophrenia. No homicidal ideation. Patient does not own any firearms. His vitals are concerning for tachycardia so we will repeat this prior to discharge. He denies chest pain nausea abdominal pain so not suspicious for ACS appendicitis or diverticulitis. I advised patient that if he had any concerns with this plan that he can return to the emergency department at any point in time. Vitals have historically had tachycardia. Patient has been in the ED multiple times in the setting of depression and been discharged. 4:42 PM Patient's heart rate improved slightly in the emergency department under 105 bpm. Given his prior history of tachycardia in the ED and his plan for safe outpatient follow-up we will discharge with strict return indications. HPI This is a 28-year-old male with history of depression right emergency department via private vehicle in the setting of suicidal ideation. Patient reports he has been having worsening depression for the past several days. He denies visual or auditory hallucinations. No recent falls. No chest pain shortness of breath nausea no vomiting. Patient is not on him current Exam General: Well-appearing in no acute distress speaking in complete sentences. Pleasant. Head: Normocephalic, atraumatic. Eye: Extraocular eye movements intact. No conjunctival injection. No scleral icterus. Ear, nose, mouth, throat: Grossly normal inspection. Normal voice, handling secretions normally. Neck: Trachea midline. Cardiovascular: Well-perfused distal extremities. Respiratory: Nonlabored respiration. Gastrointestinal: Nondistended abdomen. Musculoskeletal: No edema. Moving all 4 extremities spontaneously. Skin: Normal for age and race, grossly normal temperature and turgor. No acute rash. Neurologic: Alert and appropriate, no apparent acute deficits. Oriented. Psychiatric: Mood and manner are appropriate. Grooming and personal hygiene are appropriate.Patient has a flat affect. Thoughts congruent. Speech fluent. Related Data Home Medications ?Medication ?Instructions ?Recorded ?Confirmed clonazepam 1 mg tablet 2 mg PO QHS PRN 07/04/19 06/09/24 prazosin 1 mg capsule 1 mg PO QHS 05/16/23 06/09/24 desvenlafaxine succinate 25 mg 25 mg PO DAILY 06/09/24 06/09/24 tablet,extended release 24 hr epinephrine 0.3 mg/0.3 mL 0.3 mg IM ONCE PRN 06/09/24 06/09/24 injection, auto-injector omeprazole 40 mg capsule,delayed 40 mg PO PRN PRN 06/09/24 06/09/24 release zolpidem 5 mg tablet 5 mg PO QHS 06/09/24 06/09/24 Allergies Allergy/AdvReac Type Severity Reaction Status Date / Time ortiz pepper (green pepper) Allergy Swelling/Ed Unverified 06/09/24 21:35 feroz ortiz peppers Allergy Intermediate swelling, Uncoded 06/09/24 21:35 edema, vomiting SSRI AdvReac Other (See Uncoded 06/09/24 21:35 Comment) General MARQUISE: 2 Medical Decision Making Quality:SDOH Health Related Social Needs: No Data to Display PFSH All Active Problems (Updated 06/09/24 @ 22:47 by Erickson Santos MD) Suicidal thoughts (Acute) Suicide ideation (Acute) Chronic appendicitis (Acute) Vomiting (Acute) Abdominal pain (Acute) Suicidal ideation (Acute) Depression (Chronic) Light-headed feeling (Acute) Medical History 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
[2024-06-09 16:22] VITALS: PULSE 105; RESP 16; O2SAT 98
[2024-06-09 16:53] VITALS: BP 134/84; PULSE 105; RESP 16; O2SAT 98
== END 2024-06-09 17:00 | disposition home or self-care (01) ==
PROVIDERS: Emergency Provider Emergency Medicine; PCP Family Medicine
DX: R45.851 Suicidal ideations (principal)
CPT/HCPCS: 99284; 99283

== ENCOUNTER 2024-06-09 21:22 | Emergency (ER) | payer MEDICARE, MEDICAID, SELFPAY ==
[2024-06-09 21:30] VITALS: BP 128/84; PULSE 108; RESP 18; TEMP 36.8; O2SAT 97
--- NOTE | 2024-06-09 21:43 | ED.GENADUL_ITS ---
Discharge Plan Disposition Patient Disposition: Home Discharge Details Clinical Impression: Suicidal thoughts Primary Care Provider: Antonio Burgos ED Provider: Erickson Santos Home Meds and New Rx's Prescriptions: Continued clonazepam 1 mg tablet 2 mg PO QHS PRN Patient Comments: TK 1/2 TO 1 T PO QHS prazosin 1 mg capsule 1 mg PO QHS zolpidem 5 mg tablet 5 mg PO QHS omeprazole 40 mg capsule,delayed release(DR/EC) 40 mg PO PRN PRN desvenlafaxine succinate 25 mg tablet extended release 24 hr 25 mg PO DAILY Patient Comments: TAKE 1 TABLET BY MOUTH DAILY FAILED MULTIPLE TRIALS OF ANTIDEPRESSANTS epinephrine 0.3 mg/0.3 mL auto-injector 0.3 mg IM ONCE PRN Patient Comments: ADMINISTER 0.3 MG IN THE MUSCLE 1 TIME Discharge Instructions Additional Instructions: You are seen in the emergency department for your thoughts of self-harm. You are able to make a safety plan. If you do not feel safe with this plan please return to the emergency department. HPI General Date/Time Provider Initiated Documentation: 06/09/24 21:43 . HPI Narrative: MDM This is a quite well appearing mildly tachycardic normothermic 28-year-old male with recurrent ED presentation for which patient will remain in the emergency department with crisis screening with [facility]. Patient has had no interval falls to suggest intracranial hemorrhage. No shortness of breath to suggest PE. Not altered to suggest hypoglycemia. Patient had had a safety check and call this evening and felt fine. 10:55 PM Patient and his mental health provider, Nicolas Askew, met in the waiting room. Patient no longer wanting to stay in the emergency department. He remained alert and oriented. His tachycardia resolved without intervention. I advised him that if he did not feel safe with this plan that he should return to the emergency department. HPI This is a 28-year-old male with history of depression arrived emergency department via private vehicle with his mental health worker manage currently in setting of suicidal thoughts. Patient was in the emergency department earlier this evening. He elected to be discharged. Subsequently he felt unsafe at home want to come back into the emergency department. There is a plan in place for him to go to the care bed in 2 days. Exam General: Well-appearing in no acute distress speaking in complete sentences. Head: Normocephalic, atraumatic. Eye: Extraocular eye movements intact. No conjunctival injection. No scleral icterus. Ear, nose, mouth, throat: Grossly normal inspection. Normal voice, handling secretions normally. Neck: Trachea midline. Cardiovascular: Well-perfused distal extremities. Respiratory: Nonlabored respiration. Gastrointestinal: Nondistended abdomen. Musculoskeletal: No edema. Moving all 4 extremities spontaneously. Skin: Normal for age and race, grossly normal temperature and turgor. No acute rash. Neurologic: Alert and appropriate, no apparent acute deficits. Alert and oriented to person place and time. Psychiatric: Mood and manner are appropriate. Grooming and personal hygiene are appropriate. No pressured speech. No flight of ideas. Pleasant. Related Data Home Medications ?Medication ?Instructions ?Recorded ?Confirmed clonazepam 1 mg tablet 2 mg PO QHS PRN 07/04/19 06/09/24 prazosin 1 mg capsule 1 mg PO QHS 05/16/23 06/09/24 desvenlafaxine succinate 25 mg 25 mg PO DAILY 06/09/24 06/09/24 tablet,extended release 24 hr epinephrine 0.3 mg/0.3 mL 0.3 mg IM ONCE PRN 06/09/24 06/09/24 injection, auto-injector omeprazole 40 mg capsule,delayed 40 mg PO PRN PRN 06/09/24 06/09/24 release zolpidem 5 mg tablet 5 mg PO QHS 06/09/24 06/09/24 Allergies Allergy/AdvReac Type Severity Reaction Status Date / Time ortiz pepper (green pepper) Allergy Swelling/Ed Unverified 06/09/24 21:35 feroz ortiz peppers Allergy Intermediate swelling, Uncoded 06/09/24 21:35 edema, vomiting SSRI AdvReac Other (See Uncoded 06/09/24 21:35 Comment) General Stated Complaint: PsychEval MARQUISE: 2 Course Vital Signs Vital signs: Vital Signs Temperature 36.8 C 06/09/24 21:30 Pulse 108 H 06/09/24 21:30 Respiratory Rate 18 06/09/24 21:30 Blood Pressure 128/84 06/09/24 21:30 Pulse Oximetry 97 06/09/24 21:30 Temperature 36.8 C 06/09/24 21:30 Pulse 108 H 06/09/24 21:30 Respiratory Rate 18 06/09/24 21:30 Blood Pressure 128/84 06/09/24 21:30 Pulse Oximetry 97 06/09/24 21:30 Oxygen Delivery Method Room Air 06/09/24 21:30 Oxygen Flow Rate 0 06/09/24 21:30 Medical Decision Making Quality:SDOH Health Related Social Needs: No Data to Display PFSH All Active Problems (Updated 06/09/24 @ 22:47 by Erickson Santos MD) Suicidal thoughts (Acute) Suicide ideation (Acute) Chronic appendicitis (Acute) Vomiting (Acute) Abdominal pain (Acute) Suicidal ideation (Acute) Depression (Chronic) Light-headed feeling (Acute) Medical History 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
[2024-06-09 22:48] VITALS: PULSE 92
== END 2024-06-09 22:51 | disposition home or self-care (01) ==
PROVIDERS: Emergency Provider Emergency Medicine; PCP Family Medicine
DX: R45.851 Suicidal ideations (principal)
CPT/HCPCS: 99284; 99283

== ENCOUNTER 2024-09-25 14:13 | Emergency (ER) | payer MEDICARE, MEDICAID, SELFPAY ==
[2024-09-25 14:20] VITALS: BP 134/86; PULSE 106; RESP 16; O2SAT 98
--- NOTE | 2024-09-25 14:47 | W.ED.GENAD ---
Discharge Plan Disposition Patient Disposition: Home Condition: Stable Discharge Details Clinical Impression: Depression Primary Care Provider: Antonio Burgos ED Provider: Vernon Snyder Home Meds and New Rx's Prescriptions: Continued clonazepam 1 mg tablet 2 mg PO QHS PRN Patient Comments: TK 1/2 TO 1 T PO QHS prazosin 1 mg capsule 1 mg PO QHS zolpidem 5 mg tablet 5 mg PO QHS omeprazole 40 mg capsule,delayed release(DR/EC) 40 mg PO PRN PRN desvenlafaxine succinate 25 mg tablet extended release 24 hr 25 mg PO DAILY Patient Comments: TAKE 1 TABLET BY MOUTH DAILY FAILED MULTIPLE TRIALS OF ANTIDEPRESSANTS epinephrine 0.3 mg/0.3 mL auto-injector 0.3 mg IM ONCE PRN Patient Comments: ADMINISTER 0.3 MG IN THE MUSCLE 1 TIME Discharge Instructions Additional Instructions: Follow-up with your primary care provider and also your mental health providers. If you have worsening thoughts of self-harm return to the emergency department for reevaluation. HPI General Mode of arrival: ambulatory. Date/Time Provider Initiated Documentation: 09/25/24 14:27. Limitations to Documentation: no limitations. Information obtained by: patient. History of Present Illness 29 year old M presents to the emergency department with the chief complaint of SI, Patient started experiencing this month(s) (1) and it has been constant. No relieving factors improve symptom(s), No exacerbating factors reported . Patient notes no other symptoms.. Patient did receive the following treatments prior to arrival, none Related Data Home Medications ?Medication ?Instructions ?Recorded ?Confirmed clonazepam 1 mg tablet 2 mg PO QHS PRN 07/04/19 09/25/24 prazosin 1 mg capsule 1 mg PO QHS 05/16/23 09/25/24 desvenlafaxine succinate 25 mg 25 mg PO DAILY 06/09/24 09/25/24 tablet,extended release 24 hr epinephrine 0.3 mg/0.3 mL 0.3 mg IM ONCE PRN 06/09/24 09/25/24 injection, auto-injector omeprazole 40 mg capsule,delayed 40 mg PO PRN PRN 06/09/24 09/25/24 release zolpidem 5 mg tablet 5 mg PO QHS 06/09/24 09/25/24 Allergies Allergy/AdvReac Type Severity Reaction Status Date / Time ortiz pepper (green pepper) Allergy Swelling/Ed Unverified 09/25/24 14:24 feroz ortiz peppers Allergy Intermediate swelling, Uncoded 09/25/24 14:24 edema, vomiting SSRI AdvReac Other (See Uncoded 09/25/24 14:24 Comment) General Stated Complaint: PsychEval MARQUISE: 2 Review of Systems All systems reviewed & are unremarkable except as noted in HPI and below Constitutional Constitutional: Denies chills and Denies fever(s) Cardiovascular Cardiovascular: Denies chest pain and Denies dyspnea Respiratory Respiratory: Denies cough and Denies dyspnea Gastrointestinal Gastrointestinal: Denies abdominal pain, Denies nausea and Denies vomiting Psychiatric Psychiatric: Reports depression Exam Const General: no acute distress Orientation: alert HENMT Head: normal to inspection Ears: external ears normal General nose exam: external nose normal Mouth: moist mucous membranes Eyes General: appearance normal, both eyes and all related structures Neck Neck: normal visual inspection Resp Effort & Inspection: normal respiratory effort and able to speak in complete sentences Cardio Rate: regular rate Skin General skin exam: no rashes or lesions noted Neuro General: patient alert and patient oriented x3 Extrem General: normal to inspection Psych Appearance: well kempt Speech and Movement: speech and movement normal Attitude: cooperative Course Vital Signs Vital signs: Vital Signs Pulse 106 H 09/25/24 14:20 Respiratory Rate 16 09/25/24 14:20 Blood Pressure 134/86 09/25/24 14:20 Pulse Oximetry 98 09/25/24 14:20 Pulse 106 H 09/25/24 14:20 Respiratory Rate 16 09/25/24 14:20 Blood Pressure 134/86 09/25/24 14:20 Blood Pressure Position Sitting 09/25/24 14:20 Pulse Oximetry 98 09/25/24 14:20 Oxygen Delivery Method Room Air 09/25/24 14:20 Oxygen Flow Rate 0 09/25/24 14:20 Pain Level 0 09/25/24 14:20 Medical Decision Making 29-year-old male with a history of depression comes in with 1 month of worsening depression and thoughts of self-harm. He says he is thoughts of wanting to put in front of a car. He has not meeting attempt at harming himself. He is oriented x 4 with a normal gait on arrival. He is speaking clearly. Moving all extremities well with good strength. He has been seen for similar complaints in the past. Given his reassuring exam I do not feel underlying medical process is contributing to his symptoms. He is medically cleared to speak with crisis screener Patient evaluated by crisis screener and agrees to a safety plan. They will follow-up with their PCP and also mental health providers. Return precautions given Differential Diagnosis Differential Diagnosis: SI, depression Medical Records Medical records reviewed: Yes I reviewed the patient's medical records. PFSH All Active Problems (Updated 09/25/24 @ 16:11 by Vernon Snyder MD) Chronic appendicitis (Acute) Vomiting (Acute) Abdominal pain (Acute) Suicidal ideation (Acute) Depression (Chronic) Light-headed feeling (Acute) Medical History 

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
== END 2024-09-25 16:59 | disposition home or self-care (01) ==
PROVIDERS: Emergency Provider Emergency Medicine; PCP Family Medicine
DX: R45.851 Suicidal ideations (principal); F32.A Depression, unspecified
CPT/HCPCS: 00123; 96127; 99284

== ENCOUNTER 2024-10-09 20:02 | Emergency (ER) | payer MEDICARE, MEDICAID, SELFPAY ==
[2024-10-09 20:22] VITALS: BP 128/81; PULSE 97; RESP 18; TEMP 36.7; O2SAT 96
--- NOTE | 2024-10-09 20:44 | W.ED.GENAD ---
Discharge Plan Disposition Patient Disposition: Home Discharge Details Clinical Impression: Suicidal ideation Primary Care Provider: Antonio Burgos ED Provider: Clau Cardoso Home Meds and New Rx's Prescriptions: No Action clonazepam 1 mg tablet 1 mg PO QHS PRN Patient Comments: TK 1/2 TO 1 T PO QHS prazosin 1 mg capsule 1 mg PO QHS Patient Comments: PT alternates taking this medication every other night and takes other medication on the other nights zolpidem 5 mg tablet 5 mg PO QHS Patient Comments: PT alternates taking this medication every other night and takes prazosin on the other nights omeprazole 40 mg capsule,delayed release(DR/EC) 40 mg PO PRN PRN desvenlafaxine succinate 25 mg tablet extended release 24 hr 25 mg PO DAILY Patient Comments: TAKE 1 TABLET BY MOUTH DAILY FAILED MULTIPLE TRIALS OF ANTIDEPRESSANTS epinephrine 0.3 mg/0.3 mL auto-injector 0.3 mg IM ONCE PRN Patient Comments: ADMINISTER 0.3 MG IN THE MUSCLE 1 TIME Discharge Instructions Additional Instructions: You are being safety plan at home. Please follow the instructions provided by [facility] staff and follow the plan that you created together. Please follow-up with your care team tomorrow and as scheduled. Go to [facility] on Wednesday and Wednesday night as discussed. Return to emergency care if you develop new feelings of being unsafe at home, thoughts of hurting yourself or others, or if you are very worried and need to be rechecked again immediately Referrals: [facility] [Outside] HPI General Date/Time Provider Initiated Documentation: 10/09/24 20:35. HPI Narrative: Emil is a 29-year-old male who presents to the emergency department today accompanied by his mother for evaluation of suicidal ideation. He reports that he has had suicidal ideation occurring at night for the last month since his birthday libertarian, says that he had a letdown and now he has been experiencing this persistently since then. Denies plan, current HI, self-harm behaviors, alcohol or drug use. Thinks he may have had a hallucination last night, but no auditory or threatening/persistent hallucinations. He does have a history of suicide attempt in the past by intentional ingestion. Denies recent illness such as fever/chills, congestion, sore throat, cough, abdominal pain, change in bowel or bladder function. He does have a history of cyclic vomiting, says that it is not uncommon for him to have vomit couple of times in a row. Vomited today, but feels like his symptoms are under control at this time. 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 Physical exam reassuring. Patient is alert and oriented, no acute distress. Easy work of breathing, lung sounds clear bilaterally. Normal heart sounds. No rashes or lesions noted. History and presentation consistent with depression with suicidal ideation. Patient does not have a plan. Patient able to be cleared using smart clearance Patient was evaluated by [facility] crisis staff. This is his third time presenting today, 12th time presenting in the last couple of days. He does have very close follow-up with his team, including a shoe caser and health worker checks on him daily. He is able to be safety planned home, does not have a plan or access to lethal means. Reviewed discharge instructions with patient, including plan of care and and red flags indicating need for return to emergency care Related Data Home Medications ?Medication ?Instructions ?Recorded ?Confirmed clonazepam 1 mg tablet 1 mg PO QHS PRN 07/04/19 10/09/24 prazosin 1 mg capsule 1 mg PO QHS 05/16/23 10/09/24 desvenlafaxine succinate 25 mg 25 mg PO DAILY 06/09/24 10/09/24 tablet,extended release 24 hr epinephrine 0.3 mg/0.3 mL 0.3 mg IM ONCE PRN 06/09/24 10/09/24 injection, auto-injector omeprazole 40 mg capsule,delayed 40 mg PO PRN PRN 06/09/24 10/09/24 release zolpidem 5 mg tablet 5 mg PO QHS 06/09/24 10/09/24 Allergies Allergy/AdvReac Type Severity Reaction Status Date / Time ortiz pepper (green pepper) Allergy Swelling/Ed Unverified 10/09/24 20:27 feroz ortiz peppers Allergy Intermediate swelling, Uncoded 10/09/24 20:27 edema, vomiting SSRI AdvReac Other (See Uncoded 10/09/24 20:27 Comment) General Stated Complaint: PsychEval MARQUISE: 2 Exam Const General: cooperative, healthy appearing, comfortable and no acute distress Nutritional Appearance: average body habitus Orientation: alert and oriented x3 Resp Effort & Inspection: normal respiratory effort and able to speak in complete sentences Cardio Rate: regular rate Rhythm: regular rhythm GI Inspection: normal to inspection and non-distended Palpation: soft, not firm, no guarding and nontender Skin General skin exam: no rashes or lesions noted Psych Appearance: grossly normal Mental Status: mental status grossly normal Speech and Movement: speech and movement normal Affect: blunted Attitude: cooperative Thought Content: suicidality Course Vital Signs Vital signs: Vital Signs Temperature 36.7 C 10/09/24 20:22 Pulse 97 H 10/09/24 20:22 Respiratory Rate 18 10/09/24 20:22 Blood Pressure 128/81 10/09/24 20:22 Pulse Oximetry 96 10/09/24 20:22 Temperature 36.7 C 10/09/24 20:22 Pulse 97 H 10/09/24 20:22 Respiratory Rate 18 10/09/24 20:22 Blood Pressure 128/81 10/09/24 20:22 Pulse Oximetry 96 10/09/24 20:22 Pain Level 0 10/09/24 20:22 PFSH All Active Problems (Updated 10/09/24 @ 22:28 by Clau Tierney) Chronic appendicitis (Acute) Vomiting (Acute) Abdominal pain (Acute) Suicidal ideation (Acute) Depression (Chronic) Light-headed feeling (Acute) Medical History 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
[2024-10-09 22:36] VITALS: PULSE 90; RESP 18; O2SAT 97
== END 2024-10-09 22:38 | disposition home or self-care (01) ==
PROVIDERS: Emergency Provider Nurse Practitioner Family; PCP Family Medicine
DX: R45.851 Suicidal ideations (principal); F32.A Depression, unspecified
CPT/HCPCS: 99284